=== PATIENT | female | born 1945 | race Caucasian/White ===

== ENCOUNTER 2017-05-01 08:12 | Observation (INO) | payer MEDICARE, OTHER ==
[2017-05-01 08:53] LABS: Hematocrit 44 % (35-47); Hemoglobin 15.1 g/dl (12.0-16.0); Mean Corpuscular HGB Conc 35 g/dl (31-36); Mean Corpuscular Hemoglobin 32 pg (27-31); Mean Corpuscular Volume 91 fL (80-97); Mean Platelet Volume 9 um3 (7.4-10.4); Red Blood Count 4.77 10^6/ul (4.0-5.4); Red Cell Distribution Width 13 % (10.5-15); White Blood Count 8.1 10^3/ul (3.5-10.8)
[2017-05-01] MEDS ORDERED: ceFAZolin 2 GM PREMIX (*) 50 ML IVPB ONE (09:00)
[2017-05-01 09:08] LABS: BUN/Creatinine Ratio 23.6 (8-20); Calcium 9.4 mg/dL (8.6-10.3); EGFR African American 101.8 (>60); EGFR Non-African American 79.2 (>60); Potassium 4.1 mmol/L (3.5-5.0)
[2017-05-01] MEDS ORDERED: Diazepam TAB(*) 5 MG ONE (09:24)
[2017-05-01] MEDS ORDERED: fentaNYL* 50 MCG/ML 2 ML VIAL (100 MCG VIAL) ONE (09:56)
[2017-05-01] MEDS ORDERED: Midazolam* 1 MG/ML 5 ML VIAL (5 MG) ONE (09:57)
[2017-05-01] MEDS ORDERED: Lidocaine 1% INJ* 10 MG/ML 30 ML SDV ONE (09:57)
[2017-05-01] MEDS ORDERED: Iohexol 300 (CONTRAST) 10 ML SDV ONE (09:58)
[2017-05-01] MEDS ORDERED: hydrOXYzine HCL TAB* 25 MG PO PRN (11:52)
[2017-05-01] MEDS ORDERED: Zolpidem TAB* 10 MG PO PRN (11:56)
--- NOTE | 2017-05-01 13:17 | RAD ---
INDICATION: Device implant COMPARISON: None TECHNIQUE: An AP portable view obtained at 1250 hours is submitted. FINDINGS: Bones/Soft Tissues: There are no acute bony findings. There is recent right-sided cardiac pacemaker placement. There is no pneumothorax Cardiomediastinal: The cardiomediastinal silhouette is normal. There is no vascular congestion Lungs: There are no infiltrates. There is no pneumothorax. Pleura: There are no pleural effusions. Other: None IMPRESSION: CARDIAC PACEMAKER. LUNGS CLEAR.
[2017-05-01] MEDS: Acetaminophen TAB* 325 MG PO PRN ×2 (14:24→20:05)
[2017-05-01] MEDS: ceFAZolin 500 MG VIAL(*) 500 MG in NS 0.9% 50 ML* 50 ML IVPB SCH (18:05)
[2017-05-01] MEDS: metFORMIN* 500 MG TAB PO SCH (20:05)
[2017-05-01] MEDS ORDERED: ATORVASTATIN 10 MG PO SCH (21:00)
[2017-05-01] MEDS ORDERED: GABAPENTIN 300 MG PO SCH (21:00)
[2017-05-02] MEDS: ceFAZolin 500 MG VIAL(*) 500 MG in NS 0.9% 50 ML* 50 ML IVPB SCH (01:28)
--- NOTE | 2017-05-02 04:59 | OP ---
CC: Dr. Angulo; Dr. Irene * DATE OF OPERATION: 05/01/17 - ROOM #[id number] DATE OF : 41 SURGEON: Flores Gibson MD ANESTHESIA: MAC. PRE-OP DIAGNOSIS: Sick sinus syndrome with chronotropic incompetence. POST-OP DIAGNOSIS: Sick sinus syndrome with chronotropic incompetence. OPERATIVE PROCEDURE: Pacemaker implantation. INDICATIONS: The indications, risks, and benefits have been discussed with the patient in the presence of her partner in the office and again this morning, prior to the procedure, opportunity was given to ask questions. All questions were answered. The patient was amenable to proceeding. ESTIMATED BLOOD LOSS: Less than 5 cc. COMPLICATIONS: None. DESCRIPTION OF PROCEDURE: She is left-handed and right subclavian fossa was prepped and draped in the usual sterile fashion. Following this, a time-out procedure was called. 10 cc of radiopaque dye was injected in the right upper extremity outlining the right subclavian and axillary veins. Following this, the patient received a total of 18 cc of 1% lidocaine for local anesthesia and throughout the procedure, a total of 5 mg of Versed and 50 mcg of fentanyl. Following the local anesthesia, using a 10-blade knife, a 2.5-cm incision was made in the right subclavian fossa and using Bovie and blunt dissection was extended to the level of the pectoralis muscle. A shelby was made in the fascia, additional lidocaine infused medially and laterally, and using blunt dissection , a small pocket was fashioned. Using a modified Seldinger technique, the right subclavian vein was accessed using fluoroscopic guidance, and a guidewire was inserted. This procedure was repeated with a second guidewire. The right ventricular lead was guided into the right ventricular apex and actively fixed in place. Pacing and sensing thresholds were adequate. Using a second lead and an introducer technique again, the right atrial lead was guided into the right atrial appendage. The first pass did not have adequate pacing thresholds, the active fixation lead was retracted and repositioned. Initially, the pacing thresholds were high, but improved with time. The leads were then sutured to the pocket using 0 silk suture. The pocket was copiously irrigated with normal saline. The leads were then attached to the device. The device was placed in the pocket and the pocket was closed using 2 layers of resorbable suture, 2-0 followed by 4-0 followed by steve and an external dressing. FINDINGS: The system is an MRI compatible system. The device is a [employer] A2DR01, serial number [id number]. Currently programmed in dual chamber mode at low rate of 60 beats per minute. The atrial lead is a Medtronic model -45, serial number [id number] with P waves sensed at 2.7 millivolts, and atrial lead impedance of 675 ohms and the atrial pacing threshold of 1.6 volts at 1 milliseconds. The right ventricular lead is a Medtronic MRI compatible model 5076-52, serial number [id number] with R waves sensed at 5.4 millivolts and ventricular lead impedance of 1279 ohms and a ventricular pacing threshold of 1 volt at 0.5 milliseconds. The patient was hemodynamically stable throughout the procedure and on transfer to the floor, and again no complications. [id number]/[facility] #: [id number] BETTE
[2017-05-02 07:40] VITALS: BP 158/64
[2017-05-02] MEDS: metFORMIN* 500 MG TAB PO SCH (07:51)
--- NOTE | 2017-05-02 08:39 | RAD ---
INDICATION: Status post device implant COMPARISON: Similar chest x-ray May 01, 2017 TECHNIQUE: PA and lateral views of the chest were obtained. FINDINGS: Again seen is a right upper chest cardiac pacemaker with 2 leads overlying the heart. Surgical skin steve are noted. The heart and mediastinum are normal in size and contour. The lungs are grossly clear. There is no evidence of large pleural effusion. Visualized bones are normal for the patient's age. There is no radiographic evidence of free air beneath the diaphragm IMPRESSION: No radiographic evidence of acute cardiopulmonary disease.
[2017-05-02] MEDS ORDERED: PANTOPRAZOLE 40 MG PO SCH (09:00)
[2017-05-02] MEDS ORDERED: AMLODIPINE 5 MG PO SCH (09:00)
[2017-05-02] MEDS ORDERED: Cetirizine* 10 MG TAB PO SCH (09:00)
[2017-05-02] MEDS ORDERED: FLUOXETINE 40 MG PO SCH (09:00)
--- NOTE | 2017-05-02 17:09 | DS ---
CC: Dr. Angulo; Dr. Irene * DISCHARGE SUMMARY: DATE OF ADMISSION: DATE OF DISCHARGE: 05/02/17 HISTORY OF PRESENT ILLNESS AND HOSPITAL COURSE: Ms. Olmstead is a 72-year-old woman referred to me by Dr. Irene for chronotropic incompetence and she underwent dual- chamber pacemaker implantation with an MRI compatible device on 05/01/17. Overnight, the patient had some mild incisional pain on the right side where her pacemaker was implanted and pain in the antecubital fossa where her IV was. This responded to repositioning. The site itself was nontender. On day of discharge, she had only mild tenderness at the site. The severe chest pain had resolved and the antecubital pain had improved once her arm was not flexed. She has had no shortness of breath and ambulating in the hallway and to the bathroom without problems. PROBLEM LIST: 1. Chronotropic incompetence with exertional dyspnea. 2. Reflux. 3. Hypertension. 4. Type 2 diabetes. 5. Dyslipidemia. 6. Mitral valve prolapse with mild mitral insufficiency. 7. Mild aortic valve stenosis and depression. On the day of discharge, on exam, the patient's blood pressure was 158/64. Pulse is 62 and regular. Respiratory rate was 16. Oxygen saturation on room air was 96% and temperature 98.0. PHYSICAL EXAMINATION: On exam, the patient is an older woman, in bed, in no acute distress. Psychologically pleasant and cooperative. Incision in the right subclavian fossa is well healed. No evidence of infection, ecchymosis, or hematoma. It is not tender to touch, although she complains that it is mildly tender. Respirations were clear with good effort. No wheezes, rales or rhonchi. Coronary: S1, S2, regular with a soft systolic murmur heard. Abdomen : Soft. DIAGNOSTIC STUDIES: Pacemaker interrogation from 05/02/17 confirms she has an MRI- compatible Medtronic system. She atrially paces 24% of the time, ventricularly paces 8% of the time. Atrial sensing is 1.6 mV with an atrial lead impedance of 456 ohms and an atrial pacing threshold of 0.75 volts at 0.4 milliseconds. R-wave sensing is 5.6 millivolts with ventricular lead impedance of 7.98 ohms and a ventricular pacing threshold of 1 volt at 0.4 milliseconds. The patient's discharge programming is MVP mode (AAIR/DDDR) with a low rate of 60 beats a minute. Chest x-rays show good lead placement and no evidence of pneumothorax on 05/01 and 05/02. Labs from 05/01: White count 8.1, hemoglobin 15.1, hematocrit 44, and platelets 270, INR 0.94, PTT 30. Sodium 136, potassium 4.1, chloride 104, bicarb 24, glucose 161, BUN 17, creatinine 0.7. MEDICATIONS ON DISCHARGE: Include: 1. Tylenol p.r.n. 2. Atorvastatin 10 mg a day. 3. Zyrtec 10 mg a day. 4. Prozac 40 mg a day. 5. Neurontin 300 mg q.h.s. 6. Protonix 40 mg a day. 7. Amlodipine 5 mg a day. 8. Atarax 25 mg t.i.d. p.r.n. 9. Metformin 500 mg b.i.d. 10. Calcium carbonate and vitamin D. 11. Keflex 250 mg t.i.d. 12. Lactobacillus capsules. 13. Multivites. Her Celebrex will be held until her wound check, but tentatively will be able to be resumed in a week (100 mg a day). Verbal and written instructions about wound care was provided to patient. She is scheduled for wound check in 1 week's time. [id number]/[facility] #: [id number] MTDD
== END 2017-05-02 10:43 | disposition home or self-care (01) ==
LOC: CHICATH 08:12 → MEDTELE 11:57
PROVIDERS: ADMIT Specialist; ATTEND Specialist
DX: I45.89 Other specified conduction disorders (principal); I49.5 Sick sinus syndrome; I10 Essential (primary) hypertension; I34.1 Nonrheumatic mitral (valve) prolapse; I34.0 Nonrheumatic mitral (valve) insufficiency; I35.0 Nonrheumatic aortic (valve) stenosis; E78.5 Hyperlipidemia, unspecified; E11.8 Type 2 diabetes mellitus with unspecified complications; Z79.84 Long term (current) use of oral hypoglycemic drugs; Z79.899 Other long term (current) drug therapy
CPT/HCPCS: 33208; 36415; 71010; 71020; 80048; 85027; 85610; 85730; 93005; 96374; 99156; 99157; A9270-GY; C1785; C1898; G0378; J0690; J2001; J2250; J3010; Q9967

== ENCOUNTER 2017-11-18 15:02 | Emergency (ER) | payer MEDICARE, OTHER ==
[2017-11-18 15:38] VITALS: BP 133/95
--- NOTE | 2017-11-18 15:40 | UC ---
Minor Trauma HPI - HPI Summary HPI Summary: Pt presents with abrasions to nose, right wrist pain, and left knee pain s/p fall about 1 hour [employer]. She tells me that she was walking her dog and went to run ahead of him - fell face forward and injured her right wrist and left knee. Slide her nose on the ground. Did not hit her head or have LOC. She went home and cleaned the areas and applied bandaids. Here today complaining mostly of right wrist pain. Denies headache, dizziness, vision changes, numbness, or tingling. - History of Current Complaint Hx Obtained From: Patient Hx Last Menstrual Period: post menopause Onset/Duration: Sudden Onset Severity Initially: Moderate Severity Currently: Moderate Pain Intensity: 5 Pain Scale Used: 0-10 Numeric Mechanism Of Injury: Fall From A Standing Position Aggravating Factor(s): Movement Alleviating Factor(s): Nothing <Ivan Stern - Last Filed: 11/18/17 17:06> <Terrie Ivan - Last Filed: 11/18/17 17:34> - History of Current Complaint Chief Complaint: UCTrauma Stated Complaint: WRIST AND FACIAL INJURY Time Seen by Provider: 11/18/17 15:30 - Allergies/Home Medications Allergies/Adverse Reactions: Allergies Allergy/AdvReac Type Severity Reaction Status Date / Time No Known Allergies Allergy Verified 05/01/17 09:36 PMH/Surg Hx/FS Hx/Imm Hx Previously Healthy: Yes Endocrine History: Diabetes, Dyslipidemia Cardiovascular History: Hypertension GI/ History: Gastroesophageal Reflux - Surgical History Surgical History: Yes Surgery Procedure, Year, and Place: BREAST REDUCTION,HYSTERECTOMY - Family History Known Family History: Positive: Cardiac Disease, Hypertension, Diabetes - Social History Occupation: Retired Lives: With Family Alcohol Use: Weekly Substance Use Type: None Smoking Status (MU): Never Smoked Tobacco <Ivan Stern - Last Filed: 11/18/17 17:06> Review of Systems Constitutional: Negative Skin: Other - Abrasions nose and left knee Respiratory: Negative Cardiovascular: Negative Gastrointestinal: Negative Neurovascular: Negative Musculoskeletal: Other: - Right wrist pain Neurological: Negative Psychological: Negative All Other Systems Reviewed And Are Negative: Yes <Ivan Stern - Last Filed: 11/18/17 17:06> Physical Exam - Summary Physical Exam Summary: GENERAL: NAD. WDWN. No pain distress. SKIN: <5mm abrasion to nasal bridge. Abrasion to left anterior knee. No FBs. NECK: Supple. Nontender. No lymphadenopathy. CHEST: CTAB. No r/r/w. No accessory muscle use. Breathing comfortably and in no distress. CV: RRR. Without m/r/g. Pulses intact radial and ulnar. MSK: Right wrist: Moderate TTP generalized. No snuffbox tenderness. FROM. Intact wire stripper strength. No edema or obvious bony deformities. Left knee: NTTP. FROM. Strength 5/5. No obvious deformity. NEURO: Alert. Sensations intact hand and all fingers. CN II-XII grossly intact. PSYCH: Age appropriate behavior. Triage Information Reviewed: Yes Vital Signs: Initial Vital Signs Temp 95.5 F 11/18/17 15:31 Pulse 68 11/18/17 15:31 Resp 16 11/18/17 15:31 BP 133/95 11/18/17 15:31 Pulse Ox 98 11/18/17 15:31 <Ivan Stern - Last Filed: 11/18/17 17:06> Vital Signs: Initial Vital Signs Temp 95.5 F 11/18/17 15:31 Pulse 68 11/18/17 15:31 Resp 16 11/18/17 15:31 BP 133/95 11/18/17 15:31 Pulse Ox 98 11/18/17 15:31 <Terrie Ivan - Last Filed: 11/18/17 17:34> Minor Trauma Course/Dx - Course Course Of Treatment: Wrist XR: IMPRESSION: Normal radiograph of the right wrist. Knee XR: IMPRESSION: Mild degenerative changes without radiographically apparent acute fracture or dislocation. Right wrist was placed in a cock up splint. Advised RICE, ibuprofen, and f/u with PCP prn. - Differential Dx/Diagnosis Provider Diagnoses: Right wrist sprain. Facial abrasion. Left knee abrasion <Ivan Stern - Last Filed: 11/18/17 17:06> Discharge <Ivan Stern - Last Filed: 11/18/17 17:06> <Terrie Ivan - Last Filed: 11/18/17 17:34> - Discharge Plan Condition: Stable Disposition: HOME Patient Education Materials: Abrasion (ED), Wrist Sprain (ED) Referrals: Arnoldo Angulo DO [Primary Care Provider] - Additional Instructions: If you develop a fever, shortness of breath, chest pain, new or worsening symptoms - please call your PCP or go to the ED. Your blood pressure was high at todays visit. Please see your primary provider within 4 weeks for recheck and re-evaluation. Attestation Statement User Type: Provider - I was available for consult. This patient was seen by the TORRIE. The patient was not presented to, seen by, or examined by me. Stephanie <Terrie Ivan - Last Filed: 11/18/17 17:34>
--- NOTE | 2017-11-18 16:19 | RAD ---
INDICATION: Left knee pain after a fall COMPARISON: None TECHNIQUE: 4 view radiograph of the left knee. FINDINGS: The visualized bones are well-corticated and properly aligned. Degenerative changes of the left knee include narrowing of the medial compartment with mild sclerotic change of the articulating surface of the tibial plateau. There is no radiographic evidence of joint effusion. There is no acute fracture, dislocation or other focal bony abnormality. IMPRESSION: Mild degenerative changes without radiographically apparent acute fracture or dislocation. If the patient's symptoms persist, follow-up imaging is recommended.
--- NOTE | 2017-11-18 16:20 | RAD ---
INDICATION: Right wrist pain after a fall COMPARISON: None. TECHNIQUE: 3 views right wrist. REPORT: The visualized bones are properly aligned and well corticated. The joint spaces are normal.There is no fracture, dislocation or other focal osseous abnormality. IMPRESSION: Normal radiograph of the right wrist. If the patient's symptoms persist, follow-up imaging is recommended.
== END 2017-11-18 16:55 | disposition home or self-care (01) ==
LOC: UCEAST 15:02
DX: S63.501A Unspecified sprain of right wrist, initial encounter (principal); S80.212A Abrasion, left knee, initial encounter; S00.31XA Abrasion of nose, initial encounter; W18.30XA Fall on same level, unspecified, initial encounter; Y93.K1 Activity, walking an animal; Y92.9 Unspecified place or not applicable; E11.9 Type 2 diabetes mellitus without complications; Z79.84 Long term (current) use of oral hypoglycemic drugs; E78.5 Hyperlipidemia, unspecified; I10 Essential (primary) hypertension; K21.9 Gastro-esophageal reflux disease without esophagitis
CPT/HCPCS: 99213; G0463

== ENCOUNTER 2018-08-30 18:39 | Emergency (ER) | payer MEDICARE, OTHER ==
[2018-08-30 19:54] VITALS: BP 157/73
[2018-08-30] MEDS ORDERED: guaiFENesin/CODIEN 100MG-10MG* 5 ML UDC PO ONE (20:23)
--- NOTE | 2018-08-30 20:23 | UC ---
Respiratory Complaint HPI - HPI Summary HPI Summary: c/o cough no fevers no sob gets this almost yearly---here requesting robitussin and codeine for cough--- - History of Current Complaint Chief Complaint: UCRespiratory Stated Complaint: COUGH Time Seen by Provider: 08/30/18 20:12 Hx Obtained From: Patient Hx Last Menstrual Period: post menopause ?: No Onset/Duration: Sudden Onset, Lasting Days Timing: Constant Pain Intensity: 3 Pain Scale Used: 0-10 Numeric Character: Cough: Nonproductive Aggravating Factors: Nothing Alleviating Factors: Nothing Associated Signs And Symptoms: Positive: Negative - Allergies/Home Medications Allergies/Adverse Reactions: Allergies Allergy/AdvReac Type Severity Reaction Status Date / Time No Known Allergies Allergy Verified 05/01/17 09:36 Home Medications: Home Medications GuaiFENesin DM* [Robitussin DM*] 10 ml PO DAILY 08/30/18 [History Confirmed ] PMH/Surg Hx/FS Hx/Imm Hx Endocrine History: Dyslipidemia Cardiovascular History: Hypertension GI/ History: Gastroesophageal Reflux - Surgical History Surgical History: Yes Surgery Procedure, Year, and Place: BREAST REDUCTION,HYSTERECTOMY - Family History Known Family History: Positive: Cardiac Disease, Hypertension, Diabetes - Social History Occupation: Retired Lives: With Family Alcohol Use: Weekly Substance Use Type: None Smoking Status (MU): Never Smoked Tobacco Review of Systems All Other Systems Reviewed And Are Negative: Yes Constitutional: Positive: Negative Skin: Positive: Negative Eyes: Positive: Negative ENT: Positive: Negative Respiratory: Positive: Cough Cardiovascular: Positive: Negative Gastrointestinal: Positive: Negative Genitourinary: Positive: Negative Motor: Positive: Negative Neurovascular: Positive: Negative Musculoskeletal: Positive: Negative Neurological: Positive: Negative Psychological: Positive: Negative Is Patient Immunocompromised?: No Physical Exam Triage Information Reviewed: Yes Appearance: Well-Appearing, No Pain Distress, Well-Nourished Vital Signs: Initial Vital Signs Temp 98.5 F 08/30/18 19:51 Pulse 86 08/30/18 19:51 Resp 18 08/30/18 19:51 BP 157/73 08/30/18 19:51 Pulse Ox 96 08/30/18 19:51 Vital Signs Reviewed: Yes Eye Exam: Normal Eyes: Positive: Conjunctiva Clear ENT Exam: Normal ENT: Positive: Normal ENT inspection, Hearing grossly normal, Pharynx normal, TMs normal, Uvula midline. Negative: Nasal congestion, Trismus, Muffled voice, Hoarse voice, Sinus tenderness Dental Exam: Normal Neck exam: Normal Neck: Positive: Supple, Nontender, No Lymphadenopathy Respiratory Exam: Normal Respiratory: Positive: Chest non-tender, Lungs clear, Normal breath sounds, No respiratory distress, No accessory muscle use Cardiovascular Exam: Normal Cardiovascular: Positive: RRR, No Murmur, Pulses Normal, Brisk Capillary Refill Musculoskeletal Exam: Normal Musculoskeletal: Positive: Strength Intact, ROM Intact, No Edema Neurological Exam: Normal Neurological: Positive: Alert, Muscle Tone Normal Psychological Exam: Normal Skin Exam: Normal Diagnostic Evaluation - Laboratory O2 Sat by Pulse Oximetry: 96 Respiratory Course/Dx - Course Course Of Treatment: increase fluids, tylenol, ibuprofen for pain robitusssin and codiene prn cough follow with pcp prn - Differential Dx/Diagnosis Provider Diagnosis: URI with cough and congestion Discharge - Sign-Out/Discharge Documenting (check all that apply): Patient Departure All imaging exams completed and their final reports reviewed: No Studies - Discharge Plan Condition: Stable Disposition: HOME Prescriptions: guaiFENesin/CODIEN 100MG-10MG* [Robitussin AC 100Mg-10Mg*] 5 ml PO Q4H PRN #90 udc MDD 40 PRN Reason: cough Patient Education Materials: Upper Respiratory Infection (ED), Hypertension (ED ), Acute Cough (ED) Referrals: Arnoldo Angulo DO [Primary Care Provider] - 2 Weeks - Billing Disposition and Condition Condition: STABLE Disposition: Home
== END 2018-08-30 20:37 | disposition home or self-care (01) ==
LOC: UCCORT 18:39
DX: J06.9 Acute upper respiratory infection, unspecified (principal); R05 Cough; R09.81 Nasal congestion
CPT/HCPCS: 99212; A9270-GY; G0463

== ENCOUNTER 2018-10-21 07:30 | Inpatient (IN) | payer MEDICARE, OTHER ==
--- NOTE | 2018-10-16 10:13 | HP ---
AMENDED REPORT NOW INCLUDES COSIGNER DESIGNATION HISTORY AND PHYSICAL: DATE OF SURGERY: 10/21/18 DATE OF OFFICE VISIT: 10/15/18 SURGEON: Christiana Willoughby MD.* (DICTATED BY KRISTAL AMADOR) PROCEDURE: Right total hip arthroplasty. CHIEF COMPLAINT: Right hip pain. HISTORY OF PRESENT ILLNESS: Ms. Olmstead is a 73-year-old female with continued complaints of right hip pain. She has failed conservative treatment and elected to proceed with a right total hip arthroplasty. PAST MEDICAL HISTORY: Depression, GERD, hypertension, mild asthma, diabetes, high cholesterol, pacemaker, and fibromyalgia. PAST SURGICAL HISTORY: Endoscopy, cholecystectomy, rhinoplasty, pacemaker placement, and hysterectomy. CURRENT MEDICATIONS: 1. Amlodipine 10 mg daily. 2. Fluoxetine 40 mg daily. 3. Pantoprazole 40 mg daily. 4. Celebrex 100 mg daily. 5. Vitamin B12. 6. Metformin 500 mg twice a day. 7. Multivitamin. 8. Atorvastatin calcium 20 mg a day. 9. Hydroxyzine 25 mg 1 to 2 tabs 3 times a day as needed. 10. Temazepam 7.5 mg as needed. 11. Gabapentin 100 mg twice a day. 12. Calcium with vitamin D. 13. Cetirizine. ALLERGIES: No known drug allergies. FAMILY HISTORY: Diabetes, coronary artery disease, stroke, and cancer. SOCIAL HISTORY: She is a 73-year-old female. She lives with her . She does not smoke or use drugs. Uses occasional alcohol. REVIEW OF SYSTEMS: A complete 14-point review of systems was reviewed with the patient, positive for diabetes and GERD. She denies a history of DVT, PE, hepatitis, HIV, or anesthesia problems. PHYSICAL EXAMINATION GENERAL: She is well developed, well nourished, in no acute distress. VITAL SIGNS: She stands 5 feet 3 inches tall, weighs 162 pounds. Her blood pressure is 118/72, her heart rate is 78. HEENT: Normocephalic, atraumatic. NECK: Supple. No palpable lymph nodes. PULMONARY: The lungs are clear to auscultation bilaterally. CARDIO: Regular rate and rhythm. Strong S1, S2. ABDOMEN: Soft, nontender, nondistended. NEUROLOGICAL: She is alert and oriented x3. MUSCULOSKELETAL: Right lower extremity, skin is intact. There are no open wounds or abrasions. She walks with an antalgic-type gait favoring her right hip. She has decreased internal and external rotation of the right hip. She has 2+ dorsalis pedis pulse. Intact sensation. Her lower extremity muscle group strengths are intact at 5/5. ASSESSMENT AND PLAN: Ms. Olmstead is a 73-year-old female with continued complaints of right hip pain. She has failed conservative treatment and elected to proceed with a right total hip arthroplasty. The surgery is scheduled for 10/21/[address] Willoughby discussed the risks and benefits of the surgery at today's visit and all of her questions were answered. She will follow up with Dr. Willoughby 2 weeks after the surgery. KRISTAL AMADOR [id number]/[facility] #: [id number] MTDD
[~2018-10-21 07:30] MED LIST: Buffered Lidocaine 1% SYRIN* 1 ML/SYRINGE INTRADERM ONE; Famotidine IV* 10 MG/ML 2 ML (20 mg) IV ONE; Gabapentin CAP(*) 300 MG PO ONE; Lactated Ringers 1000 ML Bag* 1,000 ML IV SCH
--- OUTSIDE RECORDS SUMMARY | 2018-10-21 09:48 | XMS REPORT | Continuity of Care Document ---
:1945 External Reference #:[id number] Author Name Andria Medellin Care Team Providers Name Role Phone Talat Orellana DO Primary Care Physician Unavailable Payers Date Identification Numbers Payment Provider Subscriber Effective: 2008 Policy Number: [id number] Medicare Yessica Olmstead PayID: [id number] [address] [place] [address] Policy Number: [id number] [employer] Yessica Olmstead Group Number: [id number] [address] PayID: [id number] [place] [address] Advance Directives Description No Information Available Problems Date Description Provider Status Onset: 07/07/2018 Trochanteric bursitis Christiana Willoughby M.D. 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 Active Family History Date Family Member(s) Observation Comments General Heart Disease General Stroke General Cancer Father due to Stroke () - at age 72 Father Hypertension Mother due to Diabetes () - from complication during amputation surgery at age 72 Mother Diabetes Type II Siblings 7 1 brother with pneumonia No known CAD w/ siblings Social History Type Date Description Comments Sex Unknown Marital Status Lives With Spouse Occupation Retired Occupation Piano Accompanist Tobacco Use Start: Unknown Never Smoked Cigarettes Smoking Status Reviewed: 10/15/18 Never Smoked Cigarettes ETOH Use Drinks 2 Alcoholic Beverages Per Week ETOH Use Drinks Alcoholic Beverages Occasionally Tobacco Use Start: Unknown Patient has never smoked Recreational Drug Use Denies Drug Use Exercise Type/Frequency Does not exercise Allergies, Adverse Reactions, Alerts Date Description Reaction Status Severity Comments 09/25/2018 Lisinopril Active Cough 10/24/2016 NKDA Inactive Medications Medication Date Status Form Strength Qnty SIG Indications Ordering Provider Amlodipine 03/21/ Active Tablets 10mg 1 by Mona Daly Besylate 2018 mouth Foster, every day N.P. Fluoxetine HCL // Active Capsules 40mg 1 by Unknown 0000 mouth every day Pantoprazole / Active Tablets DR 40mg 1 by Unknown Sodium 0000 mouth every day Celebrex / Active Capsules 100mg 1 tab by Unknown 0000 mouth daily Vitamin B-12 / Active Tablets 1000mcg 1 by Unknown 0000 mouth every day Metformin HCL / Active Tablets 500mg 1 by Unknown 0000 mouth twice a day Multivitamin // Active daily Unknown 0000 Atorvastatin / Active Tablets 10mg 180tab take 2 Unknown Calcium 0000 s tablet daily Hydroxyzine HCL / Active Tablets 25mg 1-2 Unknown 0000 tablets by mouth 3x daily as needed for itching Temazepam / Active Capsules 7.5mg prn Unknown 0000 Gabapentin / Active Capsules 100mg 1 capsule Unknown 0000 po twice daily Calcium + D / Active Tablets 1 tab my Unknown 0000 mouth daily Cetirizine HCL / Active Tablets 10mg 1 by Unknown 0000 mouth every day Probiotic // Hx Capsules daily Unknown 0000 - 2018 Amlodipine // Hx Tablets 5mg 1 by Unknown Besylate 0000 - mouth 03/21/ day 2017 Cyclobenzaprine // Hx Tablets 10mg prn Unknown HCL 0000 - 2016 Vitamin B12 /00/ Hx Tablets ER 1000mcg 1 by Unknown 0000 - mouth 03/04/ 2016 Melatonin ER /00/ Hx Tablets ER 10mg 2 tabs by Unknown 0000 - mouth 2016 night at bedtime as needed Macon Leg / Hx 2 tablet Unknown Cramps OTC 0000 - po PM 2017 Medications Administered in Office Medication Date Status Form Strength Qnty SIG Indications Ordering Provider Inj, Administered Injection Oscar Reid Regadenoson, 017 Liane Oh 0.1 MG Technetium TC Administered Injection Oscar Reid 99M 017 Liane Oh Tetrofosmin, Per Unit Dose Up To 40 Millicuries Immunizations Description No Information Available Vital Signs Date Vital Result Comment 10/15/2018 9:23am Height 64 inches 5'4" Weight 162.00 lb Heart Rate 78 /min BP Systolic 118 mmHg BP Diastolic 72 mmHg Respiratory Rate 12 /min Body Temperature 98.5 F Pain Level 0 BMI (Body Mass Index) 27.8 kg/m2 09/25/2018 3:23pm Height 64 inches 5'4" Weight 162.25 lb Heart Rate 72 /min BP Systolic Sitting 124 mmHg BP Diastolic Sitting 74 mmHg BMI (Body Mass Index) 27.8 kg/m2 Ejection Fraction 55-60% echo 11/14/16 07/07/2018 3:03pm Height 64 inches 5'4" Weight 160.00 lb Heart Rate 74 /min BP Systolic 118 mmHg BP Diastolic 54 mmHg Body Temperature 97.7 F Pain Level 6 BMI (Body Mass Index) 27.5 kg/m2 03/20/2018 1:12pm Height 64 inches 5'4" Weight 162.00 lb Heart Rate 68 /min BP Systolic Sitting 132 mmHg lue reg cuff BP Diastolic Sitting 62 mmHg lue reg cuff BP Systolic Standing 130 mmHg BP Diastolic Standing 64 mmHg Respiratory Rate 16 /min BMI (Body Mass Index) 27.8 kg/m2 Ejection Fraction 55-60% 11/14/2016 echo 01/13/2018 2:27pm Height 64 inches 5'4" Weight 161.00 lb w/o shoes Heart Rate 66 /min BP Systolic Sitting 150 mmHg LA reg cuff BP Diastolic Sitting 74 mmHg LA reg cuff BP Systolic Standing 142 mmHg la repeat sitting BP Diastolic Standing 79 mmHg la repeat sitting BMI (Body Mass Index) 27.6 kg/m2 Ejection Fraction 59% Stress Test 03/21/17 08/05/2017 1:15pm Height 64 inches 5'4" Weight 161.00 lb with shoes Heart Rate 80 /min BP Systolic Sitting 150 mmHg LA reg cuff BP Diastolic Sitting 84 mmHg LA reg cuff BP Systolic Standing 142 mmHg la repeat sitting BP Diastolic Standing 81 mmHg la repeat sitting BMI (Body Mass Index) 27.6 kg/m2 Ejection Fraction 55% - 60% echo 11/14/16 05/09/2017 8:11am Height 64 inches 5'4" Weight 159.00 lb with shoes Heart Rate 62 /min BP Systolic Sitting 140 mmHg Lue reg cuff BP Diastolic Sitting 80 mmHg Lue reg cuff Respiratory Rate 16 /min BMI (Body Mass Index) 27.3 kg/m2 Ejection Fraction 55-60% date 11/14/16 ECHO 04/11/2017 3:37pm Height 64 inches 5'4" Weight 159.00 lb with shoes Heart Rate 72 /min BP Systolic Sitting 130 mmHg Lue reg cuff BP Diastolic Sitting 80 mmHg Lue reg cuff BP Systolic Standing 136 mmHg Lue reg cuff BP Diastolic Standing 84 mmHg Lue reg cuff Respiratory Rate 17 /min BMI (Body Mass Index) 27.3 kg/m2 Ejection Fraction 55-60% date 11/14/16 ECHO 03/05/2017 12:52pm Height 64 inches 5'4" Weight 161.00 lb without shoes Heart Rate 56 /min BP Systolic Sitting 150 mmHg Lue reg cuff BP Diastolic Sitting 78 mmHg Lue reg cuff BP Systolic Standing 148 mmHg Lue reg cuff BP Diastolic Standing 80 mmHg Lue reg cuff Respiratory Rate 16 /min BMI (Body Mass Index) 27.6 kg/m2 Ejection Fraction 55-60% date 11/14/16 ECHO 10/25/2016 1:32pm Height 64 inches 5'4" Weight 162.50 lb w/shoes Heart Rate 68 /min BP Systolic Sitting 128 mmHg LA reg cuff BP Diastolic Sitting 64 mmHg LA reg cuff BMI (Body Mass Index) 27.9 kg/m2 Results Test Date Facility Test Result H/L Range Note Comp Metabolic Panel 03/24/2018 [facility] Sodium 140 mmol/L N 135-145 [address] [place] [address] [phone] Potassium 4.4 mmol/L N 3.5-5.0 Chloride 103 mmol/L N 101-111 Co2 Carbon Dioxide 29 mmol/L N 22-32 Anion Gap 8 mmol/L N 2-11 Glucose 146 mg/dL High 70-100 Blood Urea Nitrogen 17 mg/dL N 6-24 Creatinine 0.67 mg/dL N 0.51-0.95 BUN/Creatinine Ratio 25.4 High 8-20 Calcium 9.4 mg/dL N 8.6-10.3 Total Protein 6.8 g/dL N 6.4-8.9 Albumin 4.1 g/dL N 3.2-5.2 Globulin 2.7 g/dL N 2-4 Albumin/Globulin Ratio 1.5 N 1-3 Total Bilirubin 0.60 mg/dL N 0.2-1.0 Alkaline Phosphatase 104 U/L N 34-104 Alt 43 U/L N 7-52 Ast 31 U/L N 13-39 Egfr Non- 85.8 >60 Egfr 103.8 >60 1 Lipid Profile 03/24/2018 [facility] Triglycerides 190 mg/dL 2 (Trig/Chol/HDL) [address] [place] [address] [phone] Cholesterol 167 mg/dL 3 HDL Cholesterol 56.1 mg/dL 4 LDL Cholesterol 73 mg/dL 5 Laboratory test 03/24/2018 [facility] Creatine 51 U/L N 10- [address] [employer]CK) [place] [address] [phone] Lipid Panel - 03/20/2018 [facility] Creatine <pending> [facility] [address] [place] [address] [phone] Inr/Protime 05/01/2017 [facility] Inr 0.94 N 0.89-1.[address] [place] [address] [phone] Laboratory test 05/01/2017 [facility] Partial Thrombo 30.0 N 26.0-36.[address] [place] [place] [address] [phone] CBC No Diff 05/01/2017 [facility] White Blood 8.1 10^3/uL N 3.5-10.[address] [place] [address] [phone] Red Blood Count 4.77 10^6/uL N 4.0-5.4 Hemoglobin 15.1 g/dL N 12.0-16.0 Hematocrit 44 % N 35-47 Mean Corpuscular Volume 91 fL N 80-97 Mean Corpuscular Hemoglobin 32 pg High 27-31 Mean Corpuscular HGB Conc 35 g/dL N 31-36 Red Cell Distribution Width 13 % N 10.5-15 Platelet Count 270 10^3/uL N 150-450 Mean Platelet Volume 9 um3 N 7.4-10.4 Basic Metabolic Panel 05/01/2017 [facility] Sodium 136 mmol/L N 133-[address] [place] [address] [phone] Potassium 4.1 mmol/L N 3.5-5.0 Chloride 104 mmol/L N 101-111 Co2 Carbon Dioxide 24 mmol/L N 22-32 Anion Gap 8 mmol/L N 2-11 Glucose 161 mg/dL High 70-100 Blood Urea Nitrogen 17 mg/dL N 6-24 Creatinine 0.72 mg/dL N 0.51-0.95 BUN/Creatinine Ratio 23.6 High 8-20 Calcium 9.4 mg/dL N 8.6-10.3 Egfr Non- 79.2 N >60 Egfr 101.8 N >60 7 Order 03/21/2017 [facility] < pending> [address] [place] [address] [phone] 1 Because ethnic data is not always readily available, this report includes an eGFR for both -Americans and non- Americans. The National Kidney Disease Education Program (NKDEP) does not endorse the use of the MDRD equation for patients that are not between the ages of 18 and 70, are , have extremes of body size, muscle mass, or nutritional status, or are non- or non-. According to the National Kidney Foundation, irrespective of diagnosis, the stage of the disease is based on the level of kidney function: Stage Description GFR(mL/min/1.73 m(2)) 1 Kidney damage with normal or decreased GFR 90 2 Kidney damage with mild decrease in GFR 60-89 3 Moderate decrease in GFR 30-59 4 Severe decrease in GFR 15-29 5 Kidney failure <15 (or dialysis) 2 Desirable: <150 Borderline High: 150-199 High: 200-499 Very High: >500 3 Desirable: <200 Borderline High: 200-239 High: >239 4 Low: <40 Desirable: 40-60 High: >60 5 Desirable: <100 Near Optimal: 100-129 Borderline High: 130-159 High: 160-189 Very High: >189 6 FASTING in 6 weeks cc pmd Copy Result to: TALAT ORELLANA ([id number]) 7 Because ethnic data is not always readily available, this report includes an eGFR for both -Americans and non- Americans. The National Kidney Disease Education Program (NKDEP) does not endorse the use of the MDRD equation for patients that are not between the ages of 18 and 70, are , have extremes of body size, muscle mass, or nutritional status, or are non- or non-. According to the National Kidney Foundation, irrespective of diagnosis, the stage of the disease is based on the level of kidney function: Stage Description GFR(mL/min/1.73 m(2)) 1 Kidney damage with normal or decreased GFR 90 2 Kidney damage with mild decrease in GFR 60-89 3 Moderate decrease in GFR 30-59 4 Severe decrease in GFR 15-29 5 Kidney failure <15 (or dialysis) Procedures Date Code Description Status 10/01/2018 30157 ECHO Transthoracic, Real-Time 2D With Doppler And Color Completed Flow 10/01/2018 13230 ECHO Transthoracic, Real-Time 2D With Doppler And Color Completed Flow 09/25/2018 14841 EKG Tracing & Interpretation Completed 05/20/2018 78255 Pace Maker Eval W/Iterative Adjment Dual Lead Completed 05/20/2018 73025 Pace Maker Eval W/Iterative Adjment Dual Lead Completed 01/13/2018 19342 EKG Tracing & Interpretation Completed 11/11/2017 76827 Pace Maker Eval W/Iterative Adjment Dual Lead Completed 11/11/2017 93452 Pace Maker Eval W/Iterative Adjment Dual Lead Completed 08/28/2017 57722 Pace Maker Eval W/Iterative Adjment Dual Lead Completed 08/05/2017 31139 EKG Tracing & Interpretation Completed 05/28/2017 62805 Pace Maker Eval W/Iterative Adjment Dual Lead Completed 05/02/2017 44188 EKG, Interpretation Only Completed 05/02/2017 07733 Pace Maker Eval W/Iterative Adjment Dual Lead Completed 05/01/2017 83080 EKG, Interpretation Only Completed 05/01/2017 61031 Perm Pacemaker Av Sequential Atrial And Ventricular Completed 03/21/2017 46718 Stress Test Completed 03/21/2017 97493 Myocardial Perfusion Imaging Tomographic (Spect) Multiple Completed Studies 02/16/2017 14574 Holter Monitor Review (24 hr)dr review & interp only Completed 02/14/2017 35028 ECG Monitor/Recording W/Visual Superimposition Scanning Completed 12/06/2016 46514 ECHO Stress Test Incl Perf Contiuous ekg Monitoring W/Phys Completed Superv 11/14/2016 65938 ECHO Transthoracic, Real-Time 2D With Doppler And Color Completed Flow 10/25/2016 93157 EKG Tracing & Interpretation Completed 07/21/2012 09096 Rad Exam; Hip Unilat Completed 07/21/2012 15531 Rad Exam; Pelvis Completed Encounters Type Date Location Provider Dx Diagnosis Office Visit 09/25/2018 [facility] I49.5 Sick sinus 3:40p Liane Irene syndrome Z95.0 Presence of cardiac pacemaker I35.0 Nonrheumatic aortic (valve) stenosis I10 Essential (primary) hypertension E78.00 Pure hypercholesterolemia, unspecified Office Visit 07/07/2018 2:30p [facility] Christiana Willoughby, M25.551 Pain in right Of C.M.A. M.D. hip M16.11 Unilateral primary osteoarthritis, right hip M70.61 Trochanteric bursitis, right hip Office Visit 03/20/2018 1:30p [facility] Mona Abdullahi I49.5 Sick sinus Of [employer] syndrome I35.0 Nonrheumatic aortic (valve) stenosis I10 Essential (primary) hypertension E78.00 Pure hypercholesterolemia, unspecified Office Visit 01/13/2018 2:40p [facility] I49.5 Sick sinus Liane Irene syndrome I35.0 Nonrheumatic aortic (valve) stenosis I10 Essential (primary) hypertension E11.9 Type 2 diabetes mellitus without complications E78.00 Pure hypercholesterolemia, unspecified Office Visit 08/05/2017 1:20p [facility] R06.00 Dyspnea, Liane Irene unspecified I49.5 Sick sinus syndrome Z95.0 Presence of cardiac pacemaker I34.0 Nonrheumatic mitral (valve) insufficiency Office Visit 04/11/2017 4:00p [facility] Flores Gibson, R06.00 Dyspnea, Of [place]ad[place] unspecified I49.5 Sick sinus syndrome R09.89 Oth symptoms and signs involving the circ and resp systems Office Visit 03/05/2017 1:00p [facility] Peggy Moore, I45.89 Other specified Of [facility] conduction disorders R06.00 Dyspnea, unspecified I34.0 Nonrheumatic mitral (valve) insufficiency I35.0 Nonrheumatic aortic (valve) stenosis I10 Essential (primary) hypertension Office Visit 10/25/2016 2:00p [facility] Boom SavagePiyush R06.00 Dyspnea, Liane Irene unspecified R01.1 Cardiac murmur, unspecified I10 Essential (primary) hypertension E78.00 Pure hypercholesterolemia, unspecified E11.9 Type 2 diabetes mellitus without complications I34.0 Nonrheumatic mitral (valve) insufficiency I49.5 Sick sinus syndrome R07.9 Chest pain, unspecified R94.31 Abnormal electrocardiogram [ECG] [EKG] Office Visit 07/21/2012 2:45p [facility] David Watkins, 726.5 [facility] 727.09 Synovitis & Tenosynovitis Other 727.09 Synovitis & Tenosynovitis Other Plan of Treatment Future Appointment(s):11/03/2018 2:45 pm - Christiana Willoughby M.D. at [facility]10/21/2018 1:30 pm - Gianni Hansen PA-C at [facility]10/21/2018 1:30 pm - KRISTAL Jurado at [facility]10/21/2018 1:30 pm - [facility] Willough[facility]10/15/2018 - Christiana Willoughby M.D.M25.551 Pain in right hipFollow up:Follow up: 2 weeks after squvmcaK23.11 Unilateral primary osteoarthritis, right hip
--- OUTSIDE RECORDS SUMMARY | 2018-10-21 09:48 | XMS REPORT | Continuity of Care Document ---
:1945 External Reference #:[id number] Author Name Talat Orellana D.O. Address [address] [place] [address] Care Team Providers Name Role Phone HCP/LW on file Primary Care Physician Unavailable Payers Type Date Identification Numbers Payment Provider Subscriber Effective: Policy Number: [id number] [facility] Lizeth Allen Rogerspraveen 2008 Services PayID: [id number] [address] [place] [address] Policy Number: [id number] [facility] Lizeth Allen Ishan PayID: [id number] [address] [place] [address] Advance Directives Description No Information Available Problems Date Description Provider Status Onset: 09/13/2010 Essential hypertension Active Onset: 2015 Allergic condition Lorene Healy RPA-C Active Onset: 2015 Insomnia Lorene Healy RPA-C Active Onset: 2015 Benign essential hypertension Lorene Healy RPA-C Active Onset: 05/11/2015 Type 2 diabetes mellitus Lorene Healy RPA-C Active Onset: 02/14/2016 Chronic lymphadenitis Talat Orellana D.O. Active Onset: 02/14/2016 Malaise and fatigue Talat Orellana D.O. Active Onset: 02/14/2016 Gastroesophageal reflux disease Talat Orellana D.O. Active Onset: 02/14/2016 Cramp in lower leg associated with Talat Orellana D.O. Active rest Onset: 03/20/2016 Vitamin B-complex deficiency Talat Orellana D.O. Active Onset: 05/08/2016 Multiple skin tags Talat Orellana D.O. Active Onset: 08/08/2016 Mild recurrent major depression Talat Orellana D.O. Active Onset: 09/05/2016 Pure hyperglyceridemia Talat Orellana D.O. Active Family History Date Family Member(s) Problem(s) Comments General Diabetes, Nos mother General Heart Problems mother General High Blood Pressure mother General Hypercholesterolemia sons General Obesity mother General Stroke father General Reviewed brown sheet Father due to Stroke () Mother due to Complications Of Diabetes () Number of Children 1 daughter and 2 sons First Son Alfonzo First Son 1964 Second Son Jai Second Son 1966 First Daughter Eloisa First Daughter 196 Number of Siblings 4 brothers and 2 sisters First Brother due to Pneumonia () Social History Type Date Description Comments Sex Unknown Education Highest Level Completed College Marital Status same sex partner Lives With Diet Healthy, Well Balanced 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 Abuse No history of abuse General Brown sheet, white sheet Tobacco Use Reviewed: 08/17/14 Denies Cigarette Use Smoking Status Reviewed: 09/22/18 Denies Cigarette Use ETOH Use Occasionally consumes alcohol Recreational Drug Use Denies Drug Use Tobacco Use Start: Unknown Patient has never smoked Enjoy Exercising Enjoys exercising Sun Exposure minimum amount of sun exposure Sun Exposure Uses sunscreen Seat Belt/Car Seat always uses seat belt Guns in Home No Smoke Alarms Yes smoke alarm Currently Active Patient is currently not sexually active Contraceptive Methods None Age [address] [place] 16 Years Old STD's No STD History Sexual Hx Pt states bautista Allergies, Adverse Reactions, Alerts Date Description Reaction Status Severity Comments 08/27/2018 Lisinopril Cough Active Mild cough 02/14/2011 No Known Drug Allergy Inactive Medications Medication Date Status Form Strength Qnty SIG Indications Ordering Provider Robitussin DM 09/21/ Active prn Unknown (OTC) 2018 Atorvastatin 01/14/ Active Tablets 20mg 90tabs 1 tablets by E78.0 Kev, Calcium 2018 mouth daily Talat for D.O. prevention of heart attack and stroke. Amlodipine 01/14/ Active Tablets 10mg 90tabs 1 by mouth F33.0 Kev, Besylate 2018 every day Talat, D.O. Celebrex 12/23/ Active Capsules 100mg 90caps Take 1 M25.551 Kev, 2017 Capsule By Talat, Mouth Daily D.O. Gabapentin 03/15/ Active Capsules 100mg 270cap Take 2 Caps M79.7 Sopchak, 2017 s By Mouth In Talat, Morning And D.O. 1 Cap AT Night F33.0 G50.0 30 Min Of 08/08/2016 Active Daily of F33.0 Sopchak, Activity your choice Talat, D.O. (one you enjoy most or dislike least) Fluoxetine HCL 08/08/2016 Active Capsules 40mg 90caps take 1 F33.0 Sopchak, capsule by Talat, D.O. mouth every day M79.7 Pantoprazole 08/07/[address] 40mg 90tabs Take 1 F33.0 Sopchak, Sodium Tablet By Talat, Mouth D.O. Every Day Vitamin B-12 03/19/2016 Active Tablets Sub 1000mc 1 qd Unknown g Metformin HCL 06/02/2015 Active Tablets 500mg 180tabs take 1 Sopchak, tablet by Talat, mouth twice D.O. a day Multivitamins 06/17/2014 Active Capsules 30caps daily Unknown Hydroxyzine HCL 02/15/2011 Active Tablets 25mg 180tabs Take 1 To 2 Sopchak, Tablets By Talat, Mouth 3 D.O. Times A Day as Needed For Itching Temazepam 09/11/2010 Active Capsules 7.5mg 90caps 1 by mouth G47.00 Sopchak, as needed Talat, every night D.O. at bedtime for sleep code a Calcium + D Active Tablets 1 tab po Unknown daily Cetrizine Active 10mg OTC 1 tab po T78.49 Unknown Hydrochloride daily for xA allergies Prednisone 08/12/2018 - Hx TBPK 10mg 21units six tabs Silcoff, 09/21/2018 (21) day 1, five Arias, tabs day 2, M.D. four tab day 3, three tabs day 4, 2 tabs day 5, 1 tab days 6 Lisinopril 08/08/2018 - Hx Tablets 5mg 30tabs 1 by mouth I10 Silcoff, 08/27/2018 every day Arias, for high M.D. blood pressure Shingrix 11/25/2017 - Hx Suspension 50mcg 1units Administer Z23 Silcoff , 03/25/2018 Rec 1 Im dose Arias, at M.D. pharmacy, second dose 2-6 months later Premarin 11/25/2017 - Hx Cream 0.625m 30gm apply 2-3 N95.1 Silcoff, 11/26/2017 g/GM inch strip Arias, to external M.D. vaginal tissue 2-3 times a week for hot flashes Z13.89 Cheratussin ac 08/26/2017 Hx Syrup 100-10mg/5ML 118ml 5-10 R05 Silcoff, - milliliters by Arias, 09/05/2017 mouth every 4 M.D. hours as needed for cough Cheratussin ac 08/16/2017 Hx Syrup 100-10mg/5ML 118ml 5-10 R05 Silcoff, - milliliters by Arias, 08/26/2017 mouth every 4 M.D. hours as needed for cough Indomethacin 03/15/2017 Hx Capsules 25mg 30caps 1 three times a Sopchak, - day as needed Talat, 09/15/2017 for gout D.O. Atorvastatin 11/14/2016 Hx Tablets 10mg 90tabs Take One Tablet E78. Sopchak, Calcium - By Mouth Every 0 Talat, 01/13/2018 Day To Reduce D.O. Cholesterol Celebrex 05/07/2016 Hx Capsules 100mg 90caps Take 1 Capsule M25. Sopchak, - By Mouth Daily 551 Talat, 09/15/2017 D.O. Famotidine 02/14/2016 Hx Tablets 40mg 180tab take 1 tablet F33. Sopchak , - s by mouth 2 0 Talat, 08/07/2016 times per day D.O. for gastroesophagea l reflux disease Magox 400 02/14/2016 Hx Tablets 400(241.3mg) 360tab 1-4 tablets G47. [place], - mg s every night at 60 Talat, 03/05/2016 bedtime as D.O. directed Probiotics 02/13/2016 Hx daily Unknown - 09/21/2018 Guaifenesin ac 07/22/2015 Hx Syrup 100-10mg/5ML 100uni 1-2 teaspoon R05 Sopchak, - ts every 6 hours, Talat, 08/14/2015 as needed D.O. Azithromycin 07/22/2015 Hx Tablets 250mg 6tabs take 2 tablets Sopchak, - by mouth one Talat, 07/22/2015 time on the D.O. first day then take 1 tablet by mouth daily for 4 days Clarithromycin 07/22/2015 Hx Tablets 500mg 20tabs 1 by mouth Sopchak, - twice a day Talat, 08/01/2015 D.O. Amlodipine 07/22/2015 Hx Tablets 5mg 90tabs Take 1 Tablet F33. Sopchak, Besylate - By Mouth Daily 0 Talat, 01/14/2018 For High Blood D.O. Pressure Azithromycin 06/27/2015 Hx Tablets 250mg 6tabs 2 tabs by mouth Reuben Kim - every day 1 and A. 07/03/2015 then 1 tab Rodolfo, every day on M.D. days 2-5 Qvar 06/27/2015 Hx Aerosol 40mcg/Act 1sampl 2 inhalation Reuben Kim - e twice daily for A. 08/14/2015 the next 1-2 Odalyspafred, weeks and then M.DPiyush stop if cough is resolved. rinse mouth out afterward. Nasonex 2015 Hx Suspensio 50mcg/Act 1sampl 1-2 sprays each T78. Yulianacodory, - n e nostril every 49xA Arias, 02/14/2016 day-bid Liane Robitussin ac 09/07/2014 Hx 8Oz 2 teaspoon by R05 Kev, - mouth every 4 Talat, 07/22/2015 hours as needed D.O. for cough; try to limit to nighttime use (as it is sedating) Celebrex 02/04/2014 Hx Capsules 100mg 180cap 1 by mouth M25. Silcoff, - s twice a day 559 Arias, 08/14/2015 hold for cough Liane M60.80 M54.5 Mupirocin 08/08/2013 - Hx Ointment 2% 22g apply tid x 1 Silcoff, 02/03/2014 week to Liane Bianchi affected areas Robitussin ac 10/18/2012 - Hx 8Oz 2 tsp po q4h 786. Yulianacodory, 11/07/2012 prn for cough; 2 Liane Bianchi try to limit to nighttime use (as it is sedating) Celebrex 06/06/2012 - Hx Capsules 100mg 180caps 1 po bid 729. Silcoff, 10/17/2012 1 Liane Bianchi 719.45 Celebrex 06/06/2012 - Hx Capsules 100mg 180caps Take 1 729.1 Silcoff, 11/26/2013 Capsule Twice Liane Bianchi A Day, prn 719.45 Red Yeast Rice 06/05/2012 - Hx Tablets 1200mg OTC 1 pill daily Unknown 03/15/2014 for cholesterol Prednisone 01/28/2012 - Hx Tablets 10mg 15tabs 5 tabs day 1, 274 Silcoff, 06/06/2012 4 day 2, 3 d .9 Arias, 3, 2 d 4, 1 d MPiyushDPiyush 5. Pantoprazole 11/20/2011 - Hx Tablets DR 40mg 90tabs take 1 tablet F33 Sopchak, Sodium 03/20/2016 daily for acid .0 Talat, reflux D.O. Atorvastatin 10/17/2011 - Hx Tablets 20mg 90tabs Take 1 Tablet E78 Sopchak, Calcium 11/14/2016 Daily For High .0 Talat, Cholesterol D.O. Nexium 09/26/2011 - Hx Packet 40mg 3boxes 1 pkt qd Silcoff, 10/10/2011 Liane Bianchi Fluticasone 05/24/2011 - Hx Suspension 50mcg/Act 1units 2 sprays into 784 Gagandeep, Propionate 06/06/2012 each nostril .0 Betina HASSAN qd for nasal congestion. evin allergies. rinse mouth post Physical Therapy 05/24/2011 - Hx 6Weeks for your head 723 Gagandeep, 10/17/2012 and neck pain. .1 Betina HASSAN help eval and treat 2-3x/week. Montelukast 04/05/2011 - Hx 10mg 90unit 1 tab qam Silcoff, 10/20/2012 s Liane Bianchi Amoxicillin 03/26/2011 - Hx Tablets 875mg 20tabs 1 tab bid x 10 E90 Silcoff, 05/23/2011 day 6.0 Liane Bianchi Losartan 03/26/2011 - Hx Tablets 25mg 90tabs Take 1 Tablet I10 Silcoff, Potassium 07/22/2015 Around Supper Liane Bianchi F33.0 Ondansetron HCL 09/29/2010 - Hx Tablets 4mg 10tabs 1 po q4h prn 787.0 Silcoff, 05/23/2011 for nausea Liane Bianchi Cyclobenzaprine 09/25/2010 - Hx Tablets 10mg 90tabs Take 1 Tablet Silcoff, HCL 01/13/2018 AT Bedtime as Kaleb Bianchi M.D. Calcium/D 09/13/2010 - Hx Wafer Silcoff, 06/06/2012 Liane Bianchi Grape Seed 09/13/2010 - Hx Capsules Silcoff, 05/22/2013 Liane Bianchi Protonix 09/11/2010 - Hx Solution 40mg 90units 1 pkt po qam Silcoff, 09/26/2011 Rec before Arias breakfast Liane Lipitor 09/11/2010 - Hx Tablets 20mg 90tabs 1 po qd for Silcoff, 10/31/2012 high Arias cholesterol Liane Hydroxyzine HCL 09/11/2010 - Hx Solution 25mg/ 90units 1 tid prn Silcoff, 02/15/2011 ml Liane Bianchi Arthrotec 09/11/2010 - Hx 1 po qd prn Unknown 06/06/2012 for fibromyalgia pain Lysine 09/11/2010 - Hx Capsules 500mg 60caps 1-2 tabs po qd Unknown 02/03/2014 Losartan 09/11/2010 - Hx Tablets 50mg 90tabs take 1 tablet F33.0 Silcoff, Potassium 07/22/2015 daily for high Arias blood pressure Liane Fluoxetine HCL 09/11/2010 - Hx Capsules 20mg 90caps take 1 capsule F33.0 Sopchak, 08/08/2016 by mouth every Talat, morning D.O. M79.7 Gabapentin 09/11/2010 - Hx Capsules 300mg 90caps take 1 M79.7 Sopchak, 03/15/2017 capsule by Talat, D.O. mouth in the morning F33.0 Singulair - Hx Unknown 04/05/2011 Multivitamins - Hx Capsules 30cap 1 po qd Unknown 11/26/2013 s Coenzyme Q-10 - Hx Capsules 120mg Unknown 06/17/2014 Chromium Picolinate - Hx Tablets 200mc 1 tab po daily Unknown 08/18/2014 g Atorvastatin - Hx Tablets 10mg take two tablets E78.0 Unknown Calcium 01/14/2018 by mouth every day to reduce cholesterol Medications Administered in Office Medication Date Status Form Strength Qnty SIG Indications Ordering Provider injection, Administered Injection Sopchak, kenalog, 10 mg 018 Talat, D.O. B12 Injection Administered Injection Sopchak, 016 Talat, D.O. SC/Im Administered Injection Sopchak, Injections 016 Talat, D.O. Injection Of Administered Injection Silcoff, Phenergan 50 011 Arias, mg M.D. SC/Im Administered Injection Silcoff, Injections 011 Liane Bianchi Immunizations CPT Code Status Date Vaccine Lot # [id number] Given 06/23/2018 Influenza,Unspecified [id number] Given 04/22/2018 Shingrix Zoster (Shingles) Vaccine (HZV) Recomb,Subnit,Adjuvanted 86579 Given 11/27/2017 Shingrix Zoster (Shingles) Vaccine (HZV) Recomb,Subnit,Adjuvanted 46442 Given 08/16/2017 Td Immunization [id number] 74181 Given 07/04/2017 Influenza Vaccine Split Virus Preservative Free Im Use U-Flu Given 07/12/2016 Influenza,Unspecified U-Flu Given 06/22/2015 Influenza,Unspecified 95640 Given 05/11/2015 Prevnar 13 [id number] 58509 Given 06/21/2014 Flu, Split Virus 3Yrs 44712 Given 05/22/2013 Flu, Split Virus 3Yrs [id number] 07075 Given 06/06/2012 Flu, Split Virus 3Yrs [id number] 38681 Given 05/24/2011 Flu, Split Virus 3Yrs [id number] 66485 Given 08/09/2009 Pneumococcal Immunization 77664 Given 08/09/2009 Flu, Split Virus 3Yrs 50140 Given 10/16/2007 Zostavax 97090 Given 08/26/2006 Adacel or Boostrix, TDaP 01705 Given 10/19/1999 Td Immunization Vital Signs Date Vital Result Comment 09/22/2018 2:30pm BP Systolic 152 mmHg BP Diastolic 70 mmHg BP Systolic Recheck 145 mmHg BP Diastolic Recheck 75 mmHg Height 63 inches 5'3" Weight 161.00 lb BMI (Body Mass Index) 28.5 kg/m2 08/27/2018 1:45pm BP Systolic 131 mmHg BP Diastolic 56 mmHg 08/08/2018 5:11pm BP Systolic 146 mmHg BP Diastolic 70 mmHg BP Systolic Recheck 160 mmHg BP Diastolic Recheck 74 mmHg 06/10/2018 11:17am BP Systolic 144 mmHg BP Diastolic 70 mmHg Height 63 inches 5'3" Weight 160.00 lb BMI (Body Mass Index) 28.3 kg/m2 02/13/2018 10:34am BP Systolic 138 mmHg BP Diastolic 74 mmHg BP Systolic Recheck 138 mmHg BP Diastolic Recheck 64 mmHg Body Temperature 98.1 F Weight 164.00 lb 01/14/2018 11:33am BP Systolic 146 mmHg BP Diastolic 72 mmHg Weight 162.00 lb with shoes 11/25/2017 3:25pm BP Systolic 145 mmHg BP Diastolic 68 mmHg Weight 165.00 lb 09/16/2017 2:03pm BP Systolic 150 mmHg BP Diastolic 80 mmHg Height 63 inches 5'3" Weight 162.00 lb BMI (Body Mass Index) 28.7 kg/m2 08/16/2017 10:59am BP Systolic 145 mmHg BP Diastolic 80 mmHg Respiratory Rate 14 /min not laboured Body Temperature 98.2 F Weight 160.00 lb 05/27/2017 3:10pm BP Systolic 140 mmHg BP Diastolic 74 mmHg Weight 160.00 lb 03/15/2017 1:23pm BP Systolic 142 mmHg BP Diastolic 68 mmHg BP Systolic Recheck 126 mmHg right arm recheck lg cuff BP Diastolic Recheck 62 mmHg right arm recheck lg cuff Height 63.25 inches 5'3.25" Weight 160.00 lb BMI (Body Mass Index) 28.1 kg/m2 09/05/2016 3:54pm Height 63.5 inches 5'3.50" with shoes Weight 160.00 lb with shoes BMI (Body Mass Index) 27.9 kg/m2 08/08/2016 12:59pm BP Systolic 118 mmHg BP Diastolic 76 mmHg Weight 160.00 lb 05/08/2016 1:55pm BP Systolic 138 mmHg BP Diastolic 78 mmHg Weight 160.00 lb with sandals 03/20/2016 1:10pm BP Systolic 112 mmHg BP Diastolic 60 mmHg Weight 158.00 lb 02/14/2016 1:12pm BP Systolic 142 mmHg BP Diastolic 72 mmHg Height 64 inches 5'4" with flip flops Weight 159.00 lb with flip flops BMI (Body Mass Index) 27.3 kg/m2 08/15/2015 10:46am BP Systolic 150 mmHg BP Diastolic 68 mmHg BP Systolic Recheck 148 mmHg recheck right arm BP Diastolic Recheck 62 mmHg recheck right arm 07/22/2015 3:32pm BP Systolic 123 mmHg BP Diastolic 47 mmHg Heart Rate 61 /min Body Temperature 98.7 F Weight 162.50 lb 06/27/2015 3:38pm BP Systolic 168 mmHg BP Diastolic 78 mmHg 06/13/2015 11:04am BP Systolic 142 mmHg BP Diastolic 68 mmHg Heart Rate 60 /min reg Body Temperature 97.8 F Weight 163.00 lb 05/11/2015 10:34am BP Systolic 116 mmHg BP Diastolic 78 mmHg Weight 163.00 lb 02/16/2015 10:57am BP Systolic 138 mmHg R arm sitting,RT BP Diastolic 64 mmHg R arm sitting,RT BP Systolic Recheck 140 mmHg Left wrist cuff, pt's BP Diastolic Recheck 67 mmHg Left wrist cuff, pt's Heart Rate 60 /min reg Weight 165.00 lb 2015 9:24am BP Systolic 146 mmHg BP Diastolic 70 mmHg BP Systolic Recheck 158 mmHg BP Diastolic Recheck 68 mmHg Heart Rate 64 /min reg Body Temperature 98.3 F Height 63.50 inches 5'3.50" Weight 165.00 lb BMI (Body Mass Index) 28.8 kg/m2 09/07/2014 2:40pm BP Systolic 138 mmHg BP Diastolic 80 mmHg Respiratory Rate 14 /min not laboured Body Temperature 98.8 F 08/27/2014 1:51pm BP Systolic 110 mmHg BP Diastolic 76 mmHg Weight 163.00 lb 08/17/2014 12:50pm BP Systolic 122 mmHg BP Diastolic 58 mmHg Weight 163.00 lb 06/18/2014 10:00am BP Systolic 150 mmHg BP Diastolic 78 mmHg Height 64 inches 5'4" shoes on Weight 164.00 lb shoes on BMI (Body Mass Index) 28.1 kg/m2 04/27/2014 11:39am BP Systolic 130 mmHg BP Diastolic 72 mmHg Body Temperature 98.0 F Weight 161.00 lb 03/16/2014 10:57am BP Systolic 152 mmHg BP Diastolic 68 mmHg Weight 166.00 lb shoes on 02/15/2014 1:38pm BP Systolic 140 mmHg BP Diastolic 80 mmHg 02/12/2014 3:44pm BP Systolic 156 mmHg BP Diastolic 80 mmHg 02/04/2014 1:20pm BP Systolic 136 mmHg BP Diastolic 57 mmHg Heart Rate 58 /min Weight 165.00 lb 10/29/2013 9:23am BP Systolic 135 mmHg BP Diastolic 90 mmHg BP Systolic Recheck 159 mmHg BP Diastolic Recheck 78 mmHg Heart Rate 78 /min 77 Height 63.5 inches 5'3.50" Weight 162.00 lb BMI (Body Mass Index) 28.2 kg/m2 05/22/2013 10:56am BP Systolic 136 mmHg BP Diastolic 94 mmHg Weight 163.00 lb 04/03/2013 1:22pm BP Systolic 163 mmHg BP Diastolic 68 mmHg BP Systolic Recheck 156 mmHg BP Diastolic Recheck 80 mmHg Heart Rate 68 /min O2 % BldC Oximetry 95 % Height 63.50 inches 5'3.50" Weight 165.00 lb BMI (Body Mass Index) 28.8 kg/m2 10/20/2012 1:22pm BP Systolic 146 mmHg BP Diastolic 67 mmHg BP Systolic Recheck 133 mmHg BP Diastolic Recheck 71 mmHg Heart Rate 59 /min 55 10/18/2012 12:06pm BP Systolic 150 mmHg BP Diastolic 84 mmHg Heart Rate 76 /min reg Respiratory Rate 12 /min not laboured; occasional cough Body Temperature 98.3 F Weight 159.00 lb 07/02/2012 1:48pm BP Systolic 127 mmHg BP Diastolic 76 mmHg Heart Rate 74 /min 06/06/2012 10:21am BP Systolic 153 mmHg BP Diastolic 75 mmHg BP Systolic Recheck 144 mmHg BP Diastolic Recheck 88 mmHg Heart Rate 75 /min 73 Height 63.50 inches 5'3.50" Weight 161.00 lb BMI (Body Mass Index) 28.1 kg/m2 01/28/2012 4:11pm BP Systolic 148 mmHg BP Diastolic 70 mmHg Heart Rate 68 /min Body Temperature 98.1 F Weight 158.00 lb 11/30/2011 11:01am BP Systolic 151 mmHg BP Diastolic 66 mmHg BP Systolic Recheck 139 mmHg BP Diastolic Recheck 86 mmHg Heart Rate 66 /min 66 Height 63 inches 5'3" Weight 158.00 lb BMI (Body Mass Index) 28.0 kg/m2 Last Menstrual Period 0 08/15/2011 11:33am BP Systolic 139 mmHg BP Diastolic 75 mmHg Heart Rate 70 /min Weight 159.00 lb 06/01/2011 11:24am BP Systolic 156 mmHg BP Diastolic 84 mmHg BP Systolic Recheck 142 mmHg BP Diastolic Recheck 80 mmHg Heart Rate 63 /min 62 05/24/2011 10:00am BP Systolic 148 mmHg BP Diastolic 76 mmHg Body Temperature 98.4 F Height 63 inches 5'3" Weight 156.00 lb BMI (Body Mass Index) 27.6 kg/m2 03/26/2011 1:26pm BP Systolic 153 mmHg BP Diastolic 78 mmHg BP Systolic Recheck 120 mmHg BP Diastolic Recheck 84 mmHg Heart Rate 83 /min 77 Body Temperature 98.6 F Weight 157.00 lb Last Menstrual Period 0 02/14/2011 3:40pm BP Systolic 152 mmHg BP Diastolic 83 mmHg BP Systolic Recheck 140 mmHg BP Diastolic Recheck 71 mmHg Heart Rate 68 /min 63 Weight 156.00 lb 09/29/2010 5:29pm BP Systolic 156 mmHg BP Diastolic 84 mmHg Heart Rate 80 /min reg Respiratory Rate 12 /min not laboured Body Temperature 99.9 F 09/13/2010 11:05am BP Systolic 167 mmHg BP Diastolic 85 mmHg BP Systolic Recheck 129 mmHg BP Diastolic Recheck 77 mmHg Heart Rate 84 /min 71 Height 63 inches 5'3" Weight 162.00 lb BMI (Body Mass Index) 28.7 kg/m2 Last Menstrual Period 0 Results Test Date Facility Test Result H/L Range Note Urine Microalbumin 09/22/2018 [facility] Ur Microalbumin < 15.0 Random [phone] (mg/L) Urine Creatinine 106.17 mg/dL Urine Microalbumin/Creatinine TNP <31 1 Xray 08/08/2018 [facility] X-Ray, Ribs, normal image, Unilateral - 2 no fx Views, LT Laboratory test 08/08/2018 In House Hemoglobin A1c 6.3 finding Comp Metabolic 03/24/2018 [facility] Sodium 140 mmol/L N 135-145 Panel [phone] Potassium 4.4 mmol/L N 3.5-5.0 Chloride 103 [...] Egfr Non- 85.8 >60 Egfr 103.8 >60 2 Lipid Profile (Trig/Chol/HDL) 03/24/2018 [facility] Triglycerides 190 mg/dL 3 [phone] Cholesterol 167 mg/dL 4 HDL Cholesterol 56.1 mg/dL 5 LDL Cholesterol 73 mg/dL 6 Laboratory test 03/24/2018 [facility] Creatine Kinase(CK) 51 U/L N 10 -223 7 finding [phone] Ua Inhouse 02/13/2018 In House Ua Glucose - 8 Ua Bilirubin - Ua Ketones - Ua Specific [place] 1.010 Ua Blood - Ua PH 6.0 Ua Protein - Ua Urobilinogen - Ua Nitrite - Ua Leukocytes sm Laboratory test 01/23/2018 [facility] Surgical Pathology SEE RESULT 9, 10 finding [phone] BELOW Laboratory test 01/14/2018 In House Occult Blood, F I T negative finding Laboratory test 01/14/2018 In House Hemoglobin A1c 6.1 finding Lipid Profile 11/28/2017 [facility] Triglycerides 159 mg/dL 11 (Trig/Chol/HDL) [phone] Cholesterol 188 mg/dL 12 HDL Cholesterol 48.0 mg/dL 13 LDL Cholesterol 108 mg/dL 14 Laboratory test 11/28/2017 [facility] Vitamin B12 1170 pg/mL High 180 -914 15 finding [phone] CBC Auto Diff 11/28/2017 [facility] White Blood 11.0 High 3.5-10.8 [phone] Count 10^3/uL Red Blood Count 4.71 10^6/uL N 4.0-5.4 Hemoglobin 14.5 g/dL N 12.0-16.0 Hematocrit 43 % N 35-47 Mean Corpuscular Volume 91 fL N 80-97 Mean Corpuscular Hemoglobin 31 pg N 27-31 Mean Corpuscular HGB Conc 34 g/dL N 31-36 Red Cell Distribution Width 13 % N 10.5-15 Platelet Count 283 10^3/uL N 150-450 Mean Platelet Volume 8.7 um3 N 7.4-10.4 Abs Neutrophils 8.0 10^3/uL High 1.5-7.7 Abs Lymphocytes 2.1 10^3/uL N 1.0-4.8 Abs Monocytes 0.8 10^3/uL N 0-0.8 Abs Eosinophils 0.1 10^3/uL N 0-0.6 Abs Basophils 0 10^3/uL N 0-0.2 Abs Nucleated RBC 0 10^3/uL Granulocyte % 72.1 % N 38-83 Lymphocyte % 19.5 % Low 25-47 Monocyte % 7.3 % High 0-7 Eosinophil % 0.8 % N 0-6 Basophil % 0.3 % N 0-2 Nucleated Red Blood Cells % 0 Laboratory test 09/16/2017 In House Hemoglobin A1c 6.0 finding Laboratory test 05/01/2017 [facility] Partial Thrombo 30.0 seconds N 26.0-36 finding [phone] Time PTT .3 Inr/Protime 05/01/2017 [facility] Inr 0.94 N 0.89-1. [phone] CBC No Diff 05/01/2017 [facility] White Blood Count 8.1 10^3/uL N 3.5 -10. [phone] Red Blood Count 4.77 10^6/uL N 4.0-5.4 [...] um3 N 7.4-10.4 Basic Metabolic Panel 05/01/2017 [facility] Sodium 136 mmol/L N 133- 145 [phone] Potassium 4.1 mmol/L N 3.5-5.0 Chloride 104 mmol/L N 101-111 Co2 Carbon Dioxide 24 mmol/L N 22-32 Anion Gap 8 mmol/L N 2-11 Glucose 161 mg/dL High 70-100 Blood Urea Nitrogen 17 mg/dL N 6-24 Creatinine 0.72 mg/dL N 0.51-0.95 BUN/Creatinine Ratio 23.6 High 8-20 Calcium 9.4 mg/dL N 8.6-10.3 Egfr Non- 79.2 N >60 Egfr 101.8 N >60 16 Laboratory test finding 03/15/2017 In House Hemoglobin A1c 6.0 Urine Microalbumin 03/15/2017 [facility] Urine Creatinine 179.63 mg/dL N Random [phone] Ur Microalbumin (mg/L) < 15.0 mg/L N Urine Microalbumin/Creatinine TNP ug/mg N <31 17 Comp Metabolic Panel 03/11/2017 [facility] Sodium 136 mmol/L N 133- 145 [phone] Potassium 4.4 mmol/L N 3.5-5.0 Chloride 101 mmol/L N 101-111 Co2 Carbon Dioxide 27 mmol/L N 22-32 Anion Gap 8 mmol/L N 2-11 Glucose 149 mg/dL High 70-100 Blood Urea Nitrogen 12 mg/dL N 6-24 Creatinine 0.75 mg/dL N 0.51-0.95 BUN/Creatinine Ratio 16.0 N 8-20 Calcium 9.2 mg/dL N 8.6-10.3 Total Protein 6.8 g/dL N 6.4-8.9 Albumin 4.0 g/dL N 3.2-5.2 Globulin 2.8 g/dL N 2-4 Albumin/Globulin Ratio 1.4 N 1-3 Total Bilirubin 0.60 mg/dL N 0.2-1.0 Alkaline Phosphatase 70 U/L N 34-104 Alt 38 U/L N 7-52 Ast 30 U/L N 13-39 Egfr Non- 75.5 N >60 Egfr 97.1 N >60 18 Lipid Profile 09/07/2016 [facility] Triglycerides 203 mg/dL N 19 (Trig/Chol/HDL) [phone] Cholesterol 155 mg/dL N 20 HDL Cholesterol 44.8 mg/dL N 21 LDL Cholesterol 70 mg/dL N 22 Laboratory test finding 09/07/2016 [facility] Ast (Sgot) 65 U/L High 13-39 23 [phone] Alt 72 U/L High 7-52 24 Laboratory test 08/08/2016 In House Hemoglobin A1c 6.3 finding Laboratory test 08/08/2016 [facility] TSH (Thyroid Stim 1.65 N 0.34- 5.6 finding [phone] Horm) mcIU/mL 0 Magnesium 2.2 mg/dL N 1.9-2.7 Phosphorus 4.1 mg/dL N 2.5-5.0 Vitamin B12 840 pg/mL N [phone] 25 Comp Metabolic Panel 08/08/2016 [facility] Sodium 136 mmol/L N 133- 145 [phone] Potassium 5.0 mmol/L N 3.5-5.0 Chloride 102 mmol/L N 101-111 Co2 Carbon Dioxide 26 mmol/L N 22-32 Anion Gap 8 mmol/L N 2-11 Glucose 109 mg/dL High 70-100 Blood Urea Nitrogen 19 mg/dL N 6-24 Creatinine 0.78 mg/dL N 0.51-0.95 BUN/Creatinine Ratio 24.4 High 8-20 Calcium 10.1 mg/dL N 8.6-10.3 Total Protein 7.0 g/dL N 6.4-8.9 Albumin 4.2 g/dL N 3.2-5.2 Globulin 2.8 g/dL N 2-4 Albumin/Globulin Ratio 1.5 N 1-3 Total Bilirubin 0.40 mg/dL N 0.2-1.0 Alkaline Phosphatase 90 U/L N 34-104 Alt 77 U/L High 7-52 Ast 71 U/L High 13-39 Egfr Non- 72.4 N >60 Egfr 93.1 N >60 26 CBC Auto Diff 08/08/2016 [facility] White Blood Count 9.6 10^3/uL N 3.5-10.8 [phone] Red Blood Count 4.69 10^6/uL N 4.0-5.4 Hemoglobin 14.5 g/dL N 12.0-16.0 Hematocrit 43 % N 35-47 Mean Corpuscular Volume 91 fL N 80-97 Mean Corpuscular Hemoglobin 31 pg N 27-31 Mean Corpuscular HGB Conc 34 g/dL N 31-36 Red Cell Distribution Width 12 % N 10.5-15 Platelet Count 276 10^3/uL N 150-450 Mean Platelet Volume 10 um3 N 7.4-10.4 Abs Neutrophils 5.4 10^3/uL N 1.5-7.7 Abs Lymphocytes 3.1 10^3/uL N 1.0-4.8 Abs Monocytes 0.9 10^3/uL High 0-0.8 Abs Eosinophils 0.1 10^3/uL N 0-0.6 Abs Basophils 0.1 10^3/uL N 0-0.2 Abs Nucleated RBC 0 10^3/uL N Granulocyte % 56.5 % N 38-83 Lymphocyte % 32.7 % N 25-47 Monocyte % 9.2 % High 1-9 Eosinophil % 1.0 % N 0-6 Basophil % 0.6 % N 0-2 Nucleated Red Blood Cells % 0.1 N Laboratory test 05/08/2016 In House Hemoglobin A1c 6.0 finding CBC Auto Diff 02/14/2016 [facility] White Blood Count 8.8 10^3/uL N 3.5-10.8 [phone] Red Blood Count 4.65 10^6/uL N 4.0-5.4 Hemoglobin 14.4 g/dL N 12.0-16.0 Hematocrit 43 % N 35-47 Mean Corpuscular Volume 93 fL N 80-97 Mean Corpuscular Hemoglobin 31 pg N 27-31 Mean Corpuscular HGB Conc 33 g/dL N 31-36 Red Cell Distribution Width 13 % N 10.5-15 Platelet Count 294 10^3/uL N 150-450 Mean Platelet Volume 10 um3 N 7.4-10.4 Abs Neutrophils 5.4 10^3/uL N 1.5-7.7 Abs Lymphocytes 2.4 10^3/uL N 1.0-4.8 Abs Monocytes 0.7 10^3/uL N 0-0.8 Abs Eosinophils 0.1 10^3/uL N 0-0.6 Abs Basophils 0.1 10^3/uL N 0-0.2 Abs Nucleated RBC 0.01 10^3/uL N Granulocyte % 61.8 % N 38-83 Lymphocyte % 27.4 % N 25-47 Monocyte % 8.1 % N 1-9 Eosinophil % 1.6 % N 0-6 Basophil % 1.1 % N 0-2 Nucleated Red Blood Cells % 0.1 N Comp Metabolic Panel 02/14/2016 [facility] Sodium 136 mmol/L N 133- 145 [phone] Potassium 4.7 mmol/L N 3.5-5.0 Chloride 101 mmol/L N 101-111 Co2 Carbon Dioxide 27 mmol/L N 22-32 Anion Gap 8 mmol/L N 2-11 Glucose 106 mg/dL High 70-100 Blood Urea Nitrogen 23 mg/dL N 6-24 Creatinine 0.78 mg/dL N 0.51-0.95 BUN/Creatinine Ratio 29.5 High 8-20 Calcium 9.7 mg/dL N 8.6-10.3 Total Protein 6.9 g/dL N 6.4-8.9 Albumin 4.2 g/dL N 3.2-5.2 Globulin 2.7 g/dL N 2-4 Albumin/Globulin Ratio 1.6 N 1-3 Total Bilirubin 0.50 mg/dL N 0.2-1.0 Alkaline Phosphatase 93 U/L N 34-104 Alt 50 U/L N 7-52 Ast 57 U/L High 13-39 Egfr Non- 72.4 N >60 Egfr 93.1 N >60 27 Laboratory test finding 02/14/2016 [facility] Magnesium 2.1 mg/dL N 1.9-2.7 [phone] Iron 95 g/dL N 50-212 Iron & Iron Binding 02/14/2016 [facility] Unsaturated Iron 294 g/dL N Capacity [phone] Binding Total Iron Binding Capacity 389 g/dL N 250-450 % Iron Saturation 24 % N 15-55 Laboratory test 02/14/2016 [facility] TSH (Thyroid 1.07 ?IU/mL N 0.34 -5.60 finding [phone] Stim Horm) Vitamin B12 296 pg/mL N 180-914 28 Vitamin D Total 25(Oh) 36.5 ng/mL N 30-50 Laboratory test 02/14/2016 In House Hemoglobin A1c 6.6 finding Laboratory test 08/15/2015 In House Hemoglobin A1c 6.3 finding Xray 06/27/2015 [facility] Medicine X-Ray, Chest, 2 no acute Views infiltrate CBC Auto Diff 06/13/2015 [facility] White Blood 8.3 10^3/uL N 4.8-10 [phone] Count .8 Red Blood Count 4.75 10^6/uL N 4.0-5.4 Hemoglobin 14.7 g/dL N 12.0-16.0 Hematocrit 44 % N 35-47 Mean Corpuscular Volume 93 fL N 80-97 Mean Corpuscular Hemoglobin 31 pg N 27-31 Mean Corpuscular HGB Conc 33 g/dL N 31-36 Red Cell Distribution Width 13 % N 10.5-15 Platelet Count 264 10^3/uL N 150-450 Mean Platelet Volume 10 um3 N 7.4-10.4 Abs Neutrophils 5.2 10^3/uL N 1.5-7.7 Abs Lymphocytes 2.2 10^3/uL N 1.0-4.8 Abs Monocytes 0.6 10^3/uL N 0-0.8 Abs Eosinophils 0.2 10^3/uL N 0-0.6 Abs Basophils 0 10^3/uL N 0-0.2 Abs Nucleated RBC 0 10^3/uL N Granulocyte % 62.9 % N 38-83 Lymphocyte % 27.2 % N 25-47 Monocyte % 6.7 % N 1-9 Eosinophil % 2.7 % N 0-6 Basophil % 0.5 % N 0-2 Nucleated Red Blood Cells % 0 N Laboratory test 06/13/2015 [facility] TSH (Thyroid Stim 1.06 ?IU/mL N 0.34-5.60 finding [phone] Horm) Urine 05/11/2015 [facility] Ur Microalbumin < 5.0 mg/L N Microalbumin [phone] (mg/L) Random Urine Creatinine 92.68 mg/dL N Urine Microalbumin/Creatinine TNP ug/mg N <31 29 Occult Blood,Triple 05/11/2015 In House Misc neg x3 Laboratory test 04/29/2015 [facility] Hemoglobin A1c 6.8 % High Less than 30 finding [phone] (Glyco HGB) 6.0 Urine Micro Inhouse 02/16/2015 In House Ua WBC - 31 Ua RBC - Ua Casts - Ua Epi - Ua Other - Ua Glucose - Ua Bilirubin - Ua Ketones - Ua Specific [place] 1.015 Ua Blood - Ua PH 5.0 Ua Protein - Ua Urobilinogen - Ua Nitrite - Ua Leukocytes - Comp Metabolic Panel 01/28/2015 [facility] Sodium 137 mmol/L N 133- 145 [phone] Potassium 4.5 mmol/L N 3.5-5.0 Chloride 103 mmol/L N 101-111 Co2 Carbon Dioxide 26 mmol/L N 22-32 Anion Gap 8 mmol/L N 2-11 Glucose 161 mg/dL High 70-100 Blood Urea Nitrogen 26 mg/dL High 6-24 Creatinine 0.72 mg/dL N 0.51-0.95 BUN/Creatinine Ratio 36.1 High 8-20 Calcium 9.2 mg/dL N 8.6-10.3 Total Protein 6.6 g/dL N 6.4-8.9 Albumin 4.0 g/dL N 3.2-5.2 Globulin 2.6 g/dL N 2-4 Albumin/Globulin Ratio 1.5 N 1-3 Total Bilirubin 0.60 mg/dL N 0.2-1.0 Alkaline Phosphatase 91 U/L N 34-104 Alt 48 U/L N 7-52 Ast 39 U/L N 13-39 Egfr Non- 79.6 N >60 Egfr 102.4 N >60 32 Lipid Profile 01/28/2015 [facility] Triglycerides 265 mg/dL N 33 (Trig/Chol/HDL) [phone] Cholesterol 168 mg/dL N 34 HDL Cholesterol 42.7 mg/dL N 35 LDL Cholesterol 72 mg/dL N 36 Urinalysis Profile 01/28/2015 [facility] Urine Color Awilda N [phone] Urine Appearance Turbid N Urine Specific [place] 1.025 N 1.010-1.030 Urine pH 5.0 N 5-9 Urine Urobilinogen Negative N Negative Urine Ketones Negative N Negative Urine Protein Negative N Negative Urine Leukocytes 1+ Abnormal Negative Urine Blood Negative N Negative Urine Nitrite Negative N Negative Urine Bilirubin Negative N Negative Urine Glucose Negative N Negative Urine White Blood Cell 2+(11-20/hpf) Abnormal Absent Urine Red Blood Cell 2+(6-10/hpf) Abnormal Absent Urine Bacteria Absent N Absent Urine Squamous Epithelial Cell Present Abnormal Absent Laboratory test 01/28/2015 [facility] Hemoglobin A1c 6.6 % High Less than 37 finding [phone] (Glyco HGB) 6.0 Urine Culture SEE RESULT BELOW 38 CBC Auto Diff 01/28/2015 [facility] White Blood Count 9.7 10^3/uL N 4.8-10.8 [phone] Red Blood Count 4.46 10^6/uL N 4.0-5.4 Hemoglobin 14.3 g/dL N 12.0-16.0 Hematocrit 41 % N 35-47 Mean Corpuscular Volume 93 fL N 80-97 Mean Corpuscular Hemoglobin 32 pg High 27-31 Mean Corpuscular HGB Conc 35 g/dL N 31-36 Red Cell Distribution Width 13 % N 10.5-15 Platelet Count 254 10^3/uL N 150-450 Mean Platelet Volume 10 um3 N 7.4-10.4 Abs Neutrophils 6.4 10^3/uL N 1.5-7.7 Abs Lymphocytes 2.4 10^3/uL N 1.0-4.8 Abs Monocytes 0.7 10^3/uL N 0-0.8 Abs Eosinophils 0.3 10^3/uL N 0-0.6 Abs Basophils 0.1 10^3/uL N 0-0.2 Abs Nucleated RBC 0 10^3/uL N Granulocyte % 65.5 % N 38-83 Lymphocyte % 24.4 % Low 25-47 Monocyte % 6.8 % N 1-9 Eosinophil % 2.8 % N 0-6 Basophil % 0.5 % N 0-2 Nucleated Red Blood Cells % 0 N Laboratory test 06/18/2014 [facility] Surgical RUN DATE: 39 finding [phone] Pathology <SEE NOTE> Laboratory test 06/02/2014 [facility] C. difficile (SEE NOTE) 40 finding [phone] Amplified Dna Laboratory test 05/03/2014 [facility] Stool Culture (SEE NOTE) 41 , 42 finding [phone] C. difficile Amplified Dna (SEE NOTE) 43 Laboratory test 02/19/2014 [facility] Surgical Pathology RUN DATE: 44 finding [phone] <SEE NOTE> Laboratory test 02/04/2014 [facility] Surgical Pathology RUN DATE: 45 finding [phone] SEE NOTE> Laboratory test 02/04/2014 In House Hemoglobin A1c 6.3 finding Occult 11/06/2013 In House Misc neg x3 Blood,Triple Laboratory test 10/29/2013 In House Hemoglobin A1c 6.3 finding Laboratory test 10/29/2013 [facility] Uric Acid 5.1 mg/dL 2.3-6. finding [phone] Lipid Profile 10/29/2013 [facility] Triglycerides 669 mg/dL 46 (Trig/Chol/HDL) [phone] Cholesterol 208 mg/dL 47 HDL Cholesterol 39.8 mg/dL 48 LDL Cholesterol (SEE NOTE) mg/dL 49 Comp Metabolic Panel 10/29/2013 [facility] Sodium 135 mmol/L 133- 145 [phone] Potassium 4.8 mmol/L 3.7-5.6 Chloride 101 mmol/L 101-111 Co2 Carbon Dioxide 26 mmol/L 22-32 Anion Gap 8 mmol/L 2-11 Glucose 107 mg/dL High 70-100 Blood Urea Nitrogen 22 mg/dL 6-24 Creatinine 0.77 mg/dL 0.51-0.95 BUN/Creatinine Ratio 28.6 High 8-20 Calcium 9.6 mg/dL 8.6-10.3 Total Protein 7.1 g/dL 6.4-8.9 Albumin 4.2 g/dL 3.2-5.2 Globulin 2.9 g/dL 2-4 Albumin/Globulin Ratio 1.4 1-3 Total Bilirubin 0.30 mg/dL 0.2-1.0 Alkaline Phosphatase 101 U/L 34-104 Alt 54 U/L High 7-52 Ast 37 U/L 13-39 Egfr Non- 74.1 >60 Egfr 95.3 >60 50 Ua Inhouse 10/29/2013 In House Ua Glucose - Ua Bilirubin - Ua Ketones - Ua Specific [place] 1.025 Ua Blood - Ua PH 5.0 Ua Protein - Ua Urobilinogen - Ua Nitrite - Ua Leukocytes - Laboratory test 05/22/2013 [facility] Pathology RUN DATE: 51 finding [phone] 05/26/ <SEE NOTE> Laboratory test 04/03/2013 [facility] TSH (Thyroid 1.82 miu/mL 0.34- 5 finding [phone] Stimulating Horm) .60 CBC Auto Diff 04/03/2013 [facility] White Blood Count 9.0 10^3/uL 4.8-10 [phone] .8 Red Blood Count 4.41 10^6/uL 4.0-5.4 Hemoglobin 13.8 g/dL 12.0-16.0 Hematocrit 40 % 35-47 Mean Corpuscular Volume 91 fL 80-97 Mean Corpuscular Hemoglobin 31 pg 27-31 Mean Corpuscular HGB Conc 34 g/dL 31-36 Red Cell Distribution Width 13 % 10.5-15 Platelet Count 291 10^3/uL 150-450 Mean Platelet Volume 9 um3 7.4-10.4 Abs Neutrophils 5.0 10^3/uL 1.5-7.7 Abs Lymphocytes 2.8 10^3/uL 1.0-4.8 Abs Monocytes 0.9 10^3/uL High 0-0.8 Abs Eosinophils 0.2 10^3/uL 0-0.6 Abs Basophils 0 10^3/uL 0-0.2 Abs Nucleated RBC 0 10^3/uL Granulocyte % 56.0 % 38-83 Lymphocyte % 31.5 % 25-47 Monocyte % 10.0 % High 1-9 Eosinophil % 2.0 % 0-6 Basophil % 0.5 % 0-2 Nucleated Red Blood Cells % 0 Laboratory test finding 04/03/2013 [facility] Vitamin B12 473 pg/mL 180-914 [phone] Folate 20.1 ng/mL High 2-16 Vitamin D 1,25-Dihydroxy 79 pg/mL Abnormal 18-78 52 Laboratory test finding 04/03/2013 In House Glucose 98 Hemoglobin A1c 6.3 Ua Inhouse 04/03/2013 In House Ua Glucose - Ua Bilirubin - Ua Ketones - Ua Specific [place] 1.010 Ua Blood - Ua PH 5.0 Ua Protein - Ua Urobilinogen - Ua Nitrite - Ua Leukocytes - CBC Auto Diff 10/30/2012 [facility] White Blood Count 10.2 10^3/uL 4.8-10.8 [phone] Red Blood Count 4.56 10^6/uL 4.0-5.4 Hemoglobin 13.9 g/dL 12.0-16.0 Hematocrit 42 % 35-47 Mean Corpuscular Volume 91 fL 80-97 Mean Corpuscular Hemoglobin 31 pg 27-31 Mean Corpuscular HGB Conc 34 g/dL 31-36 Red Cell Distribution Width 13 % 10.5-15 Platelet Count 331 10^3/uL 150-450 Mean Platelet Volume 9 um3 7.4-10.4 Abs Neutrophils 6.6 10^3/uL 1.5-7.7 Abs Lymphocytes 2.6 10^3/uL 1.0-4.8 Abs Monocytes 0.7 10^3/uL 0-0.8 Abs Eosinophils 0.2 10^3/uL 0-0.6 Abs Basophils 0.1 10^3/uL 0-0.2 Abs Nucleated RBC 0.01 10^3/uL Granulocyte % 64.5 % 38-83 Lymphocyte % 25.6 % 25-47 Monocyte % 7.3 % 1-9 Eosinophil % 1.9 % 0-6 Basophil % 0.7 % 0-2 Nucleated Red Blood Cells % 0 Comp Metabolic Panel 10/30/2012 [facility] Sodium 138 mmol/L 133- 145 [phone] Potassium 4.6 mmol/L 3.5-5.0 Chloride 102 mmol/L 101-111 Co2 Carbon Dioxide 27.0 mmol/L 22-32 Anion Gap 9.0 mmol/L 2-11 Glucose 136 mg/dL High 70-100 Blood Urea Nitrogen 19 mg/dL 6-24 Creatinine 1.00 mg/dL 0.50-1.40 BUN/Creatinine Ratio 19.0 8-20 Calcium 9.4 mg/dL 8.1-9.9 Total Protein 6.3 g/dL 6.2-8.1 Albumin 3.7 g/dL 3.2-5.2 Globulin 2.6 g/dL 2-4 Albumin/Globulin Ratio 1.4 1-3 Total Bilirubin 0.5 mg/dL 0.4-1.5 Alkaline Phosphatase 105 U/L 30-110 Alt 27 U/L 14-54 Ast 23 U/L 12-42 Egfr Non- 55.0 >60 Egfr 70.7 >60 53 Lipid Profile 10/30/2012 [facility] Triglycerides 248 mg/dL High 40- 200 (Trig/Chol/HDL) [phone] Cholesterol 153 mg/dL Less than 200 HDL Cholesterol 33 mg/dL Low 40-60 54 Cholesterol/HDL Ratio 4.6 Average High 1-4.44 LDL Cholesterol 70.4 mg/dL Less Than 100 55 Ua Inhouse 10/20/2012 In House Ua Glucose - Ua Bilirubin - Ua Ketones - Ua Specific [place] 1.020 Ua Blood - Ua PH 5.0 Ua Protein - Ua Urobilinogen - Ua Nitrite - Ua Leukocytes - Laboratory test 10/20/2012 In House Hemoglobin A1c 6.2 finding Laboratory test 06/06/2012 In House Hemoglobin A1c 6.7 finding Laboratory test 05/23/2012 [facility] Rheumatoid Factor < 15 IU/mL < 15 56 finding [phone] Laboratory test 05/23/2012 [facility] Glucose 130 mg/dL High 70-100 finding [phone] CBC Auto Diff 05/23/2012 [facility] White Blood Count 11.0 CUMM High 4.8-10. [phone] Red Cell Count 4.40 CUMM 4.2-5.4 Hemoglobin 13.8 g/dL 12.0-16.0 Hematocrit 41 % 35-47 Mean Corpuscular Volume 93 um3 79-97 Mean Corpuscular Hemoglob 31 pg 27-31 Mean Corpuscular HGB Cone 34 g/dL 32-36 Redcell Distribution WDTH 13 % 10.5-15 Platelet Count 350 CUMM 150-450 Mean Platelet Volume 8.6 um3 7.4-10.4 Gran % 61.2 % 38-83 Lymph % 29.8 % 20-45 Mononuclear % 7.4 % 1-9 Eosinophil % 1.0 % 0-6 Basophil % 0.6 % 0-2 Abs Lymphs 3.3 1.0-4.8 Abs Mononuclear 0.8 0-0.8 Absolute Neutrophil Count 6.7 1.5-7.7 Abs Eosinophils 0.1 0-0.6 Abs Basophils 0.1 0-0.2 Laboratory test 05/23/2012 [facility] Lyme Disease Negative Negative 57 finding [phone] Serology Laboratory test 11/30/2011 In House Hemoglobin A1c 5,9% finding Lipid Profile 11/23/2011 [facility] Triglyceride 237 mg/dL High 40- 200 (Trig/Chol/HDL) [phone] Cholesterol 177 mg/dL Less Than 200 58 High Density Lipoprotein 43 mg/dL 40-60 59 Cholesterol/HDL Ratio 4.12 AVERAGE 1-4.44 Low Density Lipoprotein 87 mg/dL Less Than 100 60 Comp Metabolic Panel 11/23/2011 [facility] Sodium 139 mmol/L 135- 145 [phone] Potassium 4.4 mmol/L 3.5-5.0 Chloride 105 mmol/L 101-111 Co2 (Carbon Dioxide) 28.0 mmol/L 22-32 Anion Gap 6.0 mmol/L 2-11 61 Glucose 123 mg/dL High 70-100 BUN 18 mg/dL 6-24 Creatinine 0.8 mg/dL 0.50-1.40 One Over Creatinine 1.25 BUN/Creatinine Ratio 22.5 High 8-20 Calcium 8.9 mg/dL 8.1-9.9 Total Protein 6.9 GM/DL 6.2-8.1 Albumin 3.9 GM/DL 3.2-5.2 Globulin 3.0 GM/DL 2-4 Albumin/Globulin Ratio 1.3 1-3 Bilirubin Total 0.7 mg/dL 0.4-1.5 62 Alkaline Phosphatase 79 U/L 30-110 Alt (SGPT) 47 U/L 14-54 Ast (Sgot) 38 U/L 12-42 eGFR Non- 71.3 > 60 eGFR 91.7 > 60 63 CBC Auto Diff 11/23/2011 [facility] White Blood Count 6.9 CUMM 4.8- 10.8 [phone] Red Cell Count 4.51 CUMM 4.2-5.4 Hemoglobin 14.4 g/dL 12.0-16.0 Hematocrit 41 % 35-47 Mean Corpuscular Volume 91 um3 79-97 Mean Corpuscular Hemoglob 32 pg High 27-31 Mean Corpuscular HGB Cone 35 g/dL 32-36 Redcell Distribution WDTH 13 % 10.5-15 Platelet Count 256 CUMM 150-450 Mean Platelet Volume 9.4 um3 7.4-10.4 Gran % 66.2 % 38-83 Lymph % 26.4 % 25-47 Mononuclear % 5.8 % 1-9 Eosinophil % 1.2 % 0-6 Basophil % 0.4 % 0-2 Abs Lymphs 1.8 1.0-4.8 Abs Mononuclear 0.4 0-0.8 Absolute Neutrophil Count 4.6 1.5-7.7 Abs Eosinophils 0.1 0-0.6 Abs Basophils 0 0-0.2 Laboratory test 02/14/2011 In House Hemoglobin A1c 6.1 finding Comp Metabolic Panel 11/22/2010 [facility] Sodium 135 mmol/L 135- 145 64 [phone] Potassium 4.2 mmol/L 3.5-5.0 Chloride 103 mmol/L 101-111 Co2 (Carbon Dioxide) 25.0 mmol/L 22-32 Anion Gap 7.0 mmol/L 2-11 65 Glucose 118 mg/dL High 70-100 BUN 23 mg/dL 6-24 Creatinine 0.70 mg/dL 0.50-1.40 One Over Creatinine 1.40 BUN/Creatinine Ratio 32.9 High 8-20 Calcium 9.0 mg/dL 8.1-9.9 Total Protein 6.7 GM/DL 6.2-8.1 Albumin 4.0 GM/DL 3.2-5.2 Globulin 2.7 GM/DL 2-4 Albumin/Globulin Ratio 1.5 1-3 Bilirubin Total 0.9 mg/dL 0.4-1.5 66 Alkaline Phosphatase 84 U/L 30-110 Alt (SGPT) 42 U/L 14-54 Ast (Sgot) 35 U/L 12-42 eGFR Non- 83.5 > 60 eGFR 107.3 > 60 67 Lipid Profile 11/22/2010 [facility] Triglyceride 380 mg/dL High 40- 200 (Trig/Chol/HDL) [phone] Cholesterol 195 mg/dL Less Than 200 68 High Density Lipoprotein 45 mg/dL 40-60 69 Cholesterol/HDL Ratio 4.33 AVERAGE 1-4.44 Low Density Lipoprotein 74 mg/dL Less Than 100 70 Laboratory test 11/22/2010 [facility] TSH 1.85 MIU/ML 0.34-5.60 finding [phone] CBC Auto Diff 11/22/2010 [facility] White Blood 7.7 CUMM 4.8-10.8 [phone] Count Red Cell Count 4.46 CUMM 4.2-5.4 Hemoglobin 14.1 g/dL 12.0-16.0 Hematocrit 41 % 35-47 Mean Corpuscular Volume 93 um3 79-97 Mean Corpuscular Hemoglob 32 pg High 27-31 Mean Corpuscular HGB Cone 34 g/dL 32-36 Redcell Distribution WDTH 13 % 10.5-15 Platelet Count 248 CUMM 150-450 Mean Platelet Volume 9.7 um3 7.4-10.4 Gran % 60.6 % 38-83 Lymph % 30.9 % 25-47 Mononuclear % 6.6 % 1-9 Eosinophil % 1.4 % 0-6 Basophil % 0.5 % 0-2 Abs Lymphs 2.4 1.0-4.8 Abs Mononuclear 0.5 0-0.8 Absolute Neutrophil Count 4.7 1.5-7.7 Abs Eosinophils 0.1 0-0.6 Abs Basophils 0 0-0.2 Laboratory test 11/22/2010 [facility] Hemoglobin A1c 6.1 % High Less Than 71 finding [phone] 6.0 1 Unable to calculate due to low microalbumin 2 Because ethnic data is not always readily [...] 15-29 5 Kidney failure <15 (or dialysis) 3 Desirable: <150 Borderline High: 150-199 High: 200-499 Very High: >500 4 Desirable: <200 Borderline High: 200-239 High: >239 5 Low: <40 Desirable: 40-60 High: >60 6 Desirable: <100 Near Optimal: 100-129 Borderline High: 130-159 High: 160-189 Very High: >189 7 FASTING in 6 weeks cc pmd Copy Result to: TALAT ORELLANA ([id number]) 8 void, clear, gold 9 1201-A:Morphology: pearly telangiectatic papule;DDX: Basal Cell Carcinoma;Location: left breast; 10 SEE RESULT BELOW Name: LIZETH OLMSTEAD : [address]: Ynes Beckham MD Acct: [id number] Unit: [id number] AGE: 72 Location: [facility] Re01/23/18 SEX: F Status: REG REF SPEC: [id number] CESAR: 01/23/18-[address] [facility] [address]: Ynes Beckham MD REQ: [id number] RECD: 01/23/18 STATUS: GRISELDA MENDEZ DR: Talat Orellana DO _ ORDERED: LEVEL 4 COMMENTS: [id number] FINAL DIAGNOSIS Skin, left breast, biopsy: -- Dermatofibroma. -- Lesional cells extend to the biopsy base. PRE-OPERATIVE DIAGNOSIS Pearly telangiectatic papule, basal cell carcinoma GROSS DESCRIPTION The specimen is received in formalin labeled, Left Breast, and consists of a 0.9 x 0.8 cm davies-white triangular skin shave with an eccentric 0.2 x 0.2 cm dark brown lesion. The specimen is inked, serially sectioned and entirely submitted in one cassette. Signed by and Reported on: Linh Horowitz MD 01/24/18 1021 END OF REPORT DEPARTMENT OF PATHOLOGY, [address] [place] [address] Brian Diaz M.D. Director [facility] # [id number] Desirable: <150 Borderline High: 150-199 High: 200-499 Very High: >500 12 Desirable: <200 Borderline High: 200-239 High: >239 13 Low: <40 Desirable: 40-60 High: >60 14 Desirable: <100 Near Optimal: 100-129 Borderline High: 130-159 High: 160-189 Very High: >189 15 Normal Range 180 to 914 Indeterminate Range 145 to 180 Deficient Range <145 16 Because ethnic data is not always readily [...] 15-29 5 Kidney failure <15 (or dialysis) 17 Unable to calculate due to low microalbumin 18 Because ethnic data is not always readily [...] 15-29 5 Kidney failure <15 (or dialysis) 19 Desirable <150 Borderline high 150-199 High 200-499 Very High >500 20 Desirable <200 Borderline high 200-239 High >239 21 Low <40 Desirable: 40-60 High: >60 22 Desirable: <100 mg/dL Near Optimal: 100-129 mg/dL Borderline High: 130-159 mg/dL High: 160-189 mg/dL Very High: >189 mg/dL 23 FASTING 12 HOUR 24 FASTING 12 HOUR 25 Normal Range 180 to 914 Indeterminate Range 145 to 180 Deficient Range <145 26 Because ethnic data is not always readily [...] 15-29 5 Kidney failure <15 (or dialysis) 27 Because ethnic data is not always readily [...] 15-29 5 Kidney failure <15 (or dialysis) 28 Normal Range 180 to 914 Indeterminate Range 145 to 180 Deficient Range <145 29 Unable to calculate due to low microalbumin 30 Therapeutic target for the treatment of diabetes Mellitus patients is <7% HBA1C, and in selective patients <6.0%.Please refer to [place] [employer] Diabetic care guidelines for further information. 31 [id number] yellow 32 Because ethnic data is not always readily [...] 15-29 5 Kidney failure <15 (or dialysis) 33 Desirable <150 Borderline high 150-199 High 200-499 Very High >500 34 Desirable <200 Borderline high 200-239 High >239 35 Low <40 Desirable: 40-60 High: >60 36 Desirable: <100 mg/dL Near Optimal: 100-129 mg/dL Borderline High: 130-159 mg/dL High: 160-189 mg/dL Very High: >189 mg/dL 37 Therapeutic target for the treatment of diabetes Mellitus patients is <7% HBA1C, and in selective patients <6.0%.Please refer to [place] [employer] Diabetic care guidelines for further information. 38 SEE RESULT BELOW Name: LIZETH OLMSTEAD Alejandro : [address]: Lorene WILLIAM Acct: [id number] Unit: [id number] AGE: 70 Location: [facility] Re01/28/15 SEX: F Status: REG REF SPEC: [id number] CESAR: 01/28/15 SUBM : Lorene WILLIAM REQ: [id number] RECD: 01/28/15 STATUS: COMP _ SOURCE: URINE SPDESC: ORDERED: Urine Culture Procedure Result Verified Site Urine Culture Final 01/30/15- 09 ML Organism 1 NORMAL JAYA [place] Count 75-100,000 (Many) CFU/ML * ML - MAIN LAB (PSC1) . END OF REPORT * ML=Testing performed at Main Lab DEPARTMENT OF PATHOLOGY, [facility] [place] [address] Brian Diaz M.D. Director [facility] # [id number] RUN DATE: 06/21/14 [facility] LAB LIVE PAGE 1 RUN TIME: 2049 [facility] [address]ITS [place], [place] [address] Specimen Inquiry Name: LIZETH OLMSTEAD : [address]: Lorene WILLIAM Acct: [id number] Unit: [id number] AGE: 69 Location: [facility] Re06/18/14 SEX: F Status: REG REF SPEC: [id number] CESAR: 06/18/[address] [facility] [address] RE[facility]: [id number] RECD: 06/18/14 STATUS: SOUT _ ORDERED: LEVEL IV FINAL DIAGNOSIS Skin, site unspecified, excision: A. Seborrheic keratosis. B. Acrochordon. PRE-OPERATIVE DIAGNOSIS Skin lesions GROSS DESCRIPTION The specimen is received in formalin labeled Lizeth Olmstead, Skin - Skin Tags, and consists of a 0.5 x 0.4 x 0.2 cm. aggregate of multiple davies-white irregular focally verrucoid portions of skin. Submitted entirely, one cassette. Signed (signature on file) Brian Diaz MD [id number] END OF REPORT * ML=Testing performed at Main Lab DEPARTMENT OF PATHOLOGY, [facility] [place], [place] [address] Brian Diaz M.D. Director [facility] # [id number] RUN DATE: 06/03/14 [facility] LAB LIVE PAGE 1 RUN TIME: 1400 [facility] [address] [place], [place] [address] Specimen Inquiry Name: LIZETH OLMSTEAD: [address]: Talat Orellana DO Acct: [id number] Unit: [id number] AGE: 69 Location: [facility] Re06/02/14 SEX: F Status: REG REF SPEC: [id number] CESAR: 06/02/14-[address]: Talat Orellana DO REQ: [id number] RECD: 06/02/14-3 STATUS: COMP _ SOURCE: STOOL SPDESC: ORDERED: C. diff Amp DNA QUERIES: Medent Number [id number] Procedure Result Verified Site C. difficile Amplified DNA Final 06/03/14- 1400 ML Organism 1 Neg: No C. difficile detected Assay tests for toxigenic C. difficile with Pathogen Locus (PALOC) TEST LIMITATIONS: Assay does not distinguish between viable and nonviable organisms. Test results are to be used in conjunction with information available from the patient clinical evaluation and other diagnostic procedures. Two distinct groups have been identified that can harbor C. difficile asymptomatically at very high rates. Colonization at rates up to 50% and higher have been reported in infants and rates up to 32% in cystic fibrosis patients. END OF REPORT * ML=Testing performed at Main Lab DEPARTMENT OF PATHOLOGY, [facility] [address] [place], [place] [address] Brian Diaz M.D. Director [facility] # [id number] 41 COLLECTED ON 05/02/14 COLLECTED ON 05/02/14~C. Difficile toxin testing is not performed on formed stool~specimens. Toyin COLLECTED ON 05/02/14~C. Difficile toxin testing is not performed on formed stool~specimens. Toyin 42 RUN DATE: 05/06/14 [facility] LAB LIVE PAGE 1 RUN TIME: 0840 [facility] [address] [place], [place] [address] Specimen Inquiry Name: LIZETH OLMSTEAD : [address]: Talat Orellana DO Acct: [id number] Unit: [id number] AGE: 69 Location: [facility] Re05/03/14 SEX: F Status: REG REF SPEC: [id number] CESAR: 05/03/14-[address] [facility] [address]: Talat Orellana DO REQ: [id number] RECD: 05/03/14-1043 STATUS: COMP _ SOURCE: STOOL SPDESC: ORDERED: Stool Culture COMMENTS: COLLECTED ON 05/02/14 C. Difficile toxin testing is not performed on formed stool specimens. Test of cure on positive patients is not recommended. Verbal to PAM SANTIAGO by [id number] at 1337 on 05/03/14. QUERIES: Medent Number [id number] Procedure Result Verified Site Stool Culture Final 05/06/14- 0840 ML Result No enteric pathogens isolated Testing for Salmonella, Shigella, Aeromonas, Plesiomonas, Yersinia and Campylobacter are included in a Stool Culture. Vibrio spp not routinely tested for in a stool culture. If testing is desired, please request specifically when placing test order. Sensitivities not routinely performed on stool isolates, as antibiotics may prolong the carriage rate of bacteria. Please contact the microbiology lab if sensitivities are required. Stool Specimen Description Final 05/03/14- 1320 ML Stool Color Brown Stool Form Formed Stool Consistency Soft Shiga Toxin 1 2 Final 05/05/14- 0919 ML Organism 1 Negative Shiga Toxin 1 2 CONTINUED ON NEXT PAGE * ML=Testing performed at Main Lab DEPARTMENT OF PATHOLOGY, [address] [place], [place] [address] Brian Diaz M.D. Director [facility] # [id number] RUN DATE: 05/06/14 [facility] LAB LIVE PAGE 2 RUN TIME: [address] [place] [address] Specimen Inquiry Patient: LZIETH OLMSTEAD [id number] (Continued) Specimen: [id number] Collected: 05/03/14 Received: 05/03/14-1043 (Continued) Procedure Result Verified Site Shiga Toxin 1 2 Final (continued) 05/05/14- 918 Immunochromatographic Assay END OF REPORT * ML=Testing performed at Main Lab DEPARTMENT OF PATHOLOGY, [facility] [address] [place] [address] Brian Diaz M.D. Director [facility] # [id number] 43 RUN DATE: 05/03/14 [facility] LAB LIVE PAGE 1 RUN TIME: 1336 [facility] [address] [place], [place] [address] Specimen Inquiry Name: LIZETH OLMSTEAD : [address]: Talat Orellana DO Acct: [id number] Unit: [id number] AGE: 69 Location: [facility] Re05/03/14 SEX: F Status: REG REF SPEC: [id number] CESAR: 05/03/14-899 [facility]: Talat Orellana DO REQ: [id number] RECD: 05/03/14-1042 STATUS: RES _ SOURCE: STOOL SPDESC: ORDERED: Stool Culture COMMENTS: COLLECTED ON 05/02/14 QUERIES: Medent Number [id number] Procedure Result Verified Site Stool Culture PENDING Stool Specimen Description Final 05/03/14- 1320 ML Stool Color Brown Stool Form Formed Stool Consistency Soft Shiga Toxin 1 2 PENDING END OF REPORT * ML=Testing performed at Main Lab DEPARTMENT OF PATHOLOGY, [facility] [address] [place], [place] [address] Brian Diaz M.D. Director [facility] # [id number] 44 RUN DATE: 02/23/14 [facility] LAB LIVE PAGE 1 RUN TIME: 7558 [address] [place], [place] [address] Specimen Inquiry Name: LIZETH OLMSTEAD Alejandro : [address]: Arias Bell MD Acct: [id number] Unit: [id number] AGE: 69 Location: [facility] Re02/19/14 SEX: F Status: REG REF SPEC: [id number] CESAR: 02/19/[address] [facility] [address]: rAias Bell MD REQ: [id number] RECD: 02/19/14 STATUS: SOUT _ ORDERED: LEVEL IV FINAL DIAGNOSIS Skin, mid right lower leg, excision: Verruca vulgaris. PRE-OPERATIVE DIAGNOSIS Anterolaterally 6-7 mm. irregular shaped, well demarcated dome scaly slightly erythematous elevated macule with a little surrounding xerosis/flaking GROSS DESCRIPTION The specimen is received in formalin labeled Tawana Blackburn, and consists of two davies-white irregular granular to friable skin shaves measuring 0.4 x 0.4 cm. and 0.6 x 0.4 cm. The skin shaves are differentially inked. The larger tissue is bisected and submitted entirely, one cassette. Signed (signature on file) Brian Diaz MD 1629 END OF REPORT * ML=Testing performed at Main Lab DEPARTMENT OF PATHOLOGY, [facility] [address] [place], [place] [address] Brian Diaz M.D. Director [facility] # [id number] 45 RUN DATE: 02/08/14 [facility] LAB LIVE PAGE 1 RUN TIME: 1340 [facility] [address] [place], [place] [address] Specimen Inquiry Name: LIZETH OLMSTEAD : [address]: Jhoana GIRALDO Acct: [id number] Unit: [id number] AGE: 69 Location: [facility] Re02/04/14 SEX: F Status: REG REF SPEC: [id number] CESAR: 02/04/14-[address] [facility] [address]: Jhoana GIRALDO REQ: [id number] RECD: 02/04/14 STATUS: SOUT _ ORDERED: LEVEL IV FINAL DIAGNOSIS Skin, right upper medial arm, excision: A. Verrucoid squamous cell carcinoma. B. Deep, tip, and lateral margins of resection are clear. PRE-OPERATIVE DIAGNOSIS 709.9 GROSS DESCRIPTION The specimen is received in formalin labeled Lizeth Olmstead, No Source Identified with a requisition labeled Skin Right Upper Medial Arm, and consists of a 1.5 x 1.2 x 0.4 cm. davies-white irregular portion of skin with an eccentric 0.8 x 0.7 x 0.3 cm. davies -white granular friable nodule. The specimen is inked, serially sectioned, and submitted entirely, one cassette. Signed (signature on file) Brian Diaz MD 1340 END OF REPORT * ML=Testing performed at Main Lab DEPARTMENT OF PATHOLOGY, [address] [place] [address] Brian Diaz M.D. Director [facility] # [id number] 46 Desirable <150 Borderline high 150-199 High 200-499 Very High >500 47 Desirable <200 Borderline high 200-239 High >239 48 Low <40 Desirable: 40-60 High: >60 49 Unable to calculate LDL as triglyceride is > 400 50 Because ethnic data is not always readily [...] 15-29 5 Kidney failure <15 (or dialysis) 51 RUN DATE: 05/26/13 [facility] LAB LIVE PAGE 1 RUN TIME: 1732 [address] [place], [place] [address] Specimen Inquiry Name: LIZETH OLMSTEAD : [address]: Jhoaan GIRALDO Acct: [id number] Unit: [id number] AGE: 68 Location: [facility] Re05/22/13 SEX: F Status: REG REF SPEC: [id number] CESAR: 05/22/13-[address] [facility] [address]: Jhoana GIRALDO REQ: [id number] RECD: 05/22/13 STATUS: SOUT _ ORDERED: LEVEL IV FINAL DIAGNOSIS Skin, left axilla, biopsy: Fragmented portions of seborrheic keratosis. PRE-OPERATIVE DIAGNOSIS Hypertrophic atrophic condition of skin unspecified GROSS DESCRIPTION The specimen is received in formalin labeled Lizeth Olmstead, Skin Tag from Left Axilla, and consists of two fragmented portions of davies-white tissue that measure 0.2 x 0.1 x 0.1 cm. and 0.2 x 0.2 x 0.1 cm. Submitted entirely, one cassette. Signed (signature on file) iLnh Horowitz MD 1733 END OF REPORT * ML=Testing performed at Main Lab DEPARTMENT OF PATHOLOGY, [address] [place] [address] Brian Diaz M.D. Director [facility] Permit #[id number] 52 Test Performed by: [address] [address] Minister Helper: Justice Bhandari III, M.D. 53 Because ethnic data is not always readily [...] 15-29 5 Kidney failure <15 (or dialysis) 54 HDL Interpretation: Undesirable: High Risk: Less than 40 MG/DL Desirable: Low Risk: Greater than 60 MG/DL 55 LDL Interpretation: Low Risk Optimal Level: LDL Less than 100 MG/DL Near or Above Optimal: LDL 100-129 MG/DL Borderline High Risk: LDL 130-159 MG/DL High Risk: LDL 160-189 MG/DL Very High Risk: LDL Greater than 189 MG/DL 56 Test Performed by: [address] [address] Minister Helper: Justice Bhandari III, M.D. 57 Serologic response to B. burgdorferi infection is not detected, but cannot rule out early infection during which low or undetectable antibody levels to B. burgdorferi may be present. If clinically indicated, a new serum specimen should be submitted in 7-14 days. Test Performed by: [facility] [address] [place] [address] Minister Helper: Justice Bhandari III, M.D. 58 CHOLESTEROL INTERPRETATION: Desirable: Less than 200 MG/DL Borderline-High Risk: 200-239 MG/DL High-Risk: 240 MG/DL and over 59 HDL INTERPRETATION: Undesirable: High Risk: Less than 40 MG/DL Desirable: Low Risk: Greater than 60 MG/DL 60 LDL INTERPRETATION: Low Risk Optimal Level: LDL Less than 100 MG/DL Near or Above Optimal: LDL 100-129 MG/DL Borderline High Risk: LDL 130-159 MG/DL High Risk: LDL 160-189 MG/DL Very High Risk: LDL Greater than 189 MG/DL 61 Anion gap measurement may be of limited value in the presence of any alkalosis, especially in a combined acid base disorder. . 62 A metabolite of Naproxen, O-desmethylnaproxen, has been shown to interfere with the Jendrassik-Shon method for measuring total bilirubin. Samples from patients who have taken Naproxen have shown spurious elevation in total bilirubin levels. 63 Because ethnic data is not always readily [...] 15-29 5 Kidney failure <15 (or dialysis) 64 DRAWN. NOTED BY OMER AT 1045 ON 11/22/10. 65 Anion gap measurement may be of limited value in the presence of any alkalosis, especially in a combined acid base disorder. . 66 A metabolite of Naproxen, O-desmethylnaproxen, has been shown to interfere with the Jendrassik-Mendon method for measuring total bilirubin. Samples from patients who have taken Naproxen have shown spurious elevation in total bilirubin levels. 67 Because ethnic data is not always readily [...] 15-29 5 Kidney failure <15 (or dialysis) 68 CHOLESTEROL INTERPRETATION: Desirable: Less than 200 MG/DL Borderline-High Risk: 200-239 MG/DL High-Risk: 240 MG/DL and over 69 HDL INTERPRETATION: Undesirable: High Risk: Less than 40 MG/DL Desirable: Low Risk: Greater than 60 MG/DL 70 LDL INTERPRETATION: Low Risk Optimal Level: LDL Less than 100 MG/DL Near or Above Optimal: LDL 100-129 MG/DL Borderline High Risk: LDL 130-159 MG/DL High Risk: LDL 160-189 MG/DL Very High Risk: LDL Greater than 189 MG/DL 71 THERAPEUTIC TARGET FOR THE TREATMENT OF DIABETES MELLITUS PATIENTS IS <7% HBA1C, AND IN SELECTIVE PATIENTS <6.0%. PLEASE REFER TO [employer] DIABETIC CARE GUIDELINES FOR FURTHER INFORMATION. Procedures Date Code Description Status 09/22/2018 553022083 Diabetic Foot Exam Completed 08/08/2018 04199 X-Ray Ribs Two Views Completed 08/08/2018 16511 X-Ray Ribs 2 VWS Prof Fee Completed 06/10/2018 07891 Inject/Drain Joint/Bursa Major Completed 12/27/2017 330557107 Diabetic Retinal Eye Exam Completed 09/16/2017 94380 Dexa Bone Density Study One Or More Sites Axial Completed Skeleton 06/09/2017 02765277 Mammogram Completed 08/08/2016 66728 Removal Of Foreign Body From Ear Completed 05/08/2016 69791 X-Ray, Lumbar Spine Complete, Obl Completed 05/08/2016 58006 Radiologic Exam Hip Unilateral With Pelvis 2-3 Views Completed 03/20/2016 41045 SC/Im Injections Completed 06/27/2015 65255 X-Ray Chest 2 Views Completed 06/27/2015 98671 X-Ray Chest 2 Views Completed 06/27/2015 07137 X-Ray Chest 2 V Prof Fee Completed 06/18/2014 49209 Remove Skin Tags Up To 15 Completed 02/19/2014 25643 Biopsy Skin Lesion Single Completed 10/29/2013 72338 Remove Skin Tags Up To 15 Completed 05/22/2013 80702 Destruction Of Skin Lesions Up To 14 Flat Completed Warts/Molluscum Contag 05/22/2013 39218 Remove Skin Tags Each Addtl 10 Completed 05/22/2013 28713 Remove Skin Tags Up To 15 Completed 04/03/2013 10604 Oximetry, Single Completed 04/03/2013 63479 Electrocardiogram Complete Completed 09/29/2010 98784 SC/Im Injections Completed Encounters Type Date Location Provider Dx Diagnosis Office Visit 09/22/2018 Main Office Talat Orellana, E11.9 Type 2 diabetes 2:15p D.O. mellitus without complications I10 Essential (primary) hypertension M25.551 Pain in right hip M25.9 Joint disorder, unspecified R26.81 Unsteadiness on feet Z01.818 Encounter for other preprocedural examination Office Visit 08/08/2018 4:20p Main Office Jhoana Arzate S23.41xA Sprain of ribs, P.A. initial encounter R07.89 Other chest pain E11.9 Type 2 diabetes mellitus without complications I10 Essential (primary) hypertension W18.09xA Striking against oth object w subsequent fall, init encntr Office Visit 06/10/2018 11:15a Main Office Talat Orellana, M25.551 Pain in right D.O. hip M25.9 Joint disorder, unspecified M70.61 Trochanteric bursitis, right hip R26.81 Unsteadiness on feet Office Visit 02/13/2018 10:20a Main Office Jhoana Arzate, E11.9 Type 2 diabetes P.A. mellitus without complications I10 Essential (primary) hypertension R07.89 Other chest pain Office Visit 01/14/2018 11:15a Main Office Talat Orellana, E11.9 Type 2 diabetes D.O. mellitus without complications F33.0 Major depressive disorder, recurrent, mild E78.00 Pure hypercholesterolemia, unspecified I10 Essential (primary) hypertension R53.83 Other fatigue G47.00 Insomnia, unspecified K21.9 Gastro-esophageal reflux disease without esophagitis Z12.11 Encounter for screening for malignant neoplasm of colon Z79.84 detention (current) use of oral hypoglycemic drugs Office Visit 11/25/2017 3:20p Main Office Jhoana Arzate, S00.93xD Contusion of P.A. unspecified part of head, subsequent encounter S60.211D Contusion of right wrist, subsequent encounter S80.212D Abrasion, left knee, subsequent encounter I10 Essential (primary) hypertension Z23 Encounter for immunization R53.83 Other fatigue N95.1 Menopausal and female climacteric states E11.9 Type 2 diabetes mellitus without complications W18.30xD Fall on same level, unspecified, subsequent encounter Y93.K1 Activity, walking an animal Office Visit 09/16/2017 2:15p Main Office Talat Orellana, Z13.820 Encounter for D.O. screening for osteoporosis E11.9 Type 2 diabetes mellitus without complications Z12.11 Encounter for screening for malignant neoplasm of colon M85.851 Oth disrd of bone density and structure, right thigh G47.00 Insomnia, unspecified Office Visit 08/16/2017 10:45a Main Office Arias Bell, Z23 Encounter for M.D. immunization J06.9 Acute upper respiratory infection, unspecified Z41.8 Encntr for oth proc for purpose oth [facility] Office Visit 05/27/2017 3:00p Main Office Jhoana Arzate, M76.01 Gluteal tendinitis, P.A. right hip M25.551 Pain in right hip Office Visit 03/15/2017 12:55p Main Office Talat Orellana, E11.9 Type 2 diabetes D.O. mellitus without complications Office Visit 09/05/2016 3:00p Main Office Talat Orellana, F33.0 Major depressive D.O. disorder, recurrent, mild R74.8 Abnormal levels of other serum enzymes Office Visit 08/08/2016 12:55p Main Office Talat Orellana, E11.9 Type 2 diabetes D.O. mellitus without complications I10 Essential (primary) hypertension F33.0 Major depressive disorder, recurrent, mild K21.9 Gastro-esophageal reflux disease without esophagitis I34.1 Nonrheumatic mitral (valve) prolapse T16.2xxA Foreign body in left ear, initial encounter Office Visit 05/08/2016 1:30p Main Office Talat Orellana D.O. M54.5 Low back pain M25.551 Pain in right hip E11.9 Type 2 diabetes mellitus without complications L91.8 Other hypertrophic disorders of the skin Office Visit 03/20/2016 1:15p Main Office Talat Orellana, E11.9 Type 2 diabetes D.O. mellitus without complications I10 Essential (primary) hypertension K21.9 Gastro-esophageal reflux disease without esophagitis E53.8 Deficiency of other specified B group vitamins M25.551 Pain in right hip M54.5 Low back pain Office Visit 02/14/2016 12:55p Main Office Talat Orellana, E11.9 Type 2 diabetes D.O. 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 R05 Cough J06.9 Acute upper respiratory infection, unspecified I10 Essential (primary) hypertension Office Visit 06/27/2015 3:20p Main Office Lorene Healy, DARYL-C R05 Cough R53.83 Other fatigue Office Visit 06/13/2015 11:00a Main Office NirajLorene zabala, R53.83 Other fatigue RPA-C R05 Cough J06.9 Acute upper respiratory infection, unspecified Z13.29 Encounter for screening for oth suspected endocrine disorder Office Visit 05/11/2015 10:40a Main Office Niraj, V65.3 Dietary Lorene, RPA-C Surveillance & Counseling 250.00 Diabetes Mellitus W/O Compl Type II Or Unspec Controlled V76.51 Special Screening For Malignant Neoplasms Colon V65.49 Counseling Other Spec V03.82 Streptococcus Pneumoniae Vaccination Spec Other V07.2 Prophylactic Immunotherapy Office Visit 02/16/2015 11:00a Main Office Niraj V76.19 Screening Breast Lorene, RPA-C Exam Malignant Neoplasms Other V10.83 History Personal Malignant Neoplasm Of The Skin Other 780.52 Insomnia Unspecified 790.21 Impaired Fasting Glucose 401.1 Hypertension Benign 599.70 Hematuria, Unspecified V76.10 Screening For Malignant Neoplasm Breast Office Visit 2015 9:20a Main Office Lorene Healy, RPA-C 786.2 Cough 995.3 Allergy Unspec 780.52 Insomnia Unspecified 401.1 Hypertension Benign Office Visit 09/07/2014 2:15p Main Office Arias Bell M.D. 786.2 Cough 465.9 URI Upper Respiratory Infections Acute Unspec Sites Office Visit 08/27/2014 1:40p Main Office Niraj, 401.1 Hypertension Benign Lorene, RPA-C 272.0 Hypercholesterolemia Pure 729.1 Myalgia & Myositis Unspec 296.31 Depressive Disorder Major Recurrent Mild 530.81 Esophageal Reflux Office Visit 08/17/2014 12:55p Main Office Arias Bell, V10.83 History Personal M.D. Malignant Neoplasm Of The Skin Other Office Visit 04/27/2014 11:30a Main Office Talat Orellana, 787.91 Diarrhea D.O. Office Visit 03/16/2014 11:00a Main Office Talat Orellana, 724.2 Lumbago D.O. Office Visit 02/15/2014 1:30p Main Office Arias Bell, 173.62 Squamous Cell M.D. Carcinoma Skin Upper Limb Including Shoulder 238.2 Neoplasm Uncertain Skin Office Visit 02/12/2014 3:15p Main Office Talat Orellana, 719.45 Pain Joint D.O. Pelvic Region & Thigh 724.2 Lumbago Office Visit 02/04/2014 1:20p Main Office Jhoana Arzate, 719.45 Pain Joint Pelvic P.A. Region & Thigh 709.9 Skin & Subcutaneous Tissue Disorders Unspec 250.00 Diabetes Mellitus W/O Compl Type II Or Unspec Controlled Office Visit 10/29/2013 9:40a Main Office Jhoana Arzate, 250.00 Diabetes Mellitus P.A. W/O Compl Type II Or Unspec Controlled 401.1 Hypertension Benign 350.1 Neuralgia Trigeminal 274.9 Gout Unspec V76.51 Special Screening For Malignant Neoplasms Colon 709.9 Skin & Subcutaneous Tissue Disorders Unspec 701.9 Hypertrophic & Atrophic Conditions Of Skin Unspec Office Visit 05/22/2013 11:00a Main Office Jhoana Arzate, 701.9 Hypertrophic & P.A. Atrophic Conditions Of Skin Unspec 780.79 Malaise And Fatigue Other v04.81 Need For Prophylactic Vaccination & Inoculation/Influenza V07.2 Prophylactic Immunotherapy 782.0 Skin Sensation Disturbance 959.8 Injury Other Spec Sites Including Multiple 702.19 Seborrheic Keratosis Other Office Visit 04/03/2013 1:20p Main Office Jhoana Arzate, 401.1 Hypertension Benign P.A. 780.52 Insomnia Unspecified 296.31 Depressive Disorder Major Recurrent Mild 389.9 Hearing Loss Unspec 780.79 Malaise And Fatigue Other 784.0 Headache 790.21 Impaired Fasting Glucose 250.00 Diabetes Mellitus W/O Compl Type II Or Unspec Controlled Office Visit 10/20/2012 Main Office Jhoana 272.0 Hypercholesterolemia Pure 1:20p Huey P.APiyush 401.1 Hypertension Benign 790.21 Impaired Fasting Glucose 780.52 Insomnia Unspecified 296.31 Depressive Disorder Major Recurrent Mild Office Visit 10/18/2012 12:00p Main Office Arias Bell, 786.2 Cough M.D. Office Visit 07/02/2012 1:40p Main Office Jhoana Arzate 729.1 Myalgia & Myositis P.A. Unspec 719.45 Pain Joint Pelvic Region & Thigh 250.00 Diabetes Mellitus W/O Compl Type II Or Unspec Controlled 709.9 Skin & Subcutaneous Tissue Disorders Unspec Office Visit 06/06/2012 10:20a Main Office Jhoana [place], 729.1 Myalgia & Myositis P.A. Unspec 733.00 Osteoporosis Unspec 719.45 Pain Joint Pelvic Region & Thigh 780.52 Insomnia Unspecified 250.00 Diabetes Mellitus W/O Compl Type II Or Unspec Controlled v04.81 Need For Prophylactic Vaccination & Inoculation/Influenza v07.2 Prophylactic Immunotherapy Office Visit 01/28/2012 4:00p Main Office Jhoana Arzate P.A. 274.9 Gout Unspec 530.81 Esophageal Reflux Office Visit 11/30/2011 11:00a Main Office Jhoana Arzate, 729.1 Myalgia & Myositis P.A. Unspec 401.9 Hypertension Unspec 790.21 Impaired Fasting Glucose 530.81 Esophageal Reflux V76.10 Screening For Malignant Neoplasm Breast 272.8 Lipoid Metabolism Disorders Other Office Visit 08/15/2011 11:20a Main Office Jhoana Arzate P.A. 727.3 Bursitis Other 729.1 Myalgia & Myositis Unspec Office Visit 06/01/2011 11:20a Main Office Jhoana Arzate P.A. 784.0 Headache 723.1 Cervicalgia 401.9 Hypertension Unspec Office Visit 05/24/2011 10:00a Main Office Betina Donis MD 784.0 Headache 723.1 Cervicalgia 401.9 Hypertension Unspec 354.0 Carpal Tunnel Syndrome V04.81 Need For Prophylactic Vaccination & Inoculation/Influenza V07.2 Prophylactic Immunotherapy Office Visit 03/26/2011 1:20p Main Office Jhoana Arzate, 401.9 Hypertension Unspec P.A. E906.0 Bite Dog 882.0 Open Wound Hand Except Finger(S) W/O Complication Office Visit 02/14/2011 3:20p Main Office Jhoana Arzate, 250.00 Diabetes Mellitus P.A. W/O Compl Type II Or Unspec Controlled 401.9 Hypertension Unspec 272.1 Hypertriglyceridemia Pure 272.0 Hypercholesterolemia Pure 780.52 Insomnia Unspecified Office Visit 09/29/2010 5:00p Main Office Arias Bell, 787.0 Nausea And M.D. Vomiting 008.69 Enteritis Due To Other Viral Enteritis 789.00 Pain Abdominal Unspec Site 780.60 Fever, Unspecified Office Visit 09/13/2010 11:00a Main Office Jhoana Arzate, 250.00 Diabetes Mellitus P.A. W/O Compl Type II Or Unspec Controlled 401.9 Hypertension Unspec 272.1 Hypertriglyceridemia Pure 272.0 Hypercholesterolemia Pure 729.1 Myalgia & Myositis Unspec Plan of Treatment Future Appointment(s):01/20/2019 11:00 am - Talat Orellana D.O. at Main Djhuzg5809/22/2018 - Talat Orellana D.O.E11.9 Type 2 diabetes mellitus without complicationsFollow up:4 months DMI10 Essential (primary) rwpvbjfkiojeM13.551 Pain in right hipM25.9 Joint disorder, swrkbepetgsJ91.81 Unsteadiness on feetZ01.818 Encounter for other preprocedural examinationFollow up:Nathalie is cleared for her orthopedic procedure right hip total replacement.
--- OUTSIDE RECORDS SUMMARY | 2018-10-21 09:48 | XMS REPORT | Continuity of Care Document ---
:1945 External Reference #:[id number] Author Name Yesi Jim Care Team Providers Name Role Phone Talat Orellana DO Primary Care Physician Unavailable Payers Type Date Identification Numbers Payment Provider Subscriber Effective: Policy Number: [id number] Medicare Yessica Olmstead 2008 PayID: [id number] [address] [place] [address] Policy Number: [id number] [employer] Yessica Olmstead Group Number: [id number] [address] PayID: [id number] [place] [address] Advance Directives Description No Information Available Problems Date Description Provider Status Onset: 07/07/2018 Trochanteric bursitis Christiana Willoughby M.D. 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 Active Family History Date Family Member(s) Problem(s) Comments General Heart Disease General Stroke General [...] Status Lives With Spouse Occupation Retired Occupation [employer] Tobacco Use Start: Unknown Never Smoked Cigarettes Smoking Status Reviewed: 09/25/18 Never Smoked Cigarettes ETOH Use Drinks 2 [...] my Unknown 0000 mouth daily Cetirizine HCL 00/ Active Tablets 10mg 1 by Unknown 0000 mouth every day Probiotic /00/ Hx Capsules daily Unknown 0000 - 2018 Amlodipine / Hx Tablets 5mg 1 by Unknown Besylate 0000 - mouth 03/21/ 2017 Cyclobenzaprine / Hx Tablets 10mg prn Unknown HCL 0000 - 2016 Vitamin B12 /00/ Hx Tablets ER 1000mcg 1 by Unknown 0000 - mouth 03/04/ day 2016 Melatonin ER 00/ Hx Tablets ER 10mg 2 tabs by Unknown 0000 - mouth 2016 night at bedtime as needed Finney Leg / Hx 2 tablet Unknown Cramps OTC 0000 - po PM 2017 Medications Administered in Office Medication Date Status Form Strength Qnty SIG Indications Ordering Provider Inj, Administered Injection Oscar Ward, 017 Liane Oh 0.1 MG Technetium TC 07/13/2 Administered Injection Oscar Reid 99M 017 Liane Oh Tetrofosmin, Per Unit Dose Up To 40 Millicuries Immunizations Description No Information Available Vital Signs Date Vital Result Comment 09/25/2018 3:23pm Height 64 inches 5'4" Weight [...] H/L Range Note Comp Metabolic Panel 03/24/2018 [facility] Sodium 140 mmol/L N 135-145 [address] [place] [address] [phone] Potassium 4.4 mmol/L N 3.5-5.0 Chloride 103 [...] Egfr 103.8 >60 1 Lipid Profile 03/24/2018 [facility] Triglycerides 190 mg/dL 2 (Trig/Chol/HDL) [address] [place] [address] [phone] Cholesterol 167 mg/dL 3 HDL Cholesterol 56.1 mg/dL 4 LDL Cholesterol 73 mg/dL 5 Laboratory test 03/24/2018 [facility] Creatine 51 U/L N 10- [address] Kinase(CK) [place] [address] [phone] Lipid Panel - 03/20/2018 [facility] Creatine <pending> JFM [address]CK) [place] [address] [phone] Laboratory test 05/01/2017 [facility] Partial Thrombo 30.0 N 26.0-36.[address] [place] [address] [phone] Inr/Protime 05/01/2017 [facility] Inr 0.94 N 0.89-1.[address] [place] [address] [phone] CBC No Diff 05/01/2017 [facility] White Blood 8.1 10^3/uL N 3.5-10.[address] [place] [address] [phone] Red Blood Count 4.77 10^6/uL N 4.0-5.4 [...] um3 N 7.4-10.4 Basic Metabolic Panel 05/01/2017 [facility] Sodium 136 mmol/L N 133-[address] [place] [address] [phone] Potassium 4.1 mmol/L N 3.5-5.0 Chloride 104 mmol/L N 101-111 Co2 Carbon Dioxide 24 mmol/L N 22-32 Anion Gap 8 mmol/L N 2-11 Glucose 161 mg/dL High 70-100 Blood Urea Nitrogen 17 mg/dL N 6-24 Creatinine 0.72 mg/dL N 0.51-0.95 BUN/Creatinine Ratio 23.6 High 8-20 Calcium 9.4 mg/dL N 8.6-10.3 Egfr Non- 79.2 N >60 Egfr 101.8 N >60 7 Order 03/21/2017 [facility] < pending> [facility] [place] [address] [phone] 1 Because ethnic data is not always [...] cc pmd Copy Result to: TALAT ORELLANA ([id number]) 7 Because ethnic data is not always [...] (or dialysis) Procedures Date Code Description Status 09/25/2018 24554 EKG Tracing & Interpretation Completed 05/20/2018 71110 Pace Maker Eval W/Iterative Adjment Dual Lead Completed 05/20/2018 52669 Pace Maker Eval W/Iterative Adjment Dual Lead Completed 01/13/2018 53646 EKG Tracing & Interpretation Completed 11/11/2017 04441 Pace Maker Eval W/Iterative Adjment Dual Lead Completed 11/11/2017 58511 Pace Maker Eval W/Iterative Adjment Dual Lead Completed 08/28/2017 96692 Pace Maker Eval W/Iterative Adjment Dual Lead Completed 08/05/2017 27131 EKG Tracing & Interpretation Completed 05/28/2017 93401 Pace Maker Eval W/Iterative Adjment Dual Lead Completed 05/02/2017 21567 Pace Maker Eval W/Iterative Adjment Dual Lead Completed 05/02/2017 10655 EKG, Interpretation Only Completed 05/01/2017 48880 Perm Pacemaker Av Sequential Atrial And Ventricular Completed 05/01/2017 06295 EKG, Interpretation Only Completed 03/21/2017 40523 Stress Test Completed 03/21/2017 21249 Myocardial Perfusion Imaging Tomographic (Spect) Multiple Completed Studies 02/16/2017 87455 Holter Monitor Review (24 hr)dr review & interp only Completed 02/14/2017 97367 ECG Monitor/Recording W/Visual Superimposition Scanning Completed 12/06/2016 84690 ECHO Stress Test Incl Perf Contiuous ekg Monitoring W/Phys Completed Superv 11/14/2016 04084 ECHO Transthoracic, Real-Time 2D With Doppler And Color Completed Flow 10/25/2016 38934 EKG Tracing & Interpretation Completed 07/21/2012 71961 Rad Exam; Hip Unilat Completed 07/21/2012 58473 Rad Exam; Pelvis Completed Encounters Type Date Location Provider Dx Diagnosis Office Visit 07/07/2018 [facility] Christian[facility] Willoughby, M25.551 Pain in right hip 2:30p Services Of [facility] Rob M16.11 Unilateral primary osteoarthritis, right hip M70.61 Trochanteric bursitis, right hip Office Visit 03/20/2018 1:30p [facility] Mona Abdullahi, I49.[address] [facility] N.P. syndrome I35.0 Nonrheumatic aortic (valve) stenosis I10 Essential (primary) hypertension E78.00 Pure hypercholesterolemia, unspecified Office Visit 01/13/2018 2:40p [facility] Boom Gant I49.5 Sick sinus Liane Irene syndrome I35.0 Nonrheumatic aortic (valve) stenosis I10 Essential (primary) hypertension E11.9 Type 2 diabetes mellitus without complications E78.00 Pure hypercholesterolemia, unspecified Office Visit 08/05/2017 1:20p [facility] Boom Gant R06.00 DyspneaTeto M.D. unspecified I49.5 Sick sinus syndrome Z95.0 Presence of cardiac pacemaker I34.0 Nonrheumatic mitral (valve) insufficiency Office Visit 04/11/2017 4:00p [facility] Flores Gibson, R06.00 Dyspnea, Of Mamadou TaylorDPiyush unspecified I49.5 Sick sinus syndrome R09.89 Ot symptoms and signs involving the circ and resp systems Office Visit 03/05/2017 1:00p [facility] Peggy Moore, I45.[address] [facility] [place] conduction disorders R06.00 Dyspnea, unspecified I34.0 Nonrheumatic mitral (valve) insufficiency I35.0 Nonrheumatic aortic (valve) stenosis I10 Essential (primary) hypertension Office Visit 10/25/2016 2:00p [facility] Boom Gant R06.00 DyspneaTeto M.D. unspecified R01.1 Cardiac murmur, unspecified I10 Essential (primary) hypertension E78.00 Pure hypercholesterolemia, unspecified E11.9 Type 2 diabetes mellitus without complications I34.0 Nonrheumatic mitral (valve) insufficiency I49.5 Sick sinus syndrome R07.9 Chest pain, unspecified R94.31 Abnormal electrocardiogram [ECG] [EKG] Office Visit 07/21/2012 2:45p [facility] David Roland, 726.5 [facility] Enthesopathy Of Hip Region 727.09 Synovitis & Tenosynovitis Other 727.09 Synovitis & Tenosynovitis Other Plan of Treatment Future Appointment(s):10/01/2018 2:00 pm - Traveling ECHO 1 at [facility]10/21/2018 9:30 am - Gianni Hansen PA-C at [facility]..10/21/2018 9:30 am - KRISTAL Jurado at [facility]..10/15/2018 9:00 am - Christiana Willoughby M.D. at [facility].10/21/2018 9:30 am - Christiana Willoughby M.D. at [facility]09/25/2018 - Boom Irene M.D.I49.5 Sick sinus ukzmudkcH15.0 Presence of cardiac tkubwflrlA83.0 Nonrheumatic aortic (valve) stenosisNew Orders:Echocardiogram, Scheduled: 10/01/18Follow up:OV 1 YEARI10 Essential (primary) hyfpspfufteoU67.00 Pure hypercholesterolemia, unspecified
[2018-10-21] MEDS ORDERED: Famotidine IV* 10 MG/ML 2 ML (20 mg) ONE (10:04)
[2018-10-21] MEDS ORDERED: Buffered Lidocaine 1% SYRIN* 1 ML/SYRINGE INTRADERM ONE (10:04)
[2018-10-21] MEDS ORDERED: Gabapentin CAP(*) 300 MG ONE (10:04)
[2018-10-21] MEDS ORDERED: ceFAZolin 2 GM PREMIX in ORs 2 GM/50 ML BAG IVPB ONE (10:04)
[2018-10-21] MEDS ORDERED: Midazolam* 1 MG/ML 5 ML VIAL (5 MG) ONE (10:36)
[2018-10-21] MEDS ORDERED: fentaNYL* 50 MCG/ML 2 ML VIAL (100 MCG VIAL) ONE (10:36)
[2018-10-21] MEDS ORDERED: Propofol* 10 MG/ML 20 ML BTL ONE (13:57)
[2018-10-21] MEDS ORDERED: Phenylephrine IV* 40 MCG/ML 10 ML SYRINGE ONE (13:57)
[2018-10-21] MEDS ORDERED: Ketorolac INJ* 30 MG/ML 1 ML VIAL ONE (13:57)
[2018-10-21] MEDS ORDERED: Lidocaine 2% PF * 5 ML VIAL ONE (13:57)
[2018-10-21] MEDS ORDERED: Ondansetron INJ* 2 MG/ML VIAL ONE (13:57)
[2018-10-21] MEDS ORDERED: DiMENhydriNATE IV* 50 MG/ML VIAL IV PUSH PRN (14:56)
[2018-10-21] MEDS ORDERED: Naloxone* 0.4 MG/ML 1 ML VIAL IV PRN (14:56)
[2018-10-21] MEDS ORDERED: HYDROmorphone INJ1* 1 MG/ML SYRINGE IV PRN (14:56)
[2018-10-21] MEDS ORDERED: Acetaminophen IV 1GM/100ML * 1,000 MG/100 ML VIAL IVPB ONE (14:56)
[2018-10-21] MEDS ORDERED: Gabapentin CAP(*) 100 MG PO ONE (14:58)
[2018-10-21] MEDS ORDERED: Phenylephrine INJ* 10 MG/ML 1 ML VIAL (10 MG) ONE (14:59)
[2018-10-21] MEDS ORDERED: HYDROmorphone INJ1* 1 MG/ML SYRINGE ONE (15:00)
[2018-10-21] MEDS ORDERED: Acetaminophen IV 1GM/100ML * 100 ML ONE (15:21)
[2018-10-21] MEDS ORDERED: Bupivacaine 0.5%* 50 ML VIAL ONE (15:41)
[2018-10-21] MEDS ORDERED: Cyclobenzaprine TAB* 10 MG PO PRN (16:07)
[2018-10-21] MEDS ORDERED: Magnesium Hydroxide LIQ* 30 ML UDC PO PRN (16:07)
[2018-10-21] MEDS ORDERED: Ondansetron INJ* 2 MG/ML VIAL IV PRN (16:07)
[2018-10-21] MEDS ORDERED: diPHENhydraMINE IV* 50 MG/ML 1 ml VIAL (BENADRYL) IV PRN (16:07)
[2018-10-21] MEDS ORDERED: Acetaminophen TAB* 325 MG PO PRN (16:07)
[2018-10-21] MEDS ORDERED: Bisacodyl SUPP* 10 MG SUPP PR PRN (16:07)
[2018-10-21] MEDS ORDERED: Gabapentin CAP(*) 100 MG ONE (16:12)
[2018-10-21] MEDS ORDERED: oxyCODONE TAB* 5 MG TAB ONE ×2 (16:29→16:57)
[2018-10-21] MEDS: oxyCODONE TAB* 5 MG TAB PO PRN ×3 (16:30→21:31)
[2018-10-21] MEDS: Lactated Ringers 1000 ML Bag* 1,000 ML IV SCH (18:56)
[2018-10-21] MEDS ORDERED: Warfarin TAB(*) 6 MG PO ONE (20:30)
[2018-10-21] MEDS: ceFAZolin 1 GM ADVAN(*) 1 GM in NS 0.9% 50 ML* 50 ML IVPB SCH (21:29)
[2018-10-21] MEDS: Docusate CAP* 100 MG PO SCH (21:30)
[2018-10-21] MEDS: Atorvastatin* 20 MG TAB PO SCH (21:30)
[2018-10-21] MEDS: Pantoprazole TAB * 40 MG TAB PO SCH (21:30)
[2018-10-21] MEDS: metFORMIN* 500 MG TAB PO SCH (21:30)
[2018-10-21] MEDS: Magnesium Hydroxide LIQ* 30 ML UDC PO SCH (21:31)
[2018-10-21] MEDS: Gabapentin CAP(*) 100 MG PO SCH (21:36)
[2018-10-21] MEDS: oxyCODONE/Acetamin 5/325 MG* TAB PO PRN (23:56)
[2018-10-22] MEDS: oxyCODONE TAB* 5 MG TAB PO PRN ×4 (02:33→18:20)
[2018-10-22] MEDS: Morphine VIAL* 4 MG/ML VIAL (1 ml vial) IV PRN (03:58)
[2018-10-22] MEDS: oxyCODONE/Acetamin 5/325 MG* TAB PO PRN ×4 (04:37→20:43)
[2018-10-22] MEDS: ceFAZolin 1 GM ADVAN(*) 1 GM in NS 0.9% 50 ML* 50 ML IVPB SCH ×2 (05:11→13:30)
[2018-10-22 06:11] LABS: Hematocrit 36 % (35-47); Hemoglobin 12.1 g/dl (12.0-16.0); Mean Platelet Volume 8.3 fL (7.4-10.4); Platelet Count 298 10^3/ul (150-450)
[2018-10-22 06:33] LABS: INR 1.01 (0.77-1.02)
[2018-10-22 06:41] LABS: BUN/Creatinine Ratio 22.8 (8-20); Calcium 8.9 mg/dL (8.6-10.3); EGFR African American 85.8 (>60); EGFR Non-African American 70.9 (>60); Potassium 4.4 mmol/L (3.5-5.0)
--- NOTE | 2018-10-22 08:03 | OP ---
DATE OF OPERATION: 10/21/18 - ROOM #349 DATE OF : 41 SURGEON: Christiana Willoughby MD SCHEDULE PLANNING MANAGER: KRISTAL Maxwell. Mr. Hansen did help throughout the procedure with preparation of the leg, wound retraction, manipulation of the hip, and wound closure. ANESTHESIOLOGIST: Dr. Fox. ANESTHESIA: Spinal. PRE-OP DIAGNOSIS: Severe end-stage degenerative osteoarthritis of the right hip joint. POST-OP DIAGNOSIS: Severe end-stage degenerative osteoarthritis of the right hip joint. OPERATIVE PROCEDURE: Right total hip arthroplasty. COMPLICATIONS: None. ESTIMATED BLOOD LOSS: 200 cc. SPECIMENS: Femoral head and acetabular reaming sent to Pathology. HARDWARE USED: This is uncemented [place] total hip arthroplasty hardware. For the cup, a Tritanium hemispherical cluster hole shell 50D. A single 60-mm cancellous bone screw. For the liner, a Trident X3 0-degree polyethylene insert 32D. For the stem, an Accolade II size 2 with a 127 neck angle. For the head, a Biolox delta ceramic V40 femoral head 32 +0. BRIEF HISTORY/INDICATION: Ms. Olmstead is a 73-year-old female with years of increasingly severe right hip pain. Radiographs showed advanced arthritis. She failed conservative treatment with anti-inflammatories, pain medication, and physical therapy. Due to continued pain and decreased quality of life, she elected to undergo right total hip arthroplasty. Informed consent was obtained from the patient. She understood the risks of surgery included but were not limited to bleeding, infection, damage to nearby structures, continued pain, need for further surgery, intraoperative fracture, nerve palsy, hardware failure or loosening, dislocation, leg length discrepancy, stroke, heart attack , blood clot, , and anesthesia complications. She wished to proceed. INTRAOPERATIVE FINDINGS: Intraoperatively, the patient was noted to have significant deformation of the femoral head and acetabulum with full-thickness loss of cartilage and osteophyte formation. DESCRIPTION OF PROCEDURE: Ms. Olmstead was identified in the preanesthesia unit. Her right lower extremity was marked as the correct operative side. Informed consent was signed and placed in the chart. The patient was taken to the operating room and placed under spinal anesthesia. A Velasco catheter was placed. The patient was placed in the left lateral decubitus position on the pegboard. All bony prominences were well padded. The patient's right lower extremity was prepped and draped in the usual sterile fashion. Preop time-out was made to correctly identify the patient's side and site. Appropriate perioperative antibiotics were given within 1 hour of incision. A standard posterior hip incision was made with a 10 blade and carried down to the lateral fascial layer. Lateral fascial layer was incised in line with the skin incision. A Charnley retractor was placed and the piriformis and conjoint tendons were identified. These were elevated using electrocautery and tagged with #5 Ethibond. Next, electrocautery was used to make a standard capsular flap and this was tagged with #5 Ethibond. The hip was carefully dislocated. Lesser troch to the center of the femoral head measured 55 mm. Oscillating saw was used to make the femoral neck cut. Femoral head was removed. Femur was retracted anteriorly. After appropriate placement of retractors, the acetabulum was easily visualized. Long-handled knife was used to sharply remove any remaining labrum from the acetabular rim. There was significant amount of osteophyte along the acetabular rim. The acetabulum was sequentially reamed up to a size 49. The 49 reamer established a bleeding subchondral bone bed. Significant osteopenia was noted. A 49 trial had excellent fit and stability. Final implant chosen was a 50D Tritanium cluster hole shell. This was impacted into the acetabulum. The cup had satisfactory stability with appropriate anteversion and abduction angle. A single screw was placed in the superoposterior quadrant for extra stability. Liner chosen was a Trident X3 0-degree polyethylene insert 32D. This was impacted into the acetabulum. The stability of the insert was checked and rechecked and noted to be stable. Next, attention was turned to preparation of the femur. A canal finder was used to enter the proximal femur. The femur was sequentially broached up to a size 2. The size 2 broach had excellent fit and stability with appropriate anteversion. A 127- degree neck trial was chosen with a 32 +0 head trial. Lesser troch to the center of the femoral head measured 56 mm. The hip was reduced and taken through a range of motion. The hip was stable in all positions. There was appropriate soft tissue tension and leg lengths. The hip was dislocated. All trials were removed. Final implant chosen was an Accolade II size 2 with a 127 neck angle. This was impacted into the femoral canal. The stem was stable with appropriate anteversion. A 32 +0 Biolox delta ceramic V40 femoral head was impacted onto the neck. Lesser troch to the center of the femoral head measurement was 56 mm. The hip was reduced and taken through a range of motion. The hip was stable in all positions. There was satisfactory soft tissue tension and appropriate leg lengths. The hip was copiously irrigated with sterile saline. Previously tagged capsule and tendons were reapproximated to the posterolateral femur using 2 trochanteric drill holes. The lateral fascial layer was closed using #1 Vicryl. The rest of the incision was closed in a layered fashion using 0 and 2-0 Vicryl. Skin was closed using running 3-0 Monocryl and Dermabond. Sterile Adaptic, 4x4s, and paper tape were used to cover the incision. The patient's anesthesia was reversed without difficulty. She was taken to the PACU in stable condition. Intended weightbearing will be weightbearing as tolerated. Intended DVT prophylaxis will be Eliquis. [id number]/[facility] #: [id number] BETTE
[2018-10-22] MEDS ORDERED: Enoxaparin(*) 30 MG/0.3 ML SYR SUBCUT SCH (09:00)
[2018-10-22] MEDS: Apixaban* 2.5 MG TAB PO SCH ×2 (09:10→20:42)
[2018-10-22] MEDS: amLODIPine TAB* 5 MG PO SCH (09:10)
[2018-10-22] MEDS: Vitamin THERAPEUTIC TAB PO SCH (09:11)
[2018-10-22] MEDS: Docusate CAP* 100 MG PO SCH ×2 (09:11→20:42)
[2018-10-22] MEDS: metFORMIN* 500 MG TAB PO SCH ×2 (09:11→20:42)
[2018-10-22] MEDS: Magnesium Hydroxide LIQ* 30 ML UDC PO SCH ×2 (09:11→20:44)
[2018-10-22] MEDS: FLUoxetine CAP* 20 MG PO SCH (09:11)
--- NOTE | 2018-10-22 09:51 | PN ---
Progress Note - Progress Note Date of Service: 10/22/18 SOAP: Subjective: [] Pt seen and examined at bedside. She feels well without CP, SOB, dizziness or nausea. Hip pain is well controlled. Objective: []General: Well appearing, NAD RLE: Right hip dressing CDI without surronding eythema or discharge, thigh is soft, DF/PF intact, DP2+, sensation intact to light touch distally. Calves supple and nontender without erythema, edema or palpable cords Assessment: []POD 1 SP RTH 10/21 Dr Willoughby Plan: []WBAT PT/OT Posterior hip precautions Plan for DC to home tomorrow Wean off of O2 today Vital Signs Temp 98.5 F 10/22/18 07:29 Pulse 79 10/22/18 07:29 Resp 17 10/22/18 07:29 BP 140/56 10/22/18 07:29 Pulse Ox 94 10/22/18 07:29 Intake & Output 10/21/18 10/22/18 10/22/18 18:59 06:59 18:59 Intake Total 2530 2215 Output Total 450 600 Balance 2079 1615 Weight 162 lb Intake: IV Fluids 2049 1040 ABX - CEFAZOLIN 50 LR 2000 990 NS 50ML, Cefazolin 2G 50 Oral 480 1175 Output: Velasco 450 600 Laboratory Last Values Hgb 12.1 g/dl (12.0-16.0) 10/22/18 05:50 Hct 36 % (35-47) 10/22/18 05:50 Plt Count 298 10^3/ul (150-450) 10/22/18 05:50 MPV 8.3 fL (7.4-10.4) 10/22/18 05:50 INR (Anticoag Therapy) 1.01 (0.77-1.02) 10/22/18 05:50 Sodium 133 mmol/L (135-145) L 10/22/18 05:50 Potassium 4.4 mmol/L (3.5-5.0) 10/22/18 05:50 Chloride 98 mmol/L (101-111) L 10/22/18 05:50 Carbon Dioxide 27 mmol/L (22-32) 10/22/18 05:50 Anion Gap 8 mmol/L (2-11) 10/22/18 05:50 BUN 18 mg/dL (6-24) 10/22/18 05:50 Creatinine 0.79 mg/dL (0.51-0.95) 10/22/18 05:50 Est GFR ( Amer) 85.8 (>60) 10/22/18 05:50 Est GFR (Non-Af Amer) 70.9 (>60) 10/22/18 05:50 BUN/Creatinine Ratio 22.8 (8-20) H 10/22/18 05:50 Glucose 166 mg/dL (70-100) H 10/22/18 05:50 POC Glucose (mg/dL) 141 mg/dL (70-100) H 10/21/18 16:35 Calcium 8.9 mg/dL (8.6-10.3) 10/22/18 05:50
[2018-10-22] MEDS ORDERED: NS 0.9% 1000 ML** 1,000 ML IV ONE (15:45)
[2018-10-22] MEDS: Pantoprazole TAB * 40 MG TAB PO SCH (17:25)
[2018-10-22] MEDS: Gabapentin CAP(*) 100 MG PO SCH (17:25)
[2018-10-22] MEDS: Lactated Ringers 1000 ML Bag* 1,000 ML IV SCH (20:32)
[2018-10-22] MEDS: Atorvastatin* 20 MG TAB PO SCH (20:42)
[2018-10-23] MEDS ORDERED: Nitroglycerin TAB 0.4 MG* 0.4 MG TAB ONE (02:48)
[2018-10-23] MEDS: Morphine VIAL* 4 MG/ML VIAL (1 ml vial) IV PRN ×4 (02:50→22:02)
[2018-10-23] MEDS ORDERED: Aspirin TAB* 325 MG PO ONE (02:50)
[2018-10-23] MEDS ORDERED: Nitroglycerin TAB 0.4 MG* 0.4 MG TAB SL ONE (02:50)
[2018-10-23] MEDS ORDERED: Aspirin TAB* 325 MG ONE (02:55)
[2018-10-23] MEDS ORDERED: Al Hydrox/Mg Hydrox/Simet LIQ* 30 ML UDC PO ONE (03:02)
[2018-10-23 03:03] LABS: Hematocrit 33 % (35-47); Hemoglobin 10.8 g/dl (12.0-16.0); Mean Corpuscular HGB Conc 33 g/dl (31-36); Mean Corpuscular Hemoglobin 30 pg (27-31); Mean Corpuscular Volume 91 fL (80-97); Platelet Count 262 10^3/ul (150-450); Red Blood Count 3.59 10^6/ul (4.00-5.40); Red Cell Distribution Width 13 % (10.5-15); White Blood Count 17.4 10^3/ul (3.5-10.8)
[2018-10-23] MEDS ORDERED: Dextrose 50% Syringe 50 ML* 25 GM/50 ML SYRINGE IV PUSH PRN (03:03)
--- NOTE | 2018-10-23 03:05 | PN ---
Progress Note - Progress Note Date of Service: 10/23/18 Note: Paged by Ortho for Chest pain eval. Patient with with substernal CP. No SOB. +Nausea. States she had a recent stress test that was unremarkable. Sats: low 90's on 3L, HR: 90's, BP: 140/60. Patient in mild discomfort. Heart sounds: RRR, soft murmur Lungs: diminished. EKG: Nonspecific ST changes. Will obtain labs, CTA of chest to R/O PE, transfer to tele. Nitro SL, Morphine and ASA 325 given. Burping somewhat improved. Patient still with some discomfort. Will give GI cocktail as well. Will follow up studies. See full dictation. Trend troponins. Patient's , Olga was updated per patient's request. Patient takes temazepam 7.5 mg QHS prn, we do not have this on formulary, only 15 mg. Hesitant to double her dose. Could be anxiety playing a role with her symptoms. Will order xanax 0.25 mg q8hr prn anxiety.
[2018-10-23] MEDS ORDERED: Al Hydrox/Mg Hydrox/Simet LIQ* 30 ML UDC ONE (03:09)
[2018-10-23 03:20] LABS: BUN/Creatinine Ratio 31.7 (8-20); Calcium 8.7 mg/dL (8.6-10.3); EGFR African American 117.9 (>60); EGFR Non-African American 97.5 (>60); Potassium 4.6 mmol/L (3.5-5.0)
[2018-10-23] MEDS ORDERED: Morphine INJ* 2 MG/ML 1 ML SYRINGE (TWO MG - NEW SYRINGE VERSION) IV ONE (03:22)
[2018-10-23 03:23] LABS: Troponin I 0.01 ng/mL (<0.04)
[2018-10-23] MEDS ORDERED: hydrOXYzine HCL TAB* 25 MG PO PRN (03:29)
[2018-10-23] MEDS ORDERED: TEMAZEPAM 7.5 MG PO PRN (03:29)
[2018-10-23 03:47] LABS: ABS Basophils 0.1 10^3/ul (0-0.2); ABS Eosinophils 0 10^3/ul (0-0.6); ABS Lymphocytes 1.7 10^3/ul (1.0-4.8); ABS Monocytes 1.7 10^3/ul (0-0.8); ABS Neutrophils 13.9 10^3/ul (1.5-7.7); ABS Nucleated RBC 0 10^3/ul; Eosinophil % 0.1 %; Lymphocyte % 9.7 %; Nucleated Red Blood Cells % 0
[2018-10-23] MEDS ORDERED: Iodixanol* (CONTRAST) 320 MG/ML 100 ML SDV IV ONE (03:55)
[2018-10-23] MEDS ORDERED: ALPRAZolam TAB* 0.25 MG PO PRN (04:39)
[2018-10-23] MEDS ORDERED: Piperacillin/Tazobac ADVAN(*) 3.375 GM in NS 0.9% 100 ML* 100 ML IVPB ONE (04:59)
[2018-10-23] MEDS ORDERED: Zosyn per Pharmacy* NOTE FOLLOW UP SCH (05:00)
[2018-10-23 05:24] LABS: C Reactive Protein 155.6 mg/L (<8.01)
[2018-10-23 05:39] LABS: Hematocrit 32 % (35-47); Hemoglobin 10.5 g/dl (12.0-16.0); Mean Platelet Volume 8.4 fL (7.4-10.4); Platelet Count 250 10^3/ul (150-450)
--- NOTE | 2018-10-23 05:39 | CONS ---
CC: Dr. Arnoldo Angulo; Dr. Christiana Willoughby * CONSULTATION REPORT: DATE OF CONSULT: 10/24/18 PRIMARY CARE PHYSICIAN: Dr. Arnoldo Angulo. ORTHOPEDIC SURGEON: Dr. Christiana Willoughby. REQUESTING PHYSICIAN FOR CONSULT: Dr. Giorgio Phan. REASON FOR CONSULT: Chest pain. HOSPITAL COURSE: This is a 73-year-old female with past medical history of hypertension, diabetes, pacemaker placement, who was admitted on 10/21/18 to undergo an elective right total hip arthroplasty. The patient tolerated the procedure well. She is postop day 2. When she woke up early this morning with acute onset of chest pain, Dr. Phan contacted me and asked me to evaluate the patient. The patient is also nauseated. No shortness of breath. She woke up from the chest pain. Some burping did help with her discomfort. She states she had a recent stress test, but there is no stress test in the system, but she states it was unremarkable. The patient denies any cardiac history. No stents. No abdominal pain. No urinary symptoms. No back pain. Otherwise, review of systems is negative. The patient was given a full-dose aspirin, sublingual nitro, and morphine. She continued to have persistent pain. I gave her a GI cocktail, which continued. Labs were obtained. EKG showed nonspecific ST changes. The patient is being sent for a CTA of the chest to rule out underlying PE or any other pathology and being transferred to telemetry. PAST MEDICAL PROBLEMS: 1. Depression. 2. GERD. 3. Hypertension. 4. Mild asthma. 5. Diabetes. 6. Hyperlipidemia. 7. Pacemaker placement. 8. History of fibromyalgia. PAST SURGICAL HISTORY: History of cholecystectomy, history of rhinoplasty, and history of hysterectomy. MEDICATIONS: Home medications: 1. Hydroxyzine 25 mg at bedtime. 2. Celebrex 100 mg in the morning. 3. Temazepam 7.5 mg at bedtime as needed. 4. Protonix 40 mg p.o. daily. 5. Multivitamin daily. 6. Metformin 500 mg p.o. b.i.d. 7. Robitussin 10 mL daily as needed. 8. Gabapentin 100 mg p.o. daily. 9. Fluoxetine 40 mg daily. 10. Cyanocobalamin 1000 mcg daily. 11. Cetirizine 10 mg daily. 12. Citracal 200 mg p.o. in the morning. 13. Atorvastatin 20 mg in the evening. 14. Amlodipine 10 mg in the morning. Hospital medications: 1. Tylenol 650 every 8 hours as needed. 2. Amlodipine 10 mg daily. 3. Eliquis 2.5 mg p.o. b.i.d. 4. Lipitor 20 mg p.o. daily. 5. Dulcolax suppository daily as needed. 6. Flexeril 5 mg t.i.d. as needed. 7. Benadryl 25 mg IV q.6 hours as needed. 8. Colace 100 mg p.o. b.i.d. scheduled. 9. Prozac 40 mg daily. 10. Gabapentin 100 mg daily. 11. LR at 100 cc an hour. 12. Magnesium hydroxide 30 mL q.6 hours as needed. 13. Morphine 2 mg every 2 hours as needed. 14. Multivitamin daily. 15. Zofran 4 mg q.6 hours as needed. 16. Oxycodone 10 mg every 4 hours as needed. 17. Percocet every 4 hours as needed, 1 to 2 tabs. 18. Protonix 40 mg daily. 19. Metformin 500 mg p.o. b.i.d. ALLERGIES: No known drug allergies. FAMILY HISTORY: Reviewed and noncontributory. SOCIAL HISTORY: The patient lives at home with her , Olga, who is her healthcare proxy, who has been updated of the patient's recent changes. No history of smoking, alcohol, or illicit drug use. She is a full code. REVIEW OF SYSTEMS: A 14-point review of systems as mentioned in the HPI, otherwise negative. PHYSICAL EXAM: Vitals: Temp 98.5, temp was 99.1 earlier this evening; pulse rate is 92; respiratory rate is 20; oxygen saturation 92% on 3 L; blood pressure 160/95. General: Some mild discomfort. HEENT: Head normocephalic. She is slightly clammy. Pupils are equal and reactive. Oropharynx: Mucous membranes moist. Neck: Supple. No lymphadenopathy. Cardiac: Tachycardic, soft systolic murmur heard throughout. Respiratory: Diminished breath sounds. No wheezing, rhonchi, or rales. Abdomen is soft, nontender, and nondistended. Extremities: The patient with knee immobilizer on the right lower extremity. Neurological: Alert and oriented x3. No gross focal neurological deficits. ASSESSMENT AND PLAN: This is a 73-year-old female with past medical history of hypertension, gastroesophageal reflux disease, and diabetes, who had an elective right total hip arthroplasty done on 10/21/18, who woke up with acute onset of chest pain. Chest pain. Assessment: Broad differential. Of course, we need to rule out acute coronary syndrome. Her EKG shows nonspecific ST changes. Other possibility is gastrointestinal related. This also could be anxiety. The patient appears to take a lot of medications at bedtime and she keeps asking for her to come to see her. She appears very anxious. We will also obtain a CTA to rule out any pulmonary embolism and follow up on that. We will continue to trend her troponin as well and transfer her to [address] [place] [address] depending on her CTA and may order an echocardiogram as well. CHRONIC MEDICAL PROBLEMS: 1. Hypertension. The patient's blood pressure is slightly elevated. We will resume her medications for now. It could be related to pain. 2. Diabetes. We will hold her metformin as she is getting contrast and place her on a lispro sliding scale. 3. Hyperlipidemia. Continue atorvastatin. 4. Depression. Continue her fluoxetine, Neurontin. The patient did not appear to be getting her temazepam that she was taking at home; it is unclear why she is not. She is not taking this nor she is taking her Atarax, which may be contributing to her presentation. We will resume both of these. 5. GERD. Continue her Protonix. 6. Postop day #2 from right total hip arthroplasty. Management per ortho team. She is getting opioids and bowel regimen as well as anticoagulation. 7. FEN. The patient is on LR at 100 cc an hour as well as a regular diet. 8. DVT prophylaxis. Per ortho team. 9. Code status. Full code. Thank you for this consultation. We will follow along with you. PATIENT TIME: Greater than 50 minutes was spent doing this consultation, more than half the time spent in direct patient contact. [id number]/[facility] #: [id number] BETTE
[2018-10-23 05:49] LABS: INR 1.55 (0.77-1.02)
[2018-10-23 05:58] LABS: HDL Cholesterol 48.2 mg/dL
[2018-10-23 06:01] LABS: Troponin I 0.01 ng/mL (<0.04)
[2018-10-23 06:22] LABS: Rapid HIV 1 Nonreactive (Nonreactive)
[2018-10-23] MEDS: Lactated Ringers 1000 ML Bag* 1,000 ML IV SCH (07:59)
[2018-10-23] MEDS: Piperacillin/Tazobac ADVAN(*) 3.375 GM in NS 0.9% 100 ML* 100 ML IVPB SCH ×2 (07:59→16:52)
[2018-10-23] MEDS: Apixaban* 2.5 MG TAB PO SCH ×2 (08:00→21:32)
[2018-10-23] MEDS: FLUoxetine CAP* 20 MG PO SCH (08:00)
[2018-10-23] MEDS: Vitamin THERAPEUTIC TAB PO SCH (08:00)
[2018-10-23] MEDS: Docusate CAP* 100 MG PO SCH ×2 (08:01→21:31)
[2018-10-23] MEDS: oxyCODONE/Acetamin 5/325 MG* TAB PO PRN ×3 (08:01→21:31)
[2018-10-23] MEDS: Magnesium Hydroxide LIQ* 30 ML UDC PO SCH ×2 (08:01→21:32)
[2018-10-23] MEDS: amLODIPine TAB* 5 MG PO SCH (08:01)
--- NOTE | 2018-10-23 08:55 | PN ---
Progress Note - Progress Note Date of Service: 10/23/18 SOAP: Subjective: [] Pt seen at bedside. She reports moderate right hip pain. Denies SOB, dizziness or nausea. Does report continued chest pain that is worse with movement and worse with palpation over the right side of the chest. Objective: []General: Well appearing, NAD RLE: Right hip dressing changed, incision CDI without surrounding erythema or discharge, thigh is soft, DF/PF intact, DP2+, sensation intact to light touch distally. Calves supple and nontender without erythema, edema or palpable cords Right anterior chest wall is tender to palpation Assessment: []POD 2 SP RTH 10/21 Dr Willoughby Plan: []WBAT PT/OT Posterior hip precautions Medicine consulting for co-morbidities, chest pain overnight. CTA is negative for PE, suspicious for pneumonia, patient on zosyn Vital Signs Temp 98.3 F 10/23/18 07:45 Pulse 90 10/23/18 07:45 Resp 18 10/23/18 08:11 BP 136/48 10/23/18 07:45 Pulse Ox 92 10/23/18 07:45 Intake & Output 10/22/18 10/23/18 10/23/18 18:59 06:59 18:59 Intake Total 120 1560 Output Total 250 300 Balance -130 1260 Weight 162 lb Intake: IV Fluids 1000 NS (0.9%) 1000 Oral 120 560 Output: Urine 250 300 Other: # Bowel Movements 0 Laboratory Last Values WBC 17.4 10^3/ul (3.5-10.8) H 10/23/18 02:57 RBC 3.59 10^6/ul (4.00-5.40) L 10/23/18 02:57 Hgb 10.5 g/dl (12.0-16.0) L 10/23/18 05:22 Hct 32 % (35-47) L 10/23/18 05:22 MCV 91 fL (80-97) 10/23/18 02:57 MCH 30 pg (27-31) 10/23/18 02:57 MCHC 33 g/dl (31-36) 10/23/18 02:57 RDW 13 % (10.5-15) 10/23/18 02:57 Plt Count 250 10^3/ul (150-450) 10/23/18 05:22 MPV 8.4 fL (7.4-10.4) 10/23/18 05:22 Neut % (Auto) 79.8 % 10/23/18 02:57 Lymph % (Auto) 9.7 % 10/23/18 02:57 [place] % (Auto) 9.9 % 10/23/18 02:57 Eos % (Auto) 0.1 % 10/23/18 02:57 Baso % (Auto) 0.5 % 10/23/18 02:57 Absolute Neuts (auto) 13.9 10^3/ul (1.5-7.7) H 10/23/18 02:57 Absolute Lymphs (auto) 1.7 10^3/ul (1.0-4.8) 10/23/18 02:57 Absolute Monos (auto) 1.7 10^3/ul (0-0.8) H 10/23/18 02:57 Absolute Eos (auto) 0 10^3/ul (0-0.6) 10/23/18 02:57 Absolute Basos (auto) 0.1 10^3/ul (0-0.2) 10/23/18 02:57 Absolute Nucleated RBC 0 10^3/ul 10/23/18 02:57 Nucleated RBC % 0 10/23/18 02:57 INR (Anticoag Therapy) 1.55 (0.77-1.02) H 10/23/18 05:22 APTT 31.3 seconds (26.0-36.3) 10/23/18 02:57 Sodium 132 mmol/L (135-145) L 10/23/18 05:22 Potassium 4.6 mmol/L (3.5-5.0) 10/23/18 02:54 Chloride 99 mmol/L (101-111) L 10/23/18 02:54 Carbon Dioxide 26 mmol/L (22-32) 10/23/18 02:54 Anion Gap 8 mmol/L (2-11) 10/23/18 02:54 BUN 19 mg/dL (6-24) 10/23/18 02:54 Creatinine 0.60 mg/dL (0.51-0.95) 10/23/18 02:54 Est GFR ( Amer) 117.9 (>60) 10/23/18 02:54 Est GFR (Non-Af Amer) 97.5 (>60) 10/23/18 02:54 BUN/Creatinine Ratio 31.7 (8-20) H 10/23/18 02:54 Glucose 213 mg/dL (70-100) H 10/23/18 02:54 POC Glucose (mg/dL) 215 mg/dL (70-100) H 10/23/18 08:13 Calcium 8.7 mg/dL (8.6-10.3) 10/23/18 02:54 Troponin I 0.01 ng/mL (<0.04) 10/23/18 05:22 C-Reactive Protein 155.60 mg/L (<8.01) H 10/23/18 02:54 B-Natriuretic Peptide 59 pg/mL (<=100) 10/23/18 05:22 Triglycerides 137 mg/dL 10/23/18 05:22 Cholesterol 122 mg/dL 10/23/18 05:22 LDL Cholesterol 46 mg/dL 10/23/18 05:22 HDL Cholesterol 48.2 mg/dL 10/23/18 05:22 HIV 1&2 Antibody Rapid Nonreactive (Nonreactive) 10/23/18 05:22
[2018-10-23] MEDS ORDERED: ZOSYN 3.375 GM Q8H per EXTENDED INFUSION IVPB SCH ×2 (09:00)
[2018-10-23] MEDS: Insulin LISPRO* 1 UNITS UNIT SUBCUT SCH ×3 (09:32→17:59)
[2018-10-23 10:06] LABS: Hepatitis C Antibody Nonreactive (Nonreactive)
[2018-10-23] MEDS ORDERED: Vancomycin per Pharmacy* NOTE FOLLOW UP SCH (11:00)
[2018-10-23] MEDS ORDERED: Vancomycin(*) 1,250 MG in NS 0.9% 250 ML* 250 ML IVPB ONE (11:00)
[2018-10-23 11:39] LABS: Troponin I 0.07 ng/mL (<0.04)
[2018-10-23 12:20] LABS: CKMB ng/mL 3.3 ng/mL (0.6-6.3)
[2018-10-23] MEDS: Aspirin TAB* 325 MG PO SCH (12:24)
[2018-10-23] MEDS: NS 0.9% 1000 ML** 1,000 ML IV SCH (13:18)
[2018-10-23] MEDS ORDERED: Perflutren Lipid Microsphere* 3 ML VIAL ONE (13:55)
[2018-10-23 15:08] LABS: Influenza A Molecular NEGATIVE (Negative); Influenza B Molecular NEGATIVE (Negative)
--- NOTE | 2018-10-23 15:13 | ECHO ---
Patient: LIZETH BANSAL [facility] Rec#: [id number] : 1945 Date: 10/23/2018 Age: 73y Height: 163 cm / 64.2 in Weight: 74.5 kg / 164.2 lbs Sex: F BSA: 1.8 Room#: 3 Admit Date#: 10/21/2018 Type: Inpatient Referring: Ronnie Castillo Reading: Chapo Lenz DO Cook Restaurant: Sierra Kunz,RDCS,RDMS CC: Kev HASSAN,Arnoldo Transthoracic Echocardiogram Indication: Pericarditis BP: 144/63 HR: 72 Rhythm: NSR Findings History: HTN, HLD, DM, pacemaker Technical Comments: The study quality is fair. Left Ventricle: The left ventricular chamber size is normal. Mild concentric left ventricular hypertrophy is observed.with mild basal septal thickness. The left ventricle appears hyperdynamic. The estimated ejection fraction is greater than 65%. There is no consistent Doppler evidence of clinically significant diastolic dysfunction. Left Atrium: The left atrium is mildly dilated. Right Ventricle: The right ventricular chamber size and systolic function are within normal limits. A pacemaker wire is visualized in the right ventricle. Right Atrium: The right atrial cavity size is normal. A pacemaker wire is visualized in the right atrium. Aortic Valve: The aortic valve is trileaflet. The aortic valve leaflets are mildly thickened. There is evidence of aortic sclerosis without stenosis. There is aortic annular calcification. There is no evidence of aortic regurgitation. The mean gradient of the aortic valve is 10 mmHg. Mitral Valve: There is mitral annular calcification. The mitral valve leaflets are mildly thickened. There is no evidence of mitral regurgitation. There is no evidence of mitral stenosis. Tricuspid Valve: The tricuspid valve leaflets are normal. There is trace tricuspid regurgitation. No pulmonary hypertension is noted. Pulmonic Valve: The pulmonic valve appears normal. There is a trace pulmonic regurgitation. Pericardium: A pericardial fat pad is visualized. Aorta: The aortic root appears normal. There is no dilatation of the aortic arch. Pulmonary Artery: The main pulmonary artery is not well visualized. Venous: The inferior vena cava is not visualized. Contrast: Definity was used to optimize study. A total of 2 ml was used. Conclusions The left ventricular chamber size is normal. Mild concentric left ventricular hypertrophy is observed with mild basal septal thickness. The left ventricle appears hyperdynamic. The estimated ejection fraction is greater than 70% without any segmental wall motion abnormalities noted The left atrium is mildly dilated. The right ventricular chamber size and systolic function are within normal limits. A pacemaker wire is visualized in the right ventricle. There is evidence of aortic sclerosis without any significant stenosis by doppler evaluation There is trace tricuspid regurgitation. No pulmonary hypertension is noted. A pericardial fat pad is visualized. Small amount of posterior dependent pericardial fluid and adjacent pleural effusion Definity was used to optimize study. Compared to prior study from 10/01/2018, the most significant change is that of a newly hyperdynamic LVEF (was 60-65% previously) Measurements Name Value Normal Range RVIDd (AP) 2D 2.1 cm (0.9 - 2.6) RVDdMajor (2D) 2.4 cm (2.2 - 4.4) RAd ISD 4CH 4.7 cm (3.4 - 4.9) RA (A4C)W 2.9 cm (2.9 - 4.6) IVSd (2D) 1.5 cm (0.6 - 1) LVPWd (2D) 1 cm (0.6 - 1) LVIDd (2D) 4.4 cm (3.6 - 5.4) LVIDs (2D) 2.1 cm - LV FS (2D) 51 % (25 - 45) Aortic Annulus 1.8 cm (1.4 - 2.6) Ao root diameter (2D) 2.8 cm (2.1 - 3.5) Ascending Ao 2.5 cm (2.1 - 3.4) Aortic arch 2.9 cm (1.8 - 3.4) LA dimension (AP) 2D 3.8 cm (2.3 - 3.8) LAd ISD 4CH 5.7 cm (2.9 - 5.3) LA ISD 4CH W 4.9 cm (2.5 - 4.5) Name Value Normal Range LA ESV BP (A/L) index 30 ml/m2 - Name Value Normal Range MV E-wave Vmax 1.3 m/sec - MV deceleration time 143 msec - MV A-wave Vmax 1 m/sec - MV E:A ratio 1.3 ratio - Name Value Normal Range AV Vmax 2.1 m/sec - AV VTI 45 cm - AV peak gradient 17 mmHg - AV mean gradient 10 mmHg - LVOT diameter 2 cm - LVOT Vmax 0.9 m/sec - LVOT VTI 20 cm - LVOT peak gradient 3.2 mmHg - LVOT mean gradient 2 mmHg - REED Vmax 0.9 m/sec - Name Value Normal Range MV Vmax 1.3 m/sec - MV VTI 33 cm - MV peak gradient 7 mmHg - MV mean gradient 3 mmHg - MV PHT 78 msec - MVA (PHT) 2.8 cm2 - Name Value Normal Range TR Vmax 2.4 m/sec - TR peak gradient 23 mmHg - RAP 8 mmHg - RVSP 31 mmHg - Name Value Normal Range PV Vmax 1.1 m/sec - PV peak gradient 5 mmHg -
--- NOTE | 2018-10-23 16:36 | CONSULT ---
Subjective Date of Service: 10/23/18 Interval History: Date of consult 10/23/2018 PCP: Dr. Angulo Dental Practitioner: Dr. Irene CC: Chest pain and dyspnea Reason for consult: Same HPI Yessica Olmstead is a 73 year old woman who was admitted for an elective THR 2 days ago. She is on narcotic pain control has had issues with intermittent confusion since then. Overnight she developed chest pain and worsening of her baseline dyspnea. She always has a nocturnal cough which is unchanged. A CT scan showed multifocal pneuomia. She has impressive coarse crackles throughout 2/3 of her right lower/mid posterior lung field and minimal left lower. There has been no fever documented. She complains of central chest pain that is worse with deep breathing and movement. She has difficulty describing the quality of the pain. PMhx: HTN Dyslipidemia Pacemaker for sinus node dysfunction Diabetes Type II Gastroesophageal Reflux Disease (GERD) Depression Gout Arthritis Fibromyalgia Surgical Hx: Laparoscopy, Cholecystectomy - (2007) Hysterectomy - 40+ yrs ago Breast Reduction medication list reconciled verbally and reviewed on 0 Allergies: Lisinopril 09/25/18 - Cough allergy list reviewed on FH: Heart Disease, Stroke, Cancer. Father: Hypertension. due to Stroke - at age 72. Mother: Diabetes Type II. due to Diabetes - from complication during amputation surgery at age 72. Siblings:7 - 1 brother with pneumonia No known CAD w/ siblings. Son dx with stage four gioblastoma SH: Marital: .Lives With: Spouse.Occupation: Retired, Outside Operator. Personal Habits: Smoking: Patient has never smoked.Cigarette Use: Never Smoked Cigarettes.Alcohol: Drinks 2 Alcoholic Beverages Per Week, Drinks Alcoholic Beverage Medications Active Medications: Acetaminophen (Tylenol Tab*) 650 mg PO Q8H PRN PRN Reason: PAIN OR TEMPERATURE Alprazolam (Xanax Tab*) 0.25 mg PO Q8H PRN PRN Reason: ANXIETY Last Admin: 10/23/18 08:11 Dose: 0.25 mg Amlodipine Besylate (Norvasc Tab*) 10 mg PO QAM [facility] Last Admin: 10/23/18 08:01 Dose: 10 mg Apixaban (Eliquis*) 2.5 mg PO BID [facility] Last Admin: 10/23/18 08:00 Dose: 2.5 mg Aspirin (Aspirin Tab*) 325 mg PO DAILY [facility] Last Admin: 10/23/18 12:24 Dose: 325 mg Atorvastatin Calcium (Lipitor*) 20 mg PO BEDTIME [facility] Last Admin: 10/22/18 20:42 Dose: 20 mg Bisacodyl (Dulcolax Supp*) 10 mg GA DAILY PRN PRN Reason: constipation Cyclobenzaprine HCl (Flexeril Tab*) 5 mg PO TID PRN PRN Reason: SPASMS Last Admin: 10/21/18 23:56 Dose: 5 mg Dextrose (D50w Syringe 50 Ml*) 12.5 gm IV PUSH .FOR FS < 60 - SS PRN PRN Reason: FS < 60 Diphenhydramine HCl (Benadryl Iv*) 25 mg IV Q6H PRN PRN Reason: itching Docusate Sodium (Colace Cap*) 100 mg PO BID [facility] Last Admin: 10/23/18 08:01 Dose: 100 mg Fluoxetine HCl (Prozac Cap*) 40 mg PO QAM [facility] Last Admin: 10/23/18 08:00 Dose: 40 mg Gabapentin (Neurontin Cap(*)) 100 mg PO 1730 [facility] Last Admin: 10/22/18 17:25 Dose: 100 mg Hydroxyzine HCl (Atarax Tab*) 25 mg PO BEDTIME PRN PRN Reason: INSOMNIA Piperacillin Sod/Tazobactam (Sod 3.375 gm/ Sodium Chloride) 100 mls @ 25 mls/ hr IVPB Q8H [facility] Last Admin: 10/23/18 07:59 Dose: 25 mls/hr Vancomycin HCl 1,250 mg/ (Sodium Chloride) 250 mls @ 166.667 mls/hr IVPB Q12H [facility]; Protocol Sodium Chloride (Ns 0.9% 1000 Ml) 1,000 mls @ 100 mls/hr IV PER RATE [facility] Stop: 10/24/18 22:59 Last Admin: 10/23/18 13:18 Dose: 100 mls/hr Insulin Human Lispro (Humalog*) 0 units SUBCUT AC [facility]; Protocol Last Admin: 10/23/18 13:18 Dose: 1 unit Magnesium Hydroxide (Milk Of Magnesia Liq*) 30 ml PO BID [facility] Last Admin: 10/23/18 08:01 Dose: 30 ml Magnesium Hydroxide (Milk Of Magnesia Liq*) 30 ml PO Q6H PRN PRN Reason: constipation Morphine Sulfate (Morphine Vial*) 2 mg IV Q2H PRN PRN Reason: PAIN Last Admin: 10/23/18 09:41 Dose: 2 mg Multivitamins (Theragran Tab*) 1 tab PO DAILY [facility] Last Admin: 10/23/18 08:00 Dose: 1 tab Ondansetron HCl (Zofran Inj*) 4 mg IV Q6H PRN PRN Reason: nausea Oxycodone HCl (Roxycodone Tab*) 10 mg PO Q4H PRN PRN Reason: PAIN - SEVERE Last Admin: 10/22/18 18:20 Dose: 10 mg Oxycodone/Acetaminophen (Percocet 5/325 Tab*) 1 tab PO Q4H PRN PRN Reason: PAIN Oxycodone/Acetaminophen (Percocet 5/325 Tab*) 2 tab PO Q4H PRN PRN Reason: PAIN Last Admin: 10/23/18 12:24 Dose: 2 tab Pantoprazole Sodium (Protonix Tab*) 40 mg PO 1729 [facility] Last Admin: 10/22/18 17:25 Dose: 40 mg Pharmacy Consult (Zosyn Per Pharmacy*) 1 note FOLLOW UP .ZOSYN PER PHARMACY [facility] Pharmacy Consult (Vancomycin Per Pharmacy*) 1 note FOLLOW UP .VANC PER PHARMACY [facility] Pharmacy Profile Note (Vancomycin Trough Check) 1 note FOLLOW UP 1130 ONE Stop: 10/25/18 11:31 Home Medications: Amlodipine Besylate [Norvasc 5 mg tab] 10 mg PO QAM 04/30/17 [History Confirmed 10/21/18] Atorvastatin* [Lipitor 10 MG*] 20 mg PO BEDTIME 04/30/17 [History Confirmed 08/27] Cetirizine HCl [24Hour Allergy] 10 mg PO QAM 04/30/17 [History Confirmed ] Fluoxetine HCl 40 mg PO QAM 04/30/17 [History Confirmed 10/21/18] Gabapentin CAP(*) [Neurontin 300 CAP(*)] 100 mg PO 172904/30/17 [History Confirmed 10/21/18] Metformin HCl 500 mg PO BID 04/30/17 [History Confirmed 10/21/18] Pantoprazole TAB * [Protonix TAB*] 40 mg PO 172904/30/17 [History Confirmed 08/27] Temazepam 7.5 mg Cap (Nf) [Temazepam] 7.5 mg PO BEDTIME PRN 04/30/17 [History Confirmed 10/21/18] celeCOXIB CAP* [Celebrex CAP*] 100 mg PO QAM 04/30/17 [History Confirmed ] hydrOXYzine HCL TAB* [Atarax 25 MG TAB*] 1 tab PO BEDTIME 04/30/17 [History Confirmed 10/21/18] GuaiFENesin DM* [Robitussin DM*] 10 ml PO DAILY PRN 08/30/18 [History Confirmed 10/21/18] Calcium Citrate TAB* [Citracal TAB*] 200 mg PO QAM 10/15/18 [History Confirmed 10/21/18] Cyanocobalamin TAB* [Vitamin B12 TAB*] 1,000 mcg PO QAM 10/15/18 [History Confirmed 10/21/18] Multivitamin [Multiple Vitamins] 1 tab PO QAM 10/15/18 [History Confirmed ] Review of Systems - Measurements Intake and Output: Intake and Output Last 24 Hours 10/21/18 10/22/18 10/23/18 10/24/18 06:59 06:59 06:59 06:59 Intake Total 4745 1680 240 Output Total 1050 550 300 Balance 3695 1130 -60 Weight 162 lb 162 lb Intake: IV Fluids 3090 1000 ABX - CEFAZOLIN 50 LR 2990 NS (0.9%) 1000 NS 50ML, Cefazolin 2G 50 Oral 1655 680 240 Output: Urine 550 300 [place] 1050 Other: Estimated Void Medium # Bowel Movements 0 # Voids 1 - Review of Systems Constitutional Symptoms: Positive: Weakness Negative: Weight Gain, Weight Loss, Fever, Night Sweats Dermatology: Negative: Rash, Skin Lesions HEENT: Negative: Change in Hearing, Vertigo Eyes: Negative: Double Vision, Eye Pain Thyroid: Negative: Weight Loss, Weight Gain Pulmonary: Positive: Cough, Shortness of Breath Negative: Sputum, Hemoptysis, Wheezing, COPD, Asthma, Exercise Intolerance, Home Oxygen Cardiology: Positive: Chest Pain, Shortness of Breath Negative: Palpitations, Swelling of Ankles, Peripheral Vascular Dis, Edema, Faintness, Syncope, Claudication, Paroxysmal Nocturnal Dyspnea Gastroenterology: Negative: Abdominal Pain, Nausea, Vomiting, Anorexia, Haematemesis, Melena Genital - Urinary: Negative: Dysuria, Hematuria Musculoskeletal: Negative: Joint Pain, Joint Stiffness Endocrinology: Positive: Diabetes Negative: Polydipsia, Polyuria Hematologic/Lymphatic: Negative: Easy Brusing, Hx Leukemia, Hx Lymphoma Neurology: Negative: Diplopia, Dizziness, Change in Speech, Change in Sphincter Function , Hx of Stroke\TIA, Hx Seizures Psychiatry: Negative: Unusual Anxiety, Suicidal Ideation Allergic/Immunologic: Negative: Hx Anaphylaxis, Hx Angioedema, Hx HIV, Immunocompromise Review of Systems Statement: All other review of systems negative, unless stated above. Objective Vital Signs: Temp Pulse Resp BP Pulse Ox 98.3 F 84 16 131/52 93 10/23/18 15:15 10/23/18 15:15 10/23/18 15:15 10/23/18 15:15 10/23/18 15:15 Oxygen Devices in Use Now: Nasal Cannula Appearance: mildly ill appearing but not toxic Ears/Nose/Mouth/Throat: Clear Oropharnyx, Mucous Membranes Moist Neck: Trachea Midline, - - uncertain jvp Respiratory: - - mildly increased work of breathing and tachypnea, conversant, coarse crackles R low to mid lung, mild crackles left lower lobe Cardiovascular: - - RRR, 1/6 systolic murmur, no rub Abdominal: NL Sounds; No Tenderness; No Distention, No Hepatosplenomegaly Extremities: No Edema, No Clubbing, Cyanosis Skin: No Rash or Ulcers Laboratory Results: 10/23/18 05:22 10/23/18 05:22 INR (Anticoag Therapy) 1.55 (0.77-1.02) H 10/23/18 05:22 APTT 31.3 seconds (26.0-36.3) 10/23/18 02:57 CK-MB (CK-2) 3.3 ng/mL (0.6-6.3) 10/23/18 11:03 B-Natriuretic Peptide 59 pg/mL (<=100) 10/23/18 05:22 Triglycerides 137 mg/dL 10/23/18 05:22 Cholesterol 122 mg/dL 10/23/18 05:22 LDL Cholesterol 46 mg/dL 10/23/18 05:22 HDL Cholesterol 48.2 mg/dL 10/23/18 05:22 10/23/18 10/23/18 10/23/18 02:54 05:22 11:03 Troponin I 0.01 0.01 0.07 H* 10/23/18 15:33 Troponin I 0.00 bnp 59 Diagnostic Imaging: Cardiac Testing: Stress Test - (03/21/2017) Normal chemical stress test. Normal LVF. EF 59%. TID 0.93 Echocardiogram - (11/14/2016) Visual Ef is 55-60%. Doppler evidence of grade I ( impaired) diastolic dysfunction. Sigmoid septum without significant obstruction. Left atrial cavity is mildly dilated. Mild aortic valve leaflet thickening with mild calcification. Mildly restricted aortic valve leaflets. Mild aortic valve stenosis. Mild mitral regurgitation. Mildly restricted mitral valve leaflets. Mild RVH. No prior echo. CHI follow up pending. Holter Monitor - (02/14/2017) NSR with rare APC's and rare VPC's complaints of SOB with sinus tachycardia at 110 bpm. Stress Echocardiogram - (12/06/2016) Asymptomatic submaximal exercise for 8:36 of a Billy blunted HR response. Mild resting HTN NL response to stress. NSR PRWP at rest. NS anterior and inferior ST /T changes in recovery of uncertain significance EF 55-60% at rest . NL hyperdynamic response to stress EF 75-80%. Nondiagnostic stress echo due to low HR attained blunted HR. no ischemia at the low HR attained. Will arrange pharmacologic stress. Cardiac Procedures: Pacemaker Implantation - (05/01/2017) The system is an MRI compatible system. The device is [employer] A2DRO1, serial number [id number]. Currently programmed in dual chamber mode at low rate of [address] PE study 10/23/2018: Scattered regions of parenchymal consolidation or mass opacities in b/l lung [place], no PE Echo 10/23/2018: Hyperdynamic LVEF >70% no segmental WMA Aortic sclerosis Small amount of posterior dependent pericardial fluid and adjacent to pleural effusion Pacemaker noted Normal estimated PASP EKG Data: EKG 10/23/2018: NSR, IVCD/LAFB, unchanged from earlier this AM. Other than higher HR, grossly unchanged from 09/25/2018 ekg Assessment/Plan 1. Post-operative bilateral pneumonia - Consider aspiration, influenza also prevalent 2. Chest pain - Likely related directly to pneumonia, possible pleural/pericardial inflammation 3. Elevated troponin - Spurious, one level, consider lab error vs. minimal myocyte injury secondary to #1 - No evidence of a type 1 or 2 HI Would continue focus on evaluating and treating patients pneumonia Can symptomatically treat #2, is on low dose eliquis for DVT prophylaxis post- op so if going to use PRN nsaids i.e. toradol (which is reasonable), would continue with GI prophylaxis. She doesn't need standing aspirin in addition to AC from a cardiac standpoint Thank you for allowing me to participate in the cardiovascular care of this patient. Please do not hesitate to contact me with questions or concerns
[2018-10-23] MEDS: Pantoprazole TAB * 40 MG TAB PO SCH (16:53)
[2018-10-23] MEDS: Gabapentin CAP(*) 100 MG PO SCH (16:53)
[2018-10-23] MEDS: oxyCODONE TAB* 5 MG TAB PO PRN (16:53)
--- NOTE | 2018-10-23 18:09 | PN ---
Subjective Date of Service: 10/23/18 Interval History: Pt seen and examined earlier in AM due to complains of CP, right sided and reproducible. Meds and labs reviewed. CC: CP ROS: Denied MARQUEZ/dizziness, F/C, N/V, SOB, increased cough, sputum production, abd pain, diarrhea, constipation, dysuria, myalgias, arthralgias, throat pain, and new skin lesions. The rest of the 14 point ROS are unremarkable. PHYSICAL EXAM: GEN APPEARANCE: Awake, not in acute distress HEENT: NC/AT, PERRLA, moist oral mucosa, (-) throat erythema NECK: Soft, supple, (-) cervical LAD, (-)JVD HEART: S1S2 WNL, RRR, No MRG CHEST: CTA, BL, GAE, No W/R/R ABD: Soft, ND/NT, NABS 4x Q EXT: No C/C/cdi R. knee SKIN: Warm to touch PSYCH: No active psychosis, hallucinations, depression, SI/HI Objective Active Medications: Acetaminophen (Tylenol Tab*) 650 mg PO Q8H PRN PRN Reason: PAIN OR TEMPERATURE Alprazolam (Xanax Tab*) 0.25 mg PO Q8H PRN PRN Reason: ANXIETY Last Admin: 10/23/18 08:11 Dose: 0.25 mg Amlodipine Besylate (Norvasc Tab*) 10 mg PO QAM [facility] Last Admin: 10/23/18 08:01 Dose: 10 mg Apixaban (Eliquis*) 2.5 mg PO BID [facility] Last Admin: 10/23/18 08:00 Dose: 2.5 mg Aspirin (Aspirin Tab*) 325 mg PO DAILY [facility] Last Admin: 10/23/18 12:24 Dose: 325 mg Atorvastatin Calcium (Lipitor*) 20 mg PO BEDTIME [facility] Last Admin: 10/22/18 20:42 Dose: 20 mg Bisacodyl (Dulcolax Supp*) 10 mg [place] DAILY PRN PRN Reason: constipation Cyclobenzaprine HCl (Flexeril Tab*) 5 mg PO TID PRN PRN Reason: SPASMS Last Admin: 10/21/18 23:56 Dose: 5 mg Dextrose (D50w Syringe 50 Ml*) 12.5 gm IV PUSH .FOR FS < 60 - SS PRN PRN Reason: FS < 60 Diphenhydramine HCl (Benadryl Iv*) 25 mg IV Q6H PRN PRN Reason: itching Docusate Sodium (Colace Cap*) 100 mg PO BID [facility] Last Admin: 10/23/18 08:01 Dose: 100 mg Fluoxetine HCl (Prozac Cap*) 40 mg PO QAM [facility] Last Admin: 10/23/18 08:00 Dose: 40 mg Gabapentin (Neurontin Cap(*)) 100 mg PO 1730 [facility] Last Admin: 10/23/18 16:53 Dose: 100 mg Hydroxyzine HCl (Atarax Tab*) 25 mg PO BEDTIME PRN PRN Reason: INSOMNIA Piperacillin Sod/Tazobactam (Sod 3.375 gm/ Sodium Chloride) 100 mls @ 25 mls/ hr IVPB Q8H [facility] Last Admin: 10/23/18 16:52 Dose: 25 mls/hr Vancomycin HCl 1,250 mg/ (Sodium Chloride) 250 mls @ 166.667 mls/hr IVPB Q12H [facility]; Protocol Sodium Chloride (Ns 0.9% 1000 Ml) 1,000 mls @ 100 mls/hr IV PER RATE [facility] Stop: 10/24/18 22:59 Last Admin: 10/23/18 13:18 Dose: 100 mls/hr Insulin Human Lispro (Humalog*) 0 units SUBCUT AC [facility]; Protocol Last Admin: 10/23/18 17:59 Dose: 3 unit Magnesium Hydroxide (Milk Of Magnesia Liq*) 30 ml PO BID [facility] Last Admin: 10/23/18 08:01 Dose: 30 ml Magnesium Hydroxide (Milk Of Magnesia Liq*) 30 ml PO Q6H PRN PRN Reason: constipation Morphine Sulfate (Morphine Vial*) 2 mg IV Q2H PRN PRN Reason: PAIN Last Admin: 10/23/18 09:41 Dose: 2 mg Multivitamins (Theragran Tab*) 1 tab PO DAILY [facility] Last Admin: 10/23/18 08:00 Dose: 1 tab Ondansetron HCl (Zofran Inj*) 4 mg IV Q6H PRN PRN Reason: nausea Oxycodone HCl (Roxycodone Tab*) 10 mg PO Q4H PRN PRN Reason: PAIN - SEVERE Last Admin: 10/23/18 16:53 Dose: 10 mg Oxycodone/Acetaminophen (Percocet 5/325 Tab*) 1 tab PO Q4H PRN PRN Reason: PAIN Oxycodone/Acetaminophen (Percocet 5/325 Tab*) 2 tab PO Q4H PRN PRN Reason: PAIN Last Admin: 10/23/18 12:24 Dose: 2 tab Pantoprazole Sodium (Protonix Tab*) 40 mg PO 1730 [facility] Last Admin: 10/23/18 16:53 Dose: 40 mg Pharmacy Consult (Zosyn Per Pharmacy*) 1 note FOLLOW UP .ZOSYN PER PHARMACY [facility] Pharmacy Consult (Vancomycin Per Pharmacy*) 1 note FOLLOW UP .VANC PER PHARMACY [facility] Pharmacy Profile Note (Vancomycin Trough Check) 1 note FOLLOW UP 1130 ONE Stop: 10/25/18 11:31 Vital Signs - 8 hr 10/23/18 10/23/18 10/23/18 10:42 10:43 11:51 Temperature 97.9 F Pulse Rate 88 Respiratory 20 20 16 Rate Blood Pressure 144/63 (mmHg) O2 Sat by Pulse 93 Oximetry 10/23/18 10/23/18 10/23/18 12:24 14:55 15:15 Temperature 98.3 F Pulse Rate 84 Respiratory 18 18 16 Rate Blood Pressure 131/52 (mmHg) O2 Sat by Pulse 93 Oximetry 10/23/18 16:53 Temperature Pulse Rate Respiratory 18 Rate Blood Pressure (mmHg) O2 Sat by Pulse Oximetry Oxygen Devices in Use Now: Nasal Cannula Result Diagrams: 10/23/18 05:22 10/23/18 05:22 Microbiology and Other Data: Microbiology 10/23/18 14:40 Influenza Types A,B Antigen - Final Nasal Specimen received for Influenza A/B Molecular testing Assess/Plan/Problems-Billing Assessment: - Patient Problems (1) Chest pain Current Visit: Yes Status: Acute Code(s): R07.9 - CHEST PAIN, UNSPECIFIED SNOMED Code(s): 89779707 Comment: -Appreciate Dr. Short input -Mildly elevated troponin normalized and likely spuriossome j point elevations thought to be due to pericarditis but troponins subsequently normalized -Possibly due to pleurisy of PNA? (2) HTN (hypertension) Current Visit: Yes Status: Acute Code(s): I10 - ESSENTIAL (PRIMARY) HYPERTENSION SNOMED Code(s): 14287293 Comment: -Continue current regimen (3) Diabetes 1.5, managed as type 2 Current Visit: Yes Status: Acute Code(s): E13.9 - OTHER SPECIFIED DIABETES MELLITUS WITHOUT COMPLICATIONS SNOMED Code(s): 867575953 Comment: -Continue ISS -Consider low dose long actin insulin in AM if continues to be in 200s FS (4) Anxiety Current Visit: Yes Status: Acute Code(s): F41.9 - ANXIETY DISORDER, UNSPECIFIED SNOMED Code(s): 86115047 Comment: -Continue Hydroxyzine (5) Depression Current Visit: Yes Status: Acute Code(s): F32.9 - MAJOR DEPRESSIVE DISORDER , SINGLE EPISODE, UNSPECIFIED SNOMED Code(s): 66496196 Comment: -Continue Fluoxetine (6) History of total right hip arthroplasty Current Visit: Yes Status: Acute Code(s): Z96.641 - PRESENCE OF RIGHT ARTIFICIAL HIP JOINT SNOMED Code(s): 602929795000 Comment: -POD#3 -Defer with ortho (7) DVT prophylaxis Current Visit: Yes Status: Acute Code(s): PBD4877 - SNOMED Code(s): 666712645 Comment: -On Eliquis Status and Disposition: Defer w/ ortho
[2018-10-23] MEDS: Atorvastatin* 20 MG TAB PO SCH (21:32)
[2018-10-24] MEDS: Vancomycin(*) 1,250 MG in NS 0.9% 250 ML* 250 ML IVPB SCH ×2 (00:48→14:19)
[2018-10-24] MEDS: Piperacillin/Tazobac ADVAN(*) 3.375 GM in NS 0.9% 100 ML* 100 ML IVPB SCH ×3 (03:12→20:26)
[2018-10-24] MEDS: Morphine VIAL* 4 MG/ML VIAL (1 ml vial) IV PRN (03:31)
[2018-10-24] MEDS: NS 0.9% 1000 ML** 1,000 ML IV SCH (03:35)
[2018-10-24] MEDS: oxyCODONE TAB* 5 MG TAB PO PRN (04:09)
[2018-10-24 06:04] LABS: ABS Basophils 0 10^3/ul (0-0.2); ABS Eosinophils 0.1 10^3/ul (0-0.6); ABS Lymphocytes 1.4 10^3/ul (1.0-4.8); ABS Monocytes 1.3 10^3/ul (0-0.8); ABS Neutrophils 12.2 10^3/ul (1.5-7.7); ABS Nucleated RBC 0 10^3/ul; Eosinophil % 0.6 %; Hematocrit 29 % (35-47); Hemoglobin 9.6 g/dl (12.0-16.0); Lymphocyte % 9.6 %; Mean Corpuscular HGB Conc 33 g/dl (31-36); Mean Corpuscular Hemoglobin 31 pg (27-31); Mean Corpuscular Volume 92 fL (80-97); Mean Platelet Volume 8.2 fL (7.4-10.4); Nucleated Red Blood Cells % 0; Platelet Count 214 10^3/ul (150-450); Red Blood Count 3.13 10^6/ul (4.00-5.40); Red Cell Distribution Width 13 % (10.5-15)
[2018-10-24 06:07] LABS: INR 2.12 (0.77-1.02)
[2018-10-24] MEDS: Magnesium Hydroxide LIQ* 30 ML UDC PO SCH ×2 (09:51→21:19)
[2018-10-24] MEDS: Insulin GLARGINE(*) 1 UNITS UNIT SUBCUT SCH (09:52)
[2018-10-24] MEDS: Insulin LISPRO* 1 UNITS UNIT SUBCUT SCH ×4 (09:52→23:20)
[2018-10-24] MEDS: FLUoxetine CAP* 20 MG PO SCH (09:53)
[2018-10-24] MEDS: amLODIPine TAB* 5 MG PO SCH (09:54)
[2018-10-24] MEDS: Docusate CAP* 100 MG PO SCH ×2 (09:54→21:18)
[2018-10-24] MEDS: Apixaban* 2.5 MG TAB PO SCH ×2 (09:55→23:23)
[2018-10-24] MEDS: Vitamin THERAPEUTIC TAB PO SCH (09:56)
[2018-10-24] MEDS: Aspirin TAB* 325 MG PO SCH (09:56)
[2018-10-24 10:19] LABS: BUN/Creatinine Ratio 32.1 (8-20); Calcium 8.5 mg/dL (8.6-10.3); EGFR African American 127.7 (>60); EGFR Non-African American 105.5 (>60); Potassium 4.4 mmol/L (3.5-5.0)
[2018-10-24] MEDS: oxyCODONE/Acetamin 5/325 MG* TAB PO PRN ×2 (11:05→23:23)
--- NOTE | 2018-10-24 12:59 | PN ---
Progress Note - Progress Note Date of Service: 10/24/18 SOAP: Subjective: []Patient seen walking with aide from BR to her bed. Feels that she is not doing well. Frustrated with her slow down with her chest pain and shortness of breath. She is being treated for pneumonia and on O2. Hoping for approval to [facility]. Objective: [] Vital Signs Temp 97.6 F 10/24/18 11:07 Pulse 99 10/24/18 11:07 Resp 18 10/24/18 11:07 BP 139/55 10/24/18 11:07 Pulse Ox 90 10/24/18 12:22 Intake & Output 10/23/18 10/24/18 10/24/18 18:59 06:59 18:59 Intake Total 360 640 Output Total 300 125 Balance 60 515 Intake: Oral 360 640 Output: Urine 300 125 Other: Estimated Void Medium Medium # Voids 1 1 Laboratory Results - last 24 hr 10/23/18 10/23/18 10/23/18 12:14 14:56 15:33 WBC RBC Hgb Hct MCV MCH MCHC RDW Plt Count MPV Neut % (Auto) Lymph % (Auto) [place] % (Auto) Eos % (Auto) Baso % (Auto) Absolute Neuts (auto) Absolute Lymphs (auto) Absolute Monos (auto) Absolute Eos (auto) Absolute Basos (auto) Absolute Nucleated RBC Nucleated RBC % INR (Anticoag Therapy) Sodium Potassium Chloride Carbon Dioxide Anion Gap BUN Creatinine Est GFR ( Amer) Est GFR (Non-Af Amer) BUN/Creatinine Ratio Glucose POC Glucose (mg/dL) Lactic Acid 2.4 H* Calcium Total Creatine Kinase 500 H Troponin I 0.00 Influenza A (Rapid) Negative Influenza B (Rapid) Negative 10/23/18 10/23/18 10/24/18 16:17 20:02 05:49 WBC 15.0 H RBC 3.13 L Hgb 9.6 L Hct 29 L MCV 92 MCH 31 MCHC 33 RDW 13 Plt Count 214 MPV 8.2 Neut % (Auto) 81.1 Lymph % (Auto) 9.6 [place] % (Auto) 8.5 Eos % (Auto) 0.6 Baso % (Auto) 0.2 Absolute Neuts (auto) 12.2 H Absolute Lymphs (auto) 1.4 Absolute Monos (auto) 1.3 H Absolute Eos (auto) 0.1 Absolute Basos (auto) 0 Absolute Nucleated RBC 0 Nucleated RBC % 0 INR (Anticoag Therapy) Sodium Potassium Chloride Carbon Dioxide Anion Gap BUN Creatinine Est GFR ( Amer) Est GFR (Non-Af Amer) BUN/Creatinine Ratio Glucose POC Glucose (mg/dL) 211 H Lactic Acid Calcium Total Creatine Kinase Troponin I 0.01 Influenza A (Rapid) Influenza B (Rapid) 10/24/18 10/24/18 10/24/18 05:49 05:49 09:21 WBC RBC Hgb Hct MCV MCH MCHC RDW Plt Count MPV Neut % (Auto) Lymph % (Auto) [place] % (Auto) Eos % (Auto) Baso % (Auto) Absolute Neuts (auto) Absolute Lymphs (auto) Absolute Monos (auto) Absolute Eos (auto) Absolute Basos (auto) Absolute Nucleated RBC Nucleated RBC % INR (Anticoag Therapy) 2.12 H Sodium 135 Potassium 4.4 Chloride 102 Carbon Dioxide 26 Anion Gap 7 BUN 18 Creatinine 0.56 Est GFR ( Amer) 127.7 Est GFR (Non-Af Amer) 105.5 BUN/Creatinine Ratio 32.1 H Glucose 192 H POC Glucose (mg/dL) 188 H Lactic Acid Calcium 8.5 L Total Creatine Kinase Troponin I Influenza A (Rapid) Influenza B (Rapid) 10/24/18 10:06 WBC RBC Hgb Hct MCV MCH MCHC RDW Plt Count MPV Neut % (Auto) Lymph % (Auto) [place] % (Auto) Eos % (Auto) Baso % (Auto) Absolute Neuts (auto) Absolute Lymphs (auto) Absolute Monos (auto) Absolute Eos (auto) Absolute Basos (auto) Absolute Nucleated RBC Nucleated RBC % INR (Anticoag Therapy) Sodium Potassium Chloride Carbon Dioxide Anion Gap BUN Creatinine Est GFR ( Amer) Est GFR (Non-Af Amer) BUN/Creatinine Ratio Glucose POC Glucose (mg/dL) Lactic Acid 0.9 Calcium Total Creatine Kinase Troponin I Influenza A (Rapid) Influenza B (Rapid) Right hip dressing remains dry and intact active DF right ankle mild thigh and lower leg edema-calf non tender sensation and circulation intact RLE Assessment: []s/p Right total hip arthroplasty Pneumonia- on Zosyn Plan: []PT/OT as tolerated WBAT RLE continue total hip precautions Zosyn for pneumonia as per hospitalists Eliquis for DVT prophylaxis Await PMRU approval
[2018-10-24 14:59] LABS: Hepatitis Be Antigen Negative (Negative)
[2018-10-24 15:27] LABS: Hepatitis Be Antibody Negative (Negative)
--- NOTE | 2018-10-24 17:02 | PN ---
Subjective Date of Service: 10/24/18 Interval History: HOSPITALIST PROGRESS NOTE Patient seen and examined at bedside. Care reviewed and d/w Berto Morillo RN. She felt a little better initially, but developed more dyspnea with higher oxygen requirements as the morning went by. Chest pain is resolved, but cough is still bothersome. Family History: Unchanged from Admission Social History: Unchanged from Admission Past Medical History: Unchanged from Admission Objective Active Medications: Acetaminophen (Tylenol Tab*) 650 mg PO Q8H PRN PRN Reason: PAIN OR TEMPERATURE Alprazolam (Xanax Tab*) 0.25 mg PO Q8H PRN PRN Reason: ANXIETY Last Admin: 10/23/18 08:11 Dose: 0.25 mg Amlodipine Besylate (Norvasc Tab*) 10 mg PO QAM [facility] Last Admin: 10/24/18 09:54 Dose: 10 mg Apixaban (Eliquis*) 2.5 mg PO BID [facility] Last Admin: 10/24/18 09:55 Dose: 2.5 mg Atorvastatin Calcium (Lipitor*) 20 mg PO BEDTIME [facility] Last Admin: 10/23/18 21:32 Dose: 20 mg Bisacodyl (Dulcolax Supp*) 10 mg [place] DAILY PRN PRN Reason: constipation Cyclobenzaprine HCl (Flexeril Tab*) 5 mg PO TID PRN PRN Reason: SPASMS Last Admin: 10/21/18 23:56 Dose: 5 mg Dextrose (D50w Syringe 50 Ml*) 12.5 gm IV PUSH .FOR FS < 60 - SS PRN PRN Reason: FS < 60 Diphenhydramine HCl (Benadryl Iv*) 25 mg IV Q6H PRN PRN Reason: itching Docusate Sodium (Colace Cap*) 100 mg PO BID [facility] Last Admin: 10/24/18 09:54 Dose: 100 mg Fluoxetine HCl (Prozac Cap*) 40 mg PO QAM [facility] Last Admin: 10/24/18 09:53 Dose: 40 mg Gabapentin (Neurontin Cap(*)) 100 mg PO 1730 [facility] Last Admin: 10/23/18 16:53 Dose: 100 mg Hydroxyzine HCl (Atarax Tab*) 25 mg PO BEDTIME PRN PRN Reason: INSOMNIA Piperacillin Sod/Tazobactam (Sod 3.375 gm/ Sodium Chloride) 100 mls @ 25 mls/ hr IVPB Q8H [facility] Last Admin: 10/24/18 09:45 Dose: 25 mls/hr Vancomycin HCl 1,250 mg/ (Sodium Chloride) 250 mls @ 166.667 mls/hr IVPB Q12H [facility]; Protocol Last Admin: 10/24/18 14:19 Dose: 166.667 mls/hr Insulin Glargine (Lantus(*)) 5 units SUBCUT Q24H [facility] Last Admin: 10/24/18 09:52 Dose: 5 units Insulin Human Lispro (Humalog*) 0 units SUBCUT AC [facility]; Protocol Last Admin: 10/24/18 13:51 Dose: Not Given Magnesium Hydroxide (Milk Of Magnesia Liq*) 30 ml PO BID [facility] Last Admin: 10/24/18 09:51 Dose: 30 ml Magnesium Hydroxide (Milk Of Magnesia Liq*) 30 ml PO Q6H PRN PRN Reason: constipation Morphine Sulfate (Morphine Vial*) 2 mg IV Q2H PRN PRN Reason: PAIN Last Admin: 10/24/18 03:31 Dose: 2 mg Multivitamins (Theragran Tab*) 1 tab PO DAILY [facility] Last Admin: 10/24/18 09:56 Dose: 1 tab Ondansetron HCl (Zofran Inj*) 4 mg IV Q6H PRN PRN Reason: nausea Oxycodone HCl (Roxycodone Tab*) 10 mg PO Q4H PRN PRN Reason: PAIN - SEVERE Last Admin: 10/24/18 04:09 Dose: 10 mg Oxycodone/Acetaminophen (Percocet 5/325 Tab*) 1 tab PO Q4H PRN PRN Reason: PAIN Last Admin: 10/24/18 11:05 Dose: 1 tab Oxycodone/Acetaminophen (Percocet 5/325 Tab*) 2 tab PO Q4H PRN PRN Reason: PAIN Last Admin: 10/23/18 12:24 Dose: 2 tab Pantoprazole Sodium (Protonix Tab*) 40 mg PO 1730 [facility] Last Admin: 10/23/18 16:53 Dose: 40 mg Pharmacy Consult (Zosyn Per Pharmacy*) 1 note FOLLOW UP .ZOSYN PER PHARMACY [facility] Pharmacy Consult (Vancomycin Per Pharmacy*) 1 note FOLLOW UP .VANC PER PHARMACY [facility] Pharmacy Profile Note (Vancomycin Trough Check) 1 note FOLLOW UP 1130 ONE Stop: 10/25/18 11:31 Vital Signs - 8 hr 10/24/18 10/24/18 10/24/18 11:05 11:07 12:22 Temperature 97.6 F Pulse Rate 99 Respiratory 20 18 Rate Blood Pressure 139/55 (mmHg) O2 Sat by Pulse 89 90 Oximetry 10/24/18 16:02 Temperature Pulse Rate Respiratory 16 Rate Blood Pressure (mmHg) O2 Sat by Pulse Oximetry Oxygen Devices in Use Now: Nasal Cannula - 5 liters Appearance: Pleasant elderly lady sitting up in bed in NAD. Eyes: No Scleral Icterus Ears/Nose/Mouth/Throat: Mucous Membranes Moist Neck: Trachea Midline Respiratory: Symmetrical Chest Expansion and Respiratory Effort, - - BS+ bilaterally with bibasilar crackles Cardiovascular: RRR - Normal S1 and S2 Abdominal: NL Sounds; No Tenderness; No Distention Extremities: - - Right hip CDI Neurological: Alert and Oriented x 3, NL Muscle Strength and Tone, - - CIRCLE Result Diagrams: 10/24/18 05:49 10/24/18 05:49 Assess/Plan/Problems-Billing Assessment: Mrs Olmstead is a 73yo F with PMH of depression, GERD, HTN, HLD, asthma, type 2 DM, s/p pacer, fibromyalgia, who was admitted for elective right BENJIE with Dr Willoughby on 10/21/18. Hospitalist service consulted for post op chest pain, patient found to have pneumonia, likely aspiration. - Patient Problems (1) Acute hypoxemic respiratory failure Comment: - Secondary to pneumonia. - Continue supplemental O2. (2) Aspiration pneumonia Comment: - CTA chest showed scattered regions of parenchymal consolidation or mass opacities noted in the bilateral lung escobedo, trace pericardial effusion noted, trace bilateral pleural effusions and no evidence of pulmonary embolus. - Continue Vanco and Zosyn. (3) Fluid overload Comment: - CxR shows more vascular congestion. - Echo reviewed. - D/c IVF. - Diurese with Furosemide. (4) Status post total hip replacement, right Comment: - Management as per Ortho. (5) Diabetes Comment: - Continue low dose Lantus and Lispro SS. (6) Chest pain Comment: - Secondary to pneumonia. - Cardiology input appreciated. - Patient does not have pericarditis. (7) DVT prophylaxis Comment: - Apixaban as per Ortho. (8) Full code status Status and Disposition: Inpatient. Possible d/c to [facility] in the next 48h depending on response to treatment.
[2018-10-24] MEDS ORDERED: Dextrose 50% Syringe 50 ML* 25 GM/50 ML SYRINGE IV PUSH PRN (17:07)
[2018-10-24] MEDS ORDERED: Furosemide IV* 10 MG/ML 2 ML VIAL (20 MG) IV SLOW PU ONE (17:11)
[2018-10-24] MEDS: Gabapentin CAP(*) 100 MG PO SCH (21:19)
[2018-10-24] MEDS: Pantoprazole TAB * 40 MG TAB PO SCH (21:20)
[2018-10-24] MEDS: Atorvastatin* 20 MG TAB PO SCH (23:23)
[2018-10-25] MEDS: Vancomycin(*) 1,250 MG in NS 0.9% 250 ML* 250 ML IVPB SCH ×2 (00:26→14:02)
[2018-10-25] MEDS: Piperacillin/Tazobac ADVAN(*) 3.375 GM in NS 0.9% 100 ML* 100 ML IVPB SCH ×3 (02:36→18:24)
[2018-10-25 06:33] LABS: INR 1.46 (0.77-1.02)
[2018-10-25] MEDS ORDERED: Furosemide IV* 10 MG/ML 2 ML VIAL (20 MG) IV SLOW PU ONE (09:21)
[2018-10-25] MEDS ORDERED: Loperamide CAP* 2 MG PO PRN (09:21)
[2018-10-25] MEDS: oxyCODONE/Acetamin 5/325 MG* TAB PO PRN ×3 (09:46→21:48)
[2018-10-25] MEDS: Apixaban* 2.5 MG TAB PO SCH ×2 (09:46→21:48)
[2018-10-25] MEDS: Vitamin THERAPEUTIC TAB PO SCH (09:46)
[2018-10-25] MEDS: FLUoxetine CAP* 20 MG PO SCH (09:47)
[2018-10-25] MEDS: amLODIPine TAB* 5 MG PO SCH (09:47)
[2018-10-25] MEDS: Insulin LISPRO* 1 UNITS UNIT SUBCUT SCH ×7 (09:47→21:52)
[2018-10-25] MEDS: Insulin GLARGINE(*) 1 UNITS UNIT SUBCUT SCH (09:48)
[2018-10-25] MEDS: Magnesium Hydroxide LIQ* 30 ML UDC PO SCH (09:53)
[2018-10-25] MEDS: Docusate CAP* 100 MG PO SCH (09:53)
--- NOTE | 2018-10-25 10:09 | PN ---
Progress Note - Progress Note Date of Service: 10/25/18 SOAP: Subjective: []Patient seen at bedside. c/o diarrhea. Still complains of some SOB but improved from yesterday. Denies CP, palpitations or dizziness. Objective: [] Vital Signs Temp 98.2 F 10/25/18 07:55 Pulse 87 10/25/18 07:55 Resp 18 10/25/18 09:46 BP 143/57 10/25/18 07:55 Pulse Ox 92 10/25/18 07:55 Intake & Output 10/24/18 10/25/18 10/25/18 18:59 06:59 18:59 Intake Total 960 1000 Output Total 600 600 Balance 360 400 Intake: IV Fluids 303 ABX - VANCOMYCIN 275 NS (0.9%) 28 IVPB 97 ABX - ZOSYN 97 Oral 960 600 Output: Urine 600 600 Other: Estimated Void Medium Medium Date of Last Bowel 10/25/18 Movement # Bowel Movements 1 3 Estimated Stool Amount Large Medium Medium # Voids 1 2 Laboratory Results - last 24 hr 10/23/18 10/24/18 10/24/18 05:21 05:49 10:06 INR (Anticoag Therapy) Potassium 4.4 Chloride 102 Carbon Dioxide 26 Anion Gap 7 BUN 18 Creatinine 0.56 Est GFR ( Amer) 127.7 Est GFR (Non-Af Amer) 105.5 BUN/Creatinine Ratio 32.1 H Glucose 192 H POC Glucose (mg/dL) Lactic Acid 0.9 Calcium 8.5 L Hepatitis Be Antibody Negative Hepatitis Be Antigen Negative 10/24/18 10/24/18 10/25/18 17:34 23:07 06:07 INR (Anticoag Therapy) 1.46 H Potassium Chloride Carbon Dioxide Anion Gap BUN Creatinine Est GFR ( Amer) Est GFR (Non-Af Amer) BUN/Creatinine Ratio Glucose POC Glucose (mg/dL) 185 H 195 H Lactic Acid Calcium Hepatitis Be Antibody Hepatitis Be Antigen 10/25/18 07:54 INR (Anticoag Therapy) Potassium Chloride Carbon Dioxide Anion Gap BUN Creatinine Est GFR ( Amer) Est GFR (Non-Af Amer) BUN/Creatinine Ratio Glucose POC Glucose (mg/dL) 165 H Lactic Acid Calcium Hepatitis Be Antibody Hepatitis Be Antigen Right hip incision without drainage or erythema, moderate buttock/ thigh edema, compartments soft calf NT and soft active DF right ankle sensation remains intact distally Assessment: []s/p right total hip arthroplasty POD #4 Aspiration pneumonia-improving Plan: []PT/OT WBAT RLE hip precautions Continue Zosyn and Vanco for pneumonia Discontinue scheduled bowel meds Possible discharge to [facility] tomorrow
[2018-10-25] MEDS ORDERED: Vancomycin Trough Check NOTE FOLLOW UP ONE (11:30)
[2018-10-25 11:32] LABS: ABS Basophils 0.1 10^3/ul (0-0.2); ABS Eosinophils 0.2 10^3/ul (0-0.6); ABS Lymphocytes 1.4 10^3/ul (1.0-4.8); ABS Monocytes 0.9 10^3/ul (0-0.8); ABS Neutrophils 9.9 10^3/ul (1.5-7.7); ABS Nucleated RBC 0 10^3/ul; Eosinophil % 1.7 %; Hematocrit 30 % (35-47); Lymphocyte % 11.3 %; Mean Corpuscular HGB Conc 34 g/dl (31-36); Mean Corpuscular Hemoglobin 31 pg (27-31); Mean Corpuscular Volume 92 fL (80-97); Mean Platelet Volume 8.1 fL (7.4-10.4); Nucleated Red Blood Cells % 0; Platelet Count 290 10^3/ul (150-450); Red Blood Count 3.26 10^6/ul (4.00-5.40); Red Cell Distribution Width 13 % (10.5-15); White Blood Count 12.5 10^3/ul (3.5-10.8)
[2018-10-25 11:50] LABS: BUN/Creatinine Ratio 24.6 (8-20); Calcium 8.8 mg/dL (8.6-10.3); EGFR African American 125.1 (>60); EGFR Non-African American 103.4 (>60); Potassium 3.4 mmol/L (3.5-5.0)
[2018-10-25 12:09] LABS: Vancomycin Trough 8.7 mcg/mL
[2018-10-25] MEDS: oxyCODONE TAB* 5 MG TAB PO PRN ×2 (12:54→19:34)
[2018-10-25] MEDS: Vancomycin(*) 750 MG in NS 0.9% 250 ML* 250 ML IVPB SCH ×2 (13:48→22:49)
--- NOTE | 2018-10-25 18:29 | PN ---
Subjective Date of Service: 10/25/18 Interval History: HOSPITALIST PROGRESS NOTE Patient seen and examined at bedside. Care reviewed and d/w Kelle Tolentino RN. She does not perceive subjective improvement. Upset she's having lots of diarrhea. Looks more comfortable, but frustrated she's still having shortness of breath and hip pain. Family History: Unchanged from Admission Social History: Unchanged from Admission Past Medical History: Unchanged from Admission Objective Active Medications: Acetaminophen (Tylenol Tab*) 650 mg PO Q8H PRN PRN Reason: PAIN OR TEMPERATURE Alprazolam (Xanax Tab*) 0.25 mg PO Q8H PRN PRN Reason: ANXIETY Last Admin: 10/23/18 08:11 Dose: 0.25 mg Amlodipine Besylate (Norvasc Tab*) [address] [facility] Last Admin: 10/25/18 09:47 Dose: 10 mg Apixaban (Eliquis*) 2.[address] [facility] Last Admin: 10/25/18 09:46 Dose: 2.5 mg Atorvastatin Calcium (Lipitor*) [address] [facility] Last Admin: 10/24/18 23:23 Dose: 20 mg Bisacodyl (Dulcolax Supp*) 10 mg [place] DAILY PRN PRN Reason: constipation Cyclobenzaprine HCl (Flexeril Tab*) 5 mg PO TID PRN PRN Reason: SPASMS Last Admin: 10/21/18 23:56 Dose: 5 mg Dextrose (D50w Syringe 50 Ml*) 12.5 gm IV PUSH .FOR FS < 60 - SS PRN PRN Reason: FS < 60 Diphenhydramine HCl (Benadryl Iv*) 25 mg IV Q6H PRN PRN Reason: itching Fluoxetine HCl (Prozac Cap*) [address] [facility] Last Admin: 10/25/18 09:47 Dose: 40 mg Gabapentin (Neurontin Cap(*)) [address] [facility] Last Admin: 10/24/18 21:19 Dose: 100 mg Hydroxyzine HCl (Atarax Tab*) 25 mg PO BEDTIME PRN PRN Reason: INSOMNIA Piperacillin Sod/Tazobactam (Sod 3.375 gm/ Sodium Chloride) 100 mls @ 25 mls/ hr IVPB Q8H [facility] Last Admin: 02/16/19 11:24 Dose: 25 mls/hr Vancomycin HCl 750 mg/ Sodium (Chloride) 250 mls @ 166.667 mls/hr IVPB Q8H [facility] ; Protocol Last Admin: 10/25/18 13:48 Dose: 166.667 mls/hr Insulin Glargine (Lantus(*)) [address] [facility] Last Admin: 10/25/18 09:48 Dose: 5 units Insulin Human Lispro (Humalog*) [address] [facility]; Protocol Last Admin: 10/25/18 13:48 Dose: 2 unit Insulin Human Lispro (Humalog*) [address] [facility]; Protocol Last Admin: 10/25/18 13:48 Dose: 1 unit Loperamide HCl (Imodium Cap*) 2 mg PO .SEE DIRECTIONS PRN PRN Reason: DIARRHEA Last Admin: 10/25/18 11:23 Dose: 2 mg Magnesium Hydroxide (Milk Of Magnesia Liq*) 30 ml PO Q6H PRN PRN Reason: constipation Morphine Sulfate (Morphine Vial*) 2 mg IV Q2H PRN PRN Reason: PAIN Last Admin: 10/24/18 03:31 Dose: 2 mg Multivitamins (Theragran Tab*) [address] [facility] Last Admin: 10/25/18 09:46 Dose: 1 tab Ondansetron HCl (Zofran Inj*) 4 mg IV Q6H PRN PRN Reason: nausea Oxycodone HCl (Roxycodone Tab*) 10 mg PO Q4H PRN PRN Reason: PAIN - SEVERE Last Admin: 10/25/18 12:54 Dose: 5 mg Oxycodone/Acetaminophen (Percocet 5/325 Tab*) 1 tab PO Q4H PRN PRN Reason: PAIN Last Admin: 10/25/18 15:25 Dose: 1 tab Oxycodone/Acetaminophen (Percocet 5/325 Tab*) 2 tab PO Q4H PRN PRN Reason: PAIN Last Admin: 10/23/18 12:24 Dose: 2 tab Pantoprazole Sodium (Protonix Tab*) [address] [facility] Last Admin: 10/24/18 21:20 Dose: 40 mg Pharmacy Consult (Zosyn Per Pharmacy*) 1 note FOLLOW UP .ZOSYN PER PHARMACY [facility] Pharmacy Consult (Vancomycin Per Pharmacy*) 1 note FOLLOW UP .VANC PER PHARMACY [facility] Pharmacy Profile Note (Vancomycin Trough Check) 1 note FOLLOW UP ONCE ONE Stop: 10/27/18 05:31 Potassium Chloride (Klor Con Er Tab*) 40 meq PO ONCE ONE Stop: 10/26/18 18:16 Vital Signs - 8 hr 10/25/18 10/25/18 10/25/18 11:23 11:40 12:54 Temperature 98.5 F Pulse Rate 89 Respiratory 20 16 16 Rate Blood Pressure 131/56 (mmHg) O2 Sat by Pulse 94 Oximetry 10/25/18 10/25/18 14:04 15:25 Temperature Pulse Rate Respiratory 18 18 Rate Blood Pressure (mmHg) O2 Sat by Pulse Oximetry Oxygen Devices in Use Now: Nasal Cannula - 3 liters Appearance: Elderly lady sitting up in NAD Eyes: No Scleral Icterus Ears/Nose/Mouth/Throat: Mucous Membranes Moist Neck: Trachea Midline Respiratory: Symmetrical Chest Expansion and Respiratory Effort, - - BS+ bilaterally with bibasilar crackles Cardiovascular: RRR - Normal S1 and S2 Abdominal: NL Sounds; No Tenderness; No Distention Extremities: - - CDI to right hip Neurological: Alert and Oriented x 3, NL Muscle Strength and Tone Result Diagrams: 10/25/18 11:22 10/25/18 11:22 Assess/Plan/Problems-Billing Assessment: Mrs Olmstead is a 73yo F with PMH of depression, GERD, HTN, HLD, asthma, type 2 DM, s/p pacer, fibromyalgia, who was admitted for elective right BENJIE with Dr Willouhgby on 10/21/18. Hospitalist service consulted for post op chest pain, patient found to have pneumonia, likely aspiration. - Patient Problems (1) Acute hypoxemic respiratory failure Comment: - Secondary to pneumonia. - Continue supplemental O2. (2) Aspiration pneumonia Comment: - CTA chest showed scattered regions of parenchymal consolidation or mass opacities noted in the bilateral lung escobedo, trace pericardial effusion noted, trace bilateral pleural effusions and no evidence of pulmonary embolus. - Improving. - Continue Vanco and Zosyn. (3) Diarrhea Comment: - Secondary to laxatives - will d/c some and change others to PRN. (4) Fluid overload Comment: - Improving. - Echo reviewed. - Diurese with Furosemide. (5) Status post total hip replacement, right Comment: - Management as per Ortho. (6) Diabetes Comment: - Continue low dose Lantus and Lispro SS. (7) Chest pain Comment: - Secondary to pneumonia. - Cardiology input appreciated. - Patient does not have pericarditis. (8) DVT prophylaxis Comment: - Apixaban as per Ortho. (9) Full code status Status and Disposition: Inpatient. Possible d/c to [facility] tomorrow if she continues to improve.
[2018-10-25] MEDS: Gabapentin CAP(*) 100 MG PO SCH (19:33)
[2018-10-25] MEDS: Pantoprazole TAB * 40 MG TAB PO SCH (19:34)
[2018-10-25] MEDS: Atorvastatin* 20 MG TAB PO SCH (21:48)
[2018-10-26] MEDS: Piperacillin/Tazobac ADVAN(*) 3.375 GM in NS 0.9% 100 ML* 100 ML IVPB SCH (01:46)
[2018-10-26] MEDS: oxyCODONE/Acetamin 5/325 MG* TAB PO PRN ×2 (04:13→10:08)
[2018-10-26 05:47] LABS: Hematocrit 29 % (35-47); Hemoglobin 9.9 g/dl (12.0-16.0); Mean Platelet Volume 7.8 fL (7.4-10.4); Platelet Count 302 10^3/ul (150-450)
[2018-10-26 05:53] LABS: INR 1.25 (0.77-1.02)
[2018-10-26] MEDS: Vancomycin(*) 750 MG in NS 0.9% 250 ML* 250 ML IVPB SCH (06:02)
[2018-10-26 06:09] LABS: BUN/Creatinine Ratio 25.9 (8-20); Calcium 8.5 mg/dL (8.6-10.3); EGFR African American 133.2 (>60); EGFR Non-African American 110.1 (>60); Potassium 3.3 mmol/L (3.5-5.0)
--- NOTE | 2018-10-26 08:07 | PN ---
Subjective Date of Service: 10/26/18 Interval History: Ms. Olmstead reports that she is making slow and steady progress. She feels better each day. She reports being short of breath with mobility but feels that she has "always been this way" and that she is near her baseline. She denies chest pain. She is tolerating oral intake well. Family History: Unchanged from Admission Social History: Unchanged from Admission Past Medical History: Unchanged from Admission Objective Active Medications: Acetaminophen (Tylenol Tab*) 650 mg PO Q8H PRN Alprazolam (Xanax Tab*) 0.25 mg PO Q8H PRN Amlodipine Besylate (Norvasc Tab*) 10 mg PO QAM DOROTEO Apixaban (Eliquis*) 2.5 mg PO BID DOROTEO Atorvastatin Calcium (Lipitor*) 20 mg PO BEDTIME DOROTEO Bisacodyl (Dulcolax Supp*) 10 mg IA DAILY PRN Cyclobenzaprine HCl (Flexeril Tab*) 5 mg PO TID PRN Dextrose (D50w Syringe 50 Ml*) 12.5 gm IV PUSH .FOR FS < 60 - SS PRN Diphenhydramine HCl (Benadryl Iv*) 25 mg IV Q6H PRN Fluoxetine HCl (Prozac Cap*) 40 mg PO QAM DOROTEO Gabapentin (Neurontin Cap(*)) 100 mg PO 1730 DOROTEO Hydroxyzine HCl (Atarax Tab*) 25 mg PO BEDTIME PRN Piperacillin Sod/Tazobactam (Sod 3.375 gm/ Sodium Chloride) 100 mls @ 25 mls/ hr IVPB Q8H DOROTEO Vancomycin HCl 750 mg/ Sodium (Chloride) 250 mls @ 166.667 mls/hr IVPB Q8H DOROTEO ; Protocol Insulin Glargine (Lantus(*)) 5 units SUBCUT Q24H DOROTEO Insulin Human Lispro (Humalog*) 0 units SUBCUT AC DOROTEO; Protocol Insulin Human Lispro (Humalog*) 0 units SUBCUT ACHS DOROTEO; Protocol Loperamide HCl (Imodium Cap*) 2 mg PO .SEE DIRECTIONS PRN Magnesium Hydroxide (Milk Of Magnesia Liq*) 30 ml PO Q6H PRN Morphine Sulfate (Morphine Vial*) 2 mg IV Q2H PRN Multivitamins (Theragran Tab*) 1 tab PO DAILY DOROTEO Ondansetron HCl (Zofran Inj*) 4 mg IV Q6H PRN Oxycodone HCl (Roxycodone Tab*) 10 mg PO Q4H PRN Oxycodone/Acetaminophen (Percocet 5/325 Tab*) 1 tab PO Q4H PRN Oxycodone/Acetaminophen (Percocet 5/325 Tab*) 2 tab PO Q4H PRN Pantoprazole Sodium (Protonix Tab*) 40 mg PO 1730 [facility] Pharmacy Consult (Zosyn Per Pharmacy*) 1 note FOLLOW UP .ZOSYN PER PHARMACY [facility] Pharmacy Consult (Vancomycin Per Pharmacy*) 1 note FOLLOW UP .VANC PER PHARMACY [facility] Pharmacy Profile Note (Vancomycin Trough Check) 1 note FOLLOW UP ONCE ONE Potassium Chloride (Klor Con Er Tab*) 40 meq PO ONCE ONE Vital Signs: Temp Pulse Resp BP Pulse Ox 98.1 F 82 16 130/79 95 10/26/18 07:32 10/26/18 07:32 10/26/18 07:32 10/26/18 07:32 10/26/18 07:32 Oxygen Devices in Use Now: Nasal Cannula - 3 liters Appearance: Female sitting up in chair eating breakfast in NAD Eyes: No Scleral Icterus Ears/Nose/Mouth/Throat: Mucous Membranes Moist Neck: Trachea Midline Respiratory: Symmetrical Chest Expansion and Respiratory Effort, Clear to Auscultation, - - Diminished in bases Cardiovascular: NL Sounds; No Murmurs; No JVD, No Edema Abdominal: NL Sounds; No Tenderness; No Distention Extremities: No Edema Skin: No Rash or Ulcers Neurological: Alert and Oriented x 3, NL Muscle Strength and Tone Nutrition: Taking PO's Result Diagrams: 10/26/18 05:25 10/26/18 05:25 Microbiology and Other Data: . Assess/Plan/Problems-Billing Assessment: Mrs Olmstead is a 73yo F with PMH of depression, GERD, HTN, HLD, asthma, type 2 DM, s/p pacer, fibromyalgia, who was admitted for elective right BENJIE with Dr Willoughby on 10/21/18. Hospitalist service consulted for post op chest pain, patient found to have pneumonia, likely aspiration. - Patient Problems (1) Aspiration pneumonia Comment: - Improving - CTA chest showed scattered regions of parenchymal consolidation or mass opacities noted in the bilateral lung escobedo, trace pericardial effusion noted, trace bilateral pleural effusions and no evidence of pulmonary embolus. - Completed 3 days of Vanco and Zosyn, clinicall stable, will switch to augmentin BID x 5 additional days. - Would consider follow up CT to eval for resolution in 3 months (2) Acute hypoxemic respiratory failure Comment: - Secondary to pneumonia and fluid overload. - Continue supplemental O2, remains on 3L. (3) Fluid overload Comment: - Improving. - Echo reviewed, no evidence of systolic or diastolic dysfunction, suspect fluid overload iatrogenic in setting of fluids for surgery and pneumonia. - Diuresed with Furosemide, do not plan for further diuresis as patient is stable and notes frequent incontinence with lasix. (4) Status post total hip replacement, right Comment: - Management as per Ortho. (5) Chest pain Comment: - Secondary to pneumonia. - Cardiology input appreciated. - Patient does not have pericarditis. (6) Anxiety Comment: -Continue Hydroxyzine (7) Depression Comment: -Continue Fluoxetine (8) Diabetes Comment: - Continue low dose Lantus and Lispro SS. (9) Diarrhea Comment: - Secondary to laxatives - will d/c some and change others to PRN. (10) HTN (hypertension) Comment: -Continue current regimen (11) DVT prophylaxis Comment: - Apixaban as per Ortho. (12) Full code status Comment: Status and Disposition: Inpatient. D/C to [facility].
[2018-10-26] MEDS ORDERED: Amoxicillin/Clavulanate TAB* 875 MG PO SCH (09:00)
[2018-10-26] MEDS: FLUoxetine CAP* 20 MG PO SCH (09:24)
[2018-10-26] MEDS: amLODIPine TAB* 5 MG PO SCH (09:25)
[2018-10-26] MEDS: Vitamin THERAPEUTIC TAB PO SCH (09:26)
[2018-10-26] MEDS: Apixaban* 2.5 MG TAB PO SCH (09:26)
--- NOTE | 2018-10-26 09:26 | PN ---
Progress Note - Progress Note Date of Service: 10/26/18 SOAP: Subjective: []Patient seen OOB in chair. She is feeling better overall. SOB is back to baseline. Looking forward to [facility] transfer today. Objective: [] Vital Signs Temp 98.1 F 10/26/18 07:32 Pulse 82 10/26/18 07:32 Resp 16 10/26/18 07:32 BP 130/79 10/26/18 07:32 Pulse Ox 95 10/26/18 07:32 Intake & Output 10/25/18 10/26/18 10/26/18 18:59 06:59 18:59 Intake Total 135 695 365 Output Total 0 200 Balance 135 495 365 Intake: IV Fluids 30 5 NS (0.9%) 30 5 IVPB 105 360 ABX - VANCOMYCIN 255 ABX - ZOSYN 105 105 Oral 0 695 Output: Urine 0 200 Other: Estimated Void Medium Estimated Stool Amount Medium # Voids 2 Laboratory Results - last 24 hr 10/25/18 10/25/18 10/25/18 11:22 11:22 18:00 WBC 12.5 H RBC 3.26 L Hgb 10.0 L Hct 30 L MCV 92 MCH 31 MCHC 34 RDW 13 Plt Count 290 MPV 8.1 Neut % (Auto) 79.1 Lymph % (Auto) 11.3 Mckean % (Auto) 7.4 Eos % (Auto) 1.7 Baso % (Auto) 0.5 Absolute Neuts (auto) 9.9 H Absolute Lymphs (auto) 1.4 Absolute Monos (auto) 0.9 H Absolute Eos (auto) 0.2 Absolute Basos (auto) 0.1 Absolute Nucleated RBC 0 Nucleated RBC % 0 INR (Anticoag Therapy) Sodium 136 Potassium 3.4 L Chloride 103 Carbon Dioxide 26 Anion Gap 7 BUN 14 Creatinine 0.57 Est GFR ( Amer) 125.1 Est GFR (Non-Af Amer) 103.4 BUN/Creatinine Ratio 24.6 H Glucose 178 H POC Glucose (mg/dL) 159 H Calcium 8.8 C-Reactive Protein Vancomycin Trough 8.7 10/25/18 10/26/18 10/26/18 21:51 05:25 05:25 WBC RBC Hgb 9.9 L Hct 29 L MCV MCH MCHC RDW Plt Count 302 MPV 7.8 Neut % (Auto) Lymph % (Auto) Mckean % (Auto) Eos % (Auto) Baso % (Auto) Absolute Neuts (auto) Absolute Lymphs (auto) Absolute Monos (auto) Absolute Eos (auto) Absolute Basos (auto) Absolute Nucleated RBC Nucleated RBC % INR (Anticoag Therapy) 1.25 H Sodium Potassium Chloride Carbon Dioxide Anion Gap BUN Creatinine Est GFR ( Amer) Est GFR (Non-Af Amer) BUN/Creatinine Ratio Glucose POC Glucose (mg/dL) 121 H Calcium C-Reactive Protein Vancomycin Trough 10/26/18 10/26/18 05:25 07:42 WBC RBC Hgb Hct MCV MCH MCHC RDW Plt Count MPV Neut % (Auto) Lymph % (Auto) Mckean % (Auto) Eos % (Auto) Baso % (Auto) Absolute Neuts (auto) Absolute Lymphs (auto) Absolute Monos (auto) Absolute Eos (auto) Absolute Basos (auto) Absolute Nucleated RBC Nucleated RBC % INR (Anticoag Therapy) Sodium 139 Potassium 3.3 L Chloride 105 Carbon Dioxide 27 Anion Gap 7 BUN 14 Creatinine 0.54 Est GFR ( Amer) 133.2 Est GFR (Non-Af Amer) 110.1 BUN/Creatinine Ratio 25.9 H Glucose 142 H POC Glucose (mg/dL) 142 H Calcium 8.5 L C-Reactive Protein 120.00 H Vancomycin Trough Right hip incision benign calf NT and soft sensation and circulation remain intact Assessment: []s/p Right total hip arthroplasty POD #5 Plan: []WBAT RLE hip precautions Continue Eliquis for DVT prophylaxis [facility]RU today
[2018-10-26] MEDS: Insulin LISPRO* 1 UNITS UNIT SUBCUT SCH ×4 (09:27→12:59)
[2018-10-26] MEDS: Insulin GLARGINE(*) 1 UNITS UNIT SUBCUT SCH (09:27)
[2018-10-26 12:12] VITALS: BP 144/56
--- NOTE | 2018-10-26 12:22 | DS ---
[facility] MEDICINE DISCHARGE SUMMARY: DATE OF ADMISSION: 10/22/18 DATE OF DISCHARGE: 10/26/18 ATTENDING PHYSICIAN: Dr. Asif * (dictation provided by Anum [facility] NP) PRIMARY DIAGNOSES: 1. Status post right total hip arthroplasty. 2. Aspiration pneumonia. 3. Fluid overload secondary to surgery and pneumonia. SECONDARY DIAGNOSES: 1. Depression. 2. Gastroesophageal reflux disease. 3. Hypertension. 4. Mild asthma. 5. Type 2 diabetes, non-insulin dependent. 6. Hyperlipidemia. 7. Pacemaker. 8. History of fibromyalgia. PAST SURGICAL HISTORY: 1. History of cholecystectomy. 2. History of rhinoplasty. 3. History of hysterectomy. MEDICATIONS: At the time of discharge are: 1. Hydroxyzine 25 mg 1 tab p.o. at bedtime. 2. Celecoxib 100 mg p.o. q.a.m. 3. Temazepam 7.5 mg p.o. at bedtime p.r.n. 4. Pantoprazole 40 mg p.o. daily. 5. Multivitamin mineral 1 tab p.o. daily. 6. Metformin 500 mg p.o. b.i.d. 7. Guaifenesin DM 10 mL p.o. daily p.r.n. 8. Gabapentin 100 mg p.o. daily. 9. Fluoxetine 40 mg p.o. q.a.m. 10. Cyanocobalamin 1000 mcg p.o. q.a.m. 11. Cetirizine 10 mg p.o. q.a.m. 12. Calcium citrate 200 mg p.o. q.a.m. 13. Atorvastatin 20 mg p.o. at bedtime. 14. Amlodipine 10 mg p.o. q.a.m. 15. Cyclobenzaprine 5 mg p.o. t.i.d. p.r.n. 16. Apixaban 2.5 mg p.o. b.i.d. 17. Augmentin 875 mg p.o. b.i.d. x5 days. HOSPITAL COURSE: Ms. Olmstead is a 73-year-old female with past medical history as outlined above who presented to the hospital on 10/22/18 for a planned right total hip arthroplasty with Dr. Willoughby. Please see her operative report for complete details. In brief, the patient tolerated the procedure well. In the pharm spec hours of 10/23/18, however, she did have complaint of chest pain. I refer you to the documentation from consultation from Dr. Mcmillan for complete details, but she was found to have a saturation to low 90s on 3 L nasal cannula, heart rate in the 90s, and complained of mild discomfort. She went on for CTA of the chest to rule out a pulmonary embolism which found multiple areas of parenchymal consolidation or mass opacities noted in the bilateral lung escobedo, which were consistent with fluid overload versus infectious inflammatory process. I refer you to the CTA chest document for complete details. For this reason, the patient was treated with vanco and Zosyn, had a concern for possible aspiration pneumonia event. She did have an elevated white blood cell count of 17.4, but I will note that this was in the setting of surgery as well. She remained afebrile. CRP checked at this time was 155.60. Because of the complaint of chest pain, she did also have troponins x3 with 1 abnormality of 0.07. This was ultimately thought to be spurious as all the other checks were 0.01. However, we did consult with Dr. Lenz from cardiology services and he concurred that this troponin appeared spurious. He also performed a transthoracic echocardiogram that showed an intact ejection fraction, no significant wall motion abnormalities or valvular abnormalities, and no evidence of a pericardial effusion. He suspected that chest pain was likely secondary to possible pneumonia. On 10/24/18, the patient had a chest x-ray which showed fluid overload again and treatment with Lasix was undertaken. It was surmised that this fluid overload was likely iatrogenic in the setting of surgery and fluids for pneumonia. She has done well with minimal diuresis. She is currently satting 90% at rest on room air and is on 2 L nasal cannula with activity. She feels that she is back to baseline and she denies chest pain. Ms. Olmstead is medically stable for discharge to [facility]. She will complete a course of antibiotics for possibility of pneumonia with Augmentin x5 days. At this time, I am not planning to continue further diuresis as she states she has significant incontinence and I would like to avoid potential for wound infection to the hip given that she is clinically stable. If she continues to need oxygen and is not able to further mobilize the remainder of fluids per routine after surgery, then diuresis could be considered at that point while on PMRU. DISPOSITION: To [facility]RU. DIET: Low fat, low salt, low carb. ACTIVITY: As tolerated per routine status post right total hip arthroplasty. FOLLOWUP PLANS: Please follow up with the physician's at [facility] regarding continued care and with the orthopedic surgeon and primary care physician at the time of discharge. TIME SPENT: Approximately 60 minutes was spent in the discharge of this patient , more than half that time was spent with the patient at the bedside reviewing the events leading up to and during this hospitalization, performing the physical exam, and reviewing the plan of care. ANUM HEART NP [id number]/[facility]PS #: [id number] BETTE
--- NOTE | 2018-10-26 12:39 | DS ---
AMENDED REPORT NOW INCLUDES COSIGNER DESIGNATION DISCHARGE SUMMARY: DATE OF ADMISSION: 10/21/18 DATE OF DISCHARGE: 10/26/18 ATTENDING PHYSICIAN: Dr. Christiana Willoughby.* (DICTATED BY KRISTAL BRYANT) ADMISSION DIAGNOSIS: Severe end-stage degenerative osteoarthritis of the right hip. DISCHARGE DIAGNOSES: 1. Severe end-stage degenerative osteoarthritis of the right hip. 2. Postoperative aspiration pneumonia. SURGERY PERFORMED: Right total hip arthroplasty. HOSPITAL COURSE: The patient is a 73-year-old female with increasingly severe right hip pain over the last several years. Her plain films revealed advanced osteoarthritis. She failed conservative management with anti-inflammatories, pain medication, and physical therapy. Due to continued pain and decreased quality of life, she elected to proceed with right total hip arthroplasty. She was taken to the operating room under the care of Dr. Christiana Willoughby on the date of 10/21/18 for the aforementioned procedure. She tolerated the procedure well and left the operating room in stable condition. Postoperatively, the patient had some medical difficulties with increased shortness of breath. The patient states that she has a baseline problem with shortness of breath, however, this was worse with noted chest pain. She underwent workup with chest CTA, EKG, and was followed closely by the medical service as well as Cardiology. Her workup revealed evidence of likely aspiration pneumonia. She has been on IV vancomycin and Zosyn during her hospital stay with improvement of her symptoms. It was felt that she was now medically stable for discharge to [facility] for additional rehabilitation on the date of 10/26/18. CONDITION ON DISCHARGE: Temperature 98.1, pulse 82, respiratory rate 16, O2 sats 95% on nasal cannula O2, blood pressure 130/79. Examination of the right hip reveals a well healing right hip incision without evidence of drainage, erythema, or evidence of infection. Her calf remains soft and nontender. She has active dorsiflexion of the right ankle. PLAN: She will be discharged to [facility] for additional rehabilitation. She will continue with Eliquis 2.5 mg p.o. b.i.d. for DVT prophylaxis and antibiotics and other medications as outlined by hospitalist service upon discharge. We recommend a followup in the office as scheduled with Dr. Willoughby in 10 to 14 days once discharged from the [facility] rehab. KRISTAL BRYANT [id number]/[facility] #: [id number] BETTE
[2018-10-26] MEDS: oxyCODONE TAB* 5 MG TAB PO PRN (13:03)
[2018-10-26] MEDS ORDERED: Potassium Chlor TAB* 20 MEQ TAB.ER PO ONE (18:15)
[2018-10-27] MEDS ORDERED: Vancomycin Trough Check NOTE FOLLOW UP ONE (05:30)
== END 2018-10-26 08:57 | DRG 469 ==
LOC: AA 09:43 → SSU 18:14 → MEDTELE 10-23 04:11 → SSU 10-24 17:49
PROVIDERS: ADMIT Orthopaedic Surgery Adult Reconstructive Orthopaedic Surgery; ATTEND Orthopaedic Surgery Adult Reconstructive Orthopaedic Surgery
PROC: 0SR904A Replacement of Right Hip Joint with Ceramic on Polyethylene Synthetic Substitute, Uncemented, Open Approach (ICD-10-PCS; principal; 2018-10-21 13:00)
DX: M16.11 Unilateral primary osteoarthritis, right hip (principal); Z79.01 Long term (current) use of anticoagulants; F32.9 Major depressive disorder, single episode, unspecified; K21.9 Gastro-esophageal reflux disease without esophagitis; I10 Essential (primary) hypertension; J45.909 Unspecified asthma, uncomplicated; E11.9 Type 2 diabetes mellitus without complications; E78.5 Hyperlipidemia, unspecified; I34.1 Nonrheumatic mitral (valve) prolapse; E04.1 Nontoxic single thyroid nodule; G47.30 Sleep apnea, unspecified; M10.9 Gout, unspecified; E66.3 Overweight; M25.751 Osteophyte, right hip; F41.9 Anxiety disorder, unspecified; M79.7 Fibromyalgia; Z90.710 Acquired absence of both cervix and uterus; Z90.49 Acquired absence of other specified parts of digestive tract; Z79.84 Long term (current) use of oral hypoglycemic drugs; Z95.0 Presence of cardiac pacemaker; Z83.3 Family history of diabetes mellitus; Z82.49 Family history of ischemic heart disease and other diseases of the circulatory system; Z82.3 Family history of stroke; Z72.89 Other problems related to lifestyle; Z80.9 Family history of malignant neoplasm, unspecified; Z85.828 Personal history of other malignant neoplasm of skin; Z68.27 Body mass index [BMI] 27.0-27.9, adult; Z98.42 Cataract extraction status, left eye; Z98.41 Cataract extraction status, right eye; K52.1 Toxic gastroenteritis and colitis; J69.0 Pneumonitis due to inhalation of food and vomit; J96.01 Acute respiratory failure with hypoxia; T47.4X5A Adverse effect of other laxatives, initial encounter; Y92.239 Unspecified place in hospital as the place of occurrence of the external cause; E87.70 Fluid overload, unspecified
CPT/HCPCS: 36415; 71045; 71275; 72170; 80048; 80061; 80202; 82550; 82553; 83605; 83880; 84300; 84484; 85014; 85018; 85025; 85049; 85610; 85730; 86140; 86703; 86707; 86803; 87350; 88304; 88311; 93005; 93306; A9270-GY; C1713; C1776; C8929; G8978-GP-CL; G8979-GP-CI; G8987-GO-CK; G8988-GO-CI; J0690; J1170; J1885; J1940; J2250; J2270; J2405; J2543; J2704; J3010; J3370; Q9967

== ENCOUNTER 2018-10-26 08:43 | Inpatient (IN) | payer MEDICARE, OTHER ==
[2018-10-26] MEDS ORDERED: Bisacodyl SUPP* 10 MG SUPP PR PRN (08:57)
[2018-10-26] MEDS ORDERED: Docusate CAP* 100 MG PO PRN (08:57)
[2018-10-26] MEDS ORDERED: Acetaminophen TAB* 325 MG PO PRN (08:57)
[2018-10-26] MEDS ORDERED: Senna TAB PO PRN (08:57)
[2018-10-26] MEDS ORDERED: Dextrose 50% Syringe 50 ML* 25 GM/50 ML SYRINGE IV PUSH PRN (09:06)
[2018-10-26] MEDS ORDERED: hydrOXYzine HCL TAB* 25 MG PO PRN (09:13)
[2018-10-26] MEDS ORDERED: Loperamide CAP* 2 MG PO PRN (09:15)
--- NOTE | 2018-10-26 14:00 | HP ---
CC: Dr. Willoughby; Dr. Angulo * REHABILITATION ADMISSION: DATE OF ADMISSION: 10/26/18 REASON FOR ADMISSION: Right total hip replacement complicated by aspiration pneumonia and pulmonary edema. ORTHOPEDIC SURGEON: Dr. Willoughby. PRIMARY CARE PROVIDER: Dr. Angulo. HISTORY OF PRESENT ILLNESS: This is a 73-year-old woman who was admitted on 08/27 for elective right total hip replacement secondary to osteoarthritis and had failed conservative management. Dr. Willoughby took her to the OR, and postoperatively, she had weightbearing as tolerated, precautions of the right lower extremity as well as total hip precautions. She was put on Eliquis for DVT prophylaxis. On 10/23/18, she developed chest pain. She was given aspirin , sublingual nitroglycerin, a GI cocktail, and morphine. CTA of the chest at that time was negative for pulmonary embolism, but she had scattered opacities and leukocytosis which was concerning for aspiration pneumonia. She was started empirically on Zosyn. EKG showed nonspecific changes and she was transferred to the telemetry unit. Troponins showed a slight bump on the third test, which was spurious and then not present on the fourth test. She was seen by Cardiology and it was felt that this was not cardiac chest pain. She seemed to start to improve, but then on 10/24/18 had increasing oxygen requirements and increasing shortness of breath. Chest x-ray revealed pulmonary edema. For the last 2 days, she has received IV Lasix, and at this point, she feels that she is close to her baseline breathing status. She normally has some level of shortness of breath with activity such as just doing 1 flight of stairs. She is still using supplemental oxygen, but was not on this previously at home. She has been using the incentive spirometer. Her diabetes has been managed with insulin during her stay and she was started on a very low dose of Lantus a few days ago. Normally at home, she just manages with metformin and a consistent carbohydrate diet. Yesterday, she was having diarrhea and her bowel medicines were all changed to p.r.n. and she was given Imodium. That has also improved. She has been incontinent of urine, especially with the Lasix. At times, she reports having some incontinence and using Depend's but not regularly. Prior to admission, she was independent with all mobility and self-care and not using any assistive device. With physical therapy, she is supervision for bed mobility. She has required contact-guard assistance for transfers and ambulating up to 90 feet using a rolling walker. She has done 3 stairs with contact-guard assistance. With occupational therapy with her last evaluation, she required a moderate amount of assistance for lower body dressing and still a maximum amount of assistance for toileting. That was in the early postoperative stage. PAST MEDICAL HISTORY: Depression, anxiety, GERD, hypertension, activity- induced asthma, diabetes mellitus type 2, hyperlipidemia, pacemaker, fibromyalgia, status post cholecystectomy, rhinoplasty, status post hysterectomy , trigeminal neuralgia, hard of hearing with bilateral hearing aids. MEDICATIONS: Currently: 1. She is being changed to Augmentin 875 mg twice per day for 5 more days for her pneumonia. 2. Eliquis 2.5 mg b.i.d. for DVT prophylaxis. 3. Sliding scale lispro insulin. 4. Klor-Con 40 mEq once to be given today. 5. Lantus 5 units q.a.m. 6. Lipitor 20 mg q.h.s. 7. Neurontin 100 mg q.p.m. 8. Norvasc 10 mg q.a.m. 9. Protonix 40 mg q.p.m. 10. Prozac 40 mg q.a.m. 11. Multivitamin daily. 12. Atarax 25 mg q.h.s. p.r.n. 13. Dulcolax 10 mg p.r. daily p.r.n. 14. Imodium p.r.n. 15. Percocet 1 tablet q.4 hours p.r.n. pain as well as she has oxycodone, but they have been giving 5 mg q.4 hours p.r.n. pain. 16. Tylenol 650 mg q.8 hours p.r.n. pain. ALLERGIES: No known drug allergies. FAMILY HISTORY: Mother, diabetes. Father, stroke. Son, brain cancer that he is still dealing with. Brother, prostate cancer. Sister, skin cancer. SOCIAL HISTORY: She lives with her , Olga, in [place]. If she cannot make decisions for herself, Olga is her surrogate decision maker. Their home phone number is [phone]. No smoking. She has a few drinks on the weekends. Her home with one level. There are 7 steps to enter. 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 She likes doing crossword puzzles and will read a book every 1 to 2 days. She has 3 grown children, two of which are local. REVIEW OF SYSTEMS: See history of present illness and past medical history. The patient acknowledges some confusion and feeling loopy since her surgery. She has had urinary incontinence. She has had diarrhea. The remainder of a 13- system review was completed. No other significant findings. PHYSICAL EXAMINATION GENERAL: Well developed, well nourished, appearing stated age. Mental status: No acute distress. Alert and appropriate. She needs some extra time to think of the correct answers to the questions that I have, but does appear to come up with appropriate answers. VITAL SIGNS: Temperature 98.1, heart rate 82, respirations 16, oxygenation 95% on 2 L, blood pressure 130/79. HEENT: Normocephalic, atraumatic. Oropharynx clear. Moist mucous membranes. LUNGS: Show bilateral inspiratory rales. HEART: Regular rate and rhythm. ABDOMEN: Active bowel sounds. Soft, nontender, nondistended. EXTREMITIES: No clubbing or cyanosis. She has bilateral lower extremity edema. MUSCULOSKELETAL: She has functional range of motion of all of her major joints excluding testing of her right hip and knee. NEUROLOGIC: Cranial nerves II through XII are intact. She has 5/5 strength in bilateral upper and lower extremities with limited testing of the right hip and knee due to her recent surgery. Sensation is intact in all 4 extremities. SKIN: Her right hip incision is glued and is intact. DIAGNOSTIC STUDIES/LAB DATA: On 10/25/18, white blood cells were 12.5 which is down from 17.4 two days prior. Today, hemoglobin 9.9, hematocrit 29, platelets 302. Sodium 139, potassium 3.3, chloride 105, carbon dioxide 27, BUN 14, creatine 0.54. Her fingersticks have ranged from 121 to 165 in the last 24 hours. CRP 120, down from 155 three days ago. IMPRESSION: A 73-year-old woman status post elective right total hip replacement secondary to osteoarthritis, complicated by aspiration pneumonia and pulmonary edema. She will be admitted to [facility] so she can return to living independently. PLAN: 1. Status post right total hip replacement. She will need to follow up with Dr. Willoughby. Continue with total hip precautions with weight-bearing as tolerated. Continue with pain medications, simplified to Percocet 1 p.o. q.3 hours p.r.n. pain. 2. DVT prophylaxis. Continue with Eliquis 2.5 mg b.i.d. 3. Chest pain and aspiration pneumonia. She already received 3 days of vancomycin and Zosyn. She is changing to Augmentin 875 mg b.i.d. today for 5 more days per the hospitalist's recommendation. It has also been suggested that she may need a followup CT scan in 3 months. Continue supplemental oxygen. 4. Recent fluid overload with pulmonary edema. Continue supplemental oxygen as needed and wean off as tolerated. Evaluate daily to determine if she should have additional diuresis. 5. Hypertension. Continue Norvasc. 6. Type 2 diabetes mellitus. Tomorrow, we will stop her Lantus and restart her metformin. She has appropriate renal function. Continue sliding scale insulin and fingersticks q.a.c. and q.h.s. 7. Depression and anxiety. Continue fluoxetine and hydroxyzine, but increase hydroxyzine to t.i.d. p.r.n. as she does at home. 8. GERD. Continue Protonix. 9. Diarrhea. Continue with bowel medicines only as needed and Imodium as needed. 10. Hypokalemia. She is receiving 1 dose of potassium chloride today. Recheck labs tomorrow. 12. Impaired mobility. She will be seen by Physical Therapy for bed mobility, transfer, gait, and stair training using the least restrictive assistive device. She will need reinforcement of her precautions and family training as appropriate. 13. Impaired self-care. She will be seen by Occupational Therapy for ADL training and equipment evaluation. Once again, family training as appropriate. 14. Some confusion. She will be screened for cognitive status by Speech Therapy. Further recommendations to follow pending that evaluation. 15. Advance directives. She is full code. If she cannot make decisions for herself, her , Olga, is her healthcare proxy, phone number [phone]. ESTIMATED LENGTH OF STAY: Five to seven days and return to home with family support. [id number]/[facility] #: [id number] [facility]
[2018-10-26] MEDS: Insulin LISPRO* 1 UNITS UNIT SUBCUT SCH ×3 (14:33→20:57)
[2018-10-26] MEDS: oxyCODONE/Acetamin 5/325 MG* TAB PO PRN ×3 (16:25→23:07)
[2018-10-26] MEDS: Pantoprazole TAB * 40 MG TAB PO SCH (17:09)
[2018-10-26] MEDS: metFORMIN* 500 MG TAB PO SCH (17:09)
[2018-10-26] MEDS ORDERED: Potassium Chlor TAB* 10 MEQ TAB.ER PO ONE (18:00)
[2018-10-26] MEDS: Amoxicillin/Clavulanate TAB* 875 MG PO SCH (21:08)
[2018-10-26] MEDS: Apixaban* 2.5 MG TAB PO SCH (21:10)
[2018-10-26] MEDS: Gabapentin CAP(*) 100 MG PO SCH (21:11)
[2018-10-26] MEDS: Atorvastatin* 20 MG TAB PO SCH (21:11)
[2018-10-27 05:39] LABS: ABS Basophils 0.1 10^3/ul (0-0.2); ABS Eosinophils 0.6 10^3/ul (0-0.6); ABS Lymphocytes 1.8 10^3/ul (1.0-4.8); ABS Neutrophils 6.4 10^3/ul (1.5-7.7); ABS Nucleated RBC 0 10^3/ul; Eosinophil % 6.3 %; Hematocrit 30 % (35-47); Hemoglobin 9.9 g/dl (12.0-16.0); Mean Corpuscular HGB Conc 33 g/dl (31-36); Mean Corpuscular Hemoglobin 30 pg (27-31); Mean Corpuscular Volume 91 fL (80-97); Mean Platelet Volume 7.7 fL (7.4-10.4); Nucleated Red Blood Cells % 0.1; Platelet Count 340 10^3/ul (150-450); Red Blood Count 3.28 10^6/ul (4.00-5.40); Red Cell Distribution Width 13 % (10.5-15); White Blood Count 9.9 10^3/ul (3.5-10.8)
[2018-10-27 05:56] LABS: Albumin 3.1 g/dL (3.2-5.2); BUN/Creatinine Ratio 20.8 (8-20); Calcium 8.6 mg/dL (8.6-10.3); EGFR African American 136.1 (>60); EGFR Non-African American 112.5 (>60); Potassium 3.5 mmol/L (3.5-5.0); Total Bilirubin 0.9 mg/dL (0.2-1.0); Total Protein 6.1 g/dL (6.4-8.9)
[2018-10-27] MEDS: Insulin LISPRO* 1 UNITS UNIT SUBCUT SCH ×4 (07:08→20:38)
[2018-10-27] MEDS: oxyCODONE/Acetamin 5/325 MG* TAB PO PRN ×3 (08:28→20:39)
[2018-10-27] MEDS: FLUoxetine CAP* 20 MG PO SCH (08:28)
[2018-10-27] MEDS: Gabapentin CAP(*) 100 MG PO SCH ×2 (08:29→20:38)
[2018-10-27] MEDS: metFORMIN* 500 MG TAB PO SCH ×2 (08:29→17:06)
[2018-10-27] MEDS: Pantoprazole TAB * 40 MG TAB PO SCH (08:29)
[2018-10-27] MEDS: Apixaban* 2.5 MG TAB PO SCH ×2 (08:29→20:41)
[2018-10-27] MEDS: amLODIPine TAB* 5 MG PO SCH (08:29)
[2018-10-27] MEDS: Multivitamins/Minerals TAB PO SCH (08:29)
[2018-10-27] MEDS: Amoxicillin/Clavulanate TAB* 875 MG PO SCH ×2 (08:29→20:41)
[2018-10-27] MEDS: Cyclobenzaprine TAB* 10 MG PO PRN ×2 (12:20→18:33)
--- NOTE | 2018-10-27 18:07 | PN ---
Progress Note Date of Service: 10/27/18 Note: LIZETH BANSAL was visited. Therapy notes read and reviewed. She was able to wean off oxygen today and is breathing easy. No complaints of pain at present. Current Medications: Active Medications Generic Name Dose Route Start Last Admin Trade Name Freq PRN Reason Stop Dose Admin Acetaminophen 650 mg 10/26/18 08:57 Tylenol Tab* PO Q4H PRN FEVER > 101 Amlodipine Besylate 10 mg 10/27/18 09:00 10/27/18 08:29 Norvasc Tab* PO 10 mg DAILY DOROTEO Administration Amoxicillin/Clavulanate Potassium 875 mg 10/26/18 21:00 10/27/18 08:29 Augmentin Tab* PO 10/31/18 23:59 875 mg BID DOROTEO Administration Apixaban 2.5 mg 10/26/18 21:00 10/27/18 08:29 Eliquis* PO 2.5 mg BID DOROTEO Administration Atorvastatin Calcium 20 mg 10/26/18 21:00 10/26/18 21:11 Lipitor* PO 20 mg 2100 DOROTEO Administration Bisacodyl 10 mg 10/26/18 08:57 Dulcolax Supp* MD DAILY PRN CONSTIPATION Cyclobenzaprine HCl 10 mg 10/27/18 12:01 10/27/18 12:20 Flexeril Tab* PO 10 mg TID PRN Administration SPASMS Dextrose 12.5 gm 10/26/18 09:06 D50w Syringe 50 Ml* IV PUSH .FOR FS < 60 - SS PRN FS < 60 Docusate Sodium 100 mg 10/26/18 08:57 Colace Cap* PO BID PRN CONSTIPATION Fluoxetine HCl 40 mg 10/27/18 09:00 10/27/18 08:28 Prozac Cap* PO 40 mg DAILY DOROTEO Administration Gabapentin 100 mg 10/26/18 21:00 10/27/18 08:29 Neurontin Cap(*) PO 100 mg BID DOROTEO Administration Hydroxyzine HCl 25 mg 10/26/18 09:13 Atarax Tab* PO TID PRN Anxiety, insomnia Insulin Human Lispro 0 units 10/26/18 11:30 10/27/18 16:32 Humalog* SUBCUT Not Given ACHS DOROTEO Protocol Loperamide HCl 2 mg 10/26/18 09:15 Imodium Cap* PO BID PRN LOOSE STOOLS Metformin HCl 500 mg 10/26/18 17:00 10/27/18 17:06 Glucophage* PO 500 mg 0800,1700 DOROTEO Administration Multivitamins/Minerals 1 tab 10/27/18 09:00 10/27/18 08:29 Theragran/Minerals Tab* PO 1 tab DAILY DOROTEO Administration Oxycodone/Acetaminophen 1 tab 10/26/18 09:17 10/27/18 12:20 Percocet 5/325 Tab* PO 1 tab Q3H PRN Administration PAIN - MODERATE Pantoprazole Sodium 40 mg 10/26/18 17:30 10/27/18 08:29 Protonix Tab* PO 40 mg DAILY DOROTEO Administration Senna 2 tab 10/26/18 08:57 Senokot Tab* PO BEDTIME PRN CONSTIPATION Vital Signs: Vital Signs Temp Pulse Resp BP Pulse Ox 98.2 F 76 20 128/52 95 10/27/18 16:16 10/27/18 16:16 10/27/18 16:16 10/27/18 16:16 10/27/18 16:22 Lab Results: Laboratory Results - last 24 hr 10/26/18 10/27/18 10/27/18 20:54 05:23 05:23 WBC 9.9 RBC 3.28 L Hgb 9.9 L Hct 30 L MCV 91 MCH 30 MCHC 33 RDW 13 Plt Count 340 MPV 7.7 Neut % (Auto) 64.4 Lymph % (Auto) 18.0 Baca % (Auto) 10.6 Eos % (Auto) 6.3 Baso % (Auto) 0.7 Absolute Neuts (auto) 6.4 Absolute Lymphs (auto) 1.8 Absolute Monos (auto) 1.0 H Absolute Eos (auto) 0.6 Absolute Basos (auto) 0.1 Absolute Nucleated RBC 0 Nucleated RBC % 0.1 Sodium 138 Potassium 3.5 Chloride 104 Carbon Dioxide 26 Anion Gap 8 BUN 11 Creatinine 0.53 Est GFR ( Amer) 136.1 Est GFR (Non-Af Amer) 112.5 BUN/Creatinine Ratio 20.8 H Glucose 144 H POC Glucose (mg/dL) 139 H Calcium 8.6 Total Bilirubin 0.90 AST 24 ALT 33 Alkaline Phosphatase 93 Total Protein 6.1 L Albumin 3.1 L Globulin 3.0 Albumin/Globulin Ratio 1.0 10/27/18 10/27/18 11:59 16:29 WBC RBC Hgb Hct MCV MCH MCHC RDW Plt Count MPV Neut % (Auto) Lymph % (Auto) Baca % (Auto) Eos % (Auto) Baso % (Auto) Absolute Neuts (auto) Absolute Lymphs (auto) Absolute Monos (auto) Absolute Eos (auto) Absolute Basos (auto) Absolute Nucleated RBC Nucleated RBC % Sodium Potassium Chloride Carbon Dioxide Anion Gap BUN Creatinine Est GFR ( Amer) Est GFR (Non-Af Amer) BUN/Creatinine Ratio Glucose POC Glucose (mg/dL) 165 H 135 H Calcium Total Bilirubin AST ALT Alkaline Phosphatase Total Protein Albumin Globulin Albumin/Globulin Ratio Exam: GENERAL: In no distress LUNGS: Clear bilaterally HEART: regular rhythm ABDOMEN: soft, +BS EXTREMITIES: Right hip C/D/I. NEUROLOGIC: A&O. Sensation intact. Moves all 4 extremities Assessment/Plan: 1. Right BENJIE: WBAT. PT/OT. Follow up with Dr. Willoughby 2. Pulmonary Edema: Lungs clear. No diuresis at this time 3. Pneumonia: Augmentin, day 2 4. DM: Metformin/SSI 5. GERD: Protonix 6. DVT Prophylaxis: Eliquis until 11/19 7. Depression: Prozac/Hydroxyzine 8. Advanced Directives: Full code. Olga is HCP 10/27/18 18:04
[2018-10-27] MEDS: Atorvastatin* 20 MG TAB PO SCH (20:38)
[2018-10-28] MEDS: oxyCODONE/Acetamin 5/325 MG* TAB PO PRN ×3 (08:01→17:19)
[2018-10-28] MEDS: metFORMIN* 500 MG TAB PO SCH ×2 (09:14→16:11)
[2018-10-28] MEDS: amLODIPine TAB* 5 MG PO SCH (09:14)
[2018-10-28] MEDS: Amoxicillin/Clavulanate TAB* 875 MG PO SCH ×2 (09:14→20:10)
[2018-10-28] MEDS: Insulin LISPRO* 1 UNITS UNIT SUBCUT SCH ×4 (09:14→20:21)
[2018-10-28] MEDS: Apixaban* 2.5 MG TAB PO SCH ×2 (09:14→20:10)
[2018-10-28] MEDS: Gabapentin CAP(*) 100 MG PO SCH ×2 (09:15→20:10)
[2018-10-28] MEDS: FLUoxetine CAP* 20 MG PO SCH (09:15)
[2018-10-28] MEDS: Pantoprazole TAB * 40 MG TAB PO SCH (09:16)
[2018-10-28] MEDS: Multivitamins/Minerals TAB PO SCH (09:16)
[2018-10-28] MEDS: Cyclobenzaprine TAB* 10 MG PO PRN ×2 (09:34→17:22)
--- NOTE | 2018-10-28 12:33 | PMRUTEAM ---
PMRU: Team Meeting Current Status: Nursing: Current Status Skin Deviations [Left Arm] Bruise Skin Deviations [Right Hip] Incision Skin Deviation Description [ multiple bruises from blood draw and IV access. Left Arm] Skin Deviation Description [ drsg intact Right Hip] Physical Therapy: Current Status Bed Mobility Assistance Not Tested Transfer Mobility Assistance Supervision Transfer/Bed Mobility Rolling Walker Recommended Devices Ambulation Assistance Supervision Ambulation Assistive Devices Rolling Walker Number of Feet Patient 125' Ambulated Stairs Assistance Supervision Stairs Recommended Devices Two Rails Number of Stairs 5 Curb Not Tested Occupational Therapy: Current Status Upper Body Dressing Supervision Lower Body Dressing Ind with Adaptive Equip,Supervision Bathing Min Assist Toileting Supervision Toilet Transfer Supervision Eating Supervision Rec Therapy: Current Status Summary of Assessment and Pt. is aware of recreation and leisure services Clinical Impression and assessment has been completed. Will con't to provide visits regularly. Treatment Goals Pt. will engage in leisure activities while on the unit. Treatment Plan Provide recreation and leisure services, encourage involvement. Social Work: Current Status Discharge Plan return home with home care svs and family support Potential for Family Training pt's is involved and supportive Anticipated Discharge Home Destination Discharge With home care svs and family support Nutrition: Current Status Monitoring Pt admitted to [facility] s/p elective R total hip replacement 10/21/18. Pt with hx T2DM; on appropriate consistent carb diet. Visited pt this afternoon; pt taking a nap, so kept visit brief, as pt states she is tired from PT. Briefly reviewed consistent carb diet and rec for 3-4 servings carb per meal, and gave some examples. Pt verbalized understanding. Pt's biggest concern at this time is reduced appetite; pt states that food looks good, but has little interest in eating (noted 100% intake at B, 10% at L today). Assured pt that appetite should return and may take some time; gave some examples of items she can request if feeling queasy or if she needs something btw meals. Pt verbalized understanding. No evidence difficulty chewing/swallowing per nursing assessments. Formed BMs x 2 yesterday. Goals: Physical Therapy: Initial Goals Bed Mobility Assistance Independent Transfer Mobility Assistance Independent Transfer/Bed Mobility Rolling Walker Recommended Devices Ambulation Independent Ambulation Recommended Devices Rolling Walker Ambulation Distance 150 Stairs Assistance Independent Stair Recommended Devices Two Rails Number of Stairs 7 Home Exercise Program Independent Assistance Physical Therapy: Updated Goals Transfer/Bed Mobility Rolling Walker Recommended Devices Occupational Therapy: Initial Goals Goals to be Completed in (Days 1-2 ) Upper Body Bathing Routine Independent Lower Body Bathing Routine Modified Independent with Upper Body Dressing Routine Independent Lower Body Dressing Routine Modified Independent with Toilet Hygeine and Clothing Modified Independent with Management Routine Toilet Transfer Routine Modified Independent with Step-In Shower Transfer Supervision/Set Up Routine Functional Transfers for ADL Modified Independent with Grooming Routine Independent Feeding Routine Independent Nutrition: Goals Intervention Goals 1. Intake will be adequate to promote post-op healing (consistently >50% of meals to start) 2. BG will remain adequately controlled 3. Pt will maintain regular bowel pattern without constipation (or diarrhea) Social Work: Goals Discharge Plan return home with home care svs and family support Potential for Family Training pt's is involved and supportive Anticipated Discharge Home Destination Discharge With home care svs and family support Care Plan: Care Plan ADL's - Improve/Maintain Start: 10/28/18 07:40 Freq: DAILY Status: Active Target: Protocol: Activity Type Activity Date Activity User E-Sign Co-Sign Detail Recorded Client Recorded Date Recorded By Document 10/28/18 07:41 [id number] 10/28/18 07:41 [id number] 10/28/18 07:41 PMRU Outcome: ADL's/ADL Transfers Orders/Interventions Occupational Therapy Evaluation & Treatment Patient to receive OT 5x/wk for 60-120 Therex min/day Self Care Management Group Therapy UE/LE ADL's with Assist Yes: mod I ADL Transfers with Assist Yes: mod I Toileting: Transfers,Clothing Management Yes: mod I ,Hygeine w/Assist Progression Toward Outcome/Goals Progressing Outcome/Goals Met Pt presents with R hip pain , limited R hip AROM, R hip precautions, decreased endurance and balance deficits that affects her ability to complete bathing, dressing, toileting, toilet transfers and showering. She seems to recall some education from acute care but would benefit from skilled OT as a part of an acute rehabilitation protocol to maximize independence with ADLs, ADL transfers and showering. She is hopeful to get home "very soon". [ End ] Cardiovascular- Improve/Maintain Start: 10/26/18 16:12 Freq: QSHIFT Status: Active Target: Protocol: Activity Type Activity Date Activity User E-Sign Co-Sign Detail Recorded Client Recorded Date Recorded By Document 10/28/18 03:42 [id number] [id number] 10/28/18 03:45 [id number] 10/28/18 03:42 PMRU Outcome: Cardiovascular Vital Signs q Shift for 48hrs Then BID Yes Daily Weight Ordered No Current Cardiovascular Outcome/Goal Maintain/ Achieve Baseline HR, BP , Perfusion Maintain/ Achieve Hemodynamic Stability Free of Abnormal Cardiac Symptoms Progression Toward Outcome/Goal Progressing Coping/Psych-Improve/Maintain Start: 10/26/18 16:12 Freq: QSHIFT Status: Active Target: Protocol: Activity Type Activity Date Activity User E-Sign Co-Sign Detail Recorded Client Recorded Date Recorded By Document 10/28/18 03:42 [id number] 10/28/18 03:45 [id number] 10/28/18 03:42 PMRU Outcome: Coping/Psychosocial Coping Outcome/Goals Verbalization of Acceptance of Rehab Admit Utilization of Appropriate Problem Solving Techniques Willingness to Participate in Treatment Plan and Basic Needs Absence of Destructive Behavior to Self/Others Psychosocial Outcome/Goals Maintain/ Improve Emotional Health Demonstrates Knowledge of Healthy Coping Mechanisms Available Cooperate/ Participate in Plan Progression Toward Outcome/Goals - Progressing Coping Progression Toward Outcome/Goals - Progressing Psychosocial DVT Prophylaxis- Improve/Maintain Start: 10/26/18 16:12 Freq: QSHIFT Status: Active Target: Protocol: Activity Type Activity Date Activity User E-Sign Co-Sign Detail Recorded Client Recorded Date Recorded By Document 10/28/18 03:42 [id number] 10/28/18 03:45 [id number] 10/28/18 03:42 PMRU Outcome: DVT Prophylaxis Outcome/Goals Remains Free of DVT Complies with DVT Prophylaxis /Treatment Demonstrates Knowledge of DVT Prevention/ Treatment TEDS Stockings on Every AM, Off at HS Progression Toward Outcome/Goals Progressing Discharge Planning - Improve/Maintain Start: 10/26/18 16:12 Freq: DAILY Status: Active Target: Protocol: Activity Type Activity Date Activity User E-Sign Co-Sign Detail Recorded Client Recorded Date Recorded By Document 10/27/18 00:24 [id number] 10/27/18 00:24 [id number] 10/27/18 00:24 PMRU Outcome: Discharge Planning Update Patient Family No Outcome/Goals Demonstrates Understanding of Discharge Plan Education-Improve/Maintain Start: 10/26/18 16:12 Freq: QSHIFT Status: Active Target: Protocol: Activity Type Activity Date Activity User E-Sign Co-Sign Detail Recorded Client Recorded Date Recorded By Document 10/28/18 03:42 [id number] 10/28/18 03:45 [id number] 10/28/18 03:42 PMRU Outcome: Education Outcome/Goals Demonstrates Skills Encourage Questions Progression Toward Outcome/Goals Progressing /GI-Improve/Maintain Start: 10/26/18 16:12 Freq: QSHIFT Status: Active Target: Protocol: Activity Type Activity Date Activity User E-Sign Co-Sign Detail Recorded Client Recorded Date Recorded By Document 10/28/18 03:42 [id number] 10/28/18 03:45 [id number] 10/28/18 03:42 PMRU Outcome: Genitourinary/ Gastrointestinal Genitourinary- Outcome/Goals Maintain/ Achieve Urinary Continence Maintain/ Achieve Adequate Urinary Output Remain Free of Hospital- Acquired UTI Gastrointestinal-Outcome/Goals Maintain/ Achieve Bowel Regularity in Accordance with Pt's Baseline Prevent Constipation Progression Toward Outcome/Goals - Progressing Outcome/Goals Met Comment voided x1, incontinent x1 thus far this shift Metabolic Status- Improve/Maintain Start: 10/28/18 04:05 Freq: QSHIFT Status: Active Target: Protocol: Activity Type Activity Date Activity User E-Sign Co-Sign Detail Recorded Client Recorded Date Recorded By Document 10/28/18 04:06 [id number] [email or web address] 10/28/18 04:06 [id number] 10/28/18 04:06 PMRU Outcome: Metabolic Status Have Fingersticks Been Ordered Yes Fingerstick Order Frequency AC & HS Outcome/Goals Maintain/ Improve Metabolic Status Demonstrate Knowledge of Prevention/ Treatment of Metabolic Imbalances Progression Toward Outcome/Goals Progressing Mobility- Improve/Maintain Start: 10/26/18 16:12 Freq: DAILY Status: Active Target: Protocol: Activity Type Activity Date Activity User E-Sign Co-Sign Detail Recorded Client Recorded Date Recorded By Document 10/27/18 13:09 [id number] 10/27/18 13:10 [id number] 10/27/18 13:09 PMRU Outcome: Mobility Physical Therapy Evaluation and Yes Treatment Activity OOB with Assistance Yes WBAT Yes Device Yes: RW Assistance Yes: CGA Patient to be seen 5x/wk for 60-120 min/ Therex day for: Mobility Training Gait Training Balance Outcome/Goals Improve Mobility Status Demonstrates Proper Use of Assistive Devices Bed Mobility Yes: ind Transfers Yes: ind Gait x ft Yes: 150ft Up/Down Stairs Yes: 7 With HEP Yes Pain/Comfort- Improve/Maintain Start: 10/26/18 16:12 Freq: QSHIFT Status: Active Target: Protocol: Activity Type Activity Date Activity User E-Sign Co-Sign Detail Recorded Client Recorded Date Recorded By Document 10/28/18 03:42 [id number] [id number] 10/28/18 03:45 [id number] 10/28/18 03:42 PMRU Outcome: Pain/Comfort Outcome/Goals Demonstrates Knowledge and Use of Available Comfort Measures Achieves Acceptable Comfort/Pain Level as Determined by Patient/Condit Maintain Comfort Level Allowing Patient to Fully Participate in Rehab Progression Toward Outcome/Goals Progressing Outcome/Goals Met Comment no requests for pain meds thus far this shift Respiratory - Improve/Maintain Start: 10/26/18 16:12 Freq: QSHIFT Status: Active Target: Protocol: Activity Type Activity Date Activity User E-Sign Co-Sign Detail Recorded Client Recorded Date Recorded By Document 10/28/18 03:42 [id number] PMRU-[employer] 10/28/18 03:45 [id number] 10/28/18 03:42 PMRU Outcome: Respiratory Does Patient Have a Trach No Outcome/Goals Maintain/ Improve O2 Sat per MD Order Maintain/ Improve Activity Tolerance Prevent Pneumonia/ Atelectasis Progression Toward Outcome/Goals Progressing Outcome/Goals Met Comment weaning in process; currently nc@ Safety- Improve/Maintain Start: 10/26/18 16:12 Freq: QSHIFT Status: Active Target: Protocol: Activity Type Activity Date Activity User E-Sign Co-Sign Detail Recorded Client Recorded Date Recorded By Document 10/28/18 03:42 [id number] 10/28/18 03:45 [id number] 10/28/18 03:42 PMRU Outcome: Safety Outcome/Goals Remain Free of Injury or Harm Cooperates with Safety Measures for Least Restrictive Environment Prevent Falls/ Injury Progression Toward Outcome/Goals Progressing Outcome/Goals Met Comment calling appropriately Skin- Improve/Maintain Start: 10/26/18 16:12 Freq: QSHIFT Status: Active Target: Protocol: Activity Type Activity Date Activity User E-Sign Co-Sign Detail Recorded Client Recorded Date Recorded By Document 10/28/18 03:42 [id number] [email or web address] Urban Level User [place] 10/28/18 03:45 [id number] 10/28/18 03:42 PMRU Outcome: Skin Skin Risk Level Medium Skin Orders Dressing Change Outcome/Goals Maintain/ Improve Skin Intergrity Free from Decubitus Surgical Incisions Healing Progression Toward Outcome/Goals Progressing Medicine Note: Length of Stay: 1 day Anticipated Discharge Destination: Home Tentative Discharge Date: 10/29/18 Discharged to: Home
--- NOTE | 2018-10-28 17:11 | PN ---
Progress Note Date of Service: 10/28/18 Note: LIZETH BANSAL was visited. Therapy notes read and reviewed. She was discussed in interdisciplinary team rounds. SHe is doing well, will need family training and may need oxygen for home use. She desaturated with OT today Current Medications: Active Medications Generic Name Dose Route Start Last Admin Trade Name Freq PRN Reason Stop Dose Admin Acetaminophen 650 mg 10/26/18 08:57 Tylenol Tab* PO Q4H PRN FEVER > 101 Amlodipine Besylate 10 mg 10/27/18 09:00 10/28/18 09:14 Norvasc Tab* PO 10 mg DAILY DOROTEO Administration Amoxicillin/Clavulanate Potassium 875 mg 10/26/18 21:00 10/28/18 09:14 Augmentin Tab* PO 10/31/18 23:59 875 mg BID DOROTEO Administration Apixaban 2.5 mg 10/26/18 21:00 10/28/18 09:14 Eliquis* PO 2.5 mg BID DOROTEO Administration Atorvastatin Calcium 20 mg 10/26/18 21:00 10/27/18 20:38 Lipitor* PO 20 mg 2100 DOROTEO Administration Bisacodyl 10 mg 10/26/18 08:57 Dulcolax Supp* [place] DAILY PRN CONSTIPATION Cyclobenzaprine HCl 10 mg 10/27/18 12:01 10/28/18 09:34 Flexeril Tab* PO 10 mg TID PRN Administration SPASMS Dextrose 12.5 gm 10/26/18 09:06 D50w Syringe 50 Ml* IV PUSH .FOR FS < 60 - SS PRN FS < 60 Docusate Sodium 100 mg 10/26/18 08:57 Colace Cap* PO BID PRN CONSTIPATION Fluoxetine HCl 40 mg 10/27/18 09:00 10/28/18 09:15 Prozac Cap* PO 40 mg DAILY DOROTEO Administration Gabapentin 100 mg 10/26/18 21:00 10/28/18 09:15 Neurontin Cap(*) PO 100 mg BID DOROTEO Administration Hydroxyzine HCl 25 mg 10/26/18 09:13 Atarax Tab* PO TID PRN Anxiety, insomnia Insulin Human Lispro 0 units 10/26/18 11:30 10/28/18 16:22 Humalog* SUBCUT Not Given ACHS DOROTEO Protocol Loperamide HCl 2 mg 10/26/18 09:15 Imodium Cap* PO BID PRN LOOSE STOOLS Metformin HCl 500 mg 10/26/18 17:00 10/28/18 16:11 Glucophage* PO 500 mg 0800,1700 DOROTEO Administration Multivitamins/Minerals 1 tab 10/27/18 09:00 10/28/18 09:16 Theragran/Minerals Tab* PO 1 tab DAILY DOROTEO Administration Oxycodone/Acetaminophen 1 tab 10/26/18 09:17 10/28/18 13:11 Percocet 5/325 Tab* PO 1 tab Q3H PRN Administration PAIN - MODERATE Pantoprazole Sodium 40 mg 10/26/18 17:30 10/28/18 09:16 Protonix Tab* PO 40 mg DAILY DOROTEO Administration Senna 2 tab 10/26/18 08:57 Senokot Tab* PO BEDTIME PRN CONSTIPATION Vital Signs: Vital Signs Temp Pulse Resp BP Pulse Ox 98.1 F 72 18 125/52 96 10/28/18 16:17 10/28/18 16:17 10/28/18 16:43 10/28/18 16:17 10/28/18 16:17 Lab Results: Laboratory Results - last 24 hr 10/27/18 10/28/18 10/28/18 20:24 07:32 11:32 POC Glucose (mg/dL) 133 H 155 H 105 H 10/28/18 16:20 POC Glucose (mg/dL) 144 H Exam: GENERAL: In no distress LUNGS: Clear bilaterally HEART: regular rhythm ABDOMEN: soft, +BS EXTREMITIES: Right hip C/D/I. NEUROLOGIC: A&O. Sensation intact. Moves all 4 extremities Assessment/Plan: 1. Right BENJIE: WBAT. PT/OT. Follow up with Dr. Willoughby 2. Pulmonary Edema: Lungs clear. No diuresis at this time 3. Pneumonia: Augmentin, day 3/5 4. DM: Metformin/SSI 5. GERD: Protonix 6. DVT Prophylaxis: Eliquis until 11/19 7. Depression: Prozac/Hydroxyzine 8. Advanced Directives: Full code. Olga is HCP 10/28/18 17:12
[2018-10-28] MEDS: Atorvastatin* 20 MG TAB PO SCH (20:10)
[2018-10-29 05:51] VITALS: BP 138/57
[2018-10-29] MEDS: oxyCODONE/Acetamin 5/325 MG* TAB PO PRN (06:58)
[2018-10-29] MEDS: metFORMIN* 500 MG TAB PO SCH (08:53)
[2018-10-29] MEDS: amLODIPine TAB* 5 MG PO SCH (08:53)
[2018-10-29] MEDS: Insulin LISPRO* 1 UNITS UNIT SUBCUT SCH (08:53)
[2018-10-29] MEDS: FLUoxetine CAP* 20 MG PO SCH (08:54)
[2018-10-29] MEDS: Apixaban* 2.5 MG TAB PO SCH (08:54)
[2018-10-29] MEDS: Amoxicillin/Clavulanate TAB* 875 MG PO SCH (08:54)
[2018-10-29] MEDS: Gabapentin CAP(*) 100 MG PO SCH (08:54)
[2018-10-29] MEDS: Multivitamins/Minerals TAB PO SCH (08:55)
[2018-10-29] MEDS: Pantoprazole TAB * 40 MG TAB PO SCH (08:55)
--- NOTE | 2018-10-29 20:30 | DS ---
CC: Dr. Arnoldo Angulo * DISCHARGE SUMMARY: DATE OF ADMISSION: 10/26/18 DATE OF DISCHARGE: 10/29/18 DISCHARGE DIAGNOSES: 1. Right total hip replacement. 2. Postop pulmonary edema. 3. Pneumonia. 4. Diabetes mellitus. 5. Gastroesophageal reflux disease. 6. Depression. HISTORY OF ILLNESS AND HOSPITAL COURSE: For a complete history of the events leading up to her rehab stay, please see the history and physical dictated by Dr. Gabriella Perdue on 10/26/18. While on the rehab unit, the patient restarted her metformin and her Lantus insulin was discontinued. Her blood sugars were in good control. Her wound was healing well. She was maintained on Augmentin for her pneumonia. The patient weaned off oxygen. She did not require further diuresis. The patient was seen by both Physical Therapy and Occupational Therapy and made good gains with both disciplines. With physical therapy at the time of admission, the patient required contact guard for transfers, min assist for bed mobility, contact guard to ambulate about 180 feet. With occupational therapy at the time of admission, the patient required min assist lower body dressing, supervision upper body dressing, min assist bathing, min assist toileting. By the time of discharge, the patient was independent with transfers, independent ambulating 150 feet, independent going up and down a flight of stairs, independent dressing, independent toileting. The patient was discharged home on 10/29/18. DISCHARGE DIET: Consistent carbohydrates. DISCHARGE MEDICATIONS: Included: 1. Eliquis 2.5 mg twice daily until 11/19/18. 2. Augmentin 875 mg twice daily for 2-1/2 more days. 3. Amlodipine 10 mg daily. 4. Lipitor 20 mg daily. 5. Flexeril 10 mg 3 times a day as needed. 6. Prozac 40 mg daily. 7. Gabapentin 100 mg twice daily. 8. Atarax 25 mg 3 times a day as needed. 9. Metformin 500 mg at 8 a.m. and 5 p.m. 10. Percocet 1 tablet every 4 hours as needed. 11. Protonix 40 mg every day. SERVICES AFTER DISCHARGE: Through visiting nurse service, she will have home nursing and home physical therapy. Follow up with Dr. Christiana Willoughby, her orthopedic surgeon, in 1 to 2 weeks as well as with Dr. Arnoldo Angulo, her primary care doctor. TIME SPENT: Time for this discharge was approximately 50 minutes; greater than half of that was spent with the patient and her discussing post- rehabilitation medicines, pain control, and therapies. [id number]/[facility] #: [id number] BETTE
== END 2018-10-29 11:16 | disposition home health service (06) | DRG 559 ==
LOC: PMRU 08:57
PROVIDERS: ADMIT Physical Medicine & Rehabilitation; ATTEND Physical Medicine & Rehabilitation
PROC: F07Z5ZZ Bed Mobility Treatment (ICD-10-PCS; principal; 2018-10-26)
PROC: F07Z9ZZ Gait Training/Functional Ambulation Treatment (ICD-10-PCS; 2018-10-26)
PROC: F07Z8ZZ Transfer Training Treatment (ICD-10-PCS; 2018-10-26)
PROC: F08Z0ZZ Bathing/Showering Techniques Treatment (ICD-10-PCS; 2018-10-26)
PROC: F08Z1ZZ Dressing Techniques Treatment (ICD-10-PCS; 2018-10-26)
PROC: F08Z3ZZ Feeding/Eating Treatment (ICD-10-PCS; 2018-10-26)
DX: Z47.1 Aftercare following joint replacement surgery (principal); J69.0 Pneumonitis due to inhalation of food and vomit; E11.9 Type 2 diabetes mellitus without complications; Z96.641 Presence of right artificial hip joint; H91.93 Unspecified hearing loss, bilateral; G50.0 Trigeminal neuralgia; F32.9 Major depressive disorder, single episode, unspecified; F41.9 Anxiety disorder, unspecified; K21.9 Gastro-esophageal reflux disease without esophagitis; I10 Essential (primary) hypertension; J45.990 Exercise induced bronchospasm; E78.5 Hyperlipidemia, unspecified; R19.7 Diarrhea, unspecified; M79.7 Fibromyalgia; R41.0 Disorientation, unspecified; E87.6 Hypokalemia; Z95.0 Presence of cardiac pacemaker; Z79.1 Long term (current) use of non-steroidal anti-inflammatories (NSAID); Z79.84 Long term (current) use of oral hypoglycemic drugs; Z79.899 Other long term (current) drug therapy; Z83.3 Family history of diabetes mellitus; Z82.3 Family history of stroke; Z80.42 Family history of malignant neoplasm of prostate; Z80.8 Family history of malignant neoplasm of other organs or systems
CPT/HCPCS: 36415; 80053; 85025; 87086; 94762; A9270-GY

== ENCOUNTER 2018-12-19 12:58 | Observation (INO) | payer MEDICARE, OTHER ==
--- NOTE | 2018-12-19 13:27 | ED ---
HPI Chest Pain - HPI Summary HPI Summary: 73 year old F presenting to [facility] accompanied by with a chief complaint of sharp chest pain since two months ago, worse since last night. The patient rates the pain 0/10 in severity. Symptoms aggravated by deep breathing. Symptoms alleviated by nothing. Patient reports shortness of breath although notes that patient is chronically SOB especially on exertion. Patient denies fever, cough, nausea. Patient had her hip replaced on 10/19/18, two days after which she developed pneumonia and was prescribed tazo and vancomycin per . Patient was discharged home with Augmentin. 10 days after, patient followed up with her primary care provider and was experiencing chest pain per . Patient had CXR done which showed fluid per . Patient was put on Levaquin for 10 days per . One week after she finished this course of antibiotics, she was having chest pain again per . She was prescribed amoxicillin for 14 days per . Patient finished her last course of antibiotics last Saturday12/10/18 and is here now with the same chest pain per . 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 Specialist - Hx Last Menstrual Period: post menopause Onset/Duration: Started Weeks Ago - 8, Still Present, Worse Since - last night Timing: Intermittent Initial Severity: Moderate - 4/10 Current Severity: None Pain Intensity: 0 Pain Scale Used: 0-10 Numeric Aggravating Factor(s): Nothing Alleviating Factor(s): Nothing Associated Signs and Symptoms: Positive: Negative - fever, cough, nausea, Shortness of Breath - Additional Pertinent History Primary Care Physician: [id number] - Allergy/Home Medications Allergies/Adverse Reactions: Allergies Allergy/AdvReac Type Severity Reaction Status Date / Time No Known Allergies Allergy Verified 12/19/18 13:02 Home Medications: Home Medications Albuterol HFA INHALER* [Ventolin HFA Inhaler*] 1 puff INH Q6H PRN 12/19/18 [ History Confirmed 12/19/18] Calcium Citrate TAB* [Citracal TAB*] 200 mg PO DAILY 12/19/18 [History Confirmed 12/19/18] Cetirizine* [ZyrTEC 10 MG TAB*] 10 mg PO QAM 12/19/18 [History Confirmed ] Gabapentin CAP(*) [Neurontin 100 mg CAP(*)] 100 mg PO QPM 12/19/18 [History Confirmed 12/19/18] Gabapentin CAP(*) [Neurontin 100 mg CAP(*)] 200 mg PO BEDTIME 12/19/18 [History Confirmed 12/19/18] Multivitamins/Minerals TAB* [Theragran/minerals TAB*] 1 tab PO DAILY 12/19/18 [ History Confirmed 12/19/18] Pantoprazole TAB * [Protonix TAB*] 40 mg PO QAM 12/19/18 [History Confirmed 08/27] Temazepam 7.5 mg Cap (Nf) [Temazepam] 7.5 mg PO BEDTIME PRN 12/19/18 [History Confirmed 12/19/18] amLODIPine TAB* [Norvasc 5 mg TAB*] 10 mg PO QAM 12/19/18 [History Confirmed 08/27] oxyCODONE/Acetamin 5/325 MG* [Percocet 5/325 TAB*] 1 - 2 tab PO Q6HR PRN [History Confirmed 12/19/18] PMH/Surg Hx/FS Hx/Imm Hx Previously Healthy: No Endocrine/Hematology History: Reports: Hx Diabetes Cardiovascular History: Reports: Hx Hypertension - CONTROLLED ON MEDS, Hx Pacemaker/ICD - FOR BRADYCARDIA Denies: Hx Peripheral Vascular Disease Respiratory History: Reports: Hx Asthma - pt states does not take medications for asthma GI History: Reports: Hx Gall Bladder Disease, Hx Gastroesophageal Reflux Disease , Hx Ulcer Musculoskeletal History: Reports: Hx Arthritis, Hx Bursitis - right hip, Hx Fibromyalgia Denies: Hx Rheumatoid Arthritis, Hx Osteoporosis Sensory History: Reports: Hx Contacts or Glasses - long distance, Hx Hearing Aid - @ home Opthamlomology History: Reports: Hx Contacts or Glasses - long distance Neurological History: Denies: Hx Migraine, Hx Seizures, Hx Transient Ischemic Attacks (TIA) Psychiatric History: Reports: Hx Anxiety, Hx Depression - Cancer History Hx Chemotherapy: No Hx Radiation Therapy: No - Surgical History Surgery Procedure, Year, and Place: BREAST REDUCTION,HYSTERECTOMY. Hip replacement 10/19/18 Hx Anesthesia Reactions: No Infectious Disease History: No Infectious Disease History: Denies: Traveled Outside the [place] in Last 30 Days - Family History Known Family History: Positive: Cardiac Disease, Hypertension, Diabetes - Social History Alcohol Use: None Hx Substance Use: No Substance Use Type: Reports: None Hx Tobacco Use: No Smoking Status (MU): Never Smoked Tobacco Review of Systems Negative: Fever Positive: Chest Pain Positive: Shortness Of Breath. Negative: Cough Negative: Nausea All Other Systems Reviewed And Are Negative: Yes Physical Exam - Summary Physical Exam Summary: VITAL SIGNS: Reviewed. GENERAL: Patient is a well-developed and nourished female who is lying comfortable in the stretcher. Patient is not in any acute respiratory distress. HEAD AND FACE: No signs of trauma. No ecchymosis, hematomas or skull depressions. No sinus tenderness. EYES: PERRLA, EOMI x 2, No injected conjunctiva, no nystagmus. EARS: Hearing grossly intact. Ear canals and tympanic membranes are within normal limits. MOUTH: Oropharynx within normal limits. NECK: Supple, trachea is midline, no adenopathy, no JVD, no carotid bruit, no c- spine tenderness, neck with full ROM. CHEST: Symmetric, no tenderness at palpation LUNGS: Clear to auscultation bilaterally. No wheezing or crackles. CVS: Regular rate and rhythm, S1 and S2 present, no murmurs or gallops appreciated. ABDOMEN: Soft, non-tender. No signs of distention. No rebound no guarding, and no masses palpated. Bowel sounds are normal. EXTREMITIES: FROM in all major joints, no edema, no cyanosis or clubbing. NEURO: Alert and oriented x 3. No acute neurological deficits. Speech is normal and follows commands. SKIN: Dry and warm Triage Information Reviewed: Yes Vital Signs On Initial Exam: Initial Vitals Temp Pulse Resp BP Pulse Ox 97.4 F 69 18 147/69 96 12/19/18 13:02 12/19/18 13:02 12/19/18 13:02 12/19/18 13:02 12/19/18 13:02 Vital Signs Reviewed: Yes Diagnostics - Vital Signs Vital Signs Temp Pulse Resp BP Pulse Ox 12/19/18 13:02 97.4 F 69 18 147/69 96 - Laboratory Result Diagrams: 12/19/18 16:00 12/19/18 16:00 Lab Statement: Any lab studies that have been ordered have been reviewed, and results considered in the medical decision making process. - Radiology C Radiology Interpretation Completed By: Radiologist Summary of Radiographic Findings: AGAIN NOTED IS PERSISTENT LEFT LOWER LOBE CONSOLIDATION. RECOMMEND FOLLOW-UP UNTIL RESOLUTION TO EXCLUDE UNDERLYING PULMONARY PARENCHYMAL PATHOLOGY, OR CONSIDERATION OF CONTRAST ENHANCED CT OF THE CHEST. ED physician has reviewed this report. - EKG 1315 Cardiac Rate: NL - 67 BPM EKG Rhythm: Sinus Rhythm Summary of EKG Findings: With sinus rhythm at [address] elevations Re-Evaluation - Re-Evaluation First Eval Re-Evaluation Time: 17:41 Comment: Patient tells me she is taking Eliquis Chest Pain Course/Dx - Course Assessment/Plan: Patient is a 73-year-old female who presents to the emergency department with a chief complaint of having chest pain. The patient reports that she was diagnosed with pneumonia after hip surgery in October. Since then the patient has taken 3 courses of antibiotics with no significant pain improvement of her symptoms. She reports that she doesnt have any cough, she doesnt have any fevers or any other symptoms. Blood work without any significant abnormality except for WBCs of 13.7, glucose 137, alkaline phosphatase 136. 2 troponins 4 hours apart was 0.00. The patient continues to have chest pain and some shortness of breath. The patient has a history of recent surgery. Therefore, I will give the patient IV fluids, Zofran for nausea and morphine for pain and will order a CTA of the chest to rule out a pulmonary embolus. Patient is awaiting for the chest CT results, therefore the patient was signed out to Dr. Mullen for at shift change. He will follow up the chest CT results and further disposition of this patient. Patient continues to be hemodynamically stable alert and oriented 3. - Diagnoses Provider Diagnoses: Alcohol intoxication Discharge - Sign-Out/Discharge Documenting (check all that apply): Sign-Out Patient Signing out patient TO: Harmony Mullen - Awaiting CTA chest/thorax and disposition Patient Received Moderate/Deep Sedation with Procedure: No - Discharge Plan Referrals: Arnoldo Angulo DO [Primary Care Provider] - - Attestation Statements Document Initiated by Scribe: Yes Documenting Scribe: Katelyn Ferreira Provider For Whom Scribe is Documenting (Include Credential): Dontae Angeles MD Scribe Attestation: Katelyn Reddy, scribed for Dontae Angeles MD on 12/19/18 at 1903. Scribe Documentation Reviewed: Yes Provider Attestation: The documentation as recorded by the scribe, Katelyn Ferreira accurately reflects the service I personally performed and the decisions made by me, Dontae Angeles MD Status of Scribe Document: Viewed
[2018-12-19 16:17] LABS: ABS Basophils 0.1 10^3/ul (0-0.2); ABS Eosinophils 0.4 10^3/ul (0-0.6); ABS Lymphocytes 2.4 10^3/ul (1.0-4.8); ABS Monocytes 1.2 10^3/ul (0-0.8); ABS Neutrophils 9.7 10^3/ul (1.5-7.7); ABS Nucleated RBC 0 10^3/ul; Eosinophil % 2.8 %; Hematocrit 41 % (33-41); Hemoglobin 13.8 g/dL (12.0-16.0); Lymphocyte % 17.3 %; Mean Corpuscular HGB Conc 33 g/dL (31-36); Mean Corpuscular Hemoglobin 29 pg (27-31); Mean Corpuscular Volume 88 fL (80-97); Mean Platelet Volume 8.2 fL (7.4-10.4); Nucleated Red Blood Cells % 0; Platelet Count 362 10^3/uL (150-450); Red Blood Count 4.73 10^6 /uL (3.70-4.87); Red Cell Distribution Width 15 % (10.5-15); White Blood Count 13.7 10^3/uL (3.5-10.8)
[2018-12-19 16:27] LABS: Albumin 4.2 g/dL (3.2-5.2); Albumin/Globulin Ratio 1.1 (1-3); BUN/Creatinine Ratio 20.6 (8-20); Calcium 9.9 mg/dL (8.6-10.3); EGFR African American 102.1 (>60); EGFR Non-African American 84.4 (>60); Globulin 3.7 g/dL (2-4); Potassium 4.7 mmol/L (3.5-5.0); Total Bilirubin 0.5 mg/dL (0.2-1.0); Total Protein 7.9 g/dL (6.4-8.9)
[2018-12-19 16:31] LABS: CKMB ng/mL 0.9 ng/mL (0.6-6.3)
[2018-12-19 17:04] LABS: TSH (Thyroid Stimulating Horm) 2.09 mcIU/mL (0.34-5.60)
[2018-12-19] MEDS ORDERED: Ondansetron INJ* 2 MG/ML VIAL IV ONE (17:46)
[2018-12-19] MEDS ORDERED: Morphine 4 MG/ML VIAL (1 ml) 4 MG/ML VIAL IV ONE (17:46)
[2018-12-19 17:59] LABS: Urine Appearance Cloudy; Urine Bacteria Absent (Absent); Urine Bilirubin Negative (Negative); Urine Blood Negative (Negative); Urine Color Yellow; Urine Glucose Negative (Negative); Urine Ketones Negative (Negative); Urine Nitrite Negative (Negative); Urine Protein Negative (Negative); Urine Red Blood Cell Trace(0-2/hpf) (Absent); Urine Specific Gravity 1.018 (1.010-1.030); Urine Squamous Epithelial Cell Present (Absent); Urine Urobilinogen Negative (Negative); Urine White Blood Cell 1+(6-10/hpf) (Absent)
[2018-12-19 18:09] LABS: C Reactive Protein 53.9 mg/L (<8.01)
[2018-12-19] MEDS ORDERED: Iodixanol* (CONTRAST) 320 MG/ML 100 ML SDV IV ONE (18:24)
[2018-12-19] MEDS ORDERED: Furosemide IV* 10 MG/ML VIAL (40 MG) IV SLOW PU ONE (20:23)
--- NOTE | 2018-12-19 21:09 | ED ---
Progress - Progress Note Progress Note: The patient is a 73 year old female who was seen by Dr. Angeles and signed out to Dr. Vazquez with a chief complaint of chest pain. The patient was pending disposition, and Chest CTA. - Results/Orders Results/Orders: Chest CTA reveals No evidence of PE. Mild left basilar infiltrate and small left effusion. An element of mild CHF possible. Re-Evaluation - Re-Evaluation First Eval Re-Evaluation Time: 17:41 Comment: Patient tells me she is taking Eliquis Course/Dx - Course Course Of Treatment: The patient is a 73 year old female who is presenting [place] the [facility] with a chief complaint of Chest pain. Upon reviewing Chest CTA results , we contacted the hospitalist to consult patient care. The hospitalist, Dr. Gibbons, recommended that the patient be admitted to the [facility]. The dx will be CHF. - Diagnoses Provider Diagnoses: CHF (congestive heart failure) - Provider Notifications Discussed Care Of Patient With: Frank Gibbons - Patient Care Time Discussed With Above Provider: 20:50 Discharge - Sign-Out/Discharge Documenting (check all that apply): Patient Departure - Admitted to the [facility] - Discharge Plan Condition: Stable Disposition: ADMITTED TO [facility] Referrals: Arnoldo Angulo DO [Primary Care Provider] - - Attestation Statements Document Initiated by Scribe: Yes Documenting Scribe: Esteban Barth Provider For Whom Bernard is Documenting (Include Credential): Dr. Harmony Mullen Scribe Attestation: Esteban Reddy, scribed for Dr. Harmony Mullen on 12/19/18 at [id number]. Status of Scribe Document: Ready
[2018-12-19] MEDS ORDERED: metFORMIN* 500 MG TAB PO ONE (22:20)
[2018-12-19] MEDS ORDERED: Atorvastatin* 20 MG TAB PO ONE (22:21)
[2018-12-19] MEDS ORDERED: Gabapentin CAP(*) 100 MG PO ONE (22:21)
[2018-12-19] MEDS ORDERED: oxyCODONE/Acetamin 5/325 MG* TAB PO PRN (22:37)
[2018-12-19] MEDS ORDERED: Ondansetron INJ* 2 MG/ML VIAL IV PRN (22:37)
[2018-12-19] MEDS ORDERED: Temazepam CAP* 15 MG PO PRN (22:37)
[2018-12-19] MEDS ORDERED: Acetaminophen TAB* 325 MG PO PRN (22:37)
[2018-12-19] MEDS ORDERED: cefTRIAXone(*) 1 GM in NS 0.9% 50 ML* 50 ML IVPB ONE (23:00)
[2018-12-19] MEDS ORDERED: Enoxaparin(*) 40 MG/0.4 ML SYR SUBCUT SCH (23:00)
[2018-12-20] MEDS ORDERED: cefTRIAXone(*) 1 GM in NS 0.9% 50 ML* 50 ML IVPB SCH (00:30)
--- NOTE | 2018-12-20 00:55 | HP ---
ADMISSION HISTORY AND PHYSICAL: DATE OF ADMISSION: 12/19/18 PRIMARY CARE PROVIDER: Dr. Angulo. HEALTHCARE PROXY: Her , Olga. CODE STATUS: Full but she would not want to be put on machines. SOURCE OF INFORMATION: History obtained from interview with the patient and , review of past med [facility] records. RELIABILITY: Fair from the patient. CHIEF COMPLAINT: Chest pain. HISTORY OF PRESENT ILLNESS: This is a 73-year-old female with past medical history of recent right h ip replacement here on 10/21/18, complicated by suspected aspiration pneumonia after presenting with chest pain and pulmonary edema in the hospital, ultimately improved with antibiotics and Lasix. Molina sferred to PMRU on 10/26/18 and discharged on 10/29/18. Renetta to ambulate 150 feet at that time. She was discharged on p.o. Augmentin and was feeling better, however, she followed up with her PCP and wa s again having chest pain, mostly described as pleuritic. Had repeat imaging and started on Levaquin for 10 days. Again her pain got better over these 10 days; however, a week after finishing those an tibiotics, sometime in November she again developed chest pain that was described as pleuritic and what was described as possible lower lobe rale or crackles per the patient and was put on moxifloxacin bec ause she had gotten nauseous with Levaquin for 2 weeks. Her pain again improved during this time. S he finished it a week ago on Saturday and had been feeling better. She was walking circles around h er home and up and down stairs in the front of her house without dyspnea on exertion; however, follow ed up on Saturday 3 days prior to presentation here and again was having some chest pain, was put on a lbuterol; however, overnight, woke up with severe chest pain. This again is described as diffuse, wo rse on inspiration. No dyspnea, nausea, vomiting, or shortness of breath. Called her PCP today and was directed to the emergency room. The pain over the proceeding week after stopping antibiotics has been difficult to characterize. It is generally constant except for Chandana which she takes for _ her hip pain. It is difficult to characterize how long it lasts for and the nature of it. However , it has clearly been pleuritic and she has not felt well. Again, she describes no dyspnea or fever, chills, cough during this or dyspnea on exertion, orthopnea, or PND during this time. In the emergency room, she did have an arterial blood gas, noted a PO2 of 66 and desaturated to appro ximately 87% with ambulation around the emergency room. The hospitalist service consulted to seble paz for admission. PAST MEDICAL HISTORY: 1. Type 2 diabetes. 2. Depression, denies anxiety. 3. GERD. 4. Hypertension. 5. Activity-induced asthma. 6. Hyperlipidemia. 7. Gout. 8. Permanent pacemaker on the right. 9. Fibromyalgia. 10. History of cholecystectomy. 11. Rhinoplasty. 12. Hysterectomy. 13. Trigeminal neuralgia. 14. Right hip surgery. MEDICATIONS: Home medications: 1. Amlodipine 10 mg. 2. Fluoxetine 40 mg. 3. Metformin 500 mg twice daily. 4. Celebrex 100 mg. 5. Cetirizine 10 mg daily. 6. Vitamin B12 1000 mcg daily. 7. Multivitamin daily. 8. Pantoprazole 40 mg evening with dinner around 5 p.m. 9. Gabapentin 100 mg in the evening and again 200 mg at night. 10. Atorvastatin at night. 11. P.r.n. cyclobenzaprine 10 mg 3 times a day. 12. P.r.n. Percocet 1 tab every 3 hours as needed, max daily dose 4 tabs. 13. Temazepam 7.5 mg at bedtime for sleep. 14. Robitussin DM as needed for cough p.r.n. ALLERGIES: No known drug allergies. FAMILY HISTORY: Mother with diabetes. Father with CVA. Son with brain cancer. SOCIAL HISTORY: No tobacco. Lives with her . Occasional alcohol. REVIEW OF SYSTEMS: As per HPI, otherwise all other systems negative. PHYSICAL EXAMINATION GENERAL: Sitting up 30 degrees in bed, interactive, pleasant, in no apparent distress, appearing sta charla age. VITAL SIGNS: In the emergency room, T-max is 97.4, blood pressure 153/55, respiratory rate is 16. S he is 92% on room air. Heart rate is 78. HEENT: Oropharynx is clear. She has moist mucous membranes. Sclerae are anicteric. LUNGS: Clear to auscultation. HEART: She is has a regular rate and rhythm. No murmurs, rubs, or gallops. ABDOMEN: Soft, nontender, nondistended. EXTREMITIES: Warm and well perfused without clubbing, cyanosis, or edema. NEURO: She is alert and oriented x3. Cranial nerves II through XII are intact. DIAGNOSTIC STUDIES/LAB DATA: Chest x-ray, impression: Again noted persistent left lower lung conso lidation. Recommend followup until resolution, to exclude underlying pulmonary pathology or consider ation of contrast enhanced CT of the chest. CTA of the chest indicates no evidence of PE, but mild left basilar infiltrates and small left effusi on and element of mild CHF is possible. ASSESSMENT AND PLAN: This is a 73-year-old female, with past medical history as outlined above, with suspected aspiration pneumonia in the hospital in October, complicated by recurrent episodes of modesta st pain, suspected pneumonia based on chest x-rays and clinical symptoms. Since that time, again ret urning with chest pain that is predominantly pleuritic. 1. Chest pain. The chest x-ray is concerning for pneumonia. Unclear if this is late resolution. H owever, CAT scan with possible pleural effusion or possible consolidation. The patient has been with out fevers, leukocytosis, cough, or shortness of breath, although she is mildly hypoxic with ambulati on. I do think she warrants pulmonary consultation. In the hospital, I will continue ceftriaxone. S he received Lasix 40 mg in the emergency room with some improvement subjectively per her report. I w ill not dose again at this time. In the morning, can identify whether she needs additional Lasix whi ch she did need during the course of her hospital stay in October without echocardiogram evidence of systolic heart failure or diastolic heart failure at that time. Can consider broadening antibiotics ; however, unclear what the pathology is. Could benefit from a bronchoscopy after seen by pulmonary services. 2. History of depression. Continue home medication. 3. Diabetes. Consistent carbohydrate diet. Continue metformin. 4. Hypertension. Continue amlodipine. 5. DVT prophylaxis: Lovenox. [id number]/[facility] #: [id number]
[2018-12-20] MEDS ORDERED: metFORMIN* 500 MG TAB PO SCH (08:00)
--- NOTE | 2018-12-20 08:39 | PN ---
Subjective Date of Service: 12/20/18 Interval History: HD#2 on 12/20/18 73 yo F with PMH SSS s/p PPM, NIDDM, GERD, HTN, depression, s/p recent R THR c/ b aspiration bilateral lobe PNA with several courses of antibiotics presents with recurrent pleuritic chest pain and L sided consolidation. Overnight no acute events, VSS, voiding freely Labs from 12/19-Leukocytosis to 13, normal BMP, elevated CRP in 50s This morning seen at bedside with . She had one episode of pleuritic chest pain overnight that resolved with pain medication, she is currently without any chest pain at all. We discuss her current presentation and seems consistent with resolving inflammatory process, she denies SOB, GI, or MSK complaints. Objective Active Medications: Acetaminophen (Tylenol Tab*) 650 mg PO Q4H PRN PRN Reason: FEVER/PAIN Amlodipine Besylate (Norvasc Tab*) 10 mg PO DAILY [facility] Last Admin: 12/20/18 08:20 Dose: 10 mg Atorvastatin Calcium (Lipitor*) 20 mg PO 2100 [facility] Celecoxib (Celebrex Cap*) 100 mg PO DAILY [facility] Last Admin: 12/20/18 08:19 Dose: 100 mg Cetirizine HCl (Zyrtec*) 10 mg PO QPM [facility] Cyanocobalamin (Vitamin B12 Tab*) 1,000 mcg PO DAILY [facility] Last Admin: 12/20/18 08:18 Dose: 1,000 mcg Enoxaparin Sodium (Lovenox(*)) 40 mg SUBCUT Q24H [facility] Last Admin: 12/20/18 00:48 Dose: 40 mg Fluoxetine HCl (Prozac Cap*) 40 mg PO DAILY [facility] Last Admin: 12/20/18 08:19 Dose: 40 mg Gabapentin (Neurontin Cap(*)) 100 mg PO DAILY [facility] Last Admin: 12/20/18 08:20 Dose: 100 mg Gabapentin (Neurontin Cap(*)) 200 mg PO DAILY [facility] Ceftriaxone Sodium 1 gm/ (Sodium Chloride) 50 mls @ 200 mls/hr IVPB Q24H [facility] Last Admin: 12/20/18 00:47 Dose: 200 mls/hr Metformin HCl (Glucophage*) 500 mg PO 0800,1700 [facility] Last Admin: 12/20/18 08:18 Dose: 500 mg Ondansetron HCl (Zofran Inj*) 4 mg IV Q4H PRN PRN Reason: NAUSEA/VOMITING Oxycodone/Acetaminophen (Percocet 5/325 Tab*) 1 tab PO Q3H PRN PRN Reason: PAIN - MODERATE Last Admin: 12/20/18 03:39 Dose: 1 tab Pantoprazole Sodium (Protonix Tab*) 40 mg PO DAILY [facility] Last Admin: 12/20/18 08:20 Dose: 40 mg Vital Signs - 8 hr 12/20/18 12/20/18 12/20/18 00:32 03:39 07:35 Temperature 98.8 F 97.9 F Pulse Rate 76 74 Respiratory 18 18 16 Rate Blood Pressure 137/64 134/52 (mmHg) O2 Sat by Pulse 95 94 Oximetry 12/20/18 08:20 Temperature Pulse Rate Respiratory 18 Rate Blood Pressure (mmHg) O2 Sat by Pulse Oximetry Oxygen Devices in Use Now: None Appearance: Very pleasant well appearing woman in NAD, glasses Eyes: PERRLA Ears/Nose/Mouth/Throat: NL Teeth, Lips, Gums, Mucous Membranes Moist Neck: NL Appearance and Movements; NL JVP Respiratory: Symmetrical Chest Expansion and Respiratory Effort, - - Left lower lobe diminshed, scant crackles, no wheeze Cardiovascular: RRR - 3/6 JIMI that radiates to blt carotids, no rub Abdominal: NL Sounds; No Tenderness; No Distention, No Hepatosplenomegaly Lymphatic: No Cervical Adenopathy Extremities: No Edema Skin: No Rash or Ulcers Neurological: Alert and Oriented x 3 Result Diagrams: 12/19/18 16:00 12/19/18 16:00 Additional Lab and Data: Trop 0.01 max, CRP 50, TSH normal Diagnostic Imaging: Echocardiogram 10/23/18: LVH, EF > 65%, small dependent pericardial effusion and pleural effusion EKG Data: 12/19 NSR LVH criteria w/ no acute ischemia 10/23/18 Echocardiogram LVH with hyperdynamic EF 65%, no RWMA, small dep pericardial effusion and adjacent pleural effusion 2017-Pharmacologic stress-normal Assess/Plan/Problems-Billing Assessment: 73 yo F with PMH SSS s/p PPM, NIDDM, GERD, HTN, depression, s/p recent R THR c/ b aspiration bilateral lobe PNA with several courses of antibiotics presents with recurrent pleuritic chest pain and L sided consolidation. - Patient Problems (1) Chest pain, pleuritic Current Visit: Yes Status: Acute Comment: -Multifactorial (inflammatory, possibly infectious, possibly edema related) -She has persistent pleuritic chest pain and L sided consolidation vs effusion -Hx of small dependent pericardial effusion on echo 10/23 -Improved on NSAID, lasix and antibitoics in the past, will cotinue and consult pulm to discuss with patient if bronchoscopy is warranted in setting of persistent L sided consolidation though seems like a prolonged inflammatory process -Start prednisone 40mg, taper, would continue lasix for 3-5 days post discharge. (2) Left lower lobe pneumonia Current Visit: Yes Status: Acute Code(s): J18.1 - LOBAR PNEUMONIA, UNSPECIFIED ORGANISM SNOMED Code(s): 287757640 Comment: -s/p Levaquin, Moxiflox as outpatient -Ceftriaxone Day 2 on 12/20, unclear if antibitoics are warranted or if this is residual inflammation, would optimize fluid status and start pred as well -As per above, pulm consultation and ID consultation (3) Pleural effusion on left Current Visit: Yes Status: Acute Code(s): J90 - PLEURAL EFFUSION, NOT ELSEWHERE CLASSIFIED SNOMED Code(s): 01837321 Comment: -Seen on 10/2018 s/p THR -Lasix 40mg x 1 on 12/19, dose repeat today -Echo on 10/2018 showed small depent pericardial effusion and hyperdynamic EF 65% , prior echo with Grade I diastolic dysfxn (4) Diabetes Current Visit: No Status: Acute Code(s): E11.9 - TYPE 2 DIABETES MELLITUS WITHOUT COMPLICATIONS SNOMED Code(s): 43586176 Comment: - Continue low dose lispro, hold metformin for now (5) Depression Current Visit: No Status: Acute Code(s): F32.9 - MAJOR DEPRESSIVE DISORDER, SINGLE EPISODE, UNSPECIFIED SNOMED Code(s): 20373567 Comment: -Continue Fluoxetine (6) HTN (hypertension) Current Visit: No Status: Acute Code(s): I10 - ESSENTIAL (PRIMARY) HYPERTENSION SNOMED Code(s): 06522574 Comment: - Continue current regimen (7) Status cardiac pacemaker Current Visit: Yes Status: Acute Code(s): Z95.0 - PRESENCE OF CARDIAC PACEMAKER SNOMED Code(s): 264061671 Comment: -For SSS, remains in sinus (8) DVT prophylaxis Current Visit: No Status: Acute Code(s): OML8108 - SNOMED Code(s): 082611590 Comment: - Lovenox (9) Full code status Current Visit: No Status: Acute Code(s): Z78.9 - OTHER SPECIFIED HEALTH STATUS SNOMED Code(s): 805773959 Comment: Status and Disposition: Likely stable for d/c pending pulm comments
[2018-12-20] MEDS ORDERED: Pantoprazole TAB * 40 MG TAB PO SCH (09:00)
[2018-12-20] MEDS ORDERED: FLUoxetine CAP* 20 MG PO SCH (09:00)
[2018-12-20] MEDS ORDERED: Gabapentin CAP(*) 100 MG PO SCH ×2 (09:00→21:00)
[2018-12-20] MEDS ORDERED: celeCOXIB CAP* 100 MG PO SCH (09:00)
[2018-12-20] MEDS ORDERED: Cyanocobalamin TAB* 500 MCG PO SCH (09:00)
[2018-12-20] MEDS ORDERED: amLODIPine TAB* 5 MG PO SCH (09:00)
[2018-12-20 12:12] VITALS: BP 127/52
[2018-12-20] MEDS ORDERED: Furosemide TAB* 40 MG PO SCH (13:00)
[2018-12-20] MEDS ORDERED: predniSONE TAB* 20 MG PO SCH (13:00)
--- NOTE | 2018-12-20 15:26 | CONS ---
PULMONARY CONSULTATION REPORT: DATE OF CONSULT: 12/20/18 CONSULTATION REQUESTED BY: Dr. Cami Hunt. REASON FOR CONSULT: Evaluation of abnormal CT chest. HISTORY OF PRESENT ILLNESS: The patient is a 73-year-old female with history of right hip replacement surgery in October of 2018 complicated by possible aspiration pneumonia. The patient presented with chest pain and evidence of pulmonary edema at that time. The patient was treated with antibiotics and diuretics with improvement. She was transferred to [facility] and after that subsequently discharged from there on 10/29/18. She has followed up with her primary care physician recently for evaluation of chest pain, pleuritic in nature. She was treated with Levaquin and had repeat imaging studies. She continued to have intermittent episodes of pleuritic chest pain since that time. She was again treated on moxifloxacin due to nausea while on Levaquin and was treated for another 2 weeks with it. Her pain has improved after the initiation of the antibiotics. She has completed antibiotics on Saturday and has been doing well. Three days prior to presentation, she had noticed some chest pain that was coming back, was given albuterol. She came into the ED for evaluation of severe chest pain that woke her up from sleep, diffuse in nature, worse with inspiration. She has denied any nausea, vomiting, dyspnea, significant cough, or associated shortness of breath. She took Percocet with improvement in pain. The patient reports another episode of pain at 3 a.m. last night. The patient denies fevers, chills, orthopnea, PND. The patient had arterial blood gas in the ED, which showed mild respiratory alkalosis with pO2 of 66 and O2 sat around 94%. She was noted to be desaturating with ambulation and subsequently was admitted for close monitoring. She has not required oxygen at rest. She has not tried to ambulate while here. A CTA was done given the chest pain and hypoxemia. I personally reviewed CTA of the chest in comparison with prior CT from most recent admission. No evidence of filling defects noted in the pulmonary artery. She was noted to have airspace opacity in the left base with associated atelectasis and small left pleural effusion. No obvious endobronchial lesions were noted. Evidence of mild perihilar ground-glass opacities noted. Small amounts of pericardial effusion is seen, unchanged from prior CT. No significant mediastinal or hilar adenopathy was noted. She had elevated white count at 13.7 with increased neutrophils and eosinophils. Troponins were within normal limits. CRP is elevated. PAST MEDICAL HISTORY: 1. Type 2 diabetes. 2. Depression/anxiety. 3. GERD. 4. Hypertension. 5. Activity-induced asthma. 6. Hyperlipidemia. 7. Gout. 8. Permanent pacemaker on the right. 9. Fibromyalgia. 10. History of cholecystectomy. 11. Rhinoplasty. 12. Hysterectomy. 13. Trigeminal neuralgia. 14. Right hip surgery. MEDICATIONS: 1. Amlodipine. 2. Fluoxetine. 3. Metformin. 4. Celebrex. 5. Cetirizine. 6. Vitamin B12. 7. Multivitamin. 8. Pantoprazole. 9. Gabapentin. 10. Atorvastatin. 11. Cyclobenzaprine. 12. Percocet. 13. Temazepam. 14. Robitussin. ALLERGIES: No known drug allergies. FAMILY HISTORY: Mother with diabetes. Father with CVA. Son with brain cancer. SOCIAL HISTORY: Lives at home with her partner. No tobacco abuse. Occasional alcohol intake. REVIEW OF SYSTEMS: All 14 systems reviewed and as per HPI. PHYSICAL EXAM: Elderly female, in bed, in no apparent distress, slightly anxious. Vital Signs: Temperature 98.6, pulse 73 beats per minute, respiratory rate 16 per minute, O2 sat 93% on room air, blood pressure 127/52. HEENT: Pupils equal, reactive to light. Mucous membranes moist. Lungs: Decreased breath sounds at left base, mild rhonchi present. Cardiovascular: S1, S2 present, regular. No murmurs, gallops, or rubs. Abdomen: Soft, nontender, nondistended. Bowel sounds present. Extremities: Normal range of motion. Neuro: Alert, awake, oriented x3. No focal deficits. Skin: No rash or bruise. DIAGNOSTIC STUDIES/LAB DATA: WBC count 13.7, hemoglobin 13.8, hematocrit 41, platelet count 362. Blood gas analysis shows pH 7.42, pCO2 37, pO2 66, bicarb of 24.6, O2 sat 94%. Sodium 136, potassium 4.7, chloride 102, bicarb 27, BUN 14 , creatinine 0.68. Alk phos 136. Troponins within normal limits. CRP 53. CTA as described above in HPI. IMPRESSION AND RECOMMENDATIONS: 73-year-old female with recent pneumonia with ongoing symptoms, admitted for evaluation of chest pain. The patient noted to have pleural effusions and small pericardial effusion. The patient was recently treated for pneumonia with multiple courses of antibiotics, also was treated for heart failure. The patient with slightly elevated white count, also with evidence of small amounts of airspace opacity in the right base along with pleural effusion. I do not think the patient is having acute sepsis at this time. I do not see any endobronchial lesion. Bronchiolitis obliterans-organizing pneumonia/ cryptogenic organizing pneumonia is in the differential; however, pleural effusion is less likely to be seen with it. I have more suspicion for possible viral syndrome resulting in serositis and pleural and pericardial effusions. She is on NSAIDs already. Would recommend low-dose prednisone. Incentive spirometer, flutter valve usage recommended. Out of bed ambulate as tolerated. Hypoxemia, likely secondary to V/Q mismatch from pleural effusion and atelectasis in the left base. Would recommend repeating imaging in 2 months. If no complete resolution is seen, then we would recommend further evaluation with bronchoscopy. Thank you for allowing me to participate in the care of your patient. Will follow up with you. [id number]/[facility] #: [id number] BETTE
[2018-12-20] MEDS ORDERED: Cetirizine* 10 MG TAB PO SCH (18:00)
--- NOTE | 2018-12-20 20:45 | DS ---
DISCHARGE SUMMARY: DATE OF ADMISSION: 12/19/18 DATE OF DISCHARGE: 12/20/18 PRIMARY CARE PROVIDER: Dr. Arnoldo Angulo. SALES REPRESENTATIVE UNIFORMS: Dr. Dinah De Jesus. DISPOSITION: Stable, To home. CONDITION: Good. PRIMARY DIAGNOSES: 1. Hypoxia. 2. Pleuritic chest pain. SECONDARY DIAGNOSES: 1. Sick sinus syndrome, status post pacemaker. 2. Tob-omlctel-witljhfzg diabetes. 3. Gastroesophageal reflux disease. 4. Hypertension. 5. Depression. 6. Status post recent right total hip replacement, complicated by aspiration bilateral lobe pneumonia in October 2018. MEDICATIONS ON DISCHARGE: Are as follows: 1. Albuterol 1 puff inhaled q.6 hours. 2. Amlodipine 10 mg p.o. q.a.m. 3. Atorvastatin 20 mg p.o. q.h.s. 4. Calcium citrate 200 mg p.o. daily. 5. Celebrex 100 mg p.o. q.a.m. 6. Cetirizine 10 mg p.o. q.a.m. 7. Vitamin B12 1000 mcg p.o. q.a.m. 8. Cyclobenzaprine 10 mg p.o. t.i.d. 9. Fluoxetine 40 mg p.o. daily. 10. Furosemide 20 mg p.o. daily for an additional 10 days after discharge. 11. Gabapentin 200 mg p.o. and 100 mg p.o. q.p.m. 12. Guaifenesin 10 mL p.o. daily p.r.n. for cough. 13. Metformin 500 mg p.o. b.i.d. 14. Multivitamin 1 tab p.o. daily. 15. Oxycodone 1 to 2 tabs p.o. q.6 hours p.r.n. for severe pain. 16. Pantoprazole 40 mg p.o. q.a.m. 17. Prednisone 20 mg p.o. daily for 7 days after discharge followed by prednisone 10 mg p.o. daily for an additional 7 days after discharge. Medication changes on this admission: The addition of prednisone 20 and 10 mg for a total of 14 days after discharge subsequently, 20 and then 10 mg doses, as well as furosemide 20 mg p.o. daily for 10 days after discharge. HISTORY OF PRESENT ILLNESS AND HOSPITAL COURSE: A 73-year-old female with the above past medical history, who presented to the emergency room accompanied by with a chief complaint of sharp pleuritic chest pain that had been off and on for several months prior to admission. What drove current ER presentation was acute pleuritic chest pain that woke her from sleep, worsening with deep inspiration, that was worse than any prior episodes before. Her history of present illness begins in October 2018 when she had a right total hip replacement that was complicated by bilateral lobe aspiration pneumonia, treated in hospital with IV antibiotics and then with recurrent and persistent left lobar findings, status post outpatient treatment with levofloxacin and moxifloxacin. The patient continued to have left lung base findings as well as pleuritic chest pain and was presumed to be residual inflammation, but because of persistent chest pain with new pleuritic chest pain worse than prior episodes , the patient decided to present to the emergency room. Her vital signs were stable save for mild hypoxia and in the emergency room, chest x-ray found persistent left-sided opacity in the left lower lung base and consolidation. A CTA of chest was done, which ruled out PE and showed again persistent left- sided consolidation. Hospitalist team was asked to evaluate the patient for admission given persistent left lower lobe pneumonia as well as pleuritic chest pain and mild new hypoxia, and her hospital course by problem is as follows: 1. Hypoxia. This resolved on arrival to the hospital floor and the patient was stable on room air. 2. Pleuritic chest pain. This is likely multifactorial in nature, inflammatory , less likely infectious given multiple rounds of oral antibiotics and IV antibiotics and also possibly pleural effusion related. She has had persistent pleuritic chest pain and a left-sided consolidation versus effusion for several weeks after prolonged bilateral lobar pneumonia in October, and furthermore, she had a small dependent pericardial effusion on echocardiogram in October 2018. We did ask Pulmonology to review her scans and Dr. De Jesus felt that this was resolving infectious and pleural effusion process with persistent inflammatory pleurisy that should be treated with nonsteroidal anti- inflammatories and diuretics as opposed to further antibiotics or the need for advanced imaging such as bronchoscopy at this time. She has no new EKG changes to suggest a worsening pericardial component or pericarditis. The patient was started on low-dose prednisone and will be continued for 2 weeks after followup along with her Celebrex, and furthermore, we will continue her Lasix for a total of 10 days after discharge to attempt to eliminate a pleural effusion component as contributing to this pleuritic chest pain. 3. Left lobar pneumonia. As above, the patient has been on Levaquin, moxifloxacin IV antibiotics in October as well as Augmentin as an outpatient. Her white blood cell count on admission is 13.7, mildly elevated, but she has no fever, no persistent cough with sputum. Her current left lobar findings are thought to be most consistent with inflammatory and pleural effusion process, and thus we elected to hold antibiotics at this time, which family is in agreement with. She will need continued imaging with repeat chest x-ray and likely repeat chest CT with chest x- ray scheduled in 2 to 3 weeks from discharge as well as chest CT scheduled for 6 to 8 weeks status post discharge to continue to follow on this persistent left lower lobe pneumonia. Of note, Pulmonology did review her CT scans done in the emergency room and did not feel that there was an endobronchial component at this time. 4. Diabetes. We continued her home medications. 5. Depression. Continue home fluoxetine. 6. Hypertension. We continued her home regimen. She is status post cardiac pacemaker and remained in sinus during this hospitalization. She was ambulatory during this hospitalization and remained on Lovenox for DVT prophylaxis. She was a full code status. On hospital day 2, the patient felt that she had returned to her baseline. She was chest pain-free since admission and since starting pain medications including prednisone and Lasix. With discussion with Pulmonology, hospitalist team as well as education for the patient, they elected to return to home with followup with Pulmonology and primary care. She felt that she was at her baseline, vital signs were stable, and they were amenable to discharge. Labs and data collected during this hospitalization: Labs on admission: White blood cell count 13.7, hemoglobin 13.8, hematocrit of 41, platelets of 362. Chemistry showed sodium 136, potassium 4.7, chloride 102, carbon dioxide 27, BUN 14, creatinine 0.68, glucose 137. LFTs were normal. CRP elevated at 53. Imaging done during this hospitalization included a chest x-ray, which showed left lower lobe consolidation and a CTA of chest and thorax, which showed no evidence of DVT and mild left basilar infiltrate and small left effusion and element of mild CHF noted to be possible. Consultants during this hospitalization included Pulmonology, who recommended the above plan with discharge with low-dose prednisone and diuretics with close followup with primary care and Pulmonology. ITEMS TO FOLLOW UP ON AFTER DISCHARGE: 1. Pleuritic chest pain. This was presumed to be inflammatory in nature, for which she will be started on low-dose prednisone as well as diuretics to treat the component of left pleural effusion. If her symptoms continue to be persistent or escalate, it is reasonable to consider repeating echocardiogram and getting a chest CT given she had dependent pericardial effusion as well and would want to rule out worsening of pericardial effusion or pericarditis component. There is no evidence of that with flat troponins and no EKG changes during this hospitalization, although it is something to consider if the patient continues to worsen. She will be followed by Pulmonology as well as primary care in the next 1 to 2 weeks to see if this left basilar consolidation continues to improve. TIME SPENT: 40 minutes were spent in planning this discharge with over half of that spent directly at the bedside of the patient providing direct patient care. All questions were answered for the patient and her spouse and they were amenable to discharge. The patient was counseled to return to the hospital if she had worsening chest pain, shortness of breath, fevers, or any new symptoms, and they expressed understanding. If there are any questions about the care of this patient during this hospitalization, please do not hesitate to reach out and contact us. [id number]/[facility] #: [id number] BETTE
[2018-12-20] MEDS ORDERED: Atorvastatin* 20 MG TAB PO SCH (21:00)
== END 2018-12-20 15:00 | disposition home or self-care (01) ==
LOC: ED 12:58 → MED 22:37
PROVIDERS: ADMIT Internal Medicine; ATTEND Internal Medicine
DX: R09.02 Hypoxemia (principal); J18.1 Lobar pneumonia, unspecified organism; R07.9 Chest pain, unspecified; I49.5 Sick sinus syndrome; Z95.0 Presence of cardiac pacemaker; K21.9 Gastro-esophageal reflux disease without esophagitis; I10 Essential (primary) hypertension; F32.9 Major depressive disorder, single episode, unspecified; Z96.641 Presence of right artificial hip joint; J90 Pleural effusion, not elsewhere classified; E11.9 Type 2 diabetes mellitus without complications; Z79.899 Other long term (current) drug therapy; Z79.01 Long term (current) use of anticoagulants
CPT/HCPCS: 36415; 71046; 71275; 80053; 81003; 81015; 82550; 82553; 82803; 83605; 83735; 83880; 84443; 84484; 85025; 86140; 87077; 87086; 87186; 93005; 96374; 96375; 99285; A9270-GY; G0378; J0696; J1650; J1940; J2270; J2405; J7512; Q9967

== ENCOUNTER 2019-07-23 07:03 | Inpatient (IN) | payer MEDICARE, OTHER ==
--- NOTE | 2019-07-14 18:26 | HP ---
HISTORY AND PHYSICAL: DATE OF SURGERY: 07/23/19 DATE OF OFFICE VISIT: 07/13/19 SURGEON: Christiana Willoughby M.D.* (DICTATED BY KRISTAL AMADOR) PROCEDURE: Left total hip arthroplasty. CHIEF COMPLAINT: Left hip pain. HISTORY OF PRESENT ILLNESS: Ms. Olmstead is a 74-year-old female with continued complaints of left hip pain. She has failed conservative treatment and elected to proceed with left total hip arthroplasty. PAST MEDICAL HISTORY: AFib, diabetes, hypertension, asthma, GERD, and a pacemaker. PAST SURGICAL HISTORY: Pacemaker placement, right total hip arthroplasty, hysterectomy, cholecystectomy, and breast reduction. CURRENT MEDICATIONS: 1. Diltiazem 240 mg a day. 2. Eliquis 5 mg twice a day. 3. Pantoprazole sodium 40 mg a day. 4. Fluoxetine 40 mg a day. 5. Vitamin B12. 6. Metformin 500 mg 2 tabs 1 time per day. 7. Multivitamin. 8. Atorvastatin. 9. Calcium 10 mg. 10. Temazepam 7.5 mg as needed. 11. Gabapentin 100 mg twice a day. 12. Cetirizine 10 mg daily. 13. Citracal. 14. Calcium with vitamin D. 15. Robitussin cough and chest congestion as needed. ALLERGIES: LISINOPRIL and LUCA INHIBITORS. FAMILY HISTORY: Diabetes and stroke. SOCIAL HISTORY: She is a 74-year-old female. She lives with her . She does not smoke or use drugs. Uses occasional alcohol. REVIEW OF SYSTEMS: A complete 14-point review of systems was reviewed with the patient, positive for asthma, GERD, and diabetes. She denies a history of DVT, PE, hepatitis, HIV or anesthesia problems. PHYSICAL EXAMINATION GENERAL: She is well developed, well nourished, in no acute distress. VITAL SIGNS: She stands 62 inches tall, weighs 161 pounds, blood pressure 130/ 74, heart rate is 71. HEENT: Normocephalic, atraumatic. NECK: Supple. No palpable lymph nodes. PULMONARY: The lungs are clear to auscultation bilaterally. CARDIO: Regular rate and rhythm. Strong S1, S2. ABDOMEN: Soft, nontender, nondistended. NEUROLOGICAL: She is alert and oriented x3. MUSCULOSKELETAL: Left lower extremity, the skin is intact. There are no open wounds or abrasions. She walks with a slightly antalgic-type gait favoring her left hip. She has 90 degrees of flexion, and severely limited internal and external rotation secondary to pain. She is able to dorsiflex and plantarflex. She has 2+ dorsalis pedis pulse. Intact sensation. ASSESSMENT AND PLAN: Ms. Olmstead is a 74-year-old female with end-stage osteoarthritis of the left hip. She has failed conservative treatment and elected to proceed with a left total hip arthroplasty. The surgery is scheduled for 07/23/[address] Willoughby discussed the risks and benefits of the surgery at today's visit and all of her questions were answered. She will follow up with Dr. Willoughby in 2 weeks after the surgery. KRISTAL AMADOR [id number]/[facility] #: [id number] MTDD
[~2019-07-23 07:03] MED LIST changes: -Gabapentin CAP(*) 300 MG PO ONE
--- OUTSIDE RECORDS SUMMARY | 2019-07-23 07:06 | XMS REPORT | Continuity of Care Document ---
:1945 External Reference #:[id number] Author Name Mona Abdullahi N.P. (transmitted by agent of provider Joyce Bergman) Address [address] [place] [address] Care Team Providers Name Role Phone Arias Bell MD - Internal Care Team Information [employer] [facility] Arnoldo Angulo DO - Family Care Team Information [employer] [phone] Medicine Problems Active Problems Provider Date Sinus node dysfunction Flores Gibson M.D. Onset: 04/11/2017 Localized, primary osteoarthritis of the pelvic Christiana Willoughby M.D. Onset: region and thigh Trochanteric bursitis Christiana Willoughby M.D. Onset: 07/07/2018 Prosthetic arthroplasty of the hip Christiana Willoughby M.D. Onset: 12/12/2018 Social History Type Date Description Comments Sex Unknown Tobacco Use Start: Unknown Never Smoked Cigarettes Smoking Status Reviewed: 07/02/19 Never Smoked Cigarettes ETOH Use Drinks Alcoholic Beverages Occasionally Tobacco Use Start: Unknown Patient has never smoked Recreational Drug Use Denies Drug Use Exercise Type/Frequency Exercises sporadically Trying to walk following hip replacement Allergies, Adverse Reactions, Alerts Active Allergies Reaction Severity Comments Date Lisinopril Cough 09/25/2018 Chano Inhibitors Cough 02/19/2019 Inactive Allergies NKDA 10/24/2016 Medications Active Medications SIG Qnty Indications Ordering Date Provider Diltiazem HCL ER 1 by mouth every 30caps I48.0 Mona Abdullahi, 07/02/2019 240mg day N.P. Caps ER 24HR Eliquis 1 by mouth twice 180tabs I48.0 Mona Abdullahi, 07/02/2019 5mg Tablets a day N.P. Amoxicillin take 4 tablets by 4tabs M25.551 Christiana Willoughby, 11/14/2018 500mg mouth 1 hour M.D. Tablets before dental procedure Fluoxetine HCL 1 by mouth every Unknown 40mg day Capsules Vitamin B-12 1 by mouth every Unknown 1000mcg day Tablets Metformin HCL 2 by mouth one Unknown 500mg time per day Tablets Multivitamin daily Unknown Atorvastatin Calcium take 2 tablet 180tabs Unknown daily 10mg Tablets Temazepam prn Unknown 7.5mg Capsules Gabapentin 1 capsule po Unknown 100mg three times daily Capsules Cetirizine HCL 1 by mouth every Unknown 10mg day Tablets Citracal Calcium+D once a day Unknown Slow Release [id number]-mg-Unit Tablets ER 24HR Robitussin Cough & As needed Unknown Chest Congestion DM Adult Pantoprazole Sodium 1 by mouth every Unknown day 40mg Tablets DR Ibuprofen 200 2 tabs every am Unknown 200mg and 2 tabs every Tablets evening Zzzquil Gummies 2 gummies for Unknown W/Melatonin sleep Medications Administered in Office Medication SIG Qnty Indications Ordering Provider Date Depomedrol 40MG Christiana Willoughby M.D. 03/30/2019 Injection Inj, Regadenoson, 0.1 MG Oscar Oh M.D. 03/21/2017 Injection Technetium TC 99M Tetrofosmin, Oscar Oh M.D. 03/21/2017 Per Unit Dose Up To 40 Millicuries Injection Immunizations Description No Information Available Vital Signs Date Vital Result Comment 07/02/2019 1:14pm Height 62 inches 5'2" Weight 161.50 lb Heart Rate 65 /min BP Systolic Sitting 152 mmHg Rue reg cuff BP Diastolic Sitting 78 mmHg Rue reg cuff BP Systolic Standing 138 mmHg Rue reg cuff BP Diastolic Standing 70 mmHg Rue reg cuff Respiratory Rate 13 /min BMI (Body Mass Index) 29.5 kg/m2 Ejection Fraction >65% ECHO 10/23/2018 06/24/2019 1:01pm Height 62 inches 5'2" Weight 161.00 lb Heart Rate 72 /min BP Systolic 146 mmHg BP Diastolic 88 mmHg BMI (Body Mass Index) 29.4 kg/m2 Results Test Date Facility Test Result H/L Range Note Xray 03/30/2019 [facility] Inj/Aspir Major JT Or Bursa W/ <pending> US Procedures Date Code Description Status 07/02/2019 39345 EKG Tracing & Interpretation Completed 06/29/2019 80953 Pace Maker Eval W/Iterative Adjment Dual Lead Completed 03/30/2019 63144 Inj/Aspir Major JT Or Bursa W/ US Completed Medical Devices Description No Information Available Encounters Type Date Location Provider Dx Diagnosis Office Visit 07/02/2019 [facility] Mona Abdullahi, I49.5 Sick sinus 1:30p Of Audio/Visual Manager N.P. syndrome Z95.0 Presence of cardiac pacemaker I48.0 Paroxysmal atrial fibrillation I10 Essential (primary) hypertension Z01.810 Encounter for preprocedural cardiovascular examination Office Visit 05/27/2019 1:00p [facility] Jenny Mclaughlin45.998 Other asthma [facility] Office Visit 05/22/2019 11:00a [facility] Christiana Willoughby M25.551 Pain in right at [facility].D hip Z96.641 Presence of right artificial hip joint M25.552 Pain in left hip M16.12 Unilateral primary osteoarthritis, left hip M76.01 Gluteal tendinitis, right hip Office Visit 04/17/2019 2:[facility].551 [facility] Presence of right artificial hip joint M25.552 Pain in left hip M16.12 Unilateral primary osteoarthritis, left hip Office Visit 03/30/2019 3:15p [facility] Christiana Willoughby M25.551 Pain in right at [place] [facility].D hip Z96.641 Presence of right artificial hip joint M25.552 Pain in left hip M16.12 Unilateral primary osteoarthritis, left hip Office Visit 02/19/2019 1:00p [facility]mon[facility] And Jenny Mclaughlin45.998 Other asthma [facility] R91.8 Other nonspecific abnormal finding of lung field J98.4 Other disorders of lung Assessments Date Code Description Provider 07/02/2019 I49.5 Sick sinus syndrome Mona Abdullahi N.P. 07/02/2019 Z95.0 Presence of cardiac pacemaker Mona Abdullahi N.P. 07/02/2019 I48.0 Paroxysmal atrial fibrillation Mona Abdullahi N.P. 07/02/2019 I10 Essential (primary) hypertension Mona Abdullahi N.P. 07/02/2019 Z01.810 Encounter for preprocedural cardiovascular Mona Abdullahi N.P. examination 06/29/2019 I49.5 Sick sinus syndrome Ica Pacer Schedule 06/29/2019 Z95.0 Presence of cardiac pacemaker Ica Pacer Schedule 06/24/2019 R41.3 Other amnesia Chapin Castanon, JONATHAN 06/08/2019 M25.552 Pain in left hip Christiana Willoughby M.D. 06/08/2019 M16.12 Unilateral primary osteoarthritis, left hip Christiana Willoughby M.D. 05/27/2019 J45.998 Other asthma Jay Jay Huitron MD 05/22/2019 M25.551 Pain in right hip Christiana Willoughby M.D. 05/22/2019 Z96.641 Presence of right artificial hip joint Christiana Willoughby M.D. 05/22/2019 M25.552 Pain in left hip Christiana Willoughby M.D. 05/22/2019 M16.12 Unilateral primary osteoarthritis, left hip Christiana Willoughby M.D. 05/22/2019 M76.01 Gluteal tendinitis, right hip Christiana Willoughby M.D. 04/17/2019 M25.551 Pain in right hip Christiana Willoughby M.D. 04/17/2019 Z96.641 Presence of right artificial hip joint Christiana Willoughby M.D. 04/17/2019 M25.552 Pain in left hip Christiana Willoughby M.D. 04/17/2019 M16.12 Unilateral primary osteoarthritis, left hip Christiana Willoughby M.D. 03/30/2019 M25.551 Pain in right hip Christiana Willoughby M.D. 03/30/2019 Z96.641 Presence of right artificial hip joint Christiana Willoughby M.D. 03/30/2019 M25.552 Pain in left hip Christiana Willoughby M.D. 03/30/2019 M16.12 Unilateral primary osteoarthritis, left hip Christiana Willoughby M.D. 02/19/2019 J45.998 Other asthma Jay Jay Huitron MD 02/19/2019 R91.8 Other nonspecific abnormal finding of lung Jay Jay Huitron MD [facility] 02/19/2019 J98.4 Other disorders of lung Jay Jay Huitron MD 01/09/2019 Z96.641 Presence of right artificial hip joint Christiana Willoughby M.D. 01/09/2019 Z47.1 Aftercare following joint replacement surgery Christiana Willoughby M.D. Plan of Treatment Future Appointment(s):08/25/2019 2:30 pm - Mona Abdullahi, N.P. at [facility]08/25/2019 2:00 pm - Ica Pacer Schedule at [facility]07/23/2019 10:30 am - Gianni Hansen PA-C at [facility] at [email or web address] 10:30 am - KRISTAL Jurado at [facility] at [id number] 1:00 pm - Chapin Castanon NP at [facility]07/23/2019 10:30 am - Christiana Willoughby M.D. at [facility]07/13/2019 9:30 am - Christiana Willoughby M.D. at [facility] at [id number]/02/2019 - Mona Abdullahi, N.P.I49.5 Sick sinus kacjailwZ78.0 Presence of cardiac uegizybrzD77.0 Paroxysmal atrial fibrillationNew Medication:Diltiazem HCL ER 240 mg - 1 by mouth every dayEliquis 5 mg - 1 by mouth twice a dayFollow up:2mo PO/OV Mona OV JFM 6moRecommendations:STOP Amlodipine; On Saturday start diltiazem START Diltiazem 240mg daily Check BP 1-2x daily after resting. Call if top number is consistently > 150I10 Essential (primary) hypertensionRecommendations: Check BP at home.Z01.810 Encounter for preprocedural cardiovascular examination Functional Status Description No Information Available Mental Status Description No Information Available Referrals Description No Information Available
--- OUTSIDE RECORDS SUMMARY | 2019-07-23 07:06 | XMS REPORT | Continuity of Care Document ---
:1945 External Reference #:[id number] Author Name Arnoldo Angulo D.O. Address [address] [place] [address] Care Team Providers Name Role Phone [facility] - Care Team Information [employer] [phone] Orthopaedic Surgery Kyle Michelle MD - Plastic and Care Team Information [facility] Reconstructive [facility] - Otolaryngology Care Team Information [employer] [phone] HCP/LW on file Care Team Information [employer] [employer] Unavailable [facility] - Care Team Information [employer] Nutrition, Education Dinah De Jesus MD - Pulmonary Care Team Information [employer] Disease Problems Active Problems Provider Date Essential hypertension Onset: 09/13/2010 Allergic condition Lorene Healy RPA-C Onset: 2015 Insomnia Lorene Healy RPA-C Onset: 2015 Benign essential hypertension Lorene Healy RPA-C Onset: 2015 Type 2 diabetes mellitus Lorene Healy RPA-C Onset: 05/11/2015 Chronic lymphadenitis Arnoldo Angulo D.O. Onset: 02/14/2016 Malaise and fatigue Arnoldo Angulo D.O. Onset: 02/14/2016 Gastroesophageal reflux disease Arnoldo Angulo D.O. Onset: 02/14/2016 Cramp in lower leg associated with rest Arnoldo Angulo D.O. Onset: 2015 Vitamin B-complex deficiency Arnoldo Angulo D.O. Onset: 03/20/2016 Multiple skin tags Arnoldo Angulo D.O. Onset: 05/08/2016 Mild recurrent major depression Arnoldo Angulo D.O. Onset: 08/08/2016 Pure hyperglyceridemia Arnoldo Angulo D.O. Onset: 09/05/2016 Mild intermittent asthma Cassie Wilcox PA Onset: 12/16/2018 Allergic rhinitis Cassie Wilcox PA Onset: 12/16/2018 Social History Type Date Description Comments Sex Unknown Tobacco Use Reviewed: 11/12/18 Denies Cigarette Use Tobacco Use Reviewed: 11/12/18 Never Smoked Cigarettes Smoking Status Reviewed: 05/26/19 Never Smoked Cigarettes ETOH Use Occasionally consumes alcohol Recreational Drug Use Denies Drug Use Tobacco Use Start: Unknown Patient has never smoked Enjoy Exercising Enjoys exercising Sun Exposure minimum amount of sun exposure Sun Exposure Uses sunscreen Seat Belt/Car Seat always uses seat belt Guns in Home No Smoke Alarms Yes smoke alarm Allergies, Adverse Reactions, Alerts Active Allergies Reaction Severity Comments Date Lisinopril Cough Mild cough 08/27/2018 Inactive Allergies No Known Drug Allergy 02/14/2011 Medications Active Medications SIG Qnty Indications Ordering Date Provider Pantoprazole Sodium take 1 tablet daily 90tabs F33.0 Arnoldo Angulo, 05/26 before breakfast D.O. 20mg Tablets DR Celecoxib Take 1 Capsule By 90caps Arnoldo Angulo, 12/29/2018 100mg Mouth Daily D.O. Capsules Guaifenesin 10 milliliters by Arnoldo Angulo, 12/20/2018 mouth daily as D.O. 200mg/10ML Solution needed for cough Atorvastatin Calcium Take 1 Tablet By 90tabs E78.0 Arnoldo Angulo, 2017 Mouth Daily For D.O. 20mg Tablets Prevention Of Heart Attack And Stroke. Amlodipine Besylate Take 1 Tablet By 90tabs F33.0 Arnoldo Angulo, 2017 Mouth Every Day D.O. 10mg Tablets Gabapentin Take 2 Caps By 270caps M79.7 Arnoldo Angulo, 03/15/2017 100mg Mouth In Morning D.O. Capsules And 1 Cap AT Night F33.0 G50.0 30 Min Of Activity Daily of your F33.0 Arnoldo Angulo D.OPiyush 08/08/2016 choice (one you enjoy most or dislike least) Fluoxetine HCL take 1 capsule by 90caps F33.0 Arnoldo Angulo D.OPiyush 2015 40mg mouth every day Capsules M79.7 Vitamin B-12 1 qd Unknown 03/19/2016 1000mcg Tablets Sub Metformin HCL take 1 tablet by 180tabs Arnoldo Angulo, 06/02/2015 500mg Tablets mouth twice a day D.O. Multivitamins daily 30caps Unknown 06/17/2014 Capsules Temazepam 1 by mouth as 90caps G47.00 Arnoldo Angulo, 09/11/2010 7.5mg Capsules needed every night D.O. at bedtime for sleep code a Calcium + D 1 tab po daily Unknown Tablets Cetrizine Hydrochloride 1 tab po daily for OTC T78.49xA Unknown allergies 10mg History Medications Hydroxyzine HCL Take 1 To 2 180tabs Arnoldo Angluo, 01/20/2019 - Tablets By Mouth D.O. 05/26/2019 25mg Tablets 3 Times A Day as Needed For Itching Bactrim DS 1 by mouth twice 14tabs Arnoldo Angulo, 12/22/2018 - a day D.O. 12/29/2018 800-160mg Tablets Furosemide Take One Tablet Unknown 12/20/2018 - 20mg By Mouth Every 12/30/2018 Tablets Day x 10 days Prednisone Take One Tablet Unknown 12/20/2018 - 10mg By Mouth Every 01/03/2019 Tablets Day Start After 20MG Dose Is Completed Prednisone 1 per morning x 7 Unknown 12/20/2018 - 20mg days then start 12/27/2018 Tablets the 10 mg Ventolin HFA 2 puffs q4-6 18gm J45.20 Arias Bell, 12/16/2018 - hours as needed M.D. 01/19/2019 108(90Base) mcg/Act Aerosol Avelox 1 tab by mouth 14tabs J18.9 Arias Bell, 11/27/2018 - 400mg daily x 14 days M.D. 12/11/2018 Tablets Ondansetron dissolve one 30tabs J18.9 Arias Bell, 11/27/2018 - 4mg tablet on the M.D. 12/23/2018 Tablets Dispers tongue every 8 hours as needed for nausea Medications Administered in Office Medication SIG Qnty Indications Ordering Provider Date injection, kenalog, 10 mg Arnoldo Angulo D.O. 06/10/2018 Injection B12 Injection Arnoldo Angulo D.O. 03/20/2016 Injection SC/Im Injections Arnoldo Angulo D.O. 03/20/2016 Injection Injection Of Phenergan 50 mg Arias Bell M.D. 09/29/2010 Injection SC/Im Injections Arias Bell M.D. 09/29/2010 Injection Immunizations CPT Code Status Date Vaccine Lot # U-Flu Given 06/23/2018 Influenza,Unspecified 45140 Given 04/22/2018 Shingrix Zoster (Shingles) Vaccine (HZV) Recomb,Subnit,Adjuvanted 38903 Given 11/27/2017 Shingrix Zoster (Shingles) Vaccine (HZV) Recomb,Subnit,Adjuvanted 07772 Given 08/16/2017 Td Immunization [id number] 29475 Given 07/04/2017 Influenza Vaccine Split Virus Preservative Free Im Use U-Flu Given 07/12/2016 Influenza,Unspecified U-Flu Given 06/22/2015 Influenza,Unspecified 54799 Given 05/11/2015 Prevnar 13 [id number] 06445 Given 06/21/2014 Flu, Split Virus 3Yrs 83111 Given 05/22/2013 Flu, Split Virus 3Yrs [id number] 70777 Given 06/06/2012 Flu, Split Virus 3Yrs [id number] 40892 Given 05/24/2011 Flu, Split Virus 3Yrs [id number] 10382 Given 08/09/2009 Pneumococcal Immunization 23195 Given 08/09/2009 Flu, Split Virus 3Yrs 36428 Given 10/16/2007 Zostavax 27348 Given 08/26/2006 Adacel or Boostrix, [id number] 60525 Given 10/19/1999 Td Immunization Vital Signs Date Vital Result Comment 05/26/2019 1:35pm BP Systolic 132 mmHg BP Diastolic 62 mmHg Weight 161.00 lb 01/20/2019 11:56am BP Systolic 132 mmHg BP Diastolic 78 mmHg Height 63 inches 5'3" Weight 152.00 lb BMI (Body Mass Index) 26.9 kg/m2 Results Test Date Facility Test Result H/L Range Note Laboratory test 05/26/2019 [facility] Vitamin B12 <pending> finding [phone] Magnesium <pending> Laboratory test 05/26/2019 [facility] Folic Acid (Folate) <pending> finding [phone] Erythrocyte Sed Rate <pending> C Reactive Protein <pending> Laboratory test 05/26/2019 In House Hemoglobin A1c 6.2 finding Laboratory test 01/20/2019 In House Hemoglobin A1c 6.4 finding Arterial Blood Gas 12/19/2018 [facility] PH Arterial 7.42 Normal 7.35 -7.45 [phone] Pco2 Arterial 37 mmHg Normal 35-45 Po2 Arterial 66 mmHg Low 80-100 O2 Saturation Arterial 94.5 % Normal 94.0-98.0 Base Excess Arterial -0.2 mmol/L Normal -2.0-2.0 1 Hco3 Arterial 24.6 mmol/L Normal 19-31 Laboratory test 12/19/2018 [facility] Troponin-I (TnI) 0.00 ng/mL < 0.04 2 finding [phone] CBC Auto Diff 12/19/2018 [facility] White Blood 13.7 High 3.5-10.8 [phone] Count 10^3/uL Red Blood Count 4.73 10^6/uL Normal 3.70-4.87 Hemoglobin 13.8 g/dL Normal 12.0-16.0 Hematocrit 41 % Normal 33-41 Mean Corpuscular Volume 88 fL Normal 80-97 Mean Corpuscular Hemoglobin 29 pg Normal 27-31 Mean Corpuscular HGB Conc 33 g/dL Normal 31-36 Red Cell Distribution Width 15 % Normal 10.5-15 Platelet Count 362 10^3/uL Normal 150-450 Mean Platelet Volume 8.2 fL Normal 7.4-10.4 Abs Neutrophils 9.7 10^3/uL High 1.5-7.7 Abs Lymphocytes 2.4 10^3/uL Normal 1.0-4.8 Abs Monocytes 1.2 10^3/uL High 0-0.8 Abs Eosinophils 0.4 10^3/uL Normal 0-0.6 Abs Basophils 0.1 10^3/uL Normal 0-0.2 Abs Nucleated RBC 0 10^3/uL Granulocyte % 70.5 % Lymphocyte % 17.3 % Monocyte % 8.9 % Eosinophil % 2.8 % Basophil % 0.5 % Nucleated Red Blood Cells % 0 Laboratory test 12/19/2018 [facility] B-Type Natriuretic 40 pg/mL <= 100 finding [phone] Peptide BNP Lactic Acid 1.0 mmol/L Normal 0.5-2.0 3 Comp Metabolic Panel 12/19/2018 [facility] Sodium 136 mmol/L Normal 135-145 [phone] Potassium 4.7 mmol/L Normal 3.5-5.0 Chloride 102 mmol/L Normal 101-111 Co2 Carbon Dioxide 27 mmol/L Normal 22-32 Anion Gap 7 mmol/L Normal 2-11 Glucose 137 mg/dL High 70-100 Blood Urea Nitrogen 14 mg/dL Normal 6-24 Creatinine 0.68 mg/dL Normal 0.51-0.95 BUN/Creatinine Ratio 20.6 High 8-20 Calcium 9.9 mg/dL Normal 8.6-10.3 Total Protein 7.9 g/dL Normal 6.4-8.9 Albumin 4.2 g/dL Normal 3.2-5.2 Globulin 3.7 g/dL Normal 2-4 Albumin/Globulin Ratio 1.1 Normal 1-3 Total Bilirubin 0.50 mg/dL Normal 0.2-1.0 Alkaline Phosphatase 136 U/L High 34-104 Alt 19 U/L Normal 7-52 Ast 24 U/L Normal 13-39 Egfr Non- 84.4 >60 Egfr 102.1 >60 4 Laboratory test 12/19/2018 [facility] Magnesium 2.0 mg/dL Normal 1.9- 2.7 finding [phone] Creatine Kinase(CK) 35 U/L Normal 10-223 Troponin-I (TnI) 0.00 ng/mL <0.04 5 CKMB 12/19/2018 [facility] CKMB ng/mL 0.9 ng/mL Normal 0.6-6.3 [phone] Laboratory test 12/19/2018 [facility] TSH 2.09 mcIU/mL Normal 0.34- 5.60 finding [phone] (Thyroid Stim Horm) Urinalysis 12/19/2018 [facility] Urine Color Yellow Profile [phone] Urine Appearance Cloudy Urine Specific Junction 1.018 Normal 1.010-1.030 Urine pH 5.0 Normal 5-9 Urine Urobilinogen Negative Negative Urine Ketones Negative Negative Urine Protein Negative Negative Urine Leukocytes 2+ Abnormal Negative Urine Blood Negative Negative Urine Nitrite Negative Negative Urine Bilirubin Negative Negative Urine Glucose Negative Negative Urine White Blood Cell 1+(6-10/hpf) Abnormal Absent Urine Red Blood Cell Trace(0-2/hpf) Absent Urine Bacteria Absent Absent Urine Squamous Epithelial Cell Present Abnormal Absent Laboratory test 12/19/2018 [facility] C Reactive 53.90 mg/L High < 8.01 finding [phone] Protein Urine Culture And 12/19/2018 [facility] Urine Culture SEE RESULT 6 Sensitivities [phone] BELOW Laboratory test 12/19/2018 [facility] Troponin-I 0.01 ng/mL <0.04 7 finding [phone] (TnI) 1 Reference ranges based on room air. 2 Troponin-I testing on Plasma Separator Tubes (PST) has a known false positive rate of 0.20-0.40%. All positive troponins reflex immediate secondary confirmatory testing. 3 [facility] Severe Sepsis and Septic Shock Management Bundle Measure requires all lactic acids initially measuring >2.0 mmol/L be repeated. 4 Because ethnic data is not always readily [...] 15-29 5 Kidney failure <15 (or dialysis) 5 Troponin-I testing on Plasma Separator Tubes (PST) has a known false positive rate of 0.20-0.40%. All positive troponins reflex immediate secondary confirmatory testing. 6 SEE RESULT BELOW Name: LIZETH OLMSTEAD Alejandro : [address]: Cami Hunt MD Acct: [id number] Unit: [id number] AGE: 73 Location: [place] [address]- Re12/19/18 Dis: 12/20/18 SEX: F Status: DIS Misb[place] SPEC: [id number] CESAR: 12/19/18-[address] [facility] [address]: Dontae Angeles MD REQ: [id number] RECD: 12/19/18 STATUS: BERNARD MENDEZ DR: Arnoldo Angulo DO _ SOURCE: URINE SPDESC: ORDERED: Urine Culture Procedure Result Reported Site Urine Culture Final 12/22/18- 1054 ML Organism 1 MRSA [place] Count 1-10,000 (Few) CFU/ML 1. MRSA M.I.C. RX --------- ------ Penicillin >=0.5 R Gentamicin <=0.5 S Linezolid 4 S Nitrofurantoin <=16 S Oxacillin >=4 R * Quinupristin/Dalfopristin <=0.25 S Rifampin <=0.5 S Tetracycline <=1 S Doxycycline - Deduced S * Minocycline - Deduced S Trimethoprim/Sulfamethoxazole <=10 S Vancomycin 1 S Imipenem-Deduced R * Ampicillin/Sulbactam-Deduced R Cefazolin-Deduced R * These antibiotics are not available in the [facility] Formulary Contact the Microbiology Department for any additional antibiotic reporting. * [facility] - Main Lab . END OF REPORT DEPARTMENT OF PATHOLOGY, [address] [place] [address] Brian Diaz M.D. Director [facility] # [id number] 7 Troponin-I testing on Plasma Separator Tubes (PST) has a known false positive rate of 0.20-0.40%. All positive troponins reflex immediate secondary confirmatory testing. Procedures Date Code Description Status 01/07/2019 649516703 Diabetic Retinal Eye Exam Completed 11/27/2018 67110 X-Ray Chest 2 V TC Completed 11/27/2018 61052 X-Ray Chest 2 V pc Completed 09/22/2018 [id number] Diabetic Foot Exam Completed 06/09/2017 [id number] Mammogram Completed Medical Devices Description No Information Available Encounters Type Date Location Provider Dx Diagnosis Office Visit 05/26/2019 Main Office Arnoldo Angulo, E11.9 Type 2 diabetes 1:30p D.O. mellitus without complications F33.0 Major depressive disorder, recurrent, mild I10 Essential (primary) hypertension R41.3 Other amnesia J45.20 Mild intermittent asthma, uncomplicated J30.9 Allergic rhinitis, unspecified Z96.641 Presence of right artificial hip joint Office Visit 01/20/2019 11:00a Main Office Aronldo Angulo, Z68.26 Body mass index D.O. (BMI) 26.0-26.9, adult E11.9 Type 2 diabetes mellitus without complications J45.20 Mild intermittent asthma, uncomplicated J30.9 Allergic rhinitis, unspecified I10 Essential (primary) hypertension Z96.641 Presence of right artificial hip joint Office Visit 12/24/2018 2:00p Main Office Cassie Wilcox, PA R07.81 Pleurodynia J18.9 Pneumonia, unspecified organism N39.0 Urinary tract infection, site not specified Office Visit 12/16/2018 2:30p Main Office Cassie Wilcox J18.9 Pneumonia, PA unspecified organism R06.00 Dyspnea, unspecified J45.20 Mild intermittent asthma, uncomplicated J30.9 Allergic rhinitis, unspecified Office Visit 11/27/2018 11:45a Main Office Cassie Wilcox J18.9 Pneumonia, PA unspecified organism Assessments Date Code Description Provider 05/26/2019 E11.9 Type 2 diabetes mellitus without SopChanda thapaon, D.O. complications 05/26/2019 F33.0 Major depressive disorder, recurrent, mild Chanda Anguloon, D.O. 05/26/2019 I10 Essential (primary) hypertension Chanda Anguloon, D.O. 05/26/2019 R41.3 Other amnesia Arnoldo Angulo, D.O. 05/26/2019 J45.20 Mild intermittent asthma, uncomplicated Arnoldo Angulo, D.O. 05/26/2019 J30.9 Allergic rhinitis, unspecified SophariskChandaon, D.O. 05/26/2019 Z96.641 Presence of right artificial hip joint Arnoldo Angulo, D.O. 01/20/2019 Z68.26 Body mass index (BMI) 26.0-26.9, adult Arnoldo Angulo D.O. 01/20/2019 E11.9 Type 2 diabetes mellitus without Arnoldo Angulo D.O. complications 01/20/2019 J45.20 Mild intermittent asthma, uncomplicated Arnoldo Angulo D.O. 01/20/2019 J30.9 Allergic rhinitis, unspecified Arnoldo Angulo D.O. 01/20/2019 I10 Essential (primary) hypertension Arnoldo Angulo D.O. 01/20/2019 Z96.641 Presence of right artificial hip joint Arnoldo Angulo D.O. 12/24/2018 R07.81 Pleurodynia Cassie Wilcox, PA 12/24/2018 J18.9 Pneumonia, unspecified organism JingtorCassie, PA 12/24/2018 N39.0 Urinary tract infection, site not specified JingtorCassie PA 12/16/2018 J18.9 Pneumonia, unspecified organism HektorPalmerli, PA 12/16/2018 R06.00 Dyspnea, unspecified Hektor, Cassie, PA 12/16/2018 J45.20 Mild intermittent asthma, uncomplicated HektorCassie, PA 12/16/2018 J30.9 Allergic rhinitis, unspecified HektorPalmerli, PA 11/27/2018 J18.9 Pneumonia, unspecified organism Arnoldo Angulo D.O. 11/27/2018 J18.9 Pneumonia, unspecified organism Cassie Wilcox, PA Plan of Treatment Future Appointment(s):07/11/2019 9:00 am - Arnoldo Angulo D.O. at Main [facility]l5805/26/2019 - Arnoldo Angulo D.O.E11.9 Type 2 diabetes mellitus without complicationsFollow up:2 months DM/depression recheck GERD after dose reduction/ trigeminal neuralgia consider gabapentin dose titration.F33.0 Major depressive disorder, recurrent, mildNew Medication:Pantoprazole Sodium 20 mg - take 1 tablet daily before dfuqalbodG93 Essential (primary) wgxkzrqgmdkgZ93.3 Other amnesiaReferral:Sierra Santana MD, ZjeiyhzhwP00.20 Mild intermittent asthma, saqotcprmgwitN71.9 Allergic rhinitis, etiwwvtigieL99.641 Presence of right artificial hip joint Functional Status Description No Information Available Mental Status Description No Information Available Referrals Refer to Reason for Referral Status Appt Sierra Santana MD memory problems Created [facility] [address] [place] [address] [phone] Dinah De Jesus MD Follow up on Pulmonary after hospital admission Closed 02/19/2019 Consult and Treat - Follow up needed [facility] [address], [address] [place] [address] [phone]
--- OUTSIDE RECORDS SUMMARY | 2019-07-23 07:06 | XMS REPORT | Continuity of Care Document ---
:1945 External Reference #:[id number] Author Name Christiana Willoughby M.D. (transmitted by agent of provider Lula Quintana) Address [address] [place] [address] Care Team Providers Name Role Phone Arias Bell MD - Internal Care Team Information Urban Planning Professor Medicine Arnoldo Angulo DO - Family Care Team Information Urban Planning Professor Medicine Problems Active Problems Provider Date Sinus node dysfunction Flores Gibson M.D. Onset: 04/11/2017 Localized, primary osteoarthritis of the pelvic Christiana Willoughby M.D. Onset: region and thigh Trochanteric bursitis Christiana Willoughby M.D. Onset: 07/07/2018 Prosthetic arthroplasty of the hip Christiana Willoughby M.D. Onset: 12/12/2018 Social History Type Date Description Comments Sex Unknown Tobacco Use Start: Unknown Never Smoked Cigarettes Smoking Status Reviewed: 07/13/19 Never Smoked Cigarettes ETOH Use Drinks Alcoholic Beverages Occasionally Tobacco Use Start: Unknown Patient has never smoked Recreational Drug Use Denies Drug Use Exercise Type/Frequency Exercises sporadically Trying to walk following hip replacement Allergies, Adverse Reactions, Alerts Active Allergies Reaction Severity Comments Date Lisinopril Cough 09/25/2018 Chano Inhibitors Cough 02/19/2019 Inactive Allergies NKDA 10/24/2016 Medications Active Medications SIG Qnty Indications Ordering Date Provider Percocet 1 by mouth every 20tabs Christiana Willoughby, 07/13/2019 5-325mg 12 hours as M.D. Tablets needed pain Diltiazem HCL ER 1 by mouth every 30caps I48.0 Mona Abdullahi, 07/02/2019 240mg day N.P. Caps ER 24HR Eliquis 1 by mouth twice 180tabs I48.0 Mona Abdullahi, 07/02/2019 5mg Tablets a day N.P. Amoxicillin take 4 tablets by 4tabs M25.551 Christiana Willoughby, 11/14/2018 500mg mouth 1 hour M.D. Tablets before dental procedure Zzzquil Gummies 2 gummies for Unknown W/Melatonin sleep Ibuprofen 200 2 tabs every am Unknown 200mg and 2 tabs every Tablets evening Pantoprazole Sodium 1 by mouth every Unknown day 40mg Tablets DR Montesinos Cough & As needed Unknown Chest Congestion DM Adult Citracal Calcium+D once a day Unknown Slow Release 408-44-000rn-mg-Unit Tablets ER 24HR Cetirizine HCL 1 by mouth every Unknown 10mg day Tablets Gabapentin 1 capsule po Unknown 100mg three times daily Capsules Temazepam prn Unknown 7.5mg Capsules Atorvastatin Calcium take 2 tablet 180tabs Unknown daily 10mg Tablets Multivitamin daily Unknown Metformin HCL 2 by mouth one Unknown 500mg time per day Tablets Vitamin B-12 1 by mouth every Unknown 1000mcg day Tablets Fluoxetine HCL 1 by mouth every Unknown 40mg day Capsules Medications Administered in Office Medication SIG Qnty Indications Ordering Provider Date Depomedrol 40MG Christiana Willoughby M.D. 03/30/2019 Injection Inj, Regadenoson, 0.1 MG Oscar Oh M.D. 03/21/2017 Injection Technetium TC 99M Tetrofosmin, Oscar Oh M.D. 03/21/2017 Per Unit Dose Up To 40 Millicuries Injection Immunizations Description No Information Available Vital Signs Date Vital Result Comment 07/13/2019 9:49am Height 62 inches 5'2" Weight 161.00 lb Heart Rate 71 /min BP Systolic 130 mmHg BP Diastolic 74 mmHg Body Temperature 97.6 F Pain Level 5 BMI (Body Mass Index) 29.4 kg/m2 07/02/2019 1:14pm Height 62 inches 5'2" Weight 161.50 lb Heart Rate 65 /min BP Systolic Sitting 152 mmHg Rue reg cuff BP Diastolic Sitting 78 mmHg Rue reg cuff BP Systolic Standing 138 mmHg Rue reg cuff BP Diastolic Standing 70 mmHg Rue reg cuff Respiratory Rate 13 /min BMI (Body Mass Index) 29.5 kg/m2 Ejection Fraction >65% ECHO 10/23/2018 Results Test Acquired Date Facility Test Result H/L Range Note Xray 03/30/2019 [facility] Inj/Aspir Major JT Or Bursa <pending> W/ US Procedures Date Code Description Status 07/02/2019 31392 EKG Tracing & Interpretation Completed 06/29/2019 38880 Pace Maker Eval W/Iterative Adjment Dual Lead Completed 06/29/2019 02334 Pace Maker Eval W/Iterative Adjment Dual Lead Completed 03/30/2019 97191 Inj/Aspir Major JT Or Bursa W/ US Completed Medical Devices Description No Information Available Encounters Type Date Location Provider Dx Diagnosis Office Visit 07/02/2019 [facility] Mona Abdullahi, I49.5 Sick sinus 1:30p Of [facility] N.P. syndrome Z95.0 Presence of cardiac pacemaker I48.0 Paroxysmal atrial fibrillation I10 Essential (primary) hypertension Z01.810 Encounter for preprocedural cardiovascular examination M16.12 Unilateral primary osteoarthritis, left hip Office Visit 05/27/2019 1:00p Pulmonology And Jay Jay Huitron, J45.998 Other asthma [facility] Office Visit 05/22/2019 11[facility], M25.551 Pain in right at [facility] hip Z96.641 Presence of right artificial hip joint M25.552 Pain in left hip M16.12 Unilateral primary osteoarthritis, left hip M76.01 Gluteal tendinitis, right hip Office Visit 04/17/2019 2:00p [facility]25.551 [facility] Presence of right artificial hip joint M25.552 Pain in left hip M16.12 Unilateral primary osteoarthritis, left hip Office Visit 03/30/2019 3:15p [facility] M25.551 [facility] Z96.641 Presence of right artificial hip joint M25.552 Pain in left hip M16.12 Unilateral primary osteoarthritis, left hip Office Visit 02/19/2019 1:00p Pulmonology And Jenny Mclaughlin45.998 Other asthma [facility] R91.8 Other nonspecific abnormal finding of lung field J98.4 Other disorders of lung Assessments Date Code Description Provider 07/13/2019 M25.552 Pain in left hip Christiana Willoughby M.D. 07/13/2019 M16.12 Unilateral primary osteoarthritis, left Christiana Willoughby M.D. hip 07/02/2019 R94.31 Abnormal electrocardiogram [ECG] [EKG] Boom Irene M.D. 07/02/2019 I49.5 Sick sinus syndrome Moan Abdullahi, N.P. 07/02/2019 Z95.0 Presence of cardiac pacemaker Mona Abdullahi, N.P. 07/02/2019 I48.0 Paroxysmal atrial fibrillation Mona SPiyush Abdullahi, N.P. 07/02/2019 I10 Essential (primary) hypertension Mona SPiyush Abdullahi, N.P. 07/02/2019 Z01.810 Encounter for preprocedural Mona Rausch. Bradly, N.P. cardiovascular examination 07/02/2019 M16.12 Unilateral primary osteoarthritis, left Mona SPiyush Abdullahi, N.P. hip 06/29/2019 I49.5 Sick sinus syndrome Ica Pacer Schedule 06/29/2019 Z95.0 Presence of cardiac pacemaker Boom Irene M.D. 06/29/2019 Z95.0 Presence of cardiac pacemaker [facility] Pacer Schedule 06/24/2019 R41.3 Other amnesia Chapin Castanon, JONATHAN 06/08/2019 M25.552 Pain in left hip Christiana Willoughby M.D. 06/08/2019 M16.12 Unilateral primary osteoarthritis, left Christiana Willoughby M.D. hip 05/27/2019 J45.998 Other asthma Jay Jay Huitron MD 05/22/2019 M25.551 Pain in right hip Christiana Willoughby M.D. 05/22/2019 Z96.641 Presence of right artificial hip joint Christiana Willoughby M.D. 05/22/2019 M25.552 Pain in left hip Christianasandra Willoughby, M.D. 05/22/2019 M16.12 Unilateral primary osteoarthritis, left Christianasandra Willoughby, M.D. hip 05/22/2019 M76.01 Gluteal tendinitis, right hip Christianajimmie Willoughby, M.D. 04/17/2019 M25.551 Pain in right hip Christianasandra iWlloughby, M.D. 04/17/2019 Z96.641 Presence of right artificial hip joint Christiana Willoughby, M.D. 04/17/2019 M25.552 Pain in left hip Christianasandra Willoughby, M.D. 04/17/2019 M16.12 Unilateral primary osteoarthritis, left ChristianaJamison Wilson.D. hip 03/30/2019 M25.551 Pain in right hip Christianasandra Willoughby, M.D. 03/30/2019 Z96.641 Presence of right artificial hip joint Jamison Villar.D. 03/30/2019 M25.552 Pain in left hip Christianasandra Willoughby, M.D. 03/30/2019 M16.12 Unilateral primary osteoarthritis, left Christianasandra Willoughby M.D. hip 02/19/2019 J45.998 Other asthma Jay Jay Huitron MD 02/19/2019 R91.8 Other nonspecific abnormal finding of Jay Jay Huitron MD lung field 02/19/2019 J98.4 Other disorders of lung Jay Jay Huitron MD Plan of Treatment Future Appointment(s):08/05/2019 10:00 am - Christiana Willoughby M.D. at [facility]08/25/2019 2:30 pm - Mona Abdullahi NNnamdi at [facility]08/25/2019 2:00 pm - Ica Pacer Schedule at [facility]07/23/2019 10:30 am - Gianni Hansen PA-C at [facility] at [id number] 10:30 am - KRISTAL Jurado at [facility] at [id number] 1:00 pm - Chapin Castanon NP at [facility]07/23/2019 10:30 am - Christiana Willoughby M.D. at [facility] at Sihbbu5507/13/2019 - Christiana Willoughby M.D.M25.552 Pain in left hipFollow up:Follow up: 2 weeks after slwqccrA47.12 Unilateral primary osteoarthritis, left hip Functional Status Description No Information Available Mental Status Description No Information Available Referrals Description No Information Available
--- OUTSIDE RECORDS SUMMARY | 2019-07-23 07:06 | XMS REPORT | Continuity of Care Document ---
:1945 External Reference #:[id number] Author Name Mona Abdullahi N.P. (transmitted by agent of provider Raquel Ascencio) Address [address] [place] [address] Care Team Providers Name Role Phone Arias Bell MD - Internal Care Team Information Insurance Follow Up Specialist [phone] Medicine Arnoldo Angulo DO - Family Care Team Information Insurance Follow Up Specialist Medicine Problems Active Problems Provider Date Sinus node dysfunction Flores Gibson M.D. Onset: 04/11/2017 Localized, primary osteoarthritis of the pelvic Christiana Willoughby M.D. Onset: region and thigh Trochanteric bursitis Christiana Willoughby M.D. Onset: 07/07/2018 Prosthetic arthroplasty of the hip Christiana Willoughby M.D. Onset: 12/12/2018 Social History Type Date Description Comments Sex Unknown Tobacco Use Start: Unknown Never Smoked Cigarettes Smoking Status Reviewed: 06/24/19 Never Smoked Cigarettes ETOH Use Drinks Alcoholic Beverages Occasionally Tobacco Use Start: Unknown Patient has never smoked Recreational Drug Use Denies Drug Use Exercise Type/Frequency Exercises sporadically Trying to walk following hip replacement Allergies, Adverse Reactions, Alerts Active Allergies Reaction Severity Comments Date Lisinopril Cough 09/25/2018 Chano Inhibitors Cough 02/19/2019 Inactive Allergies NKDA 10/24/2016 Medications Active Medications SIG Qnty Indications Ordering Date Provider Amoxicillin take 4 tablets by 4tabs M25.551 Christiana Willoughby, 11/14/2018 500mg mouth 1 hour M.D. Tablets before dental procedure Amlodipine Besylate 1 by mouth every Mona Abdullahi, 03/21/2018 day N.P. 10mg Tablets Fluoxetine HCL 1 by mouth every [...] Calcium+D once a day Unknown Slow Release [id number]-mg-Unit Tablets ER 24HR Robitussin Cough & As [...] Available Vital Signs Date Vital Result Comment 06/24/2019 1:01pm Height 62 inches 5'2" Weight 161.00 lb Heart Rate 72 /min BP Systolic 146 mmHg BP Diastolic 88 mmHg BMI (Body Mass Index) 29.4 kg/m2 05/27/2019 12:56pm Height 62 inches 5'2" Weight 156.50 lb Heart Rate 76 /min BP Systolic Sitting 138 mmHg Lue reg cuff BP Diastolic Sitting 74 mmHg Lue reg cuff Respiratory Rate 18 /min O2 % BldC Oximetry 96 % On Ra BMI (Body Mass Index) 28.6 kg/m2 Results Test Date Facility Test Result H/L Range Note Xray 03/30/2019 [facility] Inj/Aspir Major JT Or Bursa W/ <pending> US Procedures Date Code Description Status 03/30/2019 32579 Inj/Aspir Major JT Or Bursa W/ US Completed Medical Devices Description No Information Available Encounters Type Date Location Provider Dx Diagnosis Office Visit 05/27/2019 [facility] Jay Jay Huitron MD J45.998 Other asthma 1:00p [facility] Office Visit 05/22/2019 [facility] Christiana Willoughby, M25.551 Pain in right hip 11:00a at [place] M.D. Z96.641 Presence of right artificial hip joint M25.552 Pain in left hip M16.12 Unilateral primary osteoarthritis, left hip M76.01 Gluteal tendinitis, right hip Office Visit 04/17/2019 2:00p [facility] M25.551 Pain in right at [place] M.D. hip Z96.641 Presence of right artificial hip joint M25.552 Pain in left hip M16.12 Unilateral primary osteoarthritis, left hip Office Visit 03/30/2019 3:15p [facility] M25.551 Pain in right at [place] M.D. hip Z96.641 Presence of right artificial hip joint M25.552 Pain in left hip M16.12 Unilateral primary osteoarthritis, left hip Office Visit 02/19/2019 1:00p Pulmonology And Jay Jay Huitron, J45.998 Other asthma [facility] R91.8 Other nonspecific abnormal finding of lung field J98.4 Other disorders of lung Assessments Date Code Description Provider 06/24/2019 R41.3 Other amnesia Chapin Castanon, JONATHAN [...] finding of lung Jay Jay Huitron MD [facility] 02/19/2019 J98.4 Other disorders of lung Jay Jay Huitron MD 01/09/2019 Z96.641 Presence of right artificial hip joint Christiana Willoughby M.D. 01/09/2019 Z47.1 Aftercare following joint replacement surgery Christiana Willoughby M.D. Plan of Treatment Future Appointment(s):09/23/2019 1:00 pm - Chapin Castanon NP at [facility]06/29/2019 11:30 am - Ica Pacer Schedule at [facility]07/23/2019 10:30 am - Christiana Willoughby M.D. at [facility] at Klxcfb8707/13/2019 9:30 am - Christiana Willoughby M.D. at [facility] at Mcbfax7006/24/2019 - Chapin Castanon, NPR41.3 Other amnesiaFollow up:Please obtain most recent lab results from Dr. Angulo's office. Please fill out release of records form. Three months with Chapin Functional Status Description No Information Available Mental Status Description No Information Available Referrals Description No Information Available
--- OUTSIDE RECORDS SUMMARY | 2019-07-23 07:06 | XMS REPORT | Continuity of Care Document ---
:1945 External Reference #:[id number] Author Name Reynaldo Meehan, OD Address [address] [place] [address] Problems Active Problems Provider Date Lens Replaced By Other Means Boo Levi M.D. Onset: 11/24/2014 Vitreous degeneration Boo Levi M.D. Onset: 11/24/2014 Epiretinal membrane Boo Levi M.D. Onset: 11/20/2013 Type 2 diabetes mellitus Boo Levi M.D. Onset: 11/20/2013 Social History Type Date Description Comments Sex Unknown ETOH Use Drinks 2 Alcoholic Beverages Per Week Tobacco Use Start: Unknown Patient has never smoked Smoking Status Reviewed: 07/01/19 Patient has never smoked Allergies, Adverse Reactions, Alerts Description No Known Drug Allergies Medications Active Medications SIG Qnty Indications Ordering Provider Date Fluoxetine Unknown Gabapentin Unknown Temazepam Unknown Atorvastatin Calcium Jhoana Arzate MD 20mg Tablets SF 5000 Plus Unknown 1.1% Cream Mupirocin 2% Jhoana Arzate MD Ointment Metformin HCL Unknown 500mg Tablets Amlodipine Besylate Unknown 5mg Tablets Pantoprazole Sodium Unknown 40mg Tablets DR Immunizations Description No Information Available Vital Signs Date Vital Result Comment 12/29/2018 2:01pm Intraocular Pressure Right Eye 16 mmHg Intraocular Pressure Left Eye 16 mmHg 12/27/2017 11:30am Intraocular Pressure Right Eye 16 mmHg Intraocular Pressure Left Eye 16 mmHg Results Description No Information Available Procedures Date Code Description Status 07/01/2019 52841 Oct Retina Completed 07/01/2019 94668 Eye Exam Est Intermediate Completed Medical Devices Description No Information Available Encounters Description No Information Available Assessments Date Code Description Provider 07/01/2019 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
--- OUTSIDE RECORDS SUMMARY | 2019-07-23 07:06 | XMS REPORT | Continuity of Care Document ---
:1945 External Reference #:[id number] Author Name Chapin Castanon NP (transmitted by agent of provider Bethanie Serrano) Address [address] [facility] [address], [place] [address] Care Team Providers Name Role Phone Arias Bell MD - Internal Care Team Information Limnologist Medicine Arnoldo Angulo DO - Family Care Team Information Limnologist Medicine Problems Active Problems Provider Date Sinus [...] Calcium+D once a day Unknown Slow Release 912-10-788en-mg-Unit Tablets ER 24HR Robitussin Cough & As [...] Test Result H/L Range Note Xray 03/30/2019 [facility] Inj/Aspir Major JT Or Bursa W/ <pending> US Procedures Date Code Description Status 03/30/2019 63561 Inj/Aspir Major JT Or Bursa W/ US Completed Medical Devices Description No Information Available Encounters Type Date Location Provider Dx Diagnosis Office Visit 05/27/2019 [facility] And Jay Jay [place] MD J45.998 Other asthma 1:00p [facility] Office Visit 05/22/2019 [facility] Christiana Willoughby, M25.551 Pain in right hip 11:00a at [place] M.D. Z96.641 Presence of right artificial hip joint M25.552 Pain in left hip M16.12 Unilateral primary osteoarthritis, left hip M76.01 Gluteal tendinitis, right hip Office Visit 04/17/2019 2:00p [facility] M25.551 Pain in right at [place] M.D. hip Z96.641 Presence of right artificial hip joint M25.552 Pain in left hip M16.12 Unilateral primary osteoarthritis, left hip Office Visit 03/30/2019 3:15p Federica Willoughby M25.551 Pain in right at [place] M.D. hip Z96.641 Presence of right artificial hip joint M25.552 Pain in left hip M16.12 Unilateral primary osteoarthritis, left hip Office Visit 02/19/2019 1:00p Pulmonology And Jay Jay Huitron J45.998 Other asthma [facility] R91.8 Other nonspecific abnormal finding of lung field J98.4 Other disorders of lung Assessments Date Code Description Provider 06/24/2019 R41.3 Other amnesia Chapin Castanon NP 06/08/2019 M25.552 Pain in left hip Christiana Willoughby M.D. 06/08/2019 M16.12 Unilateral primary osteoarthritis, left hip Christiana Willoughby M.D. 05/27/2019 J45.998 Other asthma Jay Jay Huitron MD 05/22/2019 M25.551 Pain in right hip Christiana Willoughby M.D. 05/22/2019 Z96.641 Presence of right artificial hip joint Christiana Willoughby M.D. 05/22/2019 M25.552 Pain in left hip Christiana Willoughby M.D. 05/22/2019 M16.12 Unilateral primary osteoarthritis, left hip Jamison Villar.DPiyush 05/22/2019 M76.01 Gluteal tendinitis, right hip Claudia VillarD. 04/17/2019 M25.551 Pain in right hip Jamison Villar.DPiyush 04/17/2019 Z96.641 Presence of right artificial hip joint Christiana Willoughby M.D. 04/17/2019 M25.552 Pain in left hip Jamison Villar.DPiyush 04/17/2019 M16.12 Unilateral primary osteoarthritis, left hip Claudia VillarDPiyush 03/30/2019 M25.551 Pain in right hip Jamison Villar.DPiyush 03/30/2019 Z96.641 Presence of right artificial hip joint Claudia VillarDPiyush 03/30/2019 M25.552 Pain in left hip Jamison Villar.DPiyush 03/30/2019 M16.12 Unilateral primary osteoarthritis, left hip Claudia VillarDPiyush 02/19/2019 J45.998 Other asthma Jay Jay Huitron MD 02/19/2019 R91.8 Other nonspecific abnormal finding of lung Jay Jay Huitron MD [facility] 02/19/2019 J98.4 Other disorders of lung Jay Jay Huitron MD 01/09/2019 Z96.641 Presence of right artificial hip joint Christiana Willoughby M.D. 01/09/2019 Z47.1 Aftercare following joint replacement surgery Christiana Willoughby M.D. Plan of Treatment Future Appointment(s):09/23/2019 1:00 pm - Chapin Castanon NP at [facility]06/29/2019 11:30 am - Ica Pacer Schedule at [facility]07/02/2019 1:30 pm - Mona Abdullahi NPiyushP. at [facility]07/23/2019 9:30 am - Christiana Willoughby M.D. at [facility]07/13/2019 9:30 am - Christiana Willoughby M.D. at [facility]06/24/2019 - Chapin Castanon, NPR41.3 Other amnesiaFollow up:Please obtain most recent lab results from Dr. Angulo's office. Please fill out release of records form. Three months with Chapin Functional Status Description No Information Available Mental Status Description No Information Available Referrals Description No Information Available
--- OUTSIDE RECORDS SUMMARY | 2019-07-23 07:06 | XMS REPORT | Continuity of Care Document ---
:1945 External Reference #:[id number] Author Name Arnoldo Angulo D.O. Address [address] [place] [address] Care Team Providers Name Role Phone [facility] - Care Team Information Copy Preparer [phone] Orthopaedic Surgery Kyle Michelle MD - Plastic and Care Team Information Copy Preparer Reconstructive Surgery [facility] - Otol[facility]ology Care Team Information Copy Preparer [phone] HCP/LW on file Care Team Information Copy Preparer Unavailable [facility] - Care Team Information Copy Preparer Nutrition, Education Dinah De Jesus MD - Pulmonary Care Team Information Copy Preparer Disease Problems Active Problems Provider Date Essential [...] 11/12/18 Never Smoked Cigarettes Smoking Status Reviewed: 07/13/19 Never Smoked Cigarettes ETOH Use Occasionally consumes [...] Medications SIG Qnty Indications Ordering Date Provider Dilt-XR Take One Capsule By Unknown 07/03/2019 240mg Caps ER Mouth Once Daily 24HR Eliquis 1 by mouth twice a Unknown 07/02/2019 5mg Tablets day Pantoprazole Sodium take 1 tablet daily 90tabs F33.0 Arnoldo Angulo, 05/26 before breakfast D.O. 20mg Tablets DR Owusu 10 milliliters by Arnoldo Angulo, 12/20/2018 mouth daily as D.O. 200mg/10ML Solution needed for cough Atorvastatin Calcium Take 1 Tablet By 90tabs E78.0 Arnoldo Angulo, 2017 Mouth Daily For D.O. 20mg Tablets Prevention Of Heart Attack And Stroke. Gabapentin Take 2 Caps By 270caps M79.7 Arnoldo Angulo, 03/15/2017 100mg Mouth In Morning D.O. Capsules And 1 Cap AT Night F33.0 G50.0 30 Min Of Activity Daily of your F33.0 Arnoldo Angulo D.O. 08/08/2016 choice (one you enjoy most or dislike least) Fluoxetine HCL Take 1 Capsule By 90caps F33.0 Arnoldo Angulo D.O. 2015 40mg Mouth Every Day Capsules M79.7 Vitamin B-12 1 qd Unknown [...] HCL Take 1 To 2 180tabs Arnoldo Angulo, 01/20/2019 - 25mg Tablets By Mouth D.O. 05/26/2019 Tablets 3 Times A Day as Needed For Itching Medications Administered in Office Medication SIG Qnty Indications Ordering Provider Date injection, kenalog, 10 mg Arnoldo Angulo D.OPiyush 06/10/2018 Injection B12 Injection Arnoldo Angulo D.OPiyush 03/20/2016 Injection SC/Im Injections Arnoldo Angulo D.OPiyush 03/20/2016 Injection Injection Of Phenergan 50 mg Arias Bell M.D. 09/29/2010 Injection SC/Im Injections Arias Bell M.D. 09/29/2010 Injection Immunizations CPT Code Status Date Vaccine Lot # [id number] Given 06/19/2019 Influenza Vaccine, Inactivated, Subunit, Adjuvanted, For Intrmusc U-Flu Given 06/23/2018 Influenza,Unspecified 13268 Given 04/22/2018 Shingrix Zoster (Shingles) Vaccine (HZV) Recomb,Subnit,Adjuvanted 18187 Given 11/27/2017 Shingrix Zoster (Shingles) Vaccine (HZV) Recomb,Subnit,Adjuvanted 76011 Given 08/16/2017 Td Immunization [id number] 08096 Given 07/04/2017 Influenza Vaccine Split Virus Preservative Free Im Use U-Flu Given 07/12/2016 Influenza,Unspecified U-Flu Given 06/22/2015 Influenza,Unspecified 33238 Given 05/11/2015 Prevnar 13 [id number] 05206 Given 06/21/2014 Flu, Split Virus 3Yrs 63779 Given 05/22/2013 Flu, Split Virus 3Yrs [id number] 96684 Given 06/06/2012 Flu, Split Virus 3Yrs [id number] 21235 Given 05/24/2011 Flu, Split Virus 3Yrs [id number] 43997 Given 08/09/2009 Pneumococcal Immunization 89887 Given 08/09/2009 Flu, Split Virus 3Yrs 82100 Given 10/16/2007 Zostavax 99389 Given 08/26/2006 Adacel or Boostrix, TDaP 06227 Given 10/19/1999 Td Immunization Vital Signs Date Vital Result Comment 07/13/2019 3:04pm BP Systolic 132 mmHg 147/81 pt's wrist monitor BP Diastolic 72 mmHg 147/81 pt's wrist monitor Weight 161.00 lb 05/26/2019 1:35pm BP Systolic 132 mmHg BP Diastolic 62 mmHg Weight 161.00 lb Results Test Acquired Date Facility Test Result H/L Range Note Urinalysis Profile 07/13/2019 [facility] Urine Color Yellow [phone] Urine Appearance Cloudy Urine Specific [place] 1.020 Normal 1.010-1.030 Urine pH 5.0 Normal 5-9 Urine Urobilinogen Negative Negative Urine Ketones Negative Negative Urine Protein Negative Negative Urine Leukocytes 2+ Abnormal Negative Urine Blood Negative Negative Urine Nitrite Negative Negative Urine Bilirubin Negative Negative Urine Glucose Negative Negative Urine White Blood Cell 1+(6-10/hpf) Abnormal Absent Urine Red Blood Cell 1+(3-5/hpf) Abnormal Absent Urine Bacteria Absent Absent Urine Squamous Epithelial Cell Present Abnormal Absent Inr/Protime 07/13/2019 [facility] Inr 1.35 High 0.82-1.09 5 [phone] Laboratory test 07/13/2019 [facility] Partial 41.2 seconds High 26.0- 38.0 finding [phone] Thrombo Time PTT CBC Auto Diff 07/13/2019 [facility] White Blood 10.9 10^3/uL High 3.5 -10.8 [phone] Count Red Blood Count 4.97 10^6/uL High 3.70-4.87 Hemoglobin 15.2 g/dL Normal 12.0-16.0 Hematocrit 45 % Normal 35-47 Mean Corpuscular Volume 91 fL Normal 80-97 Mean Corpuscular Hemoglobin 31 pg Normal 27-31 Mean Corpuscular HGB Conc 34 g/dL Normal 31-36 Red Cell Distribution Width 13 % Normal 10-15 Platelet Count 335 10^3/uL Normal 150-450 Mean Platelet Volume 9.0 fL Normal 7.4-10.4 Abs Neutrophils 7.1 10^3/uL Normal 1.5-7.7 Abs Lymphocytes 2.6 10^3/uL Normal 1.0-4.8 Abs Monocytes 0.9 10^3/uL High 0-0.8 Abs Eosinophils 0.2 10^3/uL Normal 0-0.6 Abs Basophils 0.1 10^3/uL Normal 0-0.2 Abs Nucleated RBC 0.0 10^3/uL Granulocyte % 64.9 % Lymphocyte % 23.6 % Monocyte % 8.6 % Eosinophil % 2.2 % Basophil % 0.7 % Nucleated Red Blood Cells % 0.1 Comp Metabolic Panel 07/13/2019 [facility] Sodium 136 mmol/L Normal 135-145 [phone] Potassium 4.9 mmol/L Normal 3.5-5.0 Chloride 101 mmol/L Normal 101-111 Co2 Carbon Dioxide 25 mmol/L Normal 22-32 Anion Gap 10 mmol/L Normal 2-11 Glucose 92 mg/dL Normal 70-100 Blood Urea Nitrogen 17 mg/dL Normal 6-24 Creatinine 0.76 mg/dL Normal 0.51-0.95 BUN/Creatinine Ratio 22.4 High 8-20 Calcium 10.3 mg/dL Normal 8.6-10.3 Total Protein 7.1 g/dL Normal 6.4-8.9 Albumin 4.6 g/dL Normal 3.2-5.2 Globulin 2.5 g/dL Normal 2-4 Albumin/Globulin Ratio 1.8 Normal 1-3 Total Bilirubin 0.50 mg/dL Normal 0.2-1.0 Alkaline Phosphatase 103 U/L Normal 34-104 Alt 37 U/L Normal 7-52 Ast 35 U/L Normal 13-39 Egfr Non- 74.0 >60 Egfr 89.5 >60 2 Type & Screen 07/13/2019 [facility] Patient Blood Type A Positive [phone] Antibody Screen NEGATIVE Laboratory test finding 05/26/2019 In House Hemoglobin A1c 6.2 Connective Tissue Panel 05/26/2019 [facility] Anti-Nuclear Antibody 0.5 U 3 [phone] Cyclic Citrullinated Peptide <15.6 U 4 Interpretation See Comment 5 Laboratory test 05/26/2019 [facility] Folic Acid > 20.00 ng/mL > 3.99 finding [phone] (Folate) Erythrocyte Sed Rate 6 mm/Hr Normal 0-29 C Reactive Protein 2.42 mg/L Normal <8.01 Comp Metabolic Panel 05/26/2019 [facility] Sodium 136 mmol/L Normal 135-145 [phone] Potassium 4.5 mmol/L Normal 3.5-5.0 Chloride 101 mmol/L Normal 101-111 Co2 Carbon Dioxide 25 mmol/L Normal 22-32 Anion Gap 10 mmol/L Normal 2-11 Glucose 140 mg/dL High 70-100 Blood Urea Nitrogen 17 mg/dL Normal 6-24 Creatinine 0.74 mg/dL Normal 0.51-0.95 BUN/Creatinine Ratio 23.0 High 8-20 Calcium 9.8 mg/dL Normal 8.6-10.3 Total Protein 6.6 g/dL Normal 6.4-8.9 Albumin 4.2 g/dL Normal 3.2-5.2 Globulin 2.4 g/dL Normal 2-4 Albumin/Globulin Ratio 1.8 Normal 1-3 Total Bilirubin 0.40 mg/dL Normal 0.2-1.0 Alkaline Phosphatase 103 U/L Normal 34-104 Alt 29 U/L Normal 7-52 Ast 33 U/L Normal 13-39 Egfr Non- 76.3 >60 Egfr 92.3 >60 6 CBC Auto Diff 05/26/2019 [facility] White Blood 10.8 10^3/uL Normal 3.5-10.8 [phone] Count Red Blood Count 4.83 10^6/uL Normal 3.70-4.87 Hemoglobin 14.8 g/dL Normal 12.0-16.0 Hematocrit 43 % Normal 35-47 Mean Corpuscular Volume 90 fL Normal 80-97 Mean Corpuscular Hemoglobin 31 pg Normal 27-31 Mean Corpuscular HGB Conc 34 g/dL Normal 31-36 Red Cell Distribution Width 14 % Normal 10-15 Platelet Count 312 10^3/uL Normal 150-450 Mean Platelet Volume 9.9 fL Normal 7.4-10.4 Abs Neutrophils 6.8 10^3/uL Normal 1.5-7.7 Abs Lymphocytes 2.8 10^3/uL Normal 1.0-4.8 Abs Monocytes 0.8 10^3/uL Normal 0-0.8 Abs Eosinophils 0.3 10^3/uL Normal 0-0.6 Abs Basophils 0.1 10^3/uL Normal 0-0.2 Abs Nucleated RBC 0.0 10^3/uL Granulocyte % 63.1 % Lymphocyte % 25.8 % Monocyte % 7.7 % Eosinophil % 2.6 % Basophil % 0.8 % Nucleated Red Blood Cells % 0.0 Laboratory test 05/26/2019 [facility] Vitamin B12 1289 pg/mL High 180 -914 7 finding [phone] Magnesium 2.0 mg/dL Normal 1.9-2.7 Laboratory test finding 01/20/2019 In House Hemoglobin A1c 6.4 1 Standard intensity warfarin therapeutic range: 2.0-3.0 High intensity warfarin therapeutic range: 2.5-3.5 2 Because ethnic data is not always [...] 5 Kidney failure <15 (or dialysis) 3 REFERENCE VALUE <=1.0 (Negative) 4 REFERENCE VALUE <20.0 (Negative) 5 Tests for antibodies to dsDNA and CANDIDA antigens are not performed automatically unless the UBALDO result is > or = 3.0 U. Studies performed at [facility] indicate that positive UBALDO results <3.0 U are rarely accompanied by positive second order tests. Test Performed by: [facility] [address] [place] [address] Tire Changer: Julio Urbina M.D. Ph.D.; CLIA# [id number] 6 Because ethnic data is not always readily [...] 15-29 5 Kidney failure <15 (or dialysis) 7 Normal Range 180 to 914 Indeterminate Range 145 to 180 Deficient Range <145 Procedures Date Code Description Status 07/10/2019 50292138 Mammogram Completed 01/07/2019 [id number] Diabetic Retinal Eye Exam Completed 09/22/2018 887118382 Diabetic Foot Exam Completed Medical Devices Description No Information Available Encounters Type Date Location Provider Dx Diagnosis Office Visit 07/13/2019 Main Office KevArnoldo, M25.552 Pain in left hip 2:30p D.O. Z01.818 Encounter for other preprocedural examination Z12.11 Encounter for screening for malignant neoplasm of colon F33.0 Major depressive disorder, recurrent, mild I10 Essential (primary) hypertension J45.20 Mild intermittent asthma, uncomplicated J30.9 Allergic rhinitis, unspecified Z96.641 Presence of right artificial hip joint E11.9 Type 2 diabetes mellitus without complications I48.91 Unspecified atrial fibrillation Office Visit 05/26/2019 1:30p Main Office Dorotaelier Arnoldo, E11.9 Type 2 diabetes D.O. mellitus without complications F33.0 Major depressive disorder, recurrent, mild I10 Essential (primary) hypertension R41.3 Other amnesia J45.20 Mild intermittent asthma, uncomplicated J30.9 Allergic rhinitis, unspecified Z96.641 Presence of right artificial hip joint Office Visit 01/20/2019 11:00a Main Office Arnoldo Angulo Z68.26 Body mass index D.O. (BMI) 26.0-26.9, adult E11.9 Type 2 diabetes mellitus without complications J45.20 Mild intermittent asthma, uncomplicated J30.9 Allergic rhinitis, unspecified I10 Essential (primary) hypertension Z96.641 Presence of right artificial hip joint Assessments Date Code Description Provider 07/13/2019 M25.552 Pain in left hip Arnoldo Angulo D.O. 07/13/2019 Z01.818 Encounter for other preprocedural examination Arnoldo Angulo D.O. 07/13/2019 Z12.11 Encounter for screening for malignant Arnoldo Angulo D.O. neoplasm of colon 07/13/2019 F33.0 Major depressive disorder, recurrent, mild SopArnoldo thapa D.O. 07/13/2019 I10 Essential (primary) hypertension Arnoldo Angulo D.O. 07/13/2019 J45.20 Mild intermittent asthma, uncomplicated SophariskArnoldo D.O. 07/13/2019 J30.9 Allergic rhinitis, unspecified SophariskArnoldo, D.O. 07/13/2019 Z96.641 Presence of right artificial hip joint Arnoldo Angulo D.O. 07/13/2019 E11.9 Type 2 diabetes mellitus without Arnoldo Angulo D.O. complications 07/13/2019 I48.91 Unspecified atrial fibrillation Arnoldo Angulo D.O. 05/26/2019 E11.9 Type 2 diabetes mellitus without Sopchak, Arnoldo, D.O. complications 05/26/2019 F33.0 Major depressive disorder, recurrent, mild Arnoldo Angulo D.O. 05/26/2019 I10 Essential (primary) hypertension Arnoldo Angulo D.O. 05/26/2019 R41.3 Other amnesia Arnoldo Angulo D.O. 05/26/2019 J45.20 Mild intermittent asthma, uncomplicated Arnoldo Angulo D.O. 05/26/2019 J30.9 Allergic rhinitis, unspecified Arnoldo Angulo D.O. 05/26/2019 Z96.641 Presence of right artificial hip joint Arnoldo Angulo D.O. 01/20/2019 Z68.26 Body mass index (BMI) 26.0-26.9, adult Arnoldo Angulo D.O. 01/20/2019 E11.9 Type 2 diabetes mellitus without Arnoldo Angulo D.O. complications 01/20/2019 J45.20 Mild intermittent asthma, uncomplicated Arnoldo Angulo D.O. 01/20/2019 J30.9 Allergic rhinitis, unspecified Arnoldo Angulo D.O. 01/20/2019 I10 Essential (primary) hypertension Arnoldo Angulo D.O. 01/20/2019 Z96.641 Presence of right artificial hip joint Arnoldo Angulo D.O. Plan of Treatment Future Appointment(s):10/16/2019 1:30 pm - Arnoldo Angulo D.O. at Main [facility]/13/2019 - Arnoldo Angulo D.O.M25.552 Pain in left hipZ01.818 Encounter for other preprocedural kmqbjqvqixnZ47.11 Encounter for screening for malignant neoplasm of wuyiiX65.0 Major depressive disorder, recurrent, mildI10 Essential (primary) pelqktnptgdaN23.20 Mild intermittent asthma, esqoonyvbumhdE01.9 Allergic rhinitis, ftjkherzxswW35.641 Presence of right artificial hip wqiqnU89.9 Type 2 diabetes mellitus without complicationsFollow up:3 months DM/depression recheck GERD after dose reduction/trigeminal neuralgia consider gabapentin dose bjacbfzbpL69.91 Unspecified atrial fibrillation Goals 07/13/2019 - Arnoldo Angulo D.O.E11.9 Type 2 diabetes mellitus without complicationsHemoglobin A1C (average glucose) < 7.0 - this is checked every 3 months. Avoid/limit carbohydrates: foods like Potatoes, Wheat (bread,pasta, cookies,crackers,pretzels,dough), Rice, Gunpowder, and Sugar Limit sweetened beverages. Check eyes yearly with a dialated exam with an video production specialist Check fordiabetic kidney disease yearly with urine microalbumin test Check your feet by looking at all sidesdaily; once a year at least have them checked by a doctor. Functional Status Description No Information Available Mental Status Description No Information Available Referrals Refer to Dr Reason for Referral Status Appt Date Sierra Santana MD memory problems Consult and Treat Closed 06/24/2019 [facility] [address] [place] [id number] [phone]
--- OUTSIDE RECORDS SUMMARY | 2019-07-23 07:06 | XMS REPORT | Continuity of Care Document ---
:1945 External Reference #:[id number] Author Name Jay Jay Huitron MD (transmitted by agent of provider Lisa Hutchins) Address [address], [address] [place] [address] Care Team Providers Name Role Phone Arias Bell MD - Internal Care Team Information [place] [phone] Medicine Arnoldo Angulo DO - Family Care Team Information [place] [phone] Medicine Problems Active Problems Provider Date Sinus node dysfunction Flores Gibson M.D. Onset: 04/11/2017 Localized, primary osteoarthritis of the pelvic Christiana Willoughby M.D. Onset: region and thigh Trochanteric bursitis Christiana Willoughby M.D. Onset: 07/07/2018 Prosthetic arthroplasty of the hip Christiana Willoughby M.D. Onset: 12/12/2018 Social History Type Date Description Comments Sex Unknown Tobacco Use Start: Unknown Never Smoked Cigarettes Smoking Status Reviewed: 05/27/19 Never Smoked Cigarettes ETOH Use Drinks Alcoholic [...] by mouth every Unknown 40mg day Capsules Pantoprazole Sodium 1 by mouth every Unknown day 20mg Tablets DR Celebrex 1 tab by mouth Unknown 100mg Capsules daily Vitamin B-12 1 by mouth every Unknown 1000mcg day Tablets Metformin HCL 2 by mouth one Unknown 500mg time per day Tablets Multivitamin daily Unknown Atorvastatin Calcium take 2 tablet 180tabs Unknown daily 10mg Tablets Temazepam prn Unknown 7.5mg Capsules Gabapentin 1 capsule po Unknown 100mg twice daily Capsules Cetirizine HCL 1 by mouth every Unknown 10mg day Tablets Citracal Calcium+D once a day Unknown Slow Release 974-93-093ea-mg-Unit Tablets ER 24HR Robitussin Cough & As needed Unknown Chest Congestion DM Adult Medications Administered in Office Medication SIG Qnty Indications Ordering Provider Date Depomedrol 40MG Christiana Willoughby M.D. 03/30/2019 Injection Inj, Regadenoson, 0.1 MG Oscar Oh M.D. 03/21/2017 Injection Technetium TC 99M Tetrofosmin, Oscar Oh M.D. 03/21/2017 Per Unit Dose Up To 40 Millicuries Injection Immunizations Description No Information Available Vital Signs Date Vital Result Comment 05/27/2019 12:56pm Height 62 inches 5'2" Weight 156.50 lb Heart Rate 76 /min BP Systolic Sitting 138 mmHg Lue reg cuff BP Diastolic Sitting 74 mmHg Lue reg cuff Respiratory Rate 18 /min O2 % BldC Oximetry 96 % On Ra BMI (Body Mass Index) 28.6 kg/m2 05/22/2019 10:56am Height 62 inches 5'2" Weight 161.25 lb Heart Rate 68 /min BP Systolic 118 mmHg BP Diastolic 72 mmHg Respiratory Rate 12 /min Pain Level 5 BMI (Body Mass Index) 29.5 kg/m2 Results Test Date Facility Test Result H/L Range Note Xray 03/30/2019 Nitroglycerin Distributor In House Inj/Aspir Major JT Or Bursa W/ <pending> US Procedures Date Code Description Status 03/30/2019 12567 Inj/Aspir Major JT Or Bursa W/ US Completed Medical Devices Description No Information Available Encounters Type Date Location Provider Dx Diagnosis Office Visit 04/17/2019 Orthopedic Christiana Willoughby, M25.551 Pain in right hip 2:00p [facility] Z96.641 Presence of right artificial hip joint M25.552 Pain in left hip M16.12 Unilateral primary osteoarthritis, left hip Office Visit 03/30/2019 3:15p Orthopedic Services Christiana Willoughby, M25.551 Pain in right Of Kori Rob hip Z96.641 Presence of right artificial hip joint M25.552 Pain in left hip M16.12 Unilateral primary osteoarthritis, left hip Office Visit 02/19/2019 1:00p Pulmonology And Jenny Mclaughlin45.998 Other asthma [facility] R91.8 Other nonspecific abnormal finding of lung field J98.4 Other disorders of lung Office Visit 12/20/2018 3:12p Pulmonology And Dinah J90 Pleural effusion, [facility] not elsewhere Nitroglycerin Distributor classified I31.3 Pericardial effusion (noninflammatory) J98.11 Atelectasis Office Visit 12/20/2018 10:01a [facility] Cami Hunt MD R09.02 Hypoxemia Hospitalists R07.1 Chest pain on breathing I49.5 Sick sinus syndrome E11.9 Type 2 diabetes mellitus without complications K21.9 Gastro-esophageal reflux disease without esophagitis I10 Essential (primary) hypertension F32.9 Major depressive disorder, single episode, unspecified Office Visit 12/19/2018 10:00a [facility] Frank R07.9 Chest pain, Assoc,[facility] Liane Gibbons unspecified Hospitalists Z86.59 Personal history of other mental and behavioral disorders E11.9 Type 2 diabetes mellitus without complications I10 Essential (primary) hypertension Assessments Date Code Description Provider 05/27/2019 J45.998 Other asthma Jay Jay Huitron MD 05/22/2019 M25.551 Pain in right hip Christiana Willoughby M.D. 05/22/2019 Z96.641 Presence of right artificial hip joint Christiana Willoughby M.D. 05/22/2019 M25.552 Pain in left hip Christiana Willoughby M.D. 05/22/2019 M16.12 Unilateral primary osteoarthritis, left hip Christiana Willoughby M.D. 05/22/2019 M76.01 Gluteal tendinitis, right hip Claudia VillarDPiyush 04/17/2019 M25.551 Pain in right hip Jamison Villar.DPiyush 04/17/2019 Z96.641 Presence of right artificial hip joint Christiana Willoughby M.D. 04/17/2019 M25.552 Pain in left hip Christiana Willoughby M.DPiyush 04/17/2019 M16.12 Unilateral primary osteoarthritis, left hip Christiana Willoughby M.D. 03/30/2019 M25.551 Pain in right hip Jamison Villar.D. 03/30/2019 Z96.641 Presence of right artificial hip joint Christiana Willoughby M.D. 03/30/2019 M25.552 Pain in left hip Claudia VillarDPiyush 03/30/2019 M16.12 Unilateral primary osteoarthritis, left hip Christiana Willoughby M.D. 02/19/2019 J45.998 Other asthma Jay Jay Huitron MD 02/19/2019 R91.8 Other nonspecific abnormal finding of lung Jay Jay Huitron MD field 02/19/2019 J98.4 Other disorders of lung Jay Jay Huitron MD 01/09/2019 Z96.641 Presence of right artificial hip joint Christiana Willoughby M.D. 01/09/2019 Z47.1 Aftercare following joint replacement surgery Christiana Willoughby M.D. 12/20/2018 J90 Pleural effusion, not elsewhere classified Dinah De Jesus MD 12/20/2018 R09.02 Hypoxemia Cami Hunt MD 12/20/2018 I31.3 Pericardial effusion (noninflammatory) Dinah De Jesus MD 12/20/2018 R07.1 Chest pain on breathing Cami Hunt MD 12/20/2018 J98.11 Atelectasis Dinah De Jesus MD 12/20/2018 I49.5 Sick sinus syndrome Cami Hunt MD 12/20/2018 E11.9 Type 2 diabetes mellitus without Cami Hunt MD complications 12/20/2018 K21.9 Gastro-esophageal reflux disease without Cami Hunt MD esophagitis 12/20/2018 I10 Essential (primary) hypertension Cami Hunt MD 12/20/2018 F32.9 Major depressive disorder, single episode, Cami Hunt MD unspecified 12/19/2018 R07.9 Chest pain, unspecified Frank Gibbons M.D. 12/19/2018 Z86.59 Personal history of other mental and Frank Gibbons M.D. behavioral disorders 12/19/2018 E11.9 Type 2 diabetes mellitus without Frank Gibbons M.D. complications 12/19/2018 I10 Essential (primary) hypertension Frank Gibbons M.D. 12/12/2018 M25.551 Pain in right hip Christiana Willoughby M.D. 12/12/2018 Z96.641 Presence of right artificial hip joint Christiana Willoughby M.D. 12/12/2018 Z47.1 Aftercare following joint replacement surgery Christiana Willoughby M.D. Plan of Treatment Future Appointment(s):06/19/2019 1:45 pm - Christiana Willoughby M.D. at [facility]05/22/2019 - Christiana Willoughby M.D.M25.551 Pain in right hipFollow up:Follow up: 4 abltxN28.641 Presence of right artificial hip aypisQ37.552 Pain in left hipM16.12 Unilateral primary osteoarthritis, left hipM76.01 Gluteal tendinitis, right hip Functional Status Description No Information Available Mental Status Description No Information Available Referrals Description No Information Available
[2019-07-23] MEDS ORDERED: Famotidine IV* 10 MG/ML 2 ML (20 mg) ONE (08:16)
[2019-07-23] MEDS ORDERED: ceFAZolin 2 GM in NS PREMIX(*) 2 GM/100 ML BAG IVPB ONE (08:16)
[2019-07-23] MEDS ORDERED: Midazolam* 1 MG/ML 2 ML VIAL (2 MG) ONE (08:24)
[2019-07-23] MEDS ORDERED: KETAMINE HCL* 50 MG/ML 10 ML VIAL ONE (08:24)
[2019-07-23 08:55] LABS: Activated Partial Thrombo Time 35.2 seconds (26.0-38.0); INR 1.02 (0.82-1.09)
[2019-07-23] MEDS ORDERED: Phenylephrine 10 MG/ML VIAL* 1 ML VIAL ONE (09:39)
[2019-07-23] MEDS ORDERED: Propofol* 10 MG/ML 20 ML BTL ONE ×2 (09:39→11:13)
[2019-07-23] MEDS ORDERED: Ondansetron INJ* 2 MG/ML VIAL IV PRN ×2 (10:58→11:51)
[2019-07-23] MEDS ORDERED: Naloxone* 0.4 MG/ML 1 ML VIAL IV PRN (10:58)
[2019-07-23] MEDS ORDERED: Ondansetron ODT TAB* 4 MG PO PRN (11:51)
[2019-07-23] MEDS ORDERED: Morphine INJ* 2 MG/ML 1 ML SYRINGE (TWO MG - NEW SYRINGE VERSION) IV PRN (11:51)
[2019-07-23] MEDS ORDERED: Acetaminophen TAB* 325 MG PO PRN (11:51)
[2019-07-23] MEDS ORDERED: diPHENhydraMINE PO* 25 MG PO PRN (11:51)
[2019-07-23] MEDS ORDERED: Magnesium Hydroxide LIQ* 30 ML UDC PO PRN (11:51)
[2019-07-23] MEDS ORDERED: diPHENhydraMINE IV* 50 MG/ML 1 ml VIAL (BENADRYL) IV PRN (11:51)
[2019-07-23] MEDS ORDERED: HYDROmorphone INJ1* 1 MG/ML SYRINGE ONE (12:03)
[2019-07-23] MEDS: HYDROmorphone INJ1* 1 MG/ML SYRINGE IV PRN ×4 (12:05→12:40)
[2019-07-23] MEDS ORDERED: oxyCODONE/Acetamin 5/325 MG* TAB ONE ×2 (12:31→12:35)
[2019-07-23] MEDS ORDERED: Bupivacaine 0.5% SDV PF* 30ML VIAL ONE (12:34)
[2019-07-23] MEDS: oxyCODONE/Acetamin 5/325 MG* TAB PO PRN ×2 (12:35→21:06)
[2019-07-23] MEDS ORDERED: Ondansetron INJ* 2 MG/ML VIAL ONE (13:16)
--- NOTE | 2019-07-23 13:26 | CONS ---
HOSPITAL MEDICINE CONSULTATION REPORT: DATE OF CONSULT: 07/23/19 PROVIDER: Gabriella Parmar NP ATTENDING PHYSICIAN: Dr. Willoughby. CONSULTING PHYSICIAN: Dr. Marilyn Melchor (dictated by Gabriella Parmar NP). REASON FOR CONSULT: Co-management of chronic medical conditions. HISTORY OF PRESENT ILLNESS: Ms. Olmstead is a 74-year-old female with a past medical history significant for asthma, hypertension, depression, diabetes, GERD , atrial fibrillation, who presented to [facility] [place] for an elective left total hip arthroplasty. Please see dictated H and P from KRISTAL Calzada, for complete details. In brief, the patient had ongoing pain and failed conservative measures; therefore, opted for an elective left total hip arthroplasty with Dr. Willoughby. In the immediate postoperative period, the patient has no complaints. She denies any recent illnesses. Denies any fever, chills, cough, congestion, coughing up blood. She denies any chest pain or edema. Denies any abdominal pain, nausea, vomiting, diarrhea. Denies any dysuria, urinary frequency, or pain with urination. Due to the patient's history of atrial fibrillation and hypertension, Hospital Medicine was asked to co-manage her care during this hospitalization. PAST MEDICAL HISTORY: 1. Asthma. 2. Hypertension. 3. Depression. 4. Diabetes. 5. GERD. 6. Atrial fibrillation. PAST SURGICAL HISTORY: 1. Cholecystectomy. 2. Rhinoplasty. 3. Pacemaker. 4. Hysterectomy. 5. Right total hip replacement. 6. Breast reduction. HOME MEDICATIONS: Include: 1. Pantoprazole 40 mg p.o. daily. 2. Gabapentin 200 mg in the morning, 100 mg in the evening. 3. Fluoxetine 40 mg 1 tablet p.o. daily. 4. Diltiazem 240 mg p.o. daily. 5. Eliquis 5 mg p.o. b.i.d. 6. Vitamin B12. 7. Metformin 1000 mg p.o. daily. 8. Multivitamin 1 tab p.o. daily. 9. Atorvastatin 20 mg p.o. daily. 10. Temazepam 7.5 mg as needed. 11. Zrytec 10mg p.o. daily. 12. Citracal 1 tablet p.o. daily. ALLERGIES: 1. LISINOPRIL. 2. LUCA INHIBITORS. FAMILY HISTORY: Father from a stroke at age 72. Mother from complications of diabetes after a leg amputation at the age of 72. Brother with prostate cancer. SOCIAL HISTORY: The patient denies any smoking or illicit drug use. She does report alcohol use 3 glasses of wine twice weekly. Surrogate decision maker in the event she is unable to make her own decision is her , Olga Barrientos, her phone number is [phone]. She is a full code. REVIEW OF SYSTEMS: A 14-point review of systems was completed. All pertinent positives were mentioned in the HPI. Otherwise were negative. PHYSICAL EXAM: General: At this time, Ms. Olmstead is alert and oriented, resting on the stretcher in PACU. She is in no acute distress. Vital Signs: Blood pressure 155/77, heart rate 66, respirations are 16, O2 saturation 96%, temperature was 97.2. HEENT: Head is atraumatic, normocephalic. Eyes: EOMs are intact. Sclerae anicteric and not pale. Oral mucosa appeared to be moist. Neck is supple. Lungs are clear to auscultation bilaterally. No wheezes, rales , or rhonchi. Cardiac: S1, S2. Regular rate and rhythm. No murmurs, rubs, or gallops. Abdomen is soft and nontender. Bowel sounds are present x4. Extremities: There is no clubbing or cyanosis. Pedal pulses are +2 bilaterally. Neurologic: She is awake, alert, oriented x3. Speech is clear. Thought process is intact. There are no gross focal deficits. Skin: She does have a dressing dry and intact to her left hip. DIAGNOSTIC STUDIES/LAB DATA: CBC from 07/13/19: WBCs were 10.9, RBCs 4.97, hemoglobin 15.2, hematocrit was 45, and platelet count was 335. INR was 1.02, aPTT was 35.2. Sodium 136, potassium 4.9, chloride 101, carbon dioxide was 25, anion gap was 10, BUN was 17, creatinine 0.76, glucose was 92. Total bilirubin 0.50, ASTs were 35, ALTs were 37, alkaline phosphatase was 103. Urine was within normal limits with exception of urine leukocyte esterase was +2, wbc's were +1, squamous epithelial cells were present and urine rbc's were present, urine bacteria was absent. Urine culture from 07/13/19 showed no growth. IMPRESSION AND PLAN: Ms. Olmstead is a 74-year-old female with a past medical history significant for asthma, hypertension, depression, diabetes, gastroesophageal reflux disease and atrial fibrillation, status post pacemaker placement, who presented to [facility] for an elective left total hip arthroplasty. Recommendations are as follows: 1. Status post left total hip arthroplasty. Management per Orthopedics. PT/ OT per Orthopedics. Bowel regimen per Orthopedics. Pain management per Orthopedics and DVT prophylaxis as per Orthopedics. 2. History of atrial fibrillation. The patient has a pacemaker. She has paced rhythm on the monitor. She should continue her diltiazem 240 mg p.o. daily. She should resume Eliquis as soon as possible at 5 mg p.o. b.i.d. 3. Depression. The patient should continue on fluoxetine as previously prescribed. 4. Gastroesophageal reflux disease. She should continue on pantoprazole 40 mg p.o. daily. 5. Hyperlipidemia. She should continue on atorvastatin 20 mg p.o. daily. 6. Type 2 diabetes. I am going to hold the patient's metformin and place her on lispro sliding scale with meals. She will have fingersticks a.c. 7. FEN: She can have a consistent carb diet. 8. Code status: She is a full code. 9. DVT prophylaxis: As per Orthopedics. TIME SPENT: Time spent on this consultation was 45 minutes, greater than half that time was spent at the bedside reviewing the events leading thus far to her hospitalization, performing physical exam, and reviewing my plan of care. I have discussed this with my attending, Dr. Marilyn Melchor; she is in agreement with my plan. GABRIELLA PARMAR, PAPER FINISHER [id number]/CPS #: [id number] BETTE
[2019-07-23] MEDS ORDERED: Dextrose 50% VIAL 50 ml IV PUSH PRN (14:16)
[2019-07-23] MEDS: Lactated Ringers 1000 ML Bag* 1,000 ML IV SCH (14:32)
--- NOTE | 2019-07-23 15:47 | PN ---
Progress Note - Progress Note Date of Service: 07/23/19 SOAP: Pt seen at bedside POD 0 sp LTH. Pain is well controlled. She has transferred from bed to chair with PT. Denies CP, SOB, dizziness, nausea. Takes eliquis 5 mg BID at baseline for a fib. This will be resumed tomorrow morning. Thigh is soft. DF/PF intact. Sensation intact to light touch distally. DP2+.
[2019-07-23] MEDS: oxyCODONE TAB* 5 MG TAB PO PRN (15:48)
[2019-07-23] MEDS: ceFAZolin 1 GM ADVAN(*) 1 GM in NS 0.9% 50 ML* 50 ML IVPB SCH (17:30)
[2019-07-23] MEDS: Pantoprazole TAB * 40 MG TAB PO SCH (17:49)
[2019-07-23] MEDS: Insulin LISPRO* 1 UNITS UNIT SUBCUT SCH (17:49)
--- NOTE | 2019-07-23 20:32 | OP ---
Operative Report - Blank - Operative Report Date of Operation: 07/23/19 Note: LIZETH BANSAL 1945 Date Of Surgery: 07/23/19 Christiana Willoughby MD Family Service Worker: Tanner GIRALDO did help throughout the procedure with preparation of the hip, wound retraction, manipulation of the hip, and wound closure. Anesthesiologist: Dr. Barboza Anesthesia Type: Spinal Preoperative Diagnosis: Left severe degenerative osteoarthritis of the hip Postoperative Diagnosis: As above Procedure Performed: Left Total Hip Arthroplasty Complications: None Specimen: Femoral head and acetabular reamings sent to pathology. Hardware used: This is uncemented Aminata total hip arthroplasty hardware for the femur a size 3 accolade II 127 neck angle femoral component, for the acetabulum a size 50D trident II tritanium cluster hole shell, one 15mm screw, for the insert a size 32D trident X3 polyethylene insert, and for the femoral head a size 32 + 0 ceramic biolox V40 femoral head. Brief history/Indication: LIZETH BANSAL was known in clinic and had a history of severe left hip pain. She failed conservative treatment with anti- inflammatories, pain pills, intra-articular injections and physical therapy. She elected to undergo left total hip arthroplasty due to continued pain and decreased quality of life. Radiographs showed severe end stage osteoarthritis of the hip with bone on bone contact. Informed consent was obtained from the patient. She understood the risks of surgery included but were not limited to: bleeding, infection, damage to nearby structures, intraoperative fracture, nerve palsy, failure of the hardware, early loosening, stiffness or loss of motion, dislocation, leg length discrepancy, anesthesia complications, stroke, heart attack, blood clot and . She wished to proceed. Intra-Operative findings: Intraoperatively the patient was noted to have severe loss of cartilage of the acetabulum and femoral head. Description of the Procedure: ILZETH BANSAL was identified in the preanesthesia unit. Her left hip was marked as the correct operative side. Informed consent was signed and placed in the chart. The patient was taken to the operating room and placed under anesthesia without complication. A montenegro catheter was placed. The patient was placed on the peg board with all bony prominences well padded. The left lower extremity was prepped and draped in the usual sterile fashion. Preoperative time -out was made to correctly identify the patient, side and site. Appropriate intraoperative antibiotics were given within one hour of incision. A standard posterior incision was made and carried sharply down to the lateral fascia. A new 10 blade was used to make an incision in the fascia in line with the skin incision. A charnley retractor was placed. The piriformis and conjoined tendons were identified and elevated off the posterolateral femur using electrocautery. These were tagged with number 5 Ethibond. Next electrocautery was used to make a posterolateral capsular flap and this was tagged with number 5 Ethibonds. The hip was carefully dislocated. Lesser trochanter to the center of the femoral head was measured at 55 mm. The oscillating saw was used to make the femoral neck cut. The femoral head was carefully removed. The femur was retracted anteriorly and the acetabular retractors were placed. Long-handled knife was used to sharply remove any remaining labrum from the acetabular rim. The acetabulum was sequentially reamed up to a size 50. A bleeding subchondral bone bed was obtained. A trial liner was placed and had excellent fit and stability. A 50 D cup with one 15 mm screw was placed and had excellent stability with appropriate anteversion and abduction angle. A size 32 D liner was impacted into the acetabular shell. The liner was checked for stability and was stable. Next attention was turned to preparation of the femoral canal. A canal finder was used to enter the proximal femur. The femoral canal was sequentially broached up to a size 3 femoral broach trial. A trial neck and 32 + 0 trial femoral head was chosen. Lesser trochanter to center of the femoral head measurement was satisfactory. The hip was reduced and taken through a range of motion. The hip was stable in all positions with good soft tissue tension and appropriate leg lengths. The hip was dislocated and all trials were removed. The final implant chosen was a accolade II size 3. This stem was impacted into the femoral canal without difficulty. The stem was stable with appropriate anteversion. The femoral head chosen was a 32 + 0 ceramic head. The head was impacted onto the femoral neck without difficulty. The final lesser trochanter to center of the femoral head measurement was satisfactory. The hip was reduced and taken through a range of motion. The hip was stable in all positions with good soft tissue tension and appropriate leg lengths. The hip was copiously irrigated with sterile saline. The previously tagged capsule and tendons were repaired to the posterolateral femur through two trochanteric drill holes. The lateral fascia layer was closed using number 1 vicryls. The rest of the incision was closed in a layered fashion using 0 and 2-0 vicryls. The skin was closed using 3-0 monocryl suture and Dermabond. Sterile adaptic, 4x4s and paper tape was used to cover the incision. The patients anesthesia was reversed without difficulty. She was taken to the PACU in stable condition. Intended weight-bearing will be as tolerated with posterior hip precautions.
[2019-07-23] MEDS ORDERED: Melatonin 3 MG TAB PO PRN (21:07)
[2019-07-23] MEDS: Docusate CAP* 100 MG PO SCH (21:07)
[2019-07-23] MEDS: Atorvastatin* 20 MG TAB PO SCH (21:07)
[2019-07-23] MEDS: Magnesium Hydroxide LIQ* 30 ML UDC PO SCH ×2 (21:07→21:09)
[2019-07-24] MEDS: Lactated Ringers 1000 ML Bag* 1,000 ML IV SCH (00:39)
[2019-07-24] MEDS: Cyclobenzaprine TAB* 10 MG PO PRN (00:55)
[2019-07-24] MEDS: oxyCODONE/Acetamin 5/325 MG* TAB PO PRN ×4 (00:56→21:51)
[2019-07-24] MEDS: ceFAZolin 1 GM ADVAN(*) 1 GM in NS 0.9% 50 ML* 50 ML IVPB SCH ×2 (01:19→08:20)
[2019-07-24] MEDS: oxyCODONE TAB* 5 MG TAB PO PRN ×3 (04:12→17:44)
[2019-07-24 05:51] LABS: Hematocrit 37 % (35-47); Hemoglobin 12.4 g/dL (12.0-16.0); Mean Platelet Volume 8.7 fL (7.4-10.4); Platelet Count 265 10^3/uL (150-450)
[2019-07-24 06:13] LABS: BUN/Creatinine Ratio 16.4 (8-20); EGFR African American 93.8 (>60); EGFR Non-African American 77.5 (>60); Potassium 4.1 mmol/L (3.5-5.0)
[2019-07-24] MEDS: FLUoxetine CAP* 20 MG PO SCH (08:15)
[2019-07-24] MEDS: Magnesium Hydroxide LIQ* 30 ML UDC PO SCH ×2 (08:16→21:51)
[2019-07-24] MEDS: Docusate CAP* 100 MG PO SCH ×2 (08:16→21:51)
[2019-07-24] MEDS: Apixaban* 5 MG TAB PO SCH ×2 (08:17→21:50)
[2019-07-24] MEDS: Diltiazem CD CAP* 240 MG PO SCH (08:17)
[2019-07-24] MEDS: Insulin LISPRO* 1 UNITS UNIT SUBCUT SCH ×3 (08:17→17:43)
[2019-07-24] MEDS: Multivitamins/Minerals TAB PO SCH (08:17)
[2019-07-24] MEDS ORDERED: Vitamin THERAPEUTIC TAB PO SCH (09:00)
--- NOTE | 2019-07-24 09:41 | PN ---
Progress Note - Progress Note Date of Service: 07/24/19 Note: POD 1 s/p left BENJIE: Patient is resting comfortably in chair somewhat drowsy when conversing. She denies pain, CP or SOB but says "this is much harder than she thought it would be". She has been OOB with PT. She has AROM in bilateral ankles with intact sensation and 2+ DP pulses. Calves are soft and non-tender. Continue PT and pain management. Plan for rehab when medically and orthopedically stable. We will continue to monitor and appreciate medicine's guidance.
--- NOTE | 2019-07-24 09:44 | PN ---
Subjective Date of Service: 07/24/19 Interval History: Patient seen and examined at bedside. Ms. Olmstead is a 74 yo female, admitted 07/23/19 for elective left hip arthroplasty. She is OOB to chair and sleeping but easily awakens. Denies fever/ chills, CP, SOb, abd pain. Tolerating PO. Reports she was up many times last night and feels tired this morning. Family History: Unchanged from Admission Social History: Unchanged from Admission Past Medical History: Unchanged from Admission Objective Active Medications: Acetaminophen (Tylenol Tab*) 650 mg PO Q8HR PRN PRN Reason: MILD PAIN or TEMP > 100.4 Apixaban (Eliquis*) 5 mg PO BID [facility] Last Admin: 07/24/19 08:17 Dose: 5 mg Atorvastatin Calcium (Lipitor*) 20 mg PO BEDTIME [facility] Last Admin: 07/23/19 21:07 Dose: 20 mg Bisacodyl (Dulcolax Supp*) 10 mg [place] DAILY PRN PRN Reason: CONSTIPATION Cyclobenzaprine HCl (Flexeril Tab*) 10 mg PO Q6H PRN PRN Reason: SPASMS Last Admin: 07/24/19 00:55 Dose: 10 mg Dextrose (Dextrose 50% Vial 50 Ml*) 25 ml IV PUSH .FOR FS < 60 - SS PRN PRN Reason: FS < 60 Diltiazem HCl (Cardizem Cd Cap*) 240 mg PO QAM [facility] Last Admin: 07/24/19 08:17 Dose: 240 mg Diphenhydramine HCl (Benadryl Iv*) 25 mg IV Q6H PRN PRN Reason: PRURITIS Diphenhydramine HCl (Benadryl Po*) 25 mg PO Q6H PRN PRN Reason: PRURITIS Docusate Sodium (Colace Cap*) 100 mg PO BID [facility] Last Admin: 07/24/19 08:16 Dose: 100 mg Fluoxetine HCl (Prozac Cap*) 40 mg PO QAM [facility] Last Admin: 07/24/19 08:15 Dose: 40 mg Cefazolin Sodium 1 gm/ Sodium (Chloride) 50 mls @ 200 mls/hr IVPB Q8H [facility] Stop: 07/24/19 09:44 Last Admin: 07/24/19 08:20 Dose: 200 mls/hr Lactated Ringer's (Lactated Ringers 1000 Ml Bag*) 1,000 mls @ 100 mls/hr IV PER RATE [facility] Last Admin: 07/24/19 00:39 Dose: 100 mls/hr Insulin Human Lispro (Humalog*) 0 units [facility]BCUT [facility]; Protocol Last Admin: 07/24/19 08:17 Dose: 4 units Lactulose (Lactulose*) 30 ml PO BID PRN PRN Reason: CONSTIPATION Magnesium Hydroxide (Milk Of Magnesia Liq*) 30 ml PO BID [facility] Last Admin: 07/24/19 08:16 Dose: Not Given Magnesium Hydroxide (Milk Of Magnesia Liq*) 30 ml PO Q6H PRN PRN Reason: CONSTIPATION Melatonin (Melatonin) 3 mg PO BEDTIME PRN PRN Reason: SLEEP Last Admin: 07/23/19 21:18 Dose: 3 mg Morphine Sulfate (Morphine Inj (Syringe))*) 2 mg IV Q4H PRN PRN Reason: Pain - Unrelieved Multivitamins/Minerals (Theragran/Minerals Tab*) 1 tab PO QAM [facility] Last Admin: 07/24/19 08:17 Dose: 1 tab Ondansetron HCl (Zofran Inj*) 4 mg IV Q6H PRN PRN Reason: NAUSEA Ondansetron HCl (Zofran Odt Tab*) 4 mg PO Q6H PRN PRN Reason: NAUSEA Oxycodone HCl (Roxycodone Tab*) 10 mg PO Q4H PRN PRN Reason: Pain - Breakthrough Last Admin: 07/24/19 04:12 Dose: 10 mg Oxycodone/Acetaminophen (Percocet 5/325 Tab*) 1 tab PO Q4H PRN PRN Reason: PAIN - MODERATE Last Admin: 07/24/19 08:16 Dose: 1 tab Oxycodone/Acetaminophen (Percocet 5/325 Tab*) 2 tab PO Q4H PRN PRN Reason: PAIN - SEVERE Last Admin: 07/24/19 00:56 Dose: 2 tab Pantoprazole Sodium (Protonix Tab*) 40 mg PO QPM [facility] Last Admin: 07/23/19 17:49 Dose: 40 mg Vital Signs - 8 hr 07/24/19 07/24/19 07/24/19 03:00 04:06 04:12 Temperature 98.9 F Pulse Rate 95 Respiratory 16 18 18 Rate Blood Pressure 147/66 (mmHg) O2 Sat by Pulse 93 Oximetry 07/24/19 07/24/19 07/24/19 06:10 08:00 08:15 Temperature 97.8 F Pulse Rate 88 Respiratory 16 16 16 Rate Blood Pressure 172/85 (mmHg) O2 Sat by Pulse 94 Oximetry 07/24/19 08:16 Temperature Pulse Rate Respiratory 16 Rate Blood Pressure (mmHg) O2 Sat by Pulse Oximetry Oxygen Devices in Use Now: None Appearance: 74 yo female, OOB to chair, NAD Eyes: No Scleral Icterus, PERRLA Ears/Nose/Mouth/Throat: Clear Oropharnyx, Mucous Membranes Moist Neck: NL Appearance and Movements; NL JVP Respiratory: Symmetrical Chest Expansion and Respiratory Effort, Clear to Auscultation Cardiovascular: NL Sounds; No Murmurs; No JVD, RRR Abdominal: NL Sounds; No Tenderness; No Distention Extremities: No Edema, No Clubbing, Cyanosis, - - DP 2+ and symmetric Skin: No Rash or Ulcers, - - left hip dressing c/d/i Neurological: Alert and Oriented x 3, NL Muscle Strength and Tone Lines/Tubes/Other Access: Clean, Dry and Intact Peripheral IV Nutrition: Taking PO's Result Diagrams: 07/24/19 05:25 07/24/19 05:25 Assess/Plan/Problems-Billing Assessment: Ms. Olmstead is a 74 yo female with a PMH significant for asthma, HTN, DM, depression, GERD, and afib s/p pacemaker who was admitted 07/23/19 for elective left total hip arthroplasty. - Patient Problems (1) History of total left hip replacement Code(s): Z96.642 - PRESENCE OF LEFT ARTIFICIAL HIP JOINT Comment: POD #1, management per ortho Continue pain management and bowel regimen PT/OT PMRU (2) HTN (hypertension) Code(s): I10 - ESSENTIAL (PRIMARY) HYPERTENSION Comment: Currently hypertensive but not appearing in pain/distress Recently received diltiazem ER, continue to monitor Add prn hydralazine IV, stop maintenance IVF (3) Atrial fibrillation Code(s): I48.91 - UNSPECIFIED ATRIAL FIBRILLATION Comment: Stable, rate controlled Continue diltiazem and apixaban Has pacemaker (4) Diabetes Code(s): E11.9 - TYPE 2 DIABETES MELLITUS WITHOUT COMPLICATIONS Comment: Fair control, continue Lispro sliding scale (may need to increase SS protocol if BG remain in 200s) Hold home metformin, resume on discharge (5) GERD (gastroesophageal reflux disease) Code(s): K21.9 - GASTRO-ESOPHAGEAL REFLUX DISEASE WITHOUT ESOPHAGITIS Comment : Stable Continue pantoprazole (6) HLD (hyperlipidemia) Code(s): E78.5 - HYPERLIPIDEMIA, UNSPECIFIED Comment: Continue atorvastatin (7) Depression Code(s): F32.9 - MAJOR DEPRESSIVE DISORDER, SINGLE EPISODE, UNSPECIFIED Comment: Continue fluoxetine (8) Status cardiac pacemaker Code(s): Z95.0 - PRESENCE OF CARDIAC PACEMAKER Comment: History of sick sinus syndrome (9) DVT prophylaxis Comment: Per ortho On apixaban (10) Full code status Code(s): Z78.9 - OTHER SPECIFIED HEALTH STATUS Comment: Status and Disposition: Per ortho. PMRU referral pending.
[2019-07-24] MEDS ORDERED: hydrALAZINE IV* 20 MG/ML VIAL IV SLOW PU PRN (09:45)
[2019-07-24] MEDS: Pantoprazole TAB * 40 MG TAB PO SCH (17:45)
[2019-07-24] MEDS: Atorvastatin* 20 MG TAB PO SCH (21:50)
[2019-07-25] MEDS: oxyCODONE TAB* 5 MG TAB PO PRN ×2 (04:19→12:19)
[2019-07-25] MEDS: Cyclobenzaprine TAB* 10 MG PO PRN ×2 (05:41→12:18)
[2019-07-25 06:13] LABS: Hematocrit 35 % (35-47); Hemoglobin 11.6 g/dL (12.0-16.0); Mean Platelet Volume 8.8 fL (7.4-10.4); Platelet Count 218 10^3/uL (150-450)
--- NOTE | 2019-07-25 07:21 | PN ---
Hospitalist Progress Note Date of Service: 07/25/19 Medicine addendum. Co management as per our team, for now will sign off. Please call us if needed
--- NOTE | 2019-07-25 07:46 | PN ---
Subjective Date of Service: 07/25/19 Interval History: First note entered in error!! HD3 on 07/25 74 F with a PMH significant for asthma, HTN, DM, depression, GERD, and afib s/p pacemaker who was admitted 07/23/19 for elective left total hip arthroplasty. No acute events--some confusion overnight, though clear this AM per nursing notes, VSS T Max 100.4 This afternoon, some complaint of pain but generally looking forward to PMRU. No SOB, CP, , does report no BM but no pain yet. Family History: Unchanged from Admission Social History: Unchanged from Admission Past Medical History: Unchanged from Admission Objective Active Medications: Acetaminophen (Tylenol Tab*) 650 mg PO Q8HR PRN PRN Reason: MILD PAIN or TEMP > 100.4 Apixaban (Eliquis*) 5 mg PO BID [facility] Last Admin: 07/24/19 21:50 Dose: 5 mg Atorvastatin Calcium (Lipitor*) 20 mg PO BEDTIME [facility] Last Admin: 07/24/19 21:50 Dose: 20 mg Bisacodyl (Dulcolax Supp*) [address] DAILY PRN PRN Reason: CONSTIPATION Cyclobenzaprine HCl (Flexeril Tab*) 10 mg PO Q6H PRN PRN Reason: SPASMS Last Admin: 07/25/19 05:41 Dose: 10 mg Dextrose (Dextrose 50% Vial 50 Ml*) 25 ml IV PUSH .FOR FS < 60 - SS PRN PRN Reason: FS < 60 Diltiazem HCl (Cardizem Cd Cap*) 240 mg PO QAM [facility] Last Admin: 07/24/19 08:17 Dose: 240 mg Diphenhydramine HCl (Benadryl Iv*) 25 mg IV Q6H PRN PRN Reason: PRURITIS Diphenhydramine HCl (Benadryl Po*) 25 mg PO Q6H PRN PRN Reason: PRURITIS Docusate Sodium (Colace Cap*) 100 mg PO BID [facility] Last Admin: 07/24/19 21:51 Dose: Not Given Fluoxetine HCl (Prozac Cap*) 40 mg PO QAM [facility] Last Admin: 07/24/19 08:15 Dose: 40 mg Hydralazine HCl (Apresoline Iv*) 5 mg IV SLOW PU Q6H PRN PRN Reason: BLOOD PRESSURE Insulin Human Lispro (Humalog*) 0 units [facility]BC[facility]; Protocol Last Admin: 07/24/19 17:43 Dose: 4 units Lactulose (Lactulose*) 30 ml PO BID PRN PRN Reason: CONSTIPATION Magnesium Hydroxide (Milk Of Magnesia Liq*) 30 ml PO BID [facility] Last Admin: 07/24/19 21:51 Dose: Not Given Magnesium Hydroxide (Milk Of Magnesia Liq*) 30 ml PO Q6H PRN PRN Reason: CONSTIPATION Melatonin (Melatonin) 3 mg PO BEDTIME PRN PRN Reason: SLEEP Last Admin: 07/23/19 21:18 Dose: 3 mg Morphine Sulfate (Morphine Inj (Syringe))*) 2 mg IV Q4H PRN PRN Reason: Pain - Unrelieved Multivitamins/Minerals (Theragran/Minerals Tab*) 1 tab PO QAM [facility] Last Admin: 07/24/19 08:17 Dose: 1 tab Ondansetron HCl (Zofran Inj*) 4 mg IV Q6H PRN PRN Reason: NAUSEA Ondansetron HCl (Zofran Odt Tab*) 4 mg PO Q6H PRN PRN Reason: NAUSEA Oxycodone HCl (Roxycodone Tab*) 10 mg PO Q4H PRN PRN Reason: Pain - Breakthrough Last Admin: 07/25/19 04:19 Dose: 10 mg Oxycodone/Acetaminophen (Percocet 5/325 Tab*) 1 tab PO Q4H PRN PRN Reason: PAIN - MODERATE Last Admin: 07/24/19 14:05 Dose: 1 tab Oxycodone/Acetaminophen (Percocet 5/325 Tab*) 2 tab PO Q4H PRN PRN Reason: PAIN - SEVERE Last Admin: 07/24/19 21:51 Dose: 2 tab Pantoprazole Sodium (Protonix Tab*) 40 mg PO QPM [facility] Last Admin: 07/24/19 17:45 Dose: 40 mg Vital Signs - 8 hr 07/25/19 07/25/19 07/25/19 00:30 02:00 04:04 Temperature 99.1 F 100.4 F Pulse Rate 65 91 Respiratory 18 16 18 Rate Blood Pressure 142/70 130/72 (mmHg) O2 Sat by Pulse 90 91 Oximetry 07/25/19 07/25/19 07/25/19 04:19 05:41 06:33 Temperature Pulse Rate Respiratory 16 16 16 Rate Blood Pressure (mmHg) O2 Sat by Pulse Oximetry Oxygen Devices in Use Now: None Appearance: Pleasant woman in NAD Eyes: No Scleral Icterus, PERRLA Ears/Nose/Mouth/Throat: NL Teeth, Lips, Gums, Clear Oropharnyx Neck: NL Appearance and Movements; NL JVP, Trachea Midline Respiratory: Symmetrical Chest Expansion and Respiratory Effort, Clear to Auscultation Cardiovascular: RRR, - - Systolic murmur Abdominal: NL Sounds; No Tenderness; No Distention, No Hepatosplenomegaly Lymphatic: No Cervical Adenopathy, No Axillary Adenopathy Extremities: No Edema Skin: No Rash or Ulcers Neurological: Alert and Oriented x 3 Result Diagrams: 07/25/19 05:33 07/24/19 05:25 Assess/Plan/Problems-Billing Assessment: 74 F with a PMH significant for asthma, HTN, DM, depression, GERD, and afib s/p pacemaker who was admitted 07/23/19 for elective left total hip arthroplasty. POD#2 - Patient Problems (1) History of total left hip replacement Current Visit: Yes Status: Acute Code(s): Z96.642 - PRESENCE OF LEFT ARTIFICIAL HIP JOINT SNOMED Code(s): 668686237132 Comment: POD #2, management per ortho Continue pain management and bowel regimen PT/OT PMRU (2) Diabetes Current Visit: No Status: Chronic Code(s): E11.9 - TYPE 2 DIABETES MELLITUS WITHOUT COMPLICATIONS SNOMED Code(s): 26520485 Comment: Fair control, continue Lispro sliding scale (may need to increase SS protocol if BG remain in 200s) Restarted Metformin for 07/26 (3) Atrial fibrillation Current Visit: Yes Status: Chronic Code(s): I48.91 - UNSPECIFIED ATRIAL FIBRILLATION SNOMED Code(s): 10493605 Comment: Stable, rate controlled Continue diltiazem and apixaban Has pacemaker (4) GERD (gastroesophageal reflux disease) Current Visit: Yes Status: Chronic Code(s): K21.9 - GASTRO-ESOPHAGEAL REFLUX DISEASE WITHOUT ESOPHAGITIS SNOMED Code(s): 574829096 Comment: Stable Continue pantoprazole (5) HLD (hyperlipidemia) Current Visit: Yes Status: Chronic Code(s): E78.5 - HYPERLIPIDEMIA, UNSPECIFIED SNOMED Code(s): 24693674 Comment: Continue atorvastatin (6) Anxiety Current Visit: No Status: Acute Code(s): F41.9 - ANXIETY DISORDER, UNSPECIFIED SNOMED Code(s): 62863652 Comment: -Continue Hydroxyzine (7) HTN (hypertension) Current Visit: No Status: Chronic Code(s): I10 - ESSENTIAL (PRIMARY) HYPERTENSION SNOMED Code(s): 81379294 (8) DVT prophylaxis Current Visit: No Status: Acute Code(s): SYO3883 - SNOMED Code(s): 456273067 Comment: Per ortho On apixaban (9) Full code status Current Visit: No Status: Acute Code(s): Z78.9 - OTHER SPECIFIED HEALTH STATUS SNOMED Code(s): 852372731 Comment: Status and Disposition: Per ortho. PMRU referral pending and likely accept tomorrow 07/26, medicine will sign off for now, please contact us if you need anything.
[2019-07-25] MEDS: FLUoxetine CAP* 20 MG PO SCH (08:20)
[2019-07-25] MEDS: Diltiazem CD CAP* 240 MG PO SCH (08:20)
[2019-07-25] MEDS: Multivitamins/Minerals TAB PO SCH (08:20)
[2019-07-25] MEDS: Apixaban* 5 MG TAB PO SCH ×2 (08:20→21:47)
[2019-07-25] MEDS: Insulin LISPRO* 1 UNITS UNIT SUBCUT SCH ×3 (08:20→17:52)
[2019-07-25] MEDS: oxyCODONE/Acetamin 5/325 MG* TAB PO PRN ×3 (08:21→21:48)
[2019-07-25] MEDS: Magnesium Hydroxide LIQ* 30 ML UDC PO SCH ×2 (08:25→21:47)
[2019-07-25] MEDS: Docusate CAP* 100 MG PO SCH ×2 (08:25→21:47)
[2019-07-25] MEDS ORDERED: Bisacodyl SUPP* 10 MG SUPP PR PRN (11:52)
--- NOTE | 2019-07-25 14:31 | PN ---
Progress Note - Progress Note Date of Service: 07/25/19 SOAP: Subjective: [Pt seen lying in bed. She states shes doing well, pain is controlled on medications. She denies CP, SOB, f/c, n/v or calf pain. She states this has been more painful then her other hip replacement but she is adjusting. [facility] evaluation today to decide for placement there tomorrow.] Objective: [General: NAD, A&Ox3 LLE: Dressing changed today. Incision C/D/I with no erythema or signs of infection. Anterior thigh mildly tender to palpation but soft, post thigh soft and nontender. She is able to DF/PF her ankle with 5/5 strength. Sensation to light touch distally. DP pulse 2+.] Assessment: [POD#2 s/p L TKA] Plan: [Continue PT/OT Continue pain meds as needed Waiting for PMRU evaluation. If denied will go subacute on Saturday Eliquis 5mg for DVT ppx Vital Signs Temp Pulse Resp BP Pulse Ox 98.7 F 83 16 150/65 92 07/25/19 12:20 07/25/19 12:20 07/25/19 12:20 07/25/19 12:20 07/25/19 12:20 Laboratory Last Values Hgb 11.6 g/dL (12.0-16.0) L 07/25/19 05:33 Hct 35 % (35-47) 07/25/19 05:33 Plt Count 218 10^3/uL (150-450) 07/25/19 05:33 MPV 8.8 fL (7.4-10.4) 07/25/19 05:33 INR (Anticoag Therapy) 1.02 (0.82-1.09) 07/23/19 08:19 APTT 35.2 seconds (26.0-38.0) 07/23/19 08:19 Sodium 134 mmol/L (135-145) L 07/24/19 05:25 Potassium 4.1 mmol/L (3.5-5.0) 07/24/19 05:25 Chloride 100 mmol/L (101-111) L 07/24/19 05:25 Carbon Dioxide 26 mmol/L (22-32) 07/24/19 05:25 Anion Gap 8 mmol/L (2-11) 07/24/19 05:25 BUN 12 mg/dL (6-24) 07/24/19 05:25 Creatinine 0.73 mg/dL (0.51-0.95) 07/24/19 05:25 Est GFR ( Amer) 93.8 (>60) 07/24/19 05:25 Est GFR (Non-Af Amer) 77.5 (>60) 07/24/19 05:25 BUN/Creatinine Ratio 16.4 (8-20) 07/24/19 05:25 Glucose 203 mg/dL (70-100) H 07/24/19 05:25 POC Glucose (mg/dL) 199 mg/dL (70-100) H 07/25/19 12:04 Calcium 9.0 mg/dL (8.6-10.3) 07/24/19 05:25 ]
[2019-07-25] MEDS: Pantoprazole TAB * 40 MG TAB PO SCH (17:52)
[2019-07-25] MEDS: Atorvastatin* 20 MG TAB PO SCH (21:46)
[2019-07-26] MEDS: oxyCODONE/Acetamin 5/325 MG* TAB PO PRN ×2 (03:25→07:26)
[2019-07-26] MEDS: Cyclobenzaprine TAB* 10 MG PO PRN (03:25)
[2019-07-26 05:43] LABS: Hematocrit 33 % (35-47); Hemoglobin 11.4 g/dL (12.0-16.0); Mean Platelet Volume 8.7 fL (7.4-10.4); Platelet Count 224 10^3/uL (150-450)
[2019-07-26 08:03] VITALS: BP 118/60
[2019-07-26] MEDS ORDERED: metFORMIN* 1,000 MG TAB PO SCH (09:00)
[2019-07-26] MEDS: Insulin LISPRO* 1 UNITS UNIT SUBCUT SCH (09:03)
[2019-07-26] MEDS: Diltiazem CD CAP* 240 MG PO SCH (09:03)
[2019-07-26] MEDS: FLUoxetine CAP* 20 MG PO SCH (09:03)
[2019-07-26] MEDS: Docusate CAP* 100 MG PO SCH (09:04)
[2019-07-26] MEDS: Apixaban* 5 MG TAB PO SCH (09:04)
[2019-07-26] MEDS: Multivitamins/Minerals TAB PO SCH (09:04)
[2019-07-26] MEDS: Magnesium Hydroxide LIQ* 30 ML UDC PO SCH (09:08)
--- NOTE | 2019-07-26 09:43 | PN ---
Progress Note - Progress Note Date of Service: 07/26/19 SOAP: Subjective: [Pt seen OOB in chair. She states shes doing well, pain is controlled on medications. She denies CP, SOB, f/c, n/v or calf pain. She will be going to PMRU today. ] Objective: [General: NAD, A&Ox3 LLE: Dressing C/D/I. Anterior thigh mildly tender to palpation but soft, post thigh soft and nontender. She is able to DF/PF her ankle with 5/5 strength. Sensation to light touch distally. DP pulse 2+.] Assessment: [POD#3 s/p L TKA] Plan: [Continue PT/OT Continue pain meds as needed PMRU today. Eliquis 5mg for DVT ppx Vital Signs Temp Pulse Resp BP Pulse Ox 98.0 F 71 18 118/60 92 07/26/19 07:53 07/26/19 07:53 07/26/19 09:09 07/26/19 07:53 07/26/19 07:53 Laboratory Last Values Hgb 11.4 g/dL (12.0-16.0) L 07/26/19 05:21 Hct 33 % (35-47) L 07/26/19 05:21 Plt Count 224 10^3/uL (150-450) 07/26/19 05:21 MPV 8.7 fL (7.4-10.4) 07/26/19 05:21 INR (Anticoag Therapy) 1.02 (0.82-1.09) 07/23/19 08:19 APTT 35.2 seconds (26.0-38.0) 07/23/19 08:19 Sodium 134 mmol/L (135-145) L 07/24/19 05:25 Potassium 4.1 mmol/L (3.5-5.0) 07/24/19 05:25 Chloride 100 mmol/L (101-111) L 07/24/19 05:25 Carbon Dioxide 26 mmol/L (22-32) 07/24/19 05:25 Anion Gap 8 mmol/L (2-11) 07/24/19 05:25 BUN 12 mg/dL (6-24) 07/24/19 05:25 Creatinine 0.73 mg/dL (0.51-0.95) 07/24/19 05:25 Est GFR ( Amer) 93.8 (>60) 07/24/19 05:25 Est GFR (Non-Af Amer) 77.5 (>60) 07/24/19 05:25 BUN/Creatinine Ratio 16.4 (8-20) 07/24/19 05:25 Glucose 203 mg/dL (70-100) H 07/24/19 05:25 POC Glucose (mg/dL) 173 mg/dL (70-100) H 07/26/19 07:15 Calcium 9.0 mg/dL (8.6-10.3) 07/24/19 05:25
--- NOTE | 2019-07-26 09:54 | DS ---
Orthopedic Discharge Summary - Discharge Summary Date of Admission:07/23/19 Date of Discharge: 07/26/19 Date of Surgery: 07/23/19 Attending Orthopedic Provider: Dr. Willoughby Pre-operative Diagnosis: Left hip arthritis Operative Procedure: Left BENJIE Disposition of Patient: [facility] Condition of Patient: Stable History: LIZETH BANSAL is a 74 year old F with years of increasingly severe left hip pain. Patient has failed conservative management and has elected to undergo a left total hip replacement Hospital Course: LIZETH was admitted to [facility] on 07/23/19. Patient underwent a left total hip without complication followed by a brief recovery in PACU and transfer to the Short Stay Surgical Unit in stable condition. Our hospitalist service, physical therapy and occupational therapy also participated in this patients care. Post-op day 1: patient was alert and in no acute distress. Dressing was clean, dry and intact. Operative extremity dorsiflexion and plantarflexion intact, sensation intact to light touch distally , DP2+. Post-op day two: dressing was changed, incision was clean, dry and intact. Patient was deemed to be medically and orthopedically stable for discharge to [facility] on POD#3. Physical therapy goals were met. Home Medications Medication Instructions Recorded Confirmed Type Atorvastatin* [Lipitor 10 MG*] 20 mg PO BEDTIME 04/30/17 07/23/19 History GuaiFENesin DM* [Robitussin DM*] 10 ml PO DAILY PRN 08/30/18 07/23/19 History Cyanocobalamin TAB* [Vitamin B12 1,000 mcg PO QAM 10/15/18 07/23/19 History TAB*] Calcium Citrate TAB* [Citracal 200 mg PO QAM 12/19/18 07/23/19 History TAB*] Cetirizine* [ZyrTEC 10 MG TAB*] 10 mg PO QAM 12/19/18 07/23/19 History Gabapentin CAP(*) [Neurontin 100 100 mg PO BEDTIME 12/19/18 07/23/19 History mg CAP(*)] Gabapentin CAP(*) [Neurontin 100 100 mg PO QAM 12/19/18 07/23/19 History mg CAP(*)] Multivitamins/Minerals TAB* 1 tab PO QAM 12/19/18 07/23/19 History [Theragran/minerals TAB*] Pantoprazole TAB * [Protonix TAB*] 40 mg PO QPM 12/19/18 07/23/19 History Temazepam 7.5 mg Cap (Nf) 7.5 mg PO BEDTIME PRN 12/19/18 07/23/19 History [Temazepam] Amoxicillin 2,000 mg PO DAILY PRN 07/13/19 07/23/19 History Apixaban* [Eliquis*] 5 mg PO BID 07/13/19 07/23/19 History FLUoxetine CAP* [Prozac CAP*] 40 mg PO QAM 07/13/19 07/23/19 History Zzzquil Gummies 2 tab PO QPM 07/13/19 07/23/19 History dilTIAZem HCl [Diltiazem 24Hr ER] 240 mg PO QAM 07/13/19 07/23/19 History metFORMIN* [Glucophage 500 MG TAB 1,000 mg PO QAM 07/13/19 07/23/19 History *] Acetaminophen TAB* [Tylenol TAB*] 650 mg PO Q8HR PRN tab 07/25/19 Rx Apixaban* [Eliquis*] 5 mg PO BID #0 tab 07/25/19 Rx oxyCODONE/Acetamin 5/325 MG* 1 tab PO Q4H PRN tab 07/25/19 Rx [Percocet 5/325 TAB*] oxyCODONE/Acetamin 5/325 MG* 2 tab PO Q4H PRN tab 07/25/19 Rx [Percocet 5/325 TAB*] oxyCODONE TAB* [Roxycodone TAB 5 10 mg PO Q4H PRN tab 07/26/19 Rx mg*] Discharge Instructions following Orthopedic Surgery: Activity: * Weight Bearing as tolerated * Continue physical therapy and occupational therapy exercises as shown Hip replacements: Continue Hip Precautions- do not cross legs or bend greater than 90 degrees/squat Wound care: * OK to shower on post-op day 3, no bathing, swimming, or submerging wound. * Use gentle soap, pat dry. Cover with gauze, ULCA wrap or tape. Call Orthopedic office for: * Increased drainage * Redness * Increased pain * Fever Go to ER with shortness of breath or chest pain. Diet: * Regular diet * Increase fluids and fiber to prevent constipation. * Continue to use stool softeners, call office if no bowel motion within 48 hours. Medications See Home Medication List in your packet for medications that you should take after discharge. DVT Prophylaxis: Eliquis Dosin mg, 1 tab every 12 hours Pain Control: Percocet Dosin/325 mg 1-2 tabs by mouth every 4-6 hours as needed for pain. Maximum of 10 tabs per day. Please note that Percocet contains Tylenol (acetaminophen). Maximum daily dose of Tylenol is 4000 mg from all sources. Antibiotics are required prior to any dental work. FOLLOW UP: Follow up with Within 10-14 days, call for appointment Please call our office with any questions or concerns ([phone])
== END 2019-07-26 10:55 | DRG 470 ==
LOC: AA 07:03 → SSU 11:52
PROVIDERS: ADMIT Orthopaedic Surgery Adult Reconstructive Orthopaedic Surgery; ATTEND Orthopaedic Surgery Adult Reconstructive Orthopaedic Surgery
PROC: 0SRB04A Replacement of Left Hip Joint with Ceramic on Polyethylene Synthetic Substitute, Uncemented, Open Approach (ICD-10-PCS; principal; 2019-07-23 08:45)
DX: M16.12 Unilateral primary osteoarthritis, left hip (principal); I10 Essential (primary) hypertension; F32.9 Major depressive disorder, single episode, unspecified; E11.9 Type 2 diabetes mellitus without complications; K21.9 Gastro-esophageal reflux disease without esophagitis; Z96.641 Presence of right artificial hip joint; E78.5 Hyperlipidemia, unspecified; E78.00 Pure hypercholesterolemia, unspecified; M10.9 Gout, unspecified; G47.30 Sleep apnea, unspecified; J45.20 Mild intermittent asthma, uncomplicated; M79.7 Fibromyalgia; I48.0 Paroxysmal atrial fibrillation; I49.5 Sick sinus syndrome; R41.0 Disorientation, unspecified; Z95.0 Presence of cardiac pacemaker; Z90.710 Acquired absence of both cervix and uterus; Z88.8 Allergy status to other drugs, medicaments and biological substances; Z82.3 Family history of stroke; Z72.89 Other problems related to lifestyle; Z98.41 Cataract extraction status, right eye; Z98.42 Cataract extraction status, left eye
CPT/HCPCS: 31622; 36415; 72170; 80048; 85014; 85018; 85049; 85610; 85730; 88304; 88311; A9270-GY; C1713; C1776; G8978-GP-CK; G8979-GP-CI; G8987-GO-CL; G8988-GO-CI; J0360; J0690; J1170; J2250; J2405; J2704; J3490

== ENCOUNTER 2019-07-26 09:27 | Inpatient (IN) | payer MEDICARE, OTHER ==
[2019-07-26] MEDS ORDERED: Bisacodyl SUPP* 10 MG SUPP PR PRN (10:28)
[2019-07-26] MEDS ORDERED: Al Hydrox/Mg Hydrox/Simet LIQ* 30 ML UDC PO PRN (10:28)
[2019-07-26] MEDS ORDERED: Acetaminophen TAB* 325 MG PO PRN (10:28)
[2019-07-26] MEDS ORDERED: Dextrose 50% VIAL 50 ml IV PUSH PRN (10:46)
[2019-07-26] MEDS ORDERED: oxyCODONE/Acetamin 5/325 MG* TAB PO PRN (10:47)
[2019-07-26] MEDS ORDERED: Polyethylene Glycol 3350* 17 GM PACKET PO PRN (10:53)
[2019-07-26] MEDS: Cyclobenzaprine TAB* 10 MG PO PRN ×2 (11:40→19:27)
[2019-07-26] MEDS: Insulin LISPRO* 1 UNITS UNIT SUBCUT SCH ×3 (11:49→21:06)
--- NOTE | 2019-07-26 12:06 | HP ---
CC: Dr. Angulo; Dr. Willoughby * REHABILITATION ADMISSION: DATE OF ADMISSION: 07/26/19 PRIMARY CARE PROVIDER: Dr. Angulo. ORTHOPEDIC SURGEON: Dr. Willoughby. REASON FOR ADMISSION: Left total hip replacement secondary to osteoarthritis. HISTORY OF PRESENT ILLNESS: This is a 74-year-old woman with atrial fibrillation, chronically on Eliquis as well as diabetes mellitus and has an implanted pacemaker, who previously had right total hip replacement in October 2018. She failed conservative therapy also for her left hip and was admitted on 07/23/19 for elective left total hip replacement secondary to osteoarthritis. Dr. Willoughby was her surgeon and postoperatively she has weightbearing as tolerated precautions as well as posterior total hip precautions. She was restarted on her home Eliquis for DVT prophylaxis. Postop day 1, she was very lethargic and drowsy and confused at night. She had severe pain. She was having issues with hypertension and p.r.n. hydralazine was ordered, although it does not appear that it was necessarily used. She has had difficulty mobilizing due to her pain issues. Prior to her admission, she was independent with ADLs and not using any assistive devices. With physical therapy, she has required a maximum amount of assistance for bed mobility, a moderate amount of assistance for transferring, and a maximum amount of assistance for ambulating 6 feet with a rolling walker. With occupational therapy, she has been dependent with lower body dressing and toileting. In the last 2 days, she has become less drowsy and alert and despite being able to participate in therapy is still having difficulty due to her pain. PAST MEDICAL HISTORY: 1. Paroxysmal atrial fibrillation, chronically on Eliquis. 2. Diabetes mellitus type 2. 3. Hypertension. 4. Asthma. 5. GERD. 6. Pacemaker placement in 2016. 7. Right total hip replacement in October 2018. 8. Depression. 9. Status post cholecystectomy. 10. Status post rhinoplasty. 11. Status post hysterectomy. 12. Status post breast reduction. 13. Essential tremor. 14. History of MRSA in her urine. MEDICATIONS: 1. Protonix 40 mg q. day. 2. Gabapentin home dose is 200 mg in the morning and 100 mg at night that will be restarted at 100 mg b.i.d. 3. Fluoxetine 40 mg q. day. 4. Diltiazem XR 240 mg q. day. 5. Eliquis 5 mg b.i.d. 6. Vitamin B12 1000 mcg q. day. 7. Metformin 1000 mg q.a.m. 8. Multivitamin q. day. 9. Atorvastatin 20 mg q. day. 10. Cetirizine 10 mg q. day. 11. Tylenol p.r.n. 12. Dulcolax p.r.n. 13. Flexeril 10 mg t.i.d. p.r.n. muscle spasm. 14. Colace 100 mg b.i.d. 15. Lispro sliding scale insulin. 16. Melatonin 3 mg q.h.s. p.r.n. insomnia. 17. Percocet 1 tablet 5/325 q.4 hours p.r.n. moderate pain. 18. Percocet 5/325 two tablets q.4 hours p.r.n. severe pain. ALLERGIES: LUCA INHIBITORS and LISINOPRIL. FAMILY HISTORY: Father, stroke. Mother, diabetes mellitus. Brother, prostate cancer. SOCIAL HISTORY: She lives with her , Olga Barrientos, in [place]. Their home has 4 steps to enter and is 1 level. If she cannot make decisions for herself, her , Olga Barrientos, is her healthcare proxy. Her phone number is [phone]. No smoking. Occasional wine. 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 REVIEW OF SYSTEMS: See history of present illness and past medical history. The remainder of a 13-system review was completed. She has not had a bowel movement since her surgery. The remainder of a 13-system review shows no significant findings. PHYSICAL EXAMINATION GENERAL: Well developed, well nourished, appearing stated age. Mental Status: No acute distress. Alert and oriented x3. VITAL SIGNS: Temperature 98.0, pulse 71, respirations 17, oxygenation 92% on room air, blood pressure is 118/60. HEENT: Normocephalic, atraumatic. Oropharynx is clear. Dry mucous membranes. LUNGS: Clear to auscultation bilaterally. HEART: Regular rate and rhythm. ABDOMEN: Active bowel sounds. Soft, nontender, nondistended. EXTREMITIES: No clubbing, cyanosis, or edema, although there is some general swelling in her left hip area as expected after surgery. MUSCULOSKELETAL: She has functional range of motion of all of her major joints with limited testing of her left knee and hip secondary to her surgery. NEUROLOGICAL: Cranial nerves II through XII intact. Motor testing shows 5/5 strength in bilateral upper and lower extremities except pain with testing of the left hip and knee. Sensation is intact in all 4 extremities. SKIN: Left hip dressing clean, dry, and intact. LABORATORY DATA: On 07/26/19, hemoglobin is 11.4, hematocrit 33, platelets are 224. IMPRESSION: A 74-year-old woman status post left total hip replacement secondary to osteoarthritis. She will be admitted to [facility] so that she can return to independent living. PLAN: 1. Status post left total hip replacement. Continue weightbearing as tolerated and total hip precautions. Follow up with Dr. Willoughby. Her pain will be controlled using Percocet and using Flexeril for muscle spasms on an as- needed basis. 2. Diabetes mellitus type 2. She has been restarted on metformin 1000 mg q. day. We will continue with fingersticks q.a.c. and q.h.s. and sliding scale insulin as needed. She will have a consistent carbohydrate diet. 3. Paroxysmal atrial fibrillation. She is currently in sinus rhythm. Continue with her Eliquis. She also has her pacemaker and diltiazem. 4. DVT prophylaxis: Eliquis. 5. Trigeminal neuralgia. This does not appear to be symptomatic at this time, so I will just start with gabapentin 100 mg twice per day given her recent confusion. She might be able to go up to her home dose in the future of 200 in the morning and 100 mg at night. 6. GERD. Continue with Protonix. 7. History of MRSA in her urine. She has contact precautions. 8. Hyperlipidemia. Continue with atorvastatin. 9. Depression. Continue with Prozac. 10. Hypertension. Continue with diltiazem. 11. Constipation. I will add MiraLAX on an as-needed basis and schedule Senokot and Colace. 12. Advance directives: She is a full code. If she cannot make decisions for herself, her healthcare proxy is her , Olga Barrientos, phone number . ESTIMATED LENGTH OF STAY: Two weeks. She will be discussed further at our interdisciplinary plan of care meeting. [id number]/[facility] #: [id number] [facility]OSPITALJimbo
[2019-07-26] MEDS: oxyCODONE/Acetamin 5/325 MG* TAB PO PRN ×3 (14:00→23:53)
[2019-07-26] MEDS: Gabapentin CAP(*) 100 MG PO SCH (21:07)
[2019-07-26] MEDS: Atorvastatin* 20 MG TAB PO SCH (21:08)
[2019-07-26] MEDS: Docusate CAP* 100 MG PO SCH (21:08)
[2019-07-26] MEDS: Senna TAB 8.6 mg* TAB PO SCH (21:08)
[2019-07-26] MEDS: Apixaban* 5 MG TAB PO SCH (21:08)
[2019-07-26] MEDS: Melatonin 3 MG TAB PO PRN (23:53)
[2019-07-27 05:51] LABS: ABS Basophils 0.1 10^3/ul (0-0.2); ABS Eosinophils 0.5 10^3/ul (0-0.6); ABS Lymphocytes 2.4 10^3/ul (1.0-4.8); ABS Neutrophils 6.4 10^3/ul (1.5-7.7); Eosinophil % 4.7 %; Hematocrit 34 % (35-47); Hemoglobin 11.3 g/dL (12.0-16.0); Lymphocyte % 22.8 %; Mean Corpuscular HGB Conc 33 g/dL (31-36); Mean Corpuscular Hemoglobin 30 pg (27-31); Mean Corpuscular Volume 91 fL (80-97); Mean Platelet Volume 8.4 fL (7.4-10.4); Nucleated Red Blood Cells % 0.1; Platelet Count 292 10^3/uL (150-450); Red Blood Count 3.73 10^6 /uL (3.70-4.87); Red Cell Distribution Width 13 % (10-15); White Blood Count 10.3 10^3/uL (3.5-10.8)
[2019-07-27 06:09] LABS: Albumin 3.2 g/dL (3.2-5.2); Calcium 8.9 mg/dL (8.6-10.3); EGFR African American 98.4 (>60); EGFR Non-African American 81.4 (>60); Globulin 3.1 g/dL (2-4); Potassium 4.1 mmol/L (3.5-5.0); Total Bilirubin 0.7 mg/dL (0.2-1.0); Total Protein 6.3 g/dL (6.4-8.9)
[2019-07-27] MEDS: Apixaban* 5 MG TAB PO SCH ×2 (10:38→19:57)
[2019-07-27] MEDS: Insulin LISPRO* 1 UNITS UNIT SUBCUT SCH ×4 (10:38→20:56)
[2019-07-27] MEDS: Gabapentin CAP(*) 100 MG PO SCH ×2 (10:39→19:57)
[2019-07-27] MEDS: Cyanocobalamin TAB* 500 MCG PO SCH (10:39)
[2019-07-27] MEDS: Docusate CAP* 100 MG PO SCH ×2 (10:39→19:57)
[2019-07-27] MEDS: FLUoxetine CAP* 20 MG PO SCH (10:39)
[2019-07-27] MEDS: Calcium Citrate TAB* 200 MG PO SCH (10:39)
[2019-07-27] MEDS: Cetirizine* 10 MG TAB PO SCH (10:39)
[2019-07-27] MEDS: Diltiazem CD CAP* 240 MG PO SCH (10:39)
[2019-07-27] MEDS: metFORMIN* 500 MG TAB PO SCH (10:40)
[2019-07-27] MEDS: Multivitamins/Minerals TAB PO SCH (10:40)
[2019-07-27] MEDS: Pantoprazole TAB * 40 MG TAB PO SCH (10:40)
[2019-07-27] MEDS: oxyCODONE/Acetamin 5/325 MG* TAB PO PRN ×2 (11:32→19:57)
[2019-07-27] MEDS: Cyclobenzaprine TAB* 10 MG PO PRN (16:27)
[2019-07-27] MEDS: Senna TAB 8.6 mg* TAB PO SCH (19:57)
[2019-07-27] MEDS: Atorvastatin* 20 MG TAB PO SCH (19:57)
--- NOTE | 2019-07-27 20:23 | PN ---
Progress Note Date of Service: 07/27/19 Note: LIZETH BANSAL was visited. Therapy notes read and reviewed. She is doing ok but she is having some issues with pain. Otherwise ok. Having a lot of frequency. Will check a UA. She did not want to do finger sticks but I advised her to do it for three days and see how her blood sugars are doing Current Medications: Active Medications Generic Name Dose Route Start Last Admin Trade Name Freq PRN Reason Stop Dose Admin Acetaminophen 650 mg 07/26/19 10:28 Tylenol Tab* PO Q6H PRN FEVER > 101 Al Hydrox/Mg Hydrox/Simethicone 30 ml 07/26/19 10:28 Maalox Plus* PO Q6H PRN INDIGESTION Apixaban 5 mg 07/26/19 21:00 07/27/19 19:57 Eliquis* PO 5 mg BID DOROTEO Administration Atorvastatin Calcium 20 mg 07/26/19 21:00 07/27/19 19:57 Lipitor* PO 20 mg 2100 DOROTEO Administration Bisacodyl 10 mg 07/26/19 10:28 Dulcolax Supp* [place] DAILY PRN CONSTIPATION Calcium Citrate 200 mg 07/27/19 09:00 07/27/19 10:39 Citracal Tab* PO 200 mg DAILY DOROTEO Administration Cetirizine HCl 10 mg 07/27/19 09:00 07/27/19 10:39 Zyrtec* PO 10 mg DAILY DOROTEO Administration Cyanocobalamin 1,000 mcg 07/27/19 09:00 07/27/19 10:39 Vitamin B12 Tab* PO 1,000 mcg DAILY DOROTEO Administration Cyclobenzaprine HCl 10 mg 07/26/19 10:45 07/27/19 16:27 Flexeril Tab* PO 10 mg TID PRN Administration muscle spasm Dextrose 25 ml 07/26/19 10:46 Dextrose 50% Vial 50 Ml* IV PUSH .FOR FS < 60 - SS PRN FS < 60 Diltiazem HCl 240 mg 07/27/19 09:00 07/27/19 10:39 Cardizem Cd Cap* PO 240 mg DAILY DOROTEO Administration Docusate Sodium 100 mg 07/26/19 21:00 07/27/19 19:57 Colace Cap* PO 100 mg BID DOROTEO Administration Fluoxetine HCl 40 mg 07/27/19 09:00 07/27/19 10:39 Prozac Cap* PO 40 mg DAILY DOROTEO Administration Gabapentin 100 mg 07/26/19 21:00 07/27/19 19:57 Neurontin Cap(*) PO 100 mg BID DOROTEO Administration Insulin Human Lispro 0 units 07/26/19 21:00 07/27/19 16:41 Humalog* SUBCUT Not Given ACHS DOROTEO Protocol Magnesium Hydroxide 30 ml 07/26/19 10:28 Milk Of Magnesia Liq* PO Q6H PRN CONSTIPATION Melatonin 3 mg 07/26/19 10:45 07/26/19 23:53 Melatonin PO 3 mg BEDTIME PRN Administration SLEEP Metformin HCl 1,000 mg 07/27/19 09:00 07/27/19 10:40 Glucophage* PO 1,000 mg DAILY DOROTEO Administration Multivitamins/Minerals 1 tab 07/27/19 09:00 07/27/19 10:40 Theragran/Minerals Tab* PO 1 tab DAILY DOROTEO Administration Oxycodone/Acetaminophen 1 tab 07/26/19 10:47 Percocet 5/325 Tab* PO Q4H PRN PAIN - MODERATE Oxycodone/Acetaminophen 2 tab 07/26/19 10:48 07/27/19 19:57 Percocet 5/325 Tab* PO 2 tab Q4H PRN Administration PAIN - SEVERE Pantoprazole Sodium 40 mg 07/27/19 09:00 07/27/19 10:40 Protonix Tab* PO 40 mg DAILY DOROTEO Administration Polyethylene Glycol/Electrolytes 17 gm 07/26/19 10:53 07/27/19 16:27 Miralax* PO 17 gm DAILY PRN Administration CONSTIPATION Senna 2 tab 07/26/19 21:00 07/27/19 19:57 Senokot 8.6 Mg Tab* PO 2 tab BEDTIME DOROTEO Administration Vital Signs: Vital Signs Temp Pulse Resp BP Pulse Ox 98.4 F 73 18 103/65 94 07/27/19 17:07 07/27/19 17:07 07/27/19 19:57 07/27/19 17:07 07/27/19 17:35 Lab Results: Laboratory Results - last 24 hr 07/26/19 07/26/19 07/27/19 16:29 20:50 05:33 WBC 10.3 RBC 3.73 Hgb 11.3 L Hct 34 L MCV 91 MCH 30 MCHC 33 RDW 13 Plt Count 292 MPV 8.4 Neut % (Auto) 62.4 Lymph % (Auto) 22.8 Meeker % (Auto) 9.6 Eos % (Auto) 4.7 Baso % (Auto) 0.5 Absolute Neuts (auto) 6.4 Absolute Lymphs (auto) 2.4 Absolute Monos (auto) 1.0 H Absolute Eos (auto) 0.5 Absolute Basos (auto) 0.1 Absolute Nucleated RBC 0.0 Nucleated RBC % 0.1 Sodium Potassium Chloride Carbon Dioxide Anion Gap BUN Creatinine Est GFR ( Amer) Est GFR (Non-Af Amer) BUN/Creatinine Ratio Glucose POC Glucose (mg/dL) 160 H 165 H Calcium Total Bilirubin AST ALT Alkaline Phosphatase Total Protein Albumin Globulin Albumin/Globulin Ratio 07/27/19 07/27/19 07/27/19 05:33 11:46 16:30 WBC RBC Hgb Hct MCV MCH MCHC RDW Plt Count MPV Neut % (Auto) Lymph % (Auto) Meeker % (Auto) Eos % (Auto) Baso % (Auto) Absolute Neuts (auto) Absolute Lymphs (auto) Absolute Monos (auto) Absolute Eos (auto) Absolute Basos (auto) Absolute Nucleated RBC Nucleated RBC % Sodium 139 Potassium 4.1 Chloride 104 Carbon Dioxide 28 Anion Gap 7 BUN 14 Creatinine 0.70 Est GFR ( Amer) 98.4 Est GFR (Non-Af Amer) 81.4 BUN/Creatinine Ratio 20.0 Glucose 178 H POC Glucose (mg/dL) 162 H 119 H Calcium 8.9 Total Bilirubin 0.70 AST 90 H ALT 88 H Alkaline Phosphatase 152 H Total Protein 6.3 L Albumin 3.2 Globulin 3.1 Albumin/Globulin Ratio 1.0 Exam: HEENT: EOMI LUNGS: Clear bilaterally HEART: Regular rhythm ABDOMEN: Soft, +BS EXTREMITIES: Left hip wound C/D/I NEUROLOGIC: A&O. Sensation appears intact. LLE 3-4/5 otherwise 5/5 Assessment/Plan: 1. Left BENJIE: PT/OT. Follow up with Dr. Willoughby 2. Paroxysmal atrial fibrillation: Eliquis/Cardizem 3. HTN: Cardizem 4. GERD: Protonix 5. DM: Metformin/SSI 6. Depression: Prozac 7. Trigeminal Neuralgia: Gabapentin 8. DVT Prophylaxis: Eliquis 9. Advanced Directives: Full code. is surrogate decision maker 07/27/19 20:29 07/27/19 20:30
[2019-07-27] MEDS: Melatonin 3 MG TAB PO PRN (20:57)
[2019-07-28] MEDS: oxyCODONE/Acetamin 5/325 MG* TAB PO PRN ×5 (00:09→23:39)
[2019-07-28 00:34] LABS: Urine Appearance Clear; Urine Bilirubin Negative (Negative); Urine Blood Negative (Negative); Urine Color Yellow; Urine Glucose Negative (Negative); Urine Ketones Negative (Negative); Urine Nitrite Negative (Negative); Urine Protein Negative (Negative); Urine Specific Gravity 1.015 (1.010-1.030); Urine Urobilinogen Negative (Negative)
[2019-07-28] MEDS: Apixaban* 5 MG TAB PO SCH ×2 (08:47→20:53)
[2019-07-28] MEDS: Insulin LISPRO* 1 UNITS UNIT SUBCUT SCH ×4 (08:47→20:34)
[2019-07-28] MEDS: FLUoxetine CAP* 20 MG PO SCH (08:48)
[2019-07-28] MEDS: Cetirizine* 10 MG TAB PO SCH (08:48)
[2019-07-28] MEDS: metFORMIN* 500 MG TAB PO SCH (08:48)
[2019-07-28] MEDS: Diltiazem CD CAP* 240 MG PO SCH (08:48)
[2019-07-28] MEDS: Docusate CAP* 100 MG PO SCH ×2 (08:48→20:52)
[2019-07-28] MEDS: Calcium Citrate TAB* 200 MG PO SCH (08:48)
[2019-07-28] MEDS: Cyanocobalamin TAB* 500 MCG PO SCH (08:48)
[2019-07-28] MEDS: Multivitamins/Minerals TAB PO SCH (08:49)
[2019-07-28] MEDS: Gabapentin CAP(*) 100 MG PO SCH ×2 (08:49→20:53)
[2019-07-28] MEDS: Pantoprazole TAB * 40 MG TAB PO SCH (08:49)
[2019-07-28] MEDS: Magnesium Hydroxide LIQ* 30 ML UDC PO PRN ×2 (08:52→15:55)
--- NOTE | 2019-07-28 12:39 | PMRUTEAM ---
PMRU: Team Meeting Current Status: Physical Therapy: Current Status Current Rolling Status Supervision/Touching Current Supine <-> Sit Status Supervision/Touching Current Sit <-> Stand Status Supervision/Touching Current Bed <-> Chair Status Supervision/Touching Transfer/Bed Mobility Rolling Walker Recommended Devices Current Picking Up Object Supervision/Touching Status Current Car Transfer Status Partial/Moderate Current Ambulation Assistance Supervision/Touching Status Ambulation Assistive Device Rolling Walker Ambulation Conditions Two or More Turns Current Ambulation Distance 1x100' Current Wheelchair Propulsion Not Applicable Ability Status Current Stair Climbing Status Supervision/Touching Stair Climbing Assistive Left Railing,Right Railing Devices Number of Stairs Climbed 4 Current Curb Assistance Status Supervision/Touching Curb Assistive Devices Rolling Walker Objective Comments Pt able to recall 3/3 posterior hip precautions without cues Occupational Therapy: Current Status Current Upper Body Dressing Setup or Clean-up Assist Status Current Lower Body Dressing Substantial/Maximal Status Current Footwear Status Dependent Current Bathing Status Partial/Moderate Current Grooming Status Setup or Clean-up Assist Current Toileting Status Partial/Moderate Current Toilet Transfer Status Partial/Moderate Current Eating Status Independent Nursing: Current Status Skin Deviations [Left Hip] Incision Skin Deviation Description [ drsg in place Left Hip] Bladder Current Status Incontinent at times - needs reminders to change brief Bowel Current Status Continent. Supervision with toileting Nutrition Current Status Eats 75% of most meals Medication Current Status Needs reinforcement and education on diabetic medications Rec Therapy: Current Status Summary of Assessment and Pt. is aware of Recreation Therapy services and Clinical Impression assessment is complete. Pt. is open to continued leisrue visits. Emotional support provided when pt. was sharing about her son who is terminally ill. Treatment Goals Pt. will engage in leisure activities while on the unit. Treatment Plan Provide recreation therapy services and encourage involvement. Nutrition: Current Status Monitoring Pt is a 74 yo F admitted on 07/26 for L total hip. Maintained on consistent carb diet consuming 50- 100% at meals during stay. Last BM documented . Noted constipation r/t opioid use, despite administration of miralax (07/27), colace and milk of mag (07/28). Labs/meds rev'd. FSBG slightly elevated 133-178. Full nutrition assessment to follow 08/02. Goals: Physical Therapy: Goals Goals to Be Accomplished in ( 7-10 Days) Goal: Rolling Assistance Independent Goal Supine <-> Sit Status Independent Goal Sit <-> Stand Status Independent Goal Bed <-> Chair Status Independent Transfer/Bed Mobility Rolling Walker Recommended Devices Goal: Picking Up Object Independent Goal: Car Transfer Status Setup or Clean-up Assist Goal: Ambulation Assistance Independent Ambulation Assistive Devices Rolling Walker Ambulation Distance (ft) 150 Goal: Wheelchair Propulsion Not Applicable Ability Goal: Stairs Assistance Setup or Clean-up Assist Stairs Recommended Devices Two Rails Number of Stairs 5 Goal: Curb Assistance Supervision/Touching Goal: Home Exercise Program Independent Assistance Occupational Therapy: Goals Goals to be Completed in (Days 7-10 ) Goal Upper Body Dressing Independent Routine Goal Lower Body Dressing Independent Routine Goal Footwear Status Independent Goal Bathing Routine (OT) Independent Goal Grooming Routine Independent Goal Toilet Hygiene and Independent Clothing Management Routine Goal Toilet Transfer Routine Independent Goal Functional Transfers for Independent ADL Goal Feeding Routine Independent Nutrition: Goals Intervention Goals 1. adequate intake to support hydration and lean body mass without significant wt change 2. glycemic control within inpatient parameters; no s/sx hypo-hyperglycemia 3. maintain serum electrolytes WNL 4. regulation of bowel pattern; no c/o constipation (or diarrhea) Nursing: Goals Bladder Goal Independent with toileting Bowel Goal Independent with toileting Nutrition Goal Eats 100% of all meals Medication Goal Independent with medications Care Plan: Care Plan Coping/Psych-Improve/Maintain Start: 07/26/19 16:11 Freq: DAILY@0700,1900 Status: Active Target: 08/09/19 Protocol: Activity Type Activity Date Activity User E-Sign Co-Sign Detail Recorded Client Recorded Date Recorded By Document 07/28/19 07:00 [id number] 07/28/19 11:23 [id number] 07/28/19 07:00 PMRU Outcome: Coping/Psychosocial Current Coping Outcome/Goals Verbalization of Acceptance of Rehab Admit Verbalization of Sense of Control Over Health Status Willingness to Participate in Treatment Plan and Basic Needs Utilization of Available Support Systems Progression Toward Outcome/Goals Progressing Current Psychosocial Outcome/Goals Maintain/ Improve Emotional Health Cooperate/ Participate in Plan Progression Toward Outcome/Goals Progressing DVT Prophylaxis- Improve/Maintain Start: 07/26/19 16:11 Freq: DAILY@0700,1900 Status: Active Target: 08/09/19 Protocol: Activity Type Activity Date Activity User E-Sign Co-Sign Detail Recorded Client Recorded Date Recorded By Document 07/28/19 07:00 [id number] 07/28/19 11:23 [id number] 07/28/19 07:00 PMRU Outcome: DVT Prophylaxis Current DVT Outcome/Goals Remains Free of DVT Progression Toward Outcome/Goals Progressing Discharge Planning - Improve/Maintain Start: 07/26/19 16:11 Freq: DAILY@0700,1900 Status: Active Target: 08/09/19 Protocol: Activity Type Activity Date Activity User E-Sign Co-Sign Detail Recorded Client Recorded Date Recorded By Document 07/28/19 07:00 [id number] 07/28/19 11:23 [id number] 07/28/19 07:00 PMRU Outcome: Discharge Planning Update Patient Family No Current Discharge Planning Outcome/Goals Demonstrates Understanding of Discharge Plan Progression Toward Outcome/Goals Progressing Education-Improve/Maintain Start: 07/26/19 16:11 Freq: DAILY@0700,1900 Status: Active Target: 08/09/19 Protocol: Activity Type Activity Date Activity User E-Sign Co-Sign Detail Recorded Client Recorded Date Recorded By Document 07/28/19 07:00 [id number] [id number] 07/28/19 11:23 [id number] 07/28/19 07:00 PMRU Outcome: Education Current Education Outcome/Goals Demonstrate/ Verbalize Understanding of Written Discharge Instructions Demonstrates Skills Progression Toward Outcome/Goals Progressing /GI-Improve/Maintain Start: 07/26/19 16:11 Freq: DAILY@0700,1900 Status: Active Target: 08/09/19 Protocol: Activity Type Activity Date Activity User E-Sign Co-Sign Detail Recorded Client Recorded Date Recorded By Document 07/28/19 07:00 [id number] 07/28/19 11:23 [id number] 07/28/19 07:00 PMRU Outcome: Genitourinary/ Gastrointestinal Current Gastrointestinal Outcome/Goals Remain Free of Emesis Prevent Constipation Progression Toward Outcome/Goals Progressing Current Genitourinary Outcome/Goals Maintain/ Achieve Urinary Continence Maintain/ Achieve Adequate Urinary Output Progression Toward Outcome/Goals Progressing Outcome/Goals Met Comment pt up to BR, Pt incontinent Metabolic Status- Improve/Maintain Start: 07/26/19 16:11 Freq: DAILY@0700,1900 Status: Active Target: 08/09/19 Protocol: Activity Type Activity Date Activity User E-Sign Co-Sign Detail Recorded Client Recorded Date Recorded By Document 07/28/19 07:00 [id number] 07/28/19 11:23 [id number] 07/28/19 07:00 PMRU Outcome: Metabolic Status Have Fingersticks Been Ordered Yes Fingerstick Order Frequency AC & HS Current Metabolic Status Outcome/Goals Maintain/ Improve Metabolic Status Progression Toward Outcome/Goals Progressing Mobility- Improve/Maintain Start: 07/26/19 16:11 Freq: DAILY@ Status: Active Target: 08/02/19 Protocol: Activity Type Activity Date Activity User E-Sign Co-Sign Detail Recorded Client Recorded Date Recorded By Document 07/27/19 16:05 [id number] 07/27/19 16:06 [id number] 07/27/19 16:05 PMRU Outcome: Mobility Physical Therapy Evaluation and Yes Treatment Activity OOB with Assistance Yes WBAT Yes NWB No TTWB No Device Yes Assistance Yes Patient to be seen 5x/wk for 60-120 min/ Therex day for: Mobility Training Gait Training Balance Other Other Therapy Comment family training , discharge planning Current Mobility Outcome/Goals Improve Mobility Status Demonstrates Proper Use of Assistive Devices Progression Toward Outcome/Goals Goal Initiation Bed Mobility Yes: independent Transfers Yes: independent with RW Gait x ft Yes: 150' independent with RW W/C Mobility x ft No Up/Down Stairs Yes: 12 with 2 rails supervision With HEP Yes: independent Pain/Comfort- Improve/Maintain Start: 07/26/19 16:11 Freq: DAILY@ Status: Active Target: 08/09/19 Protocol: Activity Type Activity Date Activity User E-Sign Co-Sign Detail Recorded Client Recorded Date Recorded By Document 07/28/19 07:00 [id number] [id number] 07/28/19 11:23 [id number] 07/28/19 07:00 PMRU Outcome: Pain/Comfort Current Pain/Comfort Outcome/Goals Demonstrates Knowledge and Use of Available Comfort Measures Achieves Acceptable Comfort/Pain Level as Determined by Patient/Condit Maintain Comfort Level Allowing Patient to Fully Participate in Rehab Progression Toward Outcome/Goals Progressing Outcome/Goals Met Comment pain medication given Rec Therapy- Improve/Maintain Start: 07/26/19 16:11 Freq: DAILY@0700,1900 Status: Active Target: 08/02/19 Protocol: Activity Type Activity Date Activity User E-Sign Co-Sign Detail Recorded Client Recorded Date Recorded By Document 07/27/19 16:01 [id number] [email or web address] 07/27/19 16:01 [id number] 07/27/19 16:01 PMRU Outcome: Recreation Therapy Current Rec Ther Outcome/Goals Complete Rec Therapy Assessment Meet with Patient Regularly for Support Encourage Leisure Involvement Progression Toward Outcome/Goals Goal Initiation Safety- Improve/Maintain Start: 07/26/19 11:20 Freq: DAILY@0700,1900 Status: Active Target: 08/09/19 Protocol: Activity Type Activity Date Activity User E-Sign Co-Sign Detail Recorded Client Recorded Date Recorded By Document 07/28/19 07:00 [id number] 07/28/19 11:23 [id number] 07/28/19 07:00 PMRU Outcome: Safety Current Safety Outcome/Goals Remain Free of Injury or Harm Cooperates with Safety Measures for Least Restrictive Environment Progression Toward Outcome/Goals Progressing - Interdisciplinary Staff Present Toe Closing Machine Tender/Social Work Staff Present: Awilda Rollins LMSW Nursing Staff Present: Karla Simms, RN OT Staff Present: Mary Quiroz PT Staff Present: Linda Billy Rec Therapy Staff Present: Alexa Roy GEOTECHNICIAN Staff Present: Ilya Menendez Medicine Note: Length of Stay: 3 days Anticipated Discharge Destination: Home Tentative Discharge Date: 07/31/19 Discharged to: Home
[2019-07-28] MEDS: Cyclobenzaprine TAB* 10 MG PO PRN ×2 (13:50→20:52)
--- NOTE | 2019-07-28 19:31 | PN ---
Progress Note Date of Service: 07/28/19 Note: LIZETH BANSAL was visited. Therapy notes read and reviewed. She was discussed in interdisciplinary team rounds. UA was negative. She is otherwise doing fairly well. Current Medications: Active Medications Generic Name Dose Route Start Last Admin Trade Name Freq PRN Reason Stop Dose Admin Acetaminophen 650 mg 07/26/19 10:28 Tylenol Tab* PO Q6H PRN FEVER > 101 Al Hydrox/Mg Hydrox/Simethicone 30 ml 07/26/19 10:28 Maalox Plus* PO Q6H PRN INDIGESTION Apixaban 5 mg 07/26/19 21:00 07/28/19 08:47 Eliquis* PO 5 mg BID DOROTEO Administration Atorvastatin Calcium 20 mg 07/26/19 21:00 07/27/19 19:57 Lipitor* PO 20 mg 2100 DOROTEO Administration Bisacodyl 10 mg 07/26/19 10:28 Dulcolax Supp* [place] DAILY PRN CONSTIPATION Calcium Citrate 200 mg 07/27/19 09:00 07/28/19 08:48 Citracal Tab* PO 200 mg DAILY DOROTEO Administration Cetirizine HCl 10 mg 07/27/19 09:00 07/28/19 08:48 Zyrtec* PO 10 mg DAILY DOROTEO Administration Cyanocobalamin 1,000 mcg 07/27/19 09:00 07/28/19 08:48 Vitamin B12 Tab* PO 1,000 mcg DAILY DOROTEO Administration Cyclobenzaprine HCl 10 mg 07/26/19 10:45 07/28/19 13:50 Flexeril Tab* PO 10 mg TID PRN Administration muscle spasm Dextrose 25 ml 07/26/19 10:46 Dextrose 50% Vial 50 Ml* IV PUSH .FOR FS < 60 - SS PRN FS < 60 Diltiazem HCl 240 mg 07/27/19 09:00 07/28/19 08:48 Cardizem Cd Cap* PO 240 mg DAILY DOROTEO Administration Docusate Sodium 100 mg 07/26/19 21:00 07/28/19 08:48 Colace Cap* PO 100 mg BID DOROTEO Administration Fluoxetine HCl 40 mg 07/27/19 09:00 07/28/19 08:48 Prozac Cap* PO 40 mg DAILY DOROTEO Administration Gabapentin 100 mg 07/26/19 21:00 07/28/19 08:49 Neurontin Cap(*) PO 100 mg BID DOROTEO Administration Insulin Human Lispro 0 units 07/26/19 21:00 07/28/19 16:27 Humalog* SUBCUT Not Given ACHS DOROTEO Protocol Magnesium Hydroxide 30 ml 07/26/19 10:28 07/28/19 15:55 Milk Of Magnesia Liq* PO 30 ml Q6H PRN Administration CONSTIPATION Melatonin 3 mg 07/26/19 10:45 07/27/19 20:57 Melatonin PO 3 mg BEDTIME PRN Administration SLEEP Metformin HCl 1,000 mg 07/27/19 09:00 07/28/19 08:48 Glucophage* PO 1,000 mg DAILY DOROTEO Administration Multivitamins/Minerals 1 tab 07/27/19 09:00 07/28/19 08:49 Theragran/Minerals Tab* PO 1 tab DAILY DOROTEO Administration Oxycodone/Acetaminophen 1 tab 07/26/19 10:47 Percocet 5/325 Tab* PO Q4H PRN PAIN - MODERATE Oxycodone/Acetaminophen 2 tab 07/26/19 10:48 07/28/19 15:56 Percocet 5/325 Tab* PO 2 tab Q4H PRN Administration PAIN - SEVERE Pantoprazole Sodium 40 mg 07/27/19 09:00 07/28/19 08:49 Protonix Tab* PO 40 mg DAILY DOROTEO Administration Polyethylene Glycol/Electrolytes 17 gm 07/26/19 10:53 07/27/19 16:27 Miralax* PO 17 gm DAILY PRN Administration CONSTIPATION Senna 2 tab 07/26/19 21:00 07/27/19 19:57 Senokot 8.6 Mg Tab* PO 2 tab BEDTIME DOROTEO Administration Vital Signs: Vital Signs Temp Pulse Resp BP Pulse Ox 98.2 F 66 18 133/58 95 07/28/19 15:45 07/28/19 15:45 07/28/19 18:52 07/28/19 15:45 07/28/19 16:04 Lab Results: Laboratory Results - last 24 hr 07/27/19 07/28/19 07/28/19 20:52 00:01 08:12 POC Glucose (mg/dL) 155 H 151 H Urine Color Yellow Urine Appearance Clear Urine pH 7.0 Ur Specific Triplett 1.015 Urine Protein Negative Urine Ketones Negative Urine Blood Negative Urine Nitrate Negative Urine Bilirubin Negative Urine Urobilinogen Negative Ur Leukocyte Esterase Negative Urine Glucose Negative 07/28/19 07/28/19 12:39 16:25 POC Glucose (mg/dL) 131 H 119 H Urine Color Urine Appearance Urine pH Ur Specific Triplett Urine Protein Urine Ketones Urine Blood Urine Nitrate Urine Bilirubin Urine Urobilinogen Ur Leukocyte Esterase Urine Glucose Exam: HEENT: EOMI LUNGS: Clear bilaterally HEART: Regular rhythm ABDOMEN: Soft, +BS EXTREMITIES: Left hip wound C/D/I NEUROLOGIC: A&O. Sensation appears intact. LLE 3-4/5 otherwise 5/5 Assessment/Plan: 1. Left BENJIE: PT/OT. Follow up with Dr. Willoughby 2. Paroxysmal atrial fibrillation: Eliquis/Cardizem 3. HTN: Cardizem 4. GERD: Protonix 5. DM: Metformin/SSI 6. Depression: Prozac 7. Trigeminal Neuralgia: Gabapentin 8. DVT Prophylaxis: Eliquis 9. Advanced Directives: Full code. is surrogate decision maker 07/28/19 19:32
[2019-07-28] MEDS: Senna TAB 8.6 mg* TAB PO SCH (20:52)
[2019-07-28] MEDS: Atorvastatin* 20 MG TAB PO SCH (20:52)
[2019-07-28] MEDS: Melatonin 3 MG TAB PO PRN (23:56)
[2019-07-29] MEDS: oxyCODONE/Acetamin 5/325 MG* TAB PO PRN ×3 (06:01→15:32)
[2019-07-29] MEDS: Insulin LISPRO* 1 UNITS UNIT SUBCUT SCH ×4 (09:42→20:12)
[2019-07-29] MEDS: Cyanocobalamin TAB* 500 MCG PO SCH (09:49)
[2019-07-29] MEDS: Calcium Citrate TAB* 200 MG PO SCH (09:49)
[2019-07-29] MEDS: Diltiazem CD CAP* 240 MG PO SCH (09:49)
[2019-07-29] MEDS: Apixaban* 5 MG TAB PO SCH ×2 (09:49→20:14)
[2019-07-29] MEDS: Docusate CAP* 100 MG PO SCH ×2 (09:50→20:14)
[2019-07-29] MEDS: Cyclobenzaprine TAB* 10 MG PO PRN ×3 (09:50→20:14)
[2019-07-29] MEDS: FLUoxetine CAP* 20 MG PO SCH (09:53)
[2019-07-29] MEDS: Cetirizine* 10 MG TAB PO SCH (09:53)
[2019-07-29] MEDS: Multivitamins/Minerals TAB PO SCH (09:53)
[2019-07-29] MEDS: Gabapentin CAP(*) 100 MG PO SCH ×2 (09:54→20:15)
[2019-07-29] MEDS: metFORMIN* 500 MG TAB PO SCH (09:55)
[2019-07-29] MEDS: Pantoprazole TAB * 40 MG TAB PO SCH (09:55)
[2019-07-29] MEDS: Senna TAB 8.6 mg* TAB PO SCH (20:13)
[2019-07-29] MEDS: Atorvastatin* 20 MG TAB PO SCH (20:14)
--- NOTE | 2019-07-29 20:14 | PN ---
Progress Note Date of Service: 07/29/19 Note: LIZETH BANSAL was visited. Therapy notes read and reviewed. Her blood sugars are improving and I think we can get rid of her finger sticks. Current Medications: Active Medications Generic Name Dose Route Start Last Admin Trade Name Freq PRN Reason Stop Dose Admin Acetaminophen 650 mg 07/26/19 10:28 Tylenol Tab* PO Q6H PRN FEVER > 101 Al Hydrox/Mg Hydrox/Simethicone 30 ml 07/26/19 10:28 Maalox Plus* PO Q6H PRN INDIGESTION Apixaban 5 mg 07/26/19 21:00 07/29/19 09:49 Eliquis* PO 5 mg BID DOROTEO Administration Atorvastatin Calcium 20 mg 07/26/19 21:00 07/28/19 20:52 Lipitor* PO 20 mg 2100 DOROTEO Administration Bisacodyl 10 mg 07/26/19 10:28 07/29/19 09:53 Dulcolax Supp* [place] 10 mg DAILY PRN Administration CONSTIPATION Calcium Citrate 200 mg 07/27/19 09:00 07/29/19 09:49 Citracal Tab* PO 200 mg DAILY DOROTEO Administration Cetirizine HCl 10 mg 07/27/19 09:00 07/29/19 09:53 Zyrtec* PO 10 mg DAILY DOROTEO Administration Cyanocobalamin 1,000 mcg 07/27/19 09:00 07/29/19 09:49 Vitamin B12 Tab* PO 1,000 mcg DAILY DOROTEO Administration Cyclobenzaprine HCl 10 mg 07/26/19 10:45 07/29/19 13:45 Flexeril Tab* PO 10 mg TID PRN Administration muscle spasm Dextrose 25 ml 07/26/19 10:46 Dextrose 50% Vial 50 Ml* IV PUSH .FOR FS < 60 - SS PRN FS < 60 Diltiazem HCl 240 mg 07/27/19 09:00 07/29/19 09:49 Cardizem Cd Cap* PO 240 mg DAILY DOROTEO Administration Docusate Sodium 100 mg 07/26/19 21:00 07/29/19 09:50 Colace Cap* PO 100 mg BID DOROTEO Administration Fluoxetine HCl 40 mg 07/27/19 09:00 07/29/19 09:53 Prozac Cap* PO 40 mg DAILY DOROTEO Administration Gabapentin 100 mg 07/26/19 21:00 07/29/19 09:54 Neurontin Cap(*) PO 100 mg BID DOROTEO Administration Insulin Human Lispro 0 units 07/26/19 21:00 07/29/19 20:12 Humalog* SUBCUT Not Given ACHS DOROTEO Protocol Magnesium Hydroxide 30 ml 07/26/19 10:28 07/28/19 15:55 Milk Of Magnesia Liq* PO 30 ml Q6H PRN Administration CONSTIPATION Melatonin 3 mg 07/26/19 10:45 07/28/19 23:56 Melatonin PO 3 mg BEDTIME PRN Administration SLEEP Metformin HCl 1,000 mg 07/27/19 09:00 07/29/19 09:55 Glucophage* PO 1,000 mg DAILY DOROTEO Administration Multivitamins/Minerals 1 tab 07/27/19 09:00 07/29/19 09:53 Theragran/Minerals Tab* PO 1 tab DAILY DOROTEO Administration Oxycodone/Acetaminophen 1 tab 07/26/19 10:47 Percocet 5/325 Tab* PO Q4H PRN PAIN - MODERATE Oxycodone/Acetaminophen 2 tab 07/26/19 10:48 07/29/19 15:32 Percocet 5/325 Tab* PO 2 tab Q4H PRN Administration PAIN - SEVERE Pantoprazole Sodium 40 mg 07/27/19 09:00 07/29/19 09:55 Protonix Tab* PO 40 mg DAILY DOROTEO Administration Polyethylene Glycol/Electrolytes 17 gm 07/26/19 10:53 07/27/19 16:27 Miralax* PO 17 gm DAILY PRN Administration CONSTIPATION Senna 2 tab 07/26/19 21:00 07/28/19 20:52 Senokot 8.6 Mg Tab* PO 2 tab BEDTIME DOROTEO Administration Vital Signs: Vital Signs Temp Pulse Resp BP Pulse Ox 98.3 F 78 20 138/65 92 07/29/19 15:51 07/29/19 15:51 07/29/19 18:18 07/29/19 15:51 07/29/19 17:43 Lab Results: Laboratory Results - last 24 hr 07/28/19 07/29/19 07/29/19 20:31 08:01 11:23 POC Glucose (mg/dL) 128 H 139 H 135 H 07/29/19 16:28 POC Glucose (mg/dL) 139 H Exam: HEENT: EOMI LUNGS: Clear bilaterally HEART: Regular rhythm ABDOMEN: Soft, +BS EXTREMITIES: Left hip wound C/D/I NEUROLOGIC: A&O. Sensation appears intact. LLE 4/5 otherwise 5/5 Assessment/Plan: 1. Left BENJIE: PT/OT. Follow up with Dr. Willoughby 2. Paroxysmal atrial fibrillation: Eliquis/Cardizem 3. HTN: Cardizem 4. GERD: Protonix 5. DM: Metformin/SSI 6. Depression: Prozac 7. Trigeminal Neuralgia: Gabapentin 8. DVT Prophylaxis: Eliquis 9. Advanced Directives: Full code. is surrogate decision maker 07/29/19 20:14
[2019-07-29] MEDS: Melatonin 3 MG TAB PO PRN (20:57)
[2019-07-30] MEDS: oxyCODONE/Acetamin 5/325 MG* TAB PO PRN ×5 (00:45→23:38)
[2019-07-30] MEDS: Insulin LISPRO* 1 UNITS UNIT SUBCUT SCH ×3 (09:55→17:24)
[2019-07-30] MEDS: Apixaban* 5 MG TAB PO SCH ×2 (10:06→21:04)
[2019-07-30] MEDS: Gabapentin CAP(*) 100 MG PO SCH ×2 (10:07→21:05)
[2019-07-30] MEDS: Cetirizine* 10 MG TAB PO SCH (10:07)
[2019-07-30] MEDS: metFORMIN* 500 MG TAB PO SCH (10:07)
[2019-07-30] MEDS: Cyanocobalamin TAB* 500 MCG PO SCH (10:07)
[2019-07-30] MEDS: Calcium Citrate TAB* 200 MG PO SCH (10:07)
[2019-07-30] MEDS: Multivitamins/Minerals TAB PO SCH (10:08)
[2019-07-30] MEDS: Diltiazem CD CAP* 240 MG PO SCH (10:08)
[2019-07-30] MEDS: FLUoxetine CAP* 20 MG PO SCH (10:08)
[2019-07-30] MEDS: Docusate CAP* 100 MG PO SCH ×2 (10:08→21:05)
[2019-07-30] MEDS: Pantoprazole TAB * 40 MG TAB PO SCH (10:09)
[2019-07-30] MEDS: Cyclobenzaprine TAB* 10 MG PO PRN ×2 (12:18→21:07)
--- NOTE | 2019-07-30 19:40 | PN ---
Progress Note Date of Service: 07/30/19 Note: LIZETH BANSAL was visited. Therapy notes read and reviewed. She has a slight cough and would like Robitussin. She is otherwise ready to go tomorrow Current Medications: Active Medications Generic Name Dose Route Start Last Admin Trade Name Freq PRN Reason Stop Dose Admin Acetaminophen 650 mg 07/26/19 10:28 Tylenol Tab* PO Q6H PRN FEVER > 101 Al Hydrox/Mg Hydrox/Simethicone 30 ml 07/26/19 10:28 Maalox Plus* PO Q6H PRN INDIGESTION Apixaban 5 mg 07/26/19 21:00 07/30/19 10:06 Eliquis* PO 5 mg BID DOROTEO Administration Atorvastatin Calcium 20 mg 07/26/19 21:00 07/29/19 20:14 Lipitor* PO 20 mg 2100 DOROTEO Administration Bisacodyl 10 mg 07/26/19 10:28 07/29/19 09:53 Dulcolax Supp* [place] 10 mg DAILY PRN Administration CONSTIPATION Calcium Citrate 200 mg 07/27/19 09:00 07/30/19 10:07 Citracal Tab* PO 200 mg DAILY DOROTEO Administration Cetirizine HCl 10 mg 07/27/19 09:00 07/30/19 10:07 Zyrtec* PO 10 mg DAILY DOROTEO Administration Cyanocobalamin 1,000 mcg 07/27/19 09:00 07/30/19 10:07 Vitamin B12 Tab* PO 1,000 mcg DAILY DOROTEO Administration Cyclobenzaprine HCl 10 mg 07/26/19 10:45 07/30/19 12:18 Flexeril Tab* PO 10 mg TID PRN Administration muscle spasm Dextrose 25 ml 07/26/19 10:46 Dextrose 50% Vial 50 Ml* IV PUSH .FOR FS < 60 - SS PRN FS < 60 Diltiazem HCl 240 mg 07/27/19 09:00 07/30/19 10:08 Cardizem Cd Cap* PO 240 mg DAILY DOROTEO Administration Docusate Sodium 100 mg 07/26/19 21:00 07/30/19 10:08 Colace Cap* PO 100 mg BID DOROTEO Administration Fluoxetine HCl 40 mg 07/27/19 09:00 07/30/19 10:08 Prozac Cap* PO 40 mg DAILY DOROTEO Administration Gabapentin 100 mg 07/26/19 21:00 07/30/19 10:07 Neurontin Cap(*) PO 100 mg BID DOROTEO Administration Magnesium Hydroxide 30 ml 07/26/19 10:28 07/28/19 15:55 Milk Of Magnesia Liq* PO 30 ml Q6H PRN Administration CONSTIPATION Melatonin 3 mg 07/26/19 10:45 07/29/19 20:57 Melatonin PO 3 mg BEDTIME PRN Administration SLEEP Metformin HCl 1,000 mg 07/27/19 09:00 07/30/19 10:07 Glucophage* PO 1,000 mg DAILY DOROTEO Administration Multivitamins/Minerals 1 tab 07/27/19 09:00 07/30/19 10:08 Theragran/Minerals Tab* PO 1 tab DAILY DOROTEO Administration Oxycodone/Acetaminophen 1 tab 07/26/19 10:47 Percocet 5/325 Tab* PO Q4H PRN PAIN - MODERATE Oxycodone/Acetaminophen 2 tab 07/26/19 10:48 07/30/19 18:12 Percocet 5/325 Tab* PO 2 tab Q4H PRN Administration PAIN - SEVERE Pantoprazole Sodium 40 mg 07/27/19 09:00 07/30/19 10:09 Protonix Tab* PO 40 mg DAILY DOROTEO Administration Polyethylene Glycol/Electrolytes 17 gm 07/26/19 10:53 07/27/19 16:27 Miralax* PO 17 gm DAILY PRN Administration CONSTIPATION Senna 2 tab 07/26/19 21:00 07/29/19 20:13 Senokot 8.6 Mg Tab* PO 2 tab BEDTIME DOROTEO Administration Vital Signs: Vital Signs Temp Pulse Resp BP Pulse Ox 98.0 F 76 18 127/49 97 07/30/19 16:03 07/30/19 16:03 07/30/19 18:12 07/30/19 16:03 07/30/19 16:54 Lab Results: Laboratory Results - last 24 hr 07/29/19 07/30/19 20:11 08:07 POC Glucose (mg/dL) 107 H 125 H Exam: HEENT: EOMI LUNGS: Clear bilaterally HEART: Regular rhythm ABDOMEN: Soft, +BS EXTREMITIES: Left hip wound C/D/I NEUROLOGIC: A&O. Sensation appears intact. LLE 4/5 otherwise 5/5 Assessment/Plan: 1. Left BENJIE: PT/OT. Follow up with Dr. Willoughby 2. Paroxysmal atrial fibrillation: Eliquis/Cardizem 3. HTN: Cardizem 4. GERD: Protonix 5. DM: Metformin/SSI 6. Depression: Prozac 7. Trigeminal Neuralgia: Gabapentin 8. DVT Prophylaxis: Eliquis 9. Advanced Directives: Full code. is surrogate decision maker 07/30/19 19:40
[2019-07-30] MEDS: Senna TAB 8.6 mg* TAB PO SCH (21:04)
[2019-07-30] MEDS: Atorvastatin* 20 MG TAB PO SCH (21:04)
[2019-07-30] MEDS ORDERED: guaiFENesin 100 mg/5 ml LIQ unit dose cup PO PRN (21:10)
[2019-07-30] MEDS: Melatonin 3 MG TAB PO PRN (23:33)
[2019-07-31 06:55] VITALS: BP 143/65
[2019-07-31] MEDS: Cyanocobalamin TAB* 500 MCG PO SCH (07:40)
[2019-07-31] MEDS: Apixaban* 5 MG TAB PO SCH (07:40)
[2019-07-31] MEDS: Multivitamins/Minerals TAB PO SCH (07:40)
[2019-07-31] MEDS: Cetirizine* 10 MG TAB PO SCH (07:40)
[2019-07-31] MEDS: Pantoprazole TAB * 40 MG TAB PO SCH (07:40)
[2019-07-31] MEDS: Calcium Citrate TAB* 200 MG PO SCH (07:40)
[2019-07-31] MEDS: FLUoxetine CAP* 20 MG PO SCH (07:40)
[2019-07-31] MEDS: Diltiazem CD CAP* 240 MG PO SCH (07:40)
[2019-07-31] MEDS: Docusate CAP* 100 MG PO SCH (07:40)
[2019-07-31] MEDS: Gabapentin CAP(*) 100 MG PO SCH (07:41)
[2019-07-31] MEDS: metFORMIN* 500 MG TAB PO SCH (07:41)
[2019-07-31] MEDS: oxyCODONE/Acetamin 5/325 MG* TAB PO PRN ×2 (07:42→11:16)
--- NOTE | 2019-07-31 16:35 | DS ---
CC: Dr. Arnoldo Angulo * DISCHARGE SUMMARY: DATE OF ADMISSION: 07/26/19 DATE OF DISCHARGE: 07/31/19 DISCHARGE DIAGNOSES: 1. Left total hip replacement. 2. Atrial fibrillation. 3. Diabetes mellitus. 4. Depression. 5. Cognitive decline. 6. Hypertension. 7. Asthma. HISTORY OF ILLNESS AND HOSPITAL COURSE: For complete history of the events leading up to her rehab stay, please see the history and physical dictated by me on 07/26/19. While on the rehab unit, the patient was largely medically stable. She was on Eliquis normally for her atrial fibrillation and this was also used for DVT prophylaxis. The patient's pain was adequately controlled with oral Percocet. She had fingersticks taken, which initially were slightly over 150, but as she became more active, gradually became consistently below 140. The patient otherwise was medically stable. Her wound looked clean. She was seen by both Physical and Occupational Therapy and made good gains with both disciplines. With physical therapy at the time of admission, the patient required mod assist for bed mobility, mod assist to do a transfer, she was mod assist to ambulate about 50 feet and mod assist to go up and down 4 stairs. With occupational therapy at the time of admission, the patient was setup for upper body dressing, max assist for lower body dressing, dependent for footwear , mod assist for toileting, mod assist for toilet transfers. By the time of discharge, the patient was independent and transfers independently, ambulating a 150 feet with a walker, independent going up and down 4 steps with 2 rails, independent for upper body dressing, supervision for lower body dressing, independent toilet transfers and supervision for bathing and tub transfers. The patient was discharged home with her on 07/31/19. DISCHARGE DIET: Consistent carbohydrate. DISCHARGE MEDICATIONS: 1. Eliquis 5 mg twice daily. 2. Lipitor 20 mg daily. 3. Zyrtec 10 mg daily. 4. Calcium citrate 200 mg daily. 5. Vitamin B12 1000 mcg daily. 6. Flexeril 10 mg 3 times daily as needed. 7. Cardizem CD 240 mg daily. 8. Prozac 40 mg daily. 9. Gabapentin 100 mg twice daily. 10. Metformin 1000 mg daily. 11. Percocet 1 to 2 tablets every 4 hours as needed. 12. Protonix 40 mg daily. 13. Senokot 2 tablets at bedtime. SERVICES AFTER DISCHARGE: Through visiting nurse service, she will have home nursing, home physical therapy, home occupational therapy. FOLLOWUP: Follow up with her orthopedic surgeon, Dr. Christiana Willoughby, as well as Dr. Arnoldo Angulo. CONDITION AT DISCHARGE: The patient was discharged home in good condition. DISPOSITION: Home. TIME SPENT: Time for this discharge was approximately 50 minutes, greater than half of that was spent with the patient and her explaining post- rehabilitation medications and therapies. [id number] #: [id number] MTDD
== END 2019-07-31 11:15 | disposition home health service (06) | DRG 561 ==
LOC: PMRU 11:20
PROVIDERS: ADMIT Physical Medicine & Rehabilitation; ATTEND Physical Medicine & Rehabilitation
PROC: F07Z5ZZ Bed Mobility Treatment (ICD-10-PCS; principal; 2019-07-26)
PROC: F07Z9ZZ Gait Training/Functional Ambulation Treatment (ICD-10-PCS; 2019-07-26)
PROC: F07Z8ZZ Transfer Training Treatment (ICD-10-PCS; 2019-07-26)
PROC: F07Z4ZZ Wheelchair Mobility Treatment (ICD-10-PCS; 2019-07-26)
PROC: F08Z0ZZ Bathing/Showering Techniques Treatment (ICD-10-PCS; 2019-07-26)
PROC: F08Z1ZZ Dressing Techniques Treatment (ICD-10-PCS; 2019-07-26)
PROC: F08Z3ZZ Feeding/Eating Treatment (ICD-10-PCS; 2019-07-26)
PROC: F08Z2ZZ Grooming/Personal Hygiene Treatment (ICD-10-PCS; 2019-07-26)
DX: Z47.1 Aftercare following joint replacement surgery (principal); Z96.642 Presence of left artificial hip joint; R41.81 Age-related cognitive decline; I48.0 Paroxysmal atrial fibrillation; E11.9 Type 2 diabetes mellitus without complications; F32.9 Major depressive disorder, single episode, unspecified; I10 Essential (primary) hypertension; J45.909 Unspecified asthma, uncomplicated; K21.9 Gastro-esophageal reflux disease without esophagitis; G50.0 Trigeminal neuralgia; K59.00 Constipation, unspecified; Z96.641 Presence of right artificial hip joint; E78.5 Hyperlipidemia, unspecified; G25.0 Essential tremor; Z95.0 Presence of cardiac pacemaker; Z86.14 Personal history of Methicillin resistant Staphylococcus aureus infection; Z79.01 Long term (current) use of anticoagulants; Z79.84 Long term (current) use of oral hypoglycemic drugs; Z79.1 Long term (current) use of non-steroidal anti-inflammatories (NSAID); Z79.891 Long term (current) use of opiate analgesic; Z79.899 Other long term (current) drug therapy; Z88.8 Allergy status to other drugs, medicaments and biological substances; Z82.3 Family history of stroke; Z83.3 Family history of diabetes mellitus; Z80.42 Family history of malignant neoplasm of prostate
CPT/HCPCS: 36415; 80053; 81003; 85025; A9270-GY